=== PATIENT | female | born 1995 | race Two or more races ===

== ENCOUNTER 2020-10-13 07:58 | Outpatient (REF) | payer OTHER, SELFPAY ==
[2020-10-13 09:44] LABS: SARS COV2 PCR INHOUSE NEGATIVE (Negative)
== END 2020-10-13 07:59 | disposition home or self-care (01) ==
LOC: HO.LAB 07:58
PROVIDERS: Visit Provider Internal Medicine
DX: Z20.822 Contact with and (suspected) exposure to COVID-19 (principal)
CPT/HCPCS: C9803; U0003

== ENCOUNTER 2020-10-24 12:09 | Outpatient (REF) | payer OTHER, SELFPAY ==
[2020-10-24 14:02] LABS: COVID-19 Test Negative (Negative); IDNOW Serial# 55D5AD1C
== END 2020-10-24 12:10 | disposition home or self-care (01) ==
LOC: HO.LAB 12:09
PROVIDERS: Visit Provider Internal Medicine
DX: Z20.822 Contact with and (suspected) exposure to COVID-19 (principal)
CPT/HCPCS: 36415; 87635; C9803

== ENCOUNTER 2021-07-01 20:56 | Emergency (ER) | payer OTHER, SELFPAY ==
[2021-07-01 21:11] VITALS: BP 117/72; PULSE 100; O2SAT 98; BMI 26.8
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
[2021-07-01] MEDS: Acetaminophen Oral Liquid 650 MG/20.3 ML SOLUTION PO (23:30)
== END 2021-07-01 23:40 | disposition home or self-care (01) ==
PROVIDERS: Emergency Provider Emergency Medicine; PCP Internal Medicine Geriatric Medicine
DX: Z04.1 Encounter for examination and observation following transport accident (principal); M54.50 Low back pain, unspecified
CPT/HCPCS: 99283

== ENCOUNTER 2022-05-10 17:34 | Emergency (ER) | payer OTHER, SELFPAY ==
[2022-05-10 17:54] VITALS: BP 119/67; PULSE 92; RESP 18; TEMP 36.7; O2SAT 99; BMI 26.0
[2022-05-10 18:26] LABS: MANUAL DIFF FLAG NO
[2022-05-10 18:29] LABS: Appearance Urine Cloudy; Color Urine Yellow; Glucose Urine UA Negative (Negative); Leukocyte Esterase Urine Trace (Negative); Nitrite Urine Negative (Negative); PH 5.5 (5.0-9.0); Specific Gravity - Urine >= 1.030 (1.005-1.025); UMIC TRIGGER UACC YES; Urine Blood Large (3+) (Negative); Urine Ketones Negative (Negative); Urine Protein 300 (3+) mg/dL (Neg-Trace)
[2022-05-10 18:30] LABS: UPreg QC Valid YES; Urine Pregnancy NEGATIVE (NEGATIVE)
[2022-05-10 18:32] LABS: Alanine Aminotransferase 17 U/L (0-31); Albumin Level 4.4 g/dL (3.5-5.0); Alkaline Phosphatase 110 U/L (39-117); Anion Gap 14 (12-20); Aspartate Amino Transferase 17 U/L (5-31); Bilirubin Total 0.4 mg/dL (0.0-1.0); Blood Urea Nitrogen 12 mg/dL (9-16); Calcium 9.6 mg/dL (8.4-10.2); Carbon Dioxide 25 mmol/L (22-29); Chloride 104 mmol/L (96-108); Creatinine Clr Calc Pharmacy 99.5; Estimated Glomerular Filt Rate > 60; Glucose Random 86 mg/dL (60-115); Potassium 3.9 mmol/L (3.3-5.1); Sodium 139 mmol/L (135-145); Total Protein 8.2 g/dL (6.5-8.0)
[2022-05-10 18:36] LABS: Basophils Percent Auto 0.3 % (0-2); Eosinophils Absolute Auto 0.1 X10*3/uL (0.0-0.4); Eosinophils Percent Auto 1.1 % (0-4); Hemoglobin 9.6 g/dl (12.0-16.0); Imm Gran Abs Auto 0.03 X10*3/uL (0.00-0.03); Imm Gran Pct Auto 0.3 % (0.0-0.4); Lymphocytes Absolute Auto 2.5 X10*3/uL (1.2-4.9); Lymphocytes Percent Auto 24.2 % (20-40); Mean Corpuscular Hemoglobin 23.7 pg (27.0-33.0); Mean Corpuscular Volume 76.5 fL (80.0-98.0); Mean Platelet Volume 9.4 fL (9.4-12.3); Monocytes Absolute Auto 0.7 X10*3/uL (0.1-1.2); Monocytes Percent Auto 6.8 % (2-11); Neutrophils Percent Auto 67.3 % (45-73); Platelet Count 484 X10*3/uL (160-400); Red Blood Count 4.05 X10*6/uL (4.20-5.50); Red Cell Distribution Width 15.7 % (11.0-16.0); White Blood Count 10.4 X10*3/uL (4.8-10.8)
[2022-05-10 18:41] LABS: Bacteria Urine Trace (None Seen); RBC Urine >20 /HPF (0-2); Renal Epithelial Cells Urine Present; Transitional Epi Cells Urine Present; UACC Culture Trigger YES; WBC Urine 21-50 /HPF (0-5)
[2022-05-10 20:29] VITALS: BP 114/68; PULSE 84; RESP 16; TEMP 36.9; O2SAT 100
--- NOTE | 2022-05-10 20:52 | ED.FEMALEGU ---
HPI - Female Genitourinary General Chief complaint: Vaginal Bleeding Stated complaint: uti Time Seen by Provider: 05/10/22 20:42 Source: patient Mode of arrival: ambulatory Limitations: no limitations History of Present Illness HPI Narrative: patient comes to the emergency room complaining of hematuria and dysuria for approximately 20 hours. Patient denies any fever chills, no significant abdominal pain or flank pain. Related Data Previous Rx's Medication Instructions Recorded phenazopyridine 100 mg tablet 100 mg PO TID #5 tabs 05/10/22 sulfamethoxazole 400 1 tab PO BEDTIME #5 tabs 05/10/22 mg-trimethoprim 80 mg tablet (Bactrim) Allergies Allergy/AdvReac Type Severity Reaction Status Date / Time black pepper Allergy Angioedema Verified 05/10/22 17:58 Review of Systems Review of Systems: Constitutional : No Weight loss, No Fever, No Chills, No Night Sweats, No Fatigue, No Malaise ENT/Mouth : No Hearing loss, No Ear Pain, No Nasal Congestion, No Sinus Pain, No Hoarseness, No sore throat, No Rhinorrhea, No Swallowing Difficulty Eyes: No Eye Pain, No Swelling, No Redness, No Foreign Body, No Discharge, No Vision Changes Cardiovascular : No Chest Pain, No SOB, No Dyspnea on Exertion, No Orthopnea, No Edema, No Palpitations Respiratory : No Cough, No Sputum, No Wheezing, No Smoke Exposure, No Dyspnea Gastrointestinal : No Nausea, No Vomiting, No Diarrhea, No Constipation, No abdominal Pain, No Hematochezia, No Melena Genitourinary : no irregular bleeding, Complaining of hematuria and dysuria, No Urinary Incontinence, No Urgency, No Flank Pain, No Urinary Flow Changes, No Hesitancy Musculoskeletal : No joint pain, No Myalgias, No Joint Swelling Skin : No Skin Lesions, No rash Neuro : No Weakness, No Numbness, No Paresthesias, No Loss of Consciousness, No Dizziness, No Headache Psych : No Anxiety/Panic, No Depression, No SI/HI/AH/VH, No Social Issues, Heme/Lymph: No Bruising, No Bleeding,No Lymphadenopathy Endocrine : No Polyuria, No Polydipsia, No Temperature Intolerance [facility] Social History Social History Alcohol intake: never Patient Tobacco Use Status: Never used Tobacco Smoked in Last 30 Days: No Use of substances other than those prescribed or required for medical reasons: No Physical Exam Vital Signs: Vital Signs: Last Vital Signs Temp 98.5 F 05/10/22 20:29 Pulse 84 05/10/22 20:29 Resp 16 05/10/22 20:29 BP 114/68 05/10/22 20:29 Pulse Ox 100 05/10/22 20:29 O2 Del Method 05/10/22 20:29 BMI result Body Mass Index 26.0 Const: Other: Appearance: Alert. Oriented X3. No acute distress. Eyes: Pupils equal, round and reactive to light. ENT: Pharynx normal. Neck: Normal inspection. Neck supple. No lymph nodes noted. No crepitus CVS: Normal heart rate and rhythm. Pulses normal. Normal S1 and S2 Respiratory: No respiratory distress. Breath sounds normal. No Wheezing. No rales Abdomen: Soft and nontender. No rigidity. No distention. , no flank pain Skin: Skin warm and dry. Normal skin color. Normal skin turgor. Extremities: No lower extremity edema. No Lacerations. No Rash Neuro: Oriented X 3. No motor deficit. No sensory deficit. Moving all extremities. No slurred speech. CN 2 through 12 grossly intact Psych: calm, cooperative, normal affect Course Course Course Narrative: patient is well-appearing. test negative, white blood cell count within normal limits, no fever, normal blood pressure, no flank pain. Pyelonephritis sepsis not suspected. Patient was given 1 dose of p.o. and phenazopyridine MDM - Female Genitourinary Lab Data Result diagrams: 05/10/22 18:10 05/10/22 18:10 Labs: Lab Results 05/10/22 05/10/22 05/10/22 Range/Units 18:10 18:10 18:10 WBC 10.4 (4.8-10.8) X10*3/uL RBC 4.05 L (4.20-5.50) X10*6/uL Hgb 9.6 L (12.0-16.0) g/dl Hct 31.0 L (37.0-47.0) % MCV 76.5 L (80.0-98.0) fL MCH 23.7 L (27.0-33.0) pg MCHC 31.0 (31.0-35.0) g/dl RDW 15.7 (11.0-16.0) % Plt Count 484 H (160-400) X10*3/uL MPV 9.4 (9.4-12.3) fL Immature Gran % (Auto) 0.3 (0.0-0.4) % Neut % (Auto) 67.3 (45-73) % Lymph % (Auto) 24.2 (20-40) % [place] % (Auto) 6.8 (2-11) % Eos % (Auto) 1.1 (0-4) % Baso % (Auto) 0.3 (0-2) % Lymph # (Auto) 2.5 (1.2-4.9) X10*3/uL [place] # (Auto) 0.7 (0.1-1.2) X10*3/uL Eos # (Auto) 0.1 (0.0-0.4) X10*3/uL Baso # (Auto) 0.0 (0.0-0.2) X10*3/uL Abs Immat Gran (auto) 0.03 (0.00-0.03) X10*3/uL Absolute Neuts (auto) 7.0 (2.0-8.3) x10*3/uL Absolute Nucleated RBC 0.000 (0.0-0.012) X10*3/uL Nucleated RBC % (auto) 0.0 (0.0-0.2) /100WBC Sodium 139 (135-145) mmol/L Potassium 3.9 (3.3-5.1) mmol/L Chloride 104 (96-108) mmol/L Carbon Dioxide 25 (22-29) mmol/L Anion Gap 14 (12-20) BUN 12 (9-16) mg/dL Creatinine 0.72 (0.5-1.4) mg/dL Estim Creat Clear Calc 99.5 Estimated GFR > 60 Random Glucose 86 (60-115) mg/dL Calcium 9.6 (8.4-10.2) mg/dL Total Bilirubin 0.4 (0.0-1.0) mg/dL AST 17 (5-31) U/L ALT 17 (0-31) U/L Alkaline Phosphatase 110 (39-117) U/L Total Protein 8.2 H (6.5-8.0) g/dL Albumin 4.4 (3.5-5.0) g/dL Urine Color Yellow Urine Appearance Cloudy Urine pH 5.5 (5.0-9.0) Ur Specific Gervais >= 1.030 H (1.005-1.025) Urine Protein 300 (3+) H (Neg-Trace) mg/dL Urine Glucose (UA) Negative (Negative) mg/dL Urine Ketones Negative (Negative) mg/dL Urine Blood Large (3+) H (Negative) Urine Nitrite Negative (Negative) Ur Leukocyte Esterase Trace H (Negative) Urine RBC >20 H (0-2) /HPF Urine WBC 21-50 H (0-5) /HPF Ur Squamous Epith Cells 6-10 (0-2) /HPF Ur Transition Epith Cell Present Ur Renal Epithelial Cell Present Urine Bacteria Trace (None Seen) Hyaline Casts 3-5 (0-2) /LPF Urine Test (NEGATIVE) 05/10/22 Range/Units 18:10 WBC (4.8-10.8) X10*3/uL RBC (4.20-5.50) X10*6/uL Hgb (12.0-16.0) g/dl Hct (37.0-47.0) % MCV (80.0-98.0) fL MCH (27.0-33.0) pg MCHC (31.0-35.0) g/dl RDW (11.0-16.0) % Plt Count (160-400) X10*3/uL MPV (9.4-12.3) fL Immature Gran % (Auto) (0.0-0.4) % Neut % (Auto) (45-73) % Lymph % (Auto) (20-40) % [place] % (Auto) (2-11) % Eos % (Auto) (0-4) % Baso % (Auto) (0-2) % Lymph # (Auto) (1.2-4.9) X10*3/uL [place] # (Auto) (0.1-1.2) X10*3/uL Eos # (Auto) (0.0-0.4) X10*3/uL Baso # (Auto) (0.0-0.2) X10*3/uL Abs Immat Gran (auto) (0.00-0.03) X10*3/uL Absolute Neuts (auto) (2.0-8.3) x10*3/uL Absolute Nucleated RBC (0.0-0.012) X10*3/uL Nucleated RBC % (auto) (0.0-0.2) /100WBC Sodium (135-145) mmol/L Potassium (3.3-5.1) mmol/L Chloride (96-108) mmol/L Carbon Dioxide (22-29) mmol/L Anion Gap (12-20) BUN (9-16) mg/dL Creatinine (0.5-1.4) mg/dL Estim Creat Clear Calc Estimated GFR Random Glucose (60-115) mg/dL Calcium (8.4-10.2) mg/dL Total Bilirubin (0.0-1.0) mg/dL AST (5-31) U/L ALT (0-31) U/L Alkaline Phosphatase (39-117) U/L Total Protein (6.5-8.0) g/dL Albumin (3.5-5.0) g/dL Urine Color Urine Appearance Urine pH (5.0-9.0) Ur Specific Gervais (1.005-1.025) Urine Protein (Neg-Trace) mg/dL Urine Glucose (UA) (Negative) mg/dL Urine Ketones (Negative) mg/dL Urine Blood (Negative) Urine Nitrite (Negative) Ur Leukocyte Esterase (Negative) Urine RBC (0-2) /HPF Urine WBC (0-5) /HPF Ur Squamous Epith Cells (0-2) /HPF Ur Transition Epith Cell Ur Renal Epithelial Cell Urine Bacteria (None Seen) Hyaline Casts (0-2) /LPF Urine Test NEGATIVE (NEGATIVE) Discharge Plan Discharge Clinical Impression: UTI (urinary tract infection) Patient Disposition: Home, Self-Care Instructions: Urinary Tract Infection in Women (ED) Additional Instructions: Please follow-up with your primary care physician tomorrow. If you have any worsening or new symptoms, please return to the emergency room or call 911 Prescriptions: New sulfamethoxazole-trimethoprim [Bactrim] 400-80 mg tablet 1 tab PO BEDTIME Qty: 5 0RF phenazopyridine 100 mg tablet 100 mg PO TID Qty: 5 0RF
[2022-05-10] MEDS: Sulfamethox/Trimeth 800/160 TABLET 1 TAB PO (21:17)
[2022-05-10] MEDS: Phenazopyridine HCL 100 MG TABLET PO (21:17)
== END 2022-05-10 21:31 | disposition home or self-care (01) ==
PROVIDERS: Emergency Provider Emergency Medicine; PCP Internal Medicine Geriatric Medicine
DX: N39.0 Urinary tract infection, site not specified (principal); Z79.899 Other long term (current) drug therapy
CPT/HCPCS: 36415; 80053; 81001; 81025; 85025; 87086; 99283; 99284

== ENCOUNTER 2023-03-21 19:09 | Outpatient (REF) | payer OTHER, SELFPAY | END 2023-03-21 19:10 | disposition home or self-care (01) | LOC: HO.HHCLNP 19:09 | PROVIDERS: Visit Provider Advanced Practice Midwife | DX: Z12.4 Encounter for screening for malignant neoplasm of cervix (principal) | CPT/HCPCS: 88142 ==

== ENCOUNTER 2023-04-03 13:10 | Outpatient (REF) | payer OTHER, SELFPAY ==
--- NOTE | ~2023-04-03 | US_ITS ---
EXAMINATION: US PELVIS COMPLETE CLINICAL INFORMATION: Pelvic pain COMPARISON: CT abdomen pelvis 10/20/2015 TECHNIQUE: Transabdominal and transvaginal imaging was performed. FINDINGS: The uterus is of normal size and echogenicity measuring 7.9 x 4.0 x 5.3 cm. A regular homogeneous endometrium is identified measuring 1.2 cm. Trace fluid in the endocervical canal. Both ovaries are of normal size and echogenicity. The right measures 2.6 x 1.7 x 2.3 cm for a volume of 5.3 mL. The left measures 3.4 x 1.8 x 2.6 cm for a volume of 8.3 mL. There is no pelvic free fluid. US/US pelvic and transvaginal IMPRESSION: Trace fluid in the endocervical canal. Otherwise unremarkable pelvic ultrasound.
== END 2023-04-03 13:11 | disposition home or self-care (01) ==
LOC: HO.US 13:10
PROVIDERS: PCP Internal Medicine Geriatric Medicine; Visit Provider Advanced Practice Midwife
DX: R10.2 Pelvic and perineal pain (principal)
CPT/HCPCS: 76830; 76856

== ENCOUNTER 2023-08-23 12:43 | Outpatient (REF) | payer OTHER, SELFPAY ==
[2023-08-23 13:24] LABS: MANUAL DIFF FLAG NO
[2023-08-23 13:31] LABS: Basophils Percent Auto 0.3 % (0-2); Eosinophils Absolute Auto 0.1 X10*3/uL (0.0-0.4); Eosinophils Percent Auto 1.1 % (0-4); Hematocrit 31.3 % (37.0-47.0); Hemoglobin 9.6 g/dl (12.0-16.0); Imm Gran Abs Auto 0.02 X10*3/uL (0.00-0.03); Imm Gran Pct Auto 0.3 % (0.0-0.4); Lymphocytes Absolute Auto 2.1 X10*3/uL (1.2-4.9); Lymphocytes Percent Auto 32.6 % (20-40); Mean Corpuscular HGB Conc 30.7 g/dl (31.0-35.0); Mean Corpuscular Volume 75.1 fL (80.0-98.0); Mean Platelet Volume 9.8 fL (9.4-12.3); Monocytes Absolute Auto 0.5 X10*3/uL (0.1-1.2); Monocytes Percent Auto 7.8 % (2-11); Neutrophils Absolute Auto 3.7 x10*3/uL (2.0-8.3); Neutrophils Percent Auto 57.9 % (45-73); Platelet Count 430 X10*3/uL (160-400); Red Blood Count 4.17 X10*6/uL (4.20-5.50); Red Cell Distribution Width 16.9 % (11.0-16.0); White Blood Count 6.3 X10*3/uL (4.8-10.8)
[2023-08-23 14:17] LABS: Alanine Aminotransferase 13 U/L (0-31); Albumin Level 4.2 g/dL (3.5-5.0); Alkaline Phosphatase 99 U/L (39-117); Anion Gap 12 (12-20); Aspartate Amino Transferase 16 U/L (5-31); Bilirubin Total 0.6 mg/dL (0.0-1.0); Blood Urea Nitrogen 12 mg/dL (9-16); Calcium 9.5 mg/dL (8.4-10.2); Carbon Dioxide 23 mmol/L (22-29); Chloride 107 mmol/L (96-108); Estimated Glomerular Filt Rate > 60; Glucose Random 80 mg/dL (60-115); Potassium 3.8 mmol/L (3.3-5.1); Sodium 138 mmol/L (135-145); TSH reflex Free T4 1.33 uIU/mL (0.32-4.0); Total Protein 8.2 g/dL (6.5-8.0)
[2023-08-23 15:03] LABS: Estimated Average Glucose 108 mg/dL; Hemoglobin A1c % 5.4 % (<6.0)
[2023-08-24 03:46] LABS: HBS Num1 0.46 mIU/mL (0-7.99); HBc Num1 0.36 S/CO (0.00-0.79); HBsAGNum1 0.29 S/CO (0.00-0.99); HIV AB/AG Nonreactive (Nonreactive); HIV Num 1 0.05 S/CO (0.00-0.99); Hepatitis B Core Antibody Nonreactive (Nonreactive); Hepatitis B Surface Antigen Negative (Negative); ~HepC Num1 0.23 S/CO (0.00-0.79); ~Hepatitis B Surface Antibody NONREACTIVE (Nonreactive); ~Hepatitis C Antibody Nonreactive (Nonreactive)
[2023-08-26 12:18] LABS: RPR Rapid Plasma Reagin NON-REACTIVE (NON-REACTIVE)
== END 2023-08-23 12:44 | disposition home or self-care (01) ==
LOC: HO.HHCL 12:43
PROVIDERS: Visit Provider Nurse Practitioner
DX: Z11.3 Encounter for screening for infections with a predominantly sexual mode of transmission (principal); R25.1 Tremor, unspecified; Z86.2 Personal history of diseases of the blood and blood-forming organs and certain disorders involving the immune mechanism
CPT/HCPCS: 36415; 80053; 83036; 84443; 85025; 86592; 86704; 86706; 86803; 87340; 87389

== ENCOUNTER 2023-08-26 13:08 | Outpatient (REF) | payer OTHER, SELFPAY ==
[2023-08-27 07:48] LABS: C Peptide 4.85 ng/mL (0.80-3.85)
== END 2023-08-26 13:09 | disposition home or self-care (01) ==
LOC: HO.LAB 13:08
PROVIDERS: PCP Nurse Practitioner; Visit Provider Nurse Practitioner
DX: R25.1 Tremor, unspecified (principal)
CPT/HCPCS: 36415; 84681

== ENCOUNTER 2024-03-31 12:40 | Outpatient (REF) | payer OTHER, SELFPAY ==
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
== END 2024-03-31 12:41 | disposition home or self-care (01) ==
LOC: HO.MAMMO 12:40
PROVIDERS: PCP Nurse Practitioner; Visit Provider Advanced Practice Midwife
DX: N63.22 Unspecified lump in the left breast, upper inner quadrant (principal)
CPT/HCPCS: 76641

== ENCOUNTER → 2024-03-31 13:00 | Outpatient (BNV) | payer OTHER, SELFPAY | PROVIDERS: PCP Nurse Practitioner; Visit Provider Radiology Diagnostic Radiology | DX: N63.22 Unspecified lump in the left breast, upper inner quadrant (principal) | CPT/HCPCS: 76641 ==

== ENCOUNTER 2024-07-01 10:52 | Outpatient (REF) | payer OTHER, SELFPAY ==
--- NOTE | ~2024-07-01 | US_ITS ---
EXAMINATION: US DIAGNOSTIC ULTRASOUND BREAST, LEFT Limited left breast ultrasound. CLINICAL INFORMATION: 29-year-old female with palpable left breast lump for which a three-month follow-up was recommended. Patient feels like the area has gotten bigger in size and is more painful.. COMPARISON: Comparison is made with relevant prior imaging. TECHNIQUE: Ultrasound of the breast is performed with real-time milton scale imaging and color Doppler. FINDINGS: Targeted color Doppler ultrasound scanning at 10:00 4 cm from nipple demonstrates a hypoechoic irregular solid masses with internal vascular flow measuring approximately 7 x 9 x 6 mm. Given the patient's increased symptoms and size ultrasound guided core needle biopsy is recommended at this time. Results are discussed with the patient at time of visit. US/US breast LT limited mamm only IMPRESSION: Solid irregular mass at 10:00 in the left breast on ultrasound. Recommend histology with ultrasound-guided core needle biopsy at this time. The findings and recommendations were discussed with the patient the procedure will be scheduled. ASSESSMENT: BI-RADS 4: Suspicious RECOMMENDATION: Biopsy This patient's information was entered into a reminder system with a target due date for their next mammogram. Electronically signed by: Priscilla Chacon DO 07/01/2024 11:45 AM DEANNA
== END 2024-07-01 10:53 | disposition home or self-care (01) ==
LOC: HO.MAMMO 10:52
PROVIDERS: PCP Nurse Practitioner; Visit Provider Nurse Practitioner
DX: N63.22 Unspecified lump in the left breast, upper inner quadrant (principal)
CPT/HCPCS: 76642

== ENCOUNTER → 2024-07-01 11:00 | Outpatient (BNV) | payer OTHER, SELFPAY | PROVIDERS: PCP Nurse Practitioner; Visit Provider Internal Medicine | DX: N63.21 Unspecified lump in the left breast, upper outer quadrant (principal) | CPT/HCPCS: 76642 ==

== ENCOUNTER 2024-07-29 07:45 | Outpatient (AMB) | payer OTHER, SELFPAY ==
--- OUTSIDE RECORDS SUMMARY | 2024-07-29 07:47 | XMS_ITS | Continuity of Care Document ---
Author Organization [facility] Address [address] [place] [address] Phone Care Team Providers Care Mammographer Name Role Phone Elvis RAY, Jemal Unavailable Unavaila ble Allergies, Adverse Reactions, Alerts Substance Reaction Status Criticality No Known Allergies Active No Inform ation Medications Medication Instructions Dosage Effective Dates (start - stop) Status Comments No Drug Therapy Prescribed Problems Condition Type Effective Dates (start - stop) Clini say Status Comments No Known Problems Procedures Procedure Date OV, New Pt, Level III Removal Of Impacted Cerumen Tympanometry Comp Audiometry Threshold Eval 17 OV, Estab Pt, Level IV Intracutaneous Tests W/ Allergen Ex Percut Allergy Skin Tests OV, Estab Pt, Level II OV, Estab Pt, Level II Tympanometry Comp Audiometry Threshold Eval 12 OV, Estab Pt, Level II Tympanometry Post Op Office Visit Tympanoplasty,W/O Ossicular Reconst Myringoplasty OV, Estab Pt, Level II OV, Estab Pt, Level II OV, Estab Pt, Level III OV, Estab Pt, Level III Comp Audiometry Threshold Eval 11 Tympanometry And Reflex Threshold Measur ements OV, Estab Pt, Level III Consult, Level III /Office Spirometry W/[id number] Kendrick 009 Percut Allergy Skin Tests OV, Estab Pt, Level IV Comp Audiometry Threshold Eval 09 Tympanometry Acoustic Reflex Testing OV, Estab Pt, Level IV Diagnostic Nasal Endoscopy OV, Estab Pt, Level III OV, Estab Pt, Level II Comp Audiometry Threshold Eval 07 Tympanometry Acoustic Reflex Testing OV, Estab Pt, Level II OV, Estab Pt, Level II OV, Estab Pt, Level II Diagnostic Fiberoptic Laryngoscopy OV, Estab Pt, Level II Advance Directives Directive Yes / No Effective Date File Name No Information Encounters Encounter Description Practice Location Reason(s) For Visit Diagnoses Date Provider Providers Copied on Encounter [facility], [address], [place], [place], [id number] , tel: [phone] [facility] No Information 1 Elvis Joaquin. [address] [facility], [facility] [address], [place], [id number], . tel:[phone] OV, New Pt, Level III [facility], [address], [place], [place], [id number] , tel:[phone] [facility] cerumen impaction (chief complaint) Decreased hearing -adult (chief complaint) Condctv hear loss, uni, left ear, w unrestr hear cntra sideImpacted cerumen, bilateralConduct doris hearing loss, bilateral Alex--201 7 Elvis Joaquin. [address] [facility], [address], [place], [id number], [place]. tel:[phone] OV, Estab Pt, Level IV [facility], [address], [place], [place], [id number] , [place] tel: [phone] [facility] Rhinitis(A ) (chief complaint) Asthma (chief complaint) Food Allergy (chief complaint) No Information 4 No Information Referring Provider: Jemal Leal MD, [address] [place] [address], [address]. tel:[phone] OV, Estab Pt, Level II [facility], [address], [place], [id number] , [place] tel: [phone] [facility] Ear Fullness (chief complaint) Impacted Cerumen 4 Elvis Joaquin. [address] [facility], [address], [id number], . tel:[phone] Referring Provider: Malina Álvarez , [address] [place] [address], [address]. tel:[phone] OV, Estab Pt, Level II [facility], [address], [place], [place], [id number] , tel: [phone] [facility] Chr Serous Om Simp/nos 2 Elvis Joaquin. [address] [facility], [address] [place] [address], [id number], [place]. tel:[phone] Referring Provider: Sid Wallace, [address] [place] [address], [address]. tel:[phone] OV, Estab Pt, Level II [facility], [address] [place] [address], [id number] , [place] tel: [phone] [facility] Dysfunct Eustachian TubeOtitis Media Nos 2 Elvis Joaquin. [address] [facility], [address], [id number], [place]. tel:[phone] Referring Provider: Sid Wallace, [address] [place] [address], [address]. tel:[phone] [facility], [address], [place], [place], [id number] , [place] tel: [phone] [facility] post-opera tive visit (chief complaint) Perforat Tympan Memb Nos Sep-2 8-201 1 Elvis Joaquin. [address] [facility], [address], [place], [id number], [place]. tel:[phone] Referring Provider: Sid Wallace, [address] [place] [address], [address]. tel:[phone] [facility], [address], [place], [place], [id number] , [place] tel: [phone] [facility] No Information Sep-2 2-201 1 Elvis Joaquin. [address] [facility], [address], [id number], [place]. tel:[phone] Referring Provider: Sid Wallace, [address] [place] [address], [address]. tel:[phone] OV, Estab Pt, Level II [facility], [address], [place], [id number] , [place] tel: [phone] [facility] Ear Discharge (chief complaint) Perforat Tympan Memb NosOtorrhea Nos Sep-2 0-201 1 Elvis Joaquin. [address] [facility], [address], [place], [id number], [place]. tel:[phone] Referring Provider: Sid Wallace, [address] [place] [address], [address]. tel:[phone] OV, Estab Pt, Level II [facility], [address], [place], [place], [id number] , [place] tel: [phone] [facility] Otorrhea NosPerforat Tympan Memb Nos 1 Elvis Joaquin. [address] [facility], [address], [id number], . tel: [phone] Referring Provider: Sid Wallace, [address] [place], [address]. tel: [phone] OV, Estab Pt, Level III [facility], [address], [place], [place], [id number] , [place] tel: [phone] [facility] Perforat Tympan Memb Nos 1 Elvis Joaquin. [address] [facility], [address], [id number], . tel: [phone] Referring Provider: Sid Wallace, [facility] [place], [address]. tel: [phone] OV, Estab Pt, Level III [facility], [address], [place], [place], [id number] , [place] tel: [phone] [facility] Ear Discharge (chief complaint) Hearing Loss (chief complaint) Perforat Tympan Memb NosConduc Hear Loss Mid EarOral Aphthae 1 Elvis Joaquin. [address] [facility], [address], [id number], [place]. tel: [phone] Referring Provider: Sid Wallace, [address] [place], [address]. tel: [phone] OV, Estab Pt, Level III [facility], [address], [place], [id number] , [place] tel: [phone] [facility] Ear Discharge (chief complaint) Hearing Loss (chief complaint) Otorrhea NosHearing Loss NosPerforat Tympan Memb Nos 1 Elvis Joaquin. [address] [facility], [address] [place] [address], [id number], [place]. tel:[phone] Consult, Level III /Office [facility], [address], [place], [place], [id number] , [place] tel: [phone] [facility] Rhinitis(A ) (chief complaint) Asthma (chief complaint) Food Allergy (chief complaint) Asthma W/o Status Asthm 9 No Information Referring Provider: Sid Wallace, [address] [place], [address]. tel:[phone] OV, Estab Pt, Level IV [facility], [address], [place], [place], [id number] , [place] tel: [phone] [facility] Hearing Loss (chief complaint) Hearing Loss NosCholesteatoma Middle Ear 9 Elvis Joaquin. [address] [facility], [address] [place] [address], [id number], [place]. tel:[phone] [facility], [address], [place], [place], [id number] , [place] tel: [phone] [facility] No Information 9 Elvis Joaquin. [address] [facility], [address] [place] [address], [id number], [place]. tel:[phone] OV, Estab Pt, Level IV [facility], [address], [place], [place], [id number] , [place] tel: [phone] [facility] Ear Discharge (chief complaint) Rhinitis (chief complaint) Chronic RhinitisOtorrhea Nos 9 Elvis Joaquin. [address] [facility], [address], [place], [id number], [place]. tel:[phone] OV, Estab Pt, Level III [facility], [address], [place], [place], [id number] , [place] tel: [phone] [facility] Ear Discharge (chief complaint) Rhinitis (chief complaint) Allergic Rhinitis NosOtorrhea Nos Oct- 3-[address] [facility] [address], [place], [id number], . tel:[phone] Referring Provider: Tammy Andrews, [address] [facility] [address], [place], [address]. tel:[phone] OV, Estab Pt, Level II [facility], [address], [place], [place], [id number] , [place] tel: [phone] [facility] Otorrhea Nos Oct- 6-200 8 Elvis Joaquin. [address], [id number], [place]. tel: [phone] OV, Estab Pt, Level II [facility], [address], [place], [place], [id number] , [place] tel: [phone] [facility] Sudden Hearing Loss NosOtorrhea NosNonsupp Otitis Media Nos Dec- [address] [facility] [address], [place], [id number], [place]. tel: [phone] OV, Estab Pt, Level II [facility], [address], [place], [place], [id number] , [place] tel: [phone] [facility] Chr Sup Otitis Media NosPerforat Tympan Memb Nos Sep-0 4200 7 Elvis Joaquin. [address] [facility], [address], [id number], [place]. tel: [phone] OV, Estab Pt, Level II [facility], [address], [id number] , [place] tel: [phone] [facility] Otorrhea NosVoice Disturbance NecEdema Of Larynx 7 Elvis Joaquin. [address], [id number], [place]. tel:[phone] OV, Estab Pt, Level II [facility], [address], [place], [place], [id number] , [place] tel: [phone] [facility] Otorrhea NosReferred Pain Of Ear 6 Elvis Joaquin. [address], [id number], [place]. tel: [facility], [address], [place], [place], [id number] , [place] tel: [phone] [facility] Otorrhea Nos 6 Elvis Joaquin. [address] [facility], [address], [id number], [place]. tel: [facility], [address], [place], [place], [id number] , [place] tel: [phone] [facility] Nonsupp Otitis Media Nos 5 Elvis Joaquin. [address], [id number], [place]. tel: [facility], [address], [place], [place], [id number] , [place] tel: [phone] [facility] Conduct Hearing Loss Nos 5 Elvis Joaquin. [address] [facility], [address], [id number], [place]. tel: [facility], [address], [place], [place], [id number] , [place] tel: [phone] [facility] Nonsupp Otitis Media Nos Sep- 5 Elvis Joaquin. [address] [facility], [address], [place], [place], [id number], [place]. tel: [facility], [address], [place], [place], [id number] , [place] tel: [phone] [facility] Otorrhea Nos 2200 5 Elvis Joaquin. [address] [facility], [address] [place] [address], [id number], [place]. tel: [facility], [address], [place], [place], [id number] , [place] tel: [phone] [facility] Otorrhea Nos 8200 5 Elvis Joaquin. [address] [facility], [address], [id number], [place]. tel: [facility], [address], [place], [place], [id number] , [place] tel: [phone] [facility] Nonsupp Otitis Media NosChronic RhinitisDeviated Nasal SeptumHypertrph Nasal TurbinatConduct Hearing Loss Nos 1200 5 Elvis Joaquin. [address] [facility], [address] [place] [address], [id number], [place]. tel: [facility], [address], [place], [place], [id number] , [place] tel: [phone] [facility] Referred Pain Of Ear 6 5 Elvis Joaquin. [address] [facility], [address] [place] [address], [id number], [place]. tel: [facility], [address], [place], [place], [id number] , [place] tel: [phone] [facility] Conduct Hearing Loss Nos 3-200 5 Elvis Joaquin. [address] [facility], [address], [place], [place], [id number], [place]. tel:[phone] [facility], [address], [place], [place], [id number] , tel: [phone] [facility] Nonsupp Otitis Media Nos 5 Elvis Joaquin. [address] [facility], [address], [place], [place], [id number], [place]. tel:[phone] Family History Family Member Type Diagnosis Age At Onset Mother Problem (finding) Irritable bowel disease Problem (finding) Problem (finding) Family history of asthm a Brother Problem (finding) seizure disorder Mother Problem (finding) Eczema Maternal grandmother Problem (finding) Allergies Mother Problem (finding) Allergies Mother Problem (finding) asthma Maternal grandfather Problem (finding) seizure disorde r Problem (finding) Family history of Eczem a Father Problem (finding) Asthma& allergy great-grandma -mom's Problem (finding) malignant neopl asm of male breast Problem (finding) Family history of Irritable bowel disease Problem (finding) Family history of seizure disorder Brother Problem (finding) asthma Problem (finding) Family history of Aller gies Payers Payer name Insurance type Covered democrat ID Cristiane ng(s) [facility] Medicaid CI [id number] Social History Type Description Quantity Date Captured Comments Sex Female Smoking Status No Information Chief Complaint And Reason For Visit No Information Reason For Referral Reason For Referral No Information Plan Of Treatment Date Type Action Status Referral Referred To: Milka Kimball MD Ordered: Referral to [facility] - Milka Kimball MD ordered History Of Present Illness Encounter Date Complaint History Of Prese nt Illness cerumen impaction The patient co mplains of cerumen in both ears that began gradually. The symptoms occur intermittently and are worsening. The patient is also experiencing hearing loss. The patient denies dizziness, ear drainage, itchy ears, otalgia and tinnitus. Decreased hearing -adult Locatio n includes left ear greater than right. The patient denies ear drainage, nasal congestion, otalgia and tinnitus. Functional Status Date Functional Assessmen t No Information Medications Administered Medication Instructions Dosage Effective Dates (start - stop) Status Comments No Drug Therapy Prescribed Instructions Date Instruction Additional Infor jamesnorma Consider reconstruction Related to Condctv hear loss, uni, left ear, w unrestr hear cntra side Assessments Type Assessment Date No Information Patient Care Teams Name Effective Dates (start - stop) Status Members No Information
--- NOTE | 2024-07-29 08:07 | MHC.OFFVIS ---
Vital Signs 07/29/24 08:08 Height 5 ft 1 in Weight 157 lb 2 oz BMI 29.7 BP 123/78 Blood Pressure Location Rt brachial Position Standing Pulse 82 Intake Visit Reasons: left br US bx for 10 O'c mass Intake Note: This patient presents for left breast ultrasound guided biopsy for 10 o'clock mass. Pt c/o; reports she feels a lump on the left breast, occasional pain. Body And Fender Worker Required: No Accompanied by: Significant Other Allergies black pepper Allergy (Verified 07/29/24 08:15) Angioedema Medication List - Last Reconciled 07/29/24 by Fish Cash MD phenazopyridine 100 mg PO TID sulfamethoxazole-trimethoprim 400-80 mg (Bactrim) 1 tab PO BEDTIME HPI HPI left br US bx for 10 O'c mass: Details: 29-year-old female referred for a left breast mass. She says she has felt this mass in the upper part of her left breast for about 4 months. She thinks that this may have increased in size a little bit. She describes some discomfort but no pain She had an ultrasound showing a hypoechoic irregular solid mass about 9 mm in widest dimension. He is recommended to undergo an ultrasound biopsy. Her menarche was at the age of 11. Her 1st was the age of 23. She had 2 pregnancies with 2 live births and 2 miscarriages. She still has regular periods She denies any family history of breast cancer. [facility] Medical History Left breast mass Surgical History H/O section Family History Other Cancer Social History Alcohol intake: never Patient Tobacco Use Status: Never used Tobacco Female Reproductive History Menstrual Age of Menarche: 10 Total pregnancies: 2 Review of Systems Const Denies chills and Denies fever(s) Card Denies chest pain, Denies dyspnea and Denies dyspnea on exertion Resp Denies cough, Denies dyspnea and Denies dyspnea on exertion GI Denies hematochezia and Denies change in bowel habits Denies hematuria Musc Denies back pain and Denies limited range of motion Neuro Denies focal weakness and Denies convulsions Psych Denies depression and Denies mood swings Physical Exam Vital Signs: Last Vital Signs Pulse 82 07/29/24 08:08 BP 123/78 07/29/24 08:08 BMI result Body Mass Index 29.7 Const General: comfortable and no acute distress Orientation/consciousness: patient oriented x3 Neck Neck: Yes no lymphadenopathy Chest Other: Left breast on the upper part is note of a spherical well-defined mass, about 1 cm in diameter Resp Auscultation: clear to auscultation bilaterally Cardio Rhythm: regular rhythm GI Palpation (GI): Soft to palpation, nontender and no guarding Neuro General: patient oriented x3 Assessment & Plan Assessment & Plan (1) Left breast mass: Code(s): N63.20 - Unspecified lump in the left breast, unspecified quadrant Category: Medical Plan: She has this left breast mass on palpation as described above which is also seen on ultrasound. An ultrasound biopsy had been recommended. I explained to her the technique of this procedure. I will see her again in the office next week to discuss the path report. Physical exam does suggest a fibroadenoma. Orders: Orders US breast ndl core biopsy LT 07/28/24 N63.20 - Unspecified lump in the left breast, unspecified quadrant Coding Level of Care Code New Pt Level 3 (57541) Diagnoses Left breast mass N63.20
[2024-07-29 08:08] VITALS: BP 123/78; PULSE 82; BMI 29.7
== END 2024-07-29 08:51 | disposition home or self-care (01) ==
PROVIDERS: PCP Nurse Practitioner; Visit Provider Surgery
DX: N63.20 Unspecified lump in the left breast, unspecified quadrant (principal)
CPT/HCPCS: 99203

== ENCOUNTER 2024-07-29 08:56 | Outpatient (REF) | payer OTHER, SELFPAY ==
--- NOTE | ~2024-07-29 | US_ITS ---
ADDENDUM #1 Left breast o'clock solid mass: Invasive ductal carcinoma and ductal carcinoma in situ. 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 Recommend breast surgical consultation for excision and further management. Recommend bilateral mammography for further evaluation. Recommend breast MRI for further evaluation. Electronically signed by: Priscilla Chacon DO 08/03/2024 09:23 AM EST ORIGINAL REPORT PROCEDURE: ULTRASOUND-GUIDED LEFT BREAST BIOPSY CLINICAL INFORMATION: Solid irregular mass at 10:00 4 cm from the nipple in the left breast COMPARISON: Prior ultrasounds available for comparison. TECHNIQUE: The details of the procedure, as well as the risks, benefits, and alternatives to the procedure were explained to the patient in detail and all of her questions were answered, after which, written informed consent was obtained. PROCEDURE: Prior to the procedure, sonography revealed solid mass at 10:00. A time-out was performed, the lesion intended for biopsy was targeted and the skin of the left breast was then prepped and draped in the usual sterile fashion. Using sonographic guidance, sterile technique, and 1% lidocaine without epinephrine for local anesthesia, a total of 4 cores were obtained through the targeted area with a 14-gauge biopsy device. At the completion of tissue sampling, a single [coil metallic clip was deposited at the biopsy site. An appropriate sample was obtained. The postprocedure 2-view direct digital mammogram reveals satisfactory positioning of the biopsy clip. The patient tolerated the procedure well and, after assuring adequate hemostasis, was discharged in good condition after reviewing postbiopsy breast care instructions. Final pathology results are pending. IMPRESSION: 1. Uncomplicated sonographically-guided core biopsy of the left breast. The 2-view direct digital postprocedure mammogram reveals satisfactory positioning of the biopsy clip. 2. Final pathology results are pending. A separate report with final recommendations will be issued once these results are made available. Electronically signed by: Priscilla Chacon DO 07/29/2024 01:07 PM EST RP US/US breast ndl core biopsy LT IMPRESSION: 1. Uncomplicated sonographically-guided core biopsy of the left breast. The 2-view direct digital postprocedure mammogram reveals satisfactory positioning of the biopsy clip. 2. Final pathology results are pending. A separate report with final recommendations will be issued once these results are made available. Electronically signed by: Priscilla Chacon DO 07/29/2024 01:07 PM DEANNA
[2024-07-29] MEDS: Lidocaine HCl 1 % 20 ML VIAL 16 ML SUBCUT (09:40)
[2024-07-29] MEDS: Sodium Bicarbonate 8.4% 50 MEQ/50 ML VIAL SUBCUT (09:41)
== END 2024-07-29 08:57 | disposition home or self-care (01) ==
LOC: HO.MAMMO 08:56
PROVIDERS: Pathology Anatomic Pathology & Clinical Pathology; PCP Nurse Practitioner; Visit Provider Surgery
DX: C50.212 Malignant neoplasm of upper-inner quadrant of left female breast (principal); Z17.0 Estrogen receptor positive status [ER+]; Z17.21 Progesterone receptor positive status; N63.22 Unspecified lump in the left breast, upper inner quadrant
CPT/HCPCS: 19083; 36415; 88305; 88341; 88342; 88360; 88374; 88377; 99202; A4648; C1894; J2003

== ENCOUNTER → 2024-07-29 09:00 | Outpatient (BNV) | payer OTHER, SELFPAY | PROVIDERS: PCP Nurse Practitioner; Visit Provider Internal Medicine | DX: C50.912 Malignant neoplasm of unspecified site of left female breast (principal) | CPT/HCPCS: 19083; 77065 ==

== ENCOUNTER 2024-08-05 09:16 | Outpatient (REF) | payer OTHER, SELFPAY ==
--- NOTE | ~2024-08-05 | MM_ITS ---
EXAMINATION: MM DIAGNOSTIC DIGITAL BREAST TOMOSYNTHESIS, BILATERAL CLINICAL INFORMATION: Biopsy-proven invasive ductal carcinoma in the left breast, 29-year-old bilateral diagnostic mammography recommended. COMPARISON: Mammography: Comparison is made with relevant prior exams. TECHNIQUE: Digital breast mammography with tomosynthesis is performed in both the craniocaudal and mediolateral oblique views along with computer-aided detection (CAD). FINDINGS: The breasts are heterogeneously dense, which may obscure small masses (ACR BI-RADS breast composition Category c). Right: No suspicious calcifications masses or other abnormal findings. Left: Coil Marker clip in the upper inner breast posterior depth at site of biopsy-proven invasive ductal carcinoma. The coil clip is at the posterior extent of suspcious mass and calcifications. There are multiple adjacent irregular masses with associated segmental pleomorphic and linear branching calcifications associated with the irregular masses. The entire suspicious area measures 6.3 cm anterior to posterior by 3.2 cm transverse by 5.2 cm superior to inferior. No other suspicious abnormal findings. Results are discussed with the patient at time of visit. MM/MM tomosynthesis diagnostic BI IMPRESSION: Right: Negative. Left: Biopsy-proven invasive ductal carcinoma in the upper inner left breast with associated suspicious calcifications in adjacent masses measuring up to 6.3 cm. These findings were communicated to the patient's breast surgeon Dr. Cash today. If an anterior extent is needed the calcifications and masses are amenable to core needle biopsy. The patient is under the care of a breast surgeon for excision and further management. ASSESSMENT: BI-RADS BI-RADS 6 - Known biopsy proven malignancy RECOMMENDATION: Surgical Consult This patient's information was entered into a reminder system with a target due date for their next mammogram. Electronically signed by: Priscilla Chacon DO 08/05/2024 12:34 PM [facility]
--- OUTSIDE RECORDS SUMMARY | 2024-08-05 09:44 | XMS_ITS | Encounter Summary ---
Author Organization [employer] Address [address] [facility] [address] [place] [address] Care Team Providers Care Digital Computer Operator Name Role Phone Jennifer Nash NP Primary Care Provider [phone] Encounter Details Date Type Department Care Team ([facility] st Contact Info) Description 08/30/2023 Orders Only [facility] [address] [place] [address] Jennifer Nash NP [address] [place] [address] Anemia, unspecified type (Primary Dx); Hypoglycemia Social History Tobacco Use Types Packs/Day Years Used Date Smoking Tobacco: Never Passive Smoke Exposure: Never Smokeless Tobacco: Never Alcohol Use Standard Drinks/Week Comments Never 0 (1 standard drink = 0.6 oz pur e alcohol) Depression Answer Date Recorded Patient Health Questionnaire-9 Score 3 01/23/2023 Housing Stability Answer Date Recorded What is your housing situation today? I have jessicaumang boo 05/20/[address] you li ve. Do you have problems with any of the following? None of the above 05/20/2023 Food Insecurity Answer Date Recorded Within the past 12 months, y ou worried that your food would run out before you got money to buy more: Never True 05/20/2023 Within the past 12 months,th e food you bought just didn't last and you didn't have enough money to get more: Never True 12/2022 Transportation Answer Date Recorded In the past 12 months, has l ack of transportation kept you from medical appts, meetings, work or from getting things needed for daily living? No 05/20/2023 Utilities Answer Date Recorded In the past 12 months, has t he electric, gas, oil or water company threatened to shut off services in your home? No 05/20/2023 Depression Answer Date Recorded Patient Health Questionnaire-2 Score 0 01/23/2023 Comments No Sex and Gender Information Value Date Recorded Sex Assigned at Female 05/14/2022 10:14 AM EDT Legal Sex Female 10:14 AM EDT Gender Identity Female 05/14/2022 10:14 AM EDT Sexual Orientation Straight 05/14/2022 10 :14 AM EDT documented as of this encounter Plan of Treatment Not on file documented as of this encounter Visit Diagnoses Diagnosis Anemia, unspecified type- Primary Hypoglycemia Hypoglycemia, unspecified documented in this encounter Additional Health Concerns Assessment Noted Time PHQ-9 Depression Total Score: 3 01/24/20 23 11:03 AM EDT documented as of this encounter Care Teams Digital Computer Operator Relationship Specialty Start Date End Date Jennifer Nash NP [address] [place] [address] PCP - General Family Medicine 06/25/23 documented as of this encounter
--- OUTSIDE RECORDS SUMMARY | 2024-08-05 09:44 | XMS_ITS | Clinical Summary ---
Author Organization [employer] Address [address] [place] [address] [address] [place] [address] Care Team Providers Care Patient Relations Liaison Name Role Phone Jennifer Nash ALFREDO Primary Care Provider [phone] Allergies No known active allergies Medications simethicone (Mylicon) 80 MG chewable tabletIndicati ons:Acute abdominal pain in right lower quadrant Chew 1 tablet (80 mg) every 6 (six) hours if needed for flatulence. 80 tablet 1 01/24/20 23 Active Additional Information Patient not taking.Reported on 02/06/2023 ibuprofen 600 MG tabletIndicati ons:Acute abdominal pain in right lower quadrant Take 1 tablet (600 mg) by mouth 3 times daily. 90 tablet 1 01/24/20 23 Active Diclofenac Sodium 1 % gel APPLY TWO GRAM EXTERNAL FOUR TIMES A DAY FOR 10 DAYS 02/23/20 23 Active ferrous gluconate (Fergon) 324 (38 Fe) MG tabletIndicati ons:Anemia, unspecified type Take 1 tablet every other day with vitamin C. 30 tablet 2 08/30/19 24 Active Ascorbic Acid (vitamin C) 250 MG tabletIndicati ons:Anemia, unspecified type Take 1 tablet by mouth every other day with iron on an empty stomach 30 tablet 1 08/30/19 24 Active glucose 4 g chewable tabletIndicati ons:Hypoglycem ia Chew 4 tablets (16 g) if needed for low blood sugar. 50 tablet 1 08/30/19 24 Active Lancets miscIndication s:Hypoglycemia Use to test blood sugar as needed for hypoglycemia 100 each 08/30/19 24 Active Alcohol Swabs 70 % padsIndication s:Hypoglycemia Use to test blood sugar as needed for hypoglycemia 100 each 08/30/19 24 Active Blood Glucose Monitoring Suppl (FreeStyle [place] Lite) w/Device kitIndications :Hypoglycemia Use to test blood sugar as needed for hypoglycemia 1 kit 08/30/19 24 Active glucose blood (FREESTYLE LITE) test stripIndicatio ns:Hypoglycemi a USE TO TEST BLOOD SUGAR NEEDED FOR HYPOGLYCEMIA 100 each 2 08/05/19 25 2025 Active FREESTYLE LITE test stripIndicatio ns:Hypoglycemi a Use to test blood sugar as needed for hypoglycemia 100 each 2 08/30/19 24 2024 Discontinued(R eorder (will not trigger notification to Pharmacy)) Active Problems Problem Noted Date Diagnosed Date Shakiness 11/21/2023 Assessment & Plan (11/21/2023 9:22 PM EDT): -symptom pattern suspicious for low blood sugars -POCT hcg negative -POCT urinalysis negative with exception of presence of protein -TSH ordered to evaluate for thyroid dysfunction; c-peptide and A1c to evaluate for low blood sugars -patient advised against skipping breakfast as this is when her symptoms occur. Encouraged to eat small meals frequently and keep sugary snack on her at all times. -pending lab results, will consider prescription for glucometer -will schedule for transfer patient visit Hx of iron deficiency anemia 11/21/2023 Assessment & Plan (11/21/2023 9:25 PM EDT): -patient reports history of anemia -labs ordered to evaluate current levels -advised to increase dietary intake of iron rich foods as found in dark green leafy vegetables, meats, beans, and iron fortified cereals Routine screening for STI (sexually transmitted infection) 11/21/2023 Assessment & Plan (11/21/2023 9:25 PM EDT): -patient agreeable to testing Overweight (BMI 25.0-29.9) 10/02/2023 Assessment & Plan (10/02/2023 4:40 PM EDT): -Healthy diet and exercise teaching completed: Eat a variety of fruit and vegetables, whole grains such as whole-wheat flour, bulgur (cracked wheat), oatmeal, and brown rice. Intake protein from beans, nuts, fish, and lean meats. Eat low-fat or fat- free dairy products. Limit highly processed foods such as hot dogs, sandwich meat, etc. Engage in minimum of 150 min of moderate intensity exercise weekly -normal TSH and A1c levels noted 08/2023 -lipids ordered Microcytic anemia 10/02/2023 Assessment & Plan (10/02/2023 4:40 PM EDT): -patient denies symptoms of anemia -will repeat CBC w/ differential -iron panel ordered -will evaluate for thalassemia as cause of anemia -patient agreeable to trial ferrous gluconate and vitamin C supplementation again. Advised to call the clinic with adverse effects -increase consumption of iron rich foods such as henderson, dark green leafy vegetables, fortified breakfast cereals advised -will call or send message in [employer] with results -follow-up 3 months via televisit or sooner as needed Encounter for annual physical exam 10/02/2023 Assessment & Plan (10/02/2023 4:44 PM EDT): -no immunity to hepatitis B. Will offer vaccination at next visit -cervical cancer screening up to date. Due 2025 -follow-up 3 yrs Migraine 01/23/2023 Placenta previa partialis in second trimester Acute cystitis with hematuria 08/20/2022 Ectopic 08/01/2020 Mild persistent asthma 10/04/2016 Resolved Problems Problem Noted Date Diagnosed Date Resolved Date Routine health maintenance 10/02/2023 0 10/02/2023 Encounters Date Type Department Care Team Description 08/02/2024 Refill [facility] [address] [place] [address] Jennifer Nash NP Hypoglycemia 07/29/2024 Orders Only [facility] External Provider, [facility] 07/01/2024 Telephone [facility] [address], [place] [id number] Fidelina Morrow, FABIANA Results from Last 3 Months Immunizations Name Administration Dates Next Due DTP 1995,1995,1995 DTaP 1995,1995,1995 DTaP, 5 pertussis antigens 01/25/2000,08/06/1996 HPV, Quadrivalent 06/15/2008, 8,06/11/2007,06/11 Hep B, Adolescent or Pediatric 1995,1994,1995 Hib (PRP-T) 06/24/1996, 6,1995,04/09 IPV 01/25/2000, 6,1995,04/09 Influenza Injectable Quadriv alant Preservative Free IIV4 MDCK 04/01/2018 Influenza injectable quadriv alent preservative free 05/05/2014 Influenza, IIV3, injectable 09/22/2021,0 03/31/2013,06/15/2009,06/15,06/15/2008,06/15/2008,06/11/2007 ,06/11/2007 Influenza, Split (incl. ailyn fied surface antigen) 03/31/2013 MMR 01/25/2000,02/11/1996 MMRV 02/12/2014 Meningococcal MCV4P ACYW-135 05/28/2006 Novel [id number], all formulations 06/15/2009 Tdap 10/06/2021, 8,05/28/2006,05/28 Social History Tobacco Use Types Packs/Day Years Used Date Smoking Tobacco: Never Passive Smoke Exposure: Never Smokeless Tobacco: Never Tobacco Cessation:Counseling Given: Not Answered Alcohol Use Standard Drinks/Week Comments Never 0 (1 standard drink = 0.6 oz pur e alcohol) Depression Answer Date Recorded Patient Health Questionnaire-9 Score 0 10/02/2023 Patient Health Questionnaire-9 Score 0 10/02/2023 Last PHQ-9: Questionnaire Data Not on file 0 10/02/2023 Housing Stability Answer Date Recorded What is your housing situation today? I have jessica boo 05/20/[address] you [...] Date Recorded Patient Health Questionnaire-2 Score 0 10/02/2023 Comments No Sex and Gender Information Value Date Recorded Sex Assigned at Female 05/14/2022 10:14 AM EDT Legal Sex Female 10:14 AM EDT Gender Identity Female 05/14/2022 10:14 AM EDT Sexual Orientation Straight 05/14/2022 10 :14 AM EDT Last Filed Vital Signs Vital Sign Reading Time Taken Comments Blood Pressure 130/70 03/23/2024 10:20 AM EDT Pulse 86 03/23/2024 10:20 AM EDT Temperature 37.1 ??C (98.8 ??F) 03/23/2024 10:20 AM E DT Respiratory Rate 20 03/23/2024 10:20 AM EDT Oxygen Saturation 98% 03/23/2024 10:20 AM EDT Inhaled Oxygen Concentration - - Weight 72.6 kg (160 lb) 03/23/2024 10:20 AM EDT Height 154.9 cm (5' 1 ) 03/23/2024 10:20 AM EDT Body Mass Index 30.23 03/23/2024 10:20 AM EDT Plan of Treatment Health Maintenance Due Date Last Done Comments Pneumococcal Vaccine: Pediatrics (0 to 5 Years) and At-Risk Patients (6 to 64 Years) (1 of 2 - PCV) 2001 Alcohol/Substance Use Screening 2007 COVID-19 Vaccine ( season) 2024 08/16/2021, 07/19/2021 Influenza Vaccine (#1) 2024 , 04/01/2018, 05/05/2014, Additional history exists Diagnostic Breast Imaging 09/29/2024 07/01/2024, Mammogram 09/29/2024 07/01/2024, 03/31/2024 Depression Screening 10/01/2024 10/02/2023, 10/02/19 24 SDOH Screening 10/01/2024 10/02/2023 Family Planning (PISQ) 03/23/2025 03/23/2024 Tobacco Screening 03/23/2025 03/23/2024 Pap Smear 03/21/2026 03/21/2023, 03/09/2020 DTaP/Tdap/Td Vaccines (10 - Td or Tdap) 10/07/2031 10/06/2021, 03/04/2018, 05/28/2006, Additional history exists Zoster Vaccines (1 of 2) 2045 RSV Patients and Patients Aged 60 years or older (1 - 1-dose 75+ series) 2070 Hepatitis B Vaccines Completed 1995, 1995, 1995, Additional history exists HIB Vaccines Completed 06/24/1996, 08/1995, 1995, Additional history exists IPV Vaccines Completed 01/25/2000, 08/1995, 1995, Additional history exists Meningococcal Vaccine Aged Out 05/28/2006 No jamari itzel eligible based on patient's age to complete this topic HPV Vaccines Completed 06/15/2008, 08/2007, 08/11/2007, Additional history exists HIV Screening Completed 08/23/2023 Hepatitis C Screening Completed 08/23/2023 Hepatitis A Vaccines Aged Out No long er eligible based on patient's age to complete this topic RSV under 20 months Aged Out No longe r eligible based on patient's age to complete this topic Rotavirus Vaccines Aged Out No longer eligible based on patient's age to complete this topic Procedures Procedure Name Priority Date/Time Associated Diagnosis Comments HEMATOXYLIN AND EOSIN STAIN Routine 07/29/2024 9:26 AM EST BI MR GUIDED BREAST BIOPSY LEFT Routine 07/29/2024 9:10 AM EST BI US BREAST LIMITED LEFT Routine 07/01/2024 11:00 AM EST HEPATITIS C AB W/REFL TO HCV RNA, QN, PCR Routine 08/23/2023 12:46 PM EST Routine screening for STI (sexually transmitted infection) HIV 1/2 ANTIGEN/ANTIBODY, FOURTH GENERATION W/RFL Routine 08/23/2023 12:46 PM EST Routine screening for STI (sexually transmitted infection) PAP SMEAR Routine 03/21/2023 10:00 AM EDT from Last 3 Months or Most Recently Relevant to Health Maintenance Results * Hematoxylin and Eosin Stain (07/29/2024 9:26 AM EST) 07/29/2024 9:26 AM EST 07/29/2024 10:07 AM EST [facility] - 07/31/2024 3:12 PM EST ----- ------- Name: Regina Veliz I ?Age/Sex: 29/F ? : 1995 Unit#: [id number] ?? Attend Dr: Fish Cash MD ?Re07/29/24 ?Status: DEP REF ? Location: HO.MAMMO ?Disch: ? ----- ------- SPEC : [id number] ?RECD: 07/29/24-1006 ? STATUS: ??SOUT ? REQ NUM: [id number] ? FLAQUITO: 07/29/24-925 ? SUBM DR: Priscilla Chacon DO ? ENTERED: ??07/29/24-5 ?SP TYPE: Surgical ? OTHR DR: Fish Cash MD ?Jennifer Nash ORDERED: ??HE Stain/2, Gross Micro L4, ER, AZ, IHC, Add. immunos, IHC ER/AZ/Her2N/4, Ki-67, ?p63, SMM, [id number] COMMENTS: As per the specimen requisition slip the specimen is ?collected at 0926 and placed in formalin at 0930. ? Diagnosis ?? Breast, left 10 o'clock mass, biopsy: ?- Invasive ductal carcinoma, MSBR grade 2. ?- Ductal carcinoma in-situ, nuclear grade 1. ? Estrogen receptor: ?? Positive (90% of tumor cells; moderate intensity) ?? Progesterone receptor: ?? Positive (20% of tumor cells; weak/moderate intensity) ?? HER2: ?2+ (FISH will be addended) ?? Proliferation index: ?? Borderline high (20% by Ki-67 immunostaining) ? Breast Biopsy Data Synopsis ? Procedure: Core biopsy ?? Specimen laterality: Left at 10 o'clock ?? Histologic type: Ductal ?? Histologic grade (Madelaine/MSBR histologic score): 2 ? - Glandular/tubular differentiation: Score: 2 ? - Nuclear pleomorphism: Score: 2 ? - Mitotic rate: Score: 2 ?? Tumor size: Largest linear diameter: 6 mm ?? Ductal carcinoma in situ: Present ?? Lymphovascular invasion: Not identified ?? Microcalcifications: Present, focal ? Note: Some of the listed elements may change with subsequent review of the entire lesion. ?Clinical History Left breast 10 o'clock mass ? fibroadenoma vs other ?Microscopic Description Sections have cores of breast tissue infiltrated by a carcinoma comprised of small tubules, nests and focal cords of tumor cells, which are small, have moderate amphophilic cytoplasm and round/oval nuclei with open chromatin and small indistinct nucleoli, supported by p63 and smooth muscle myosin immunostains. ??The tumor cells are immunoreactive with E-cadherin. Focal in-situ carcinoma with low nuclear grade are also present. ? CONTINUED ON NEXT PAGE ----- ------- Name: Regina Veliz I ?Age/Sex: 29/F ? : 1995 Unit#: [id number] ?? Attend Dr: Fish Cash MD ?Re07/29/24 ?Status: DEP REF ? Location: HO.MAMMO ?Disch: ? ----- ------- SPEC : [id number] ?RECD: 07/29/24-1006 ? STATUS: ??SOUT ? REQ NUM: [id number] ? FLAQUITO: 07/29/24-925 ? SUBM DR: Priscilla Chacon DO ? ENTERED: ??07/29/24-5 ?SP TYPE: Surgical ? OTHR DR: Fish Cash MD ?Jennifer Nash ORDERED: ??HE Stain/2, Gross Micro L4, ER, AZ, IHC, Add. immunos, IHC ER/AZ/Her2N/4, Ki-67, ?p63, SMM, [id number] COMMENTS: As per the specimen requisition slip the specimen is ?collected at 0926 and placed in formalin at 0930. ? Material Received ?? Left breast 10 o'clock mass ? fibroadenoma vs other ? Gross Description Received in formalin labeled left breast mass 10 o'clock? are 4 cylindrical threads of aranda- pink and yellow, red-maroon fibrofatty breast tissue and blood ranging from 0.8- 1.8 cm in length and each measuring 0.1 cm in diameter, submitted in toto in a cassette labeled ATeresa CEDS Formalin-fixed paraffin-embedded tissue. Time tissue removed from patient: ??925 Time tissue placed in fixative: ??929 Duration of fixation: ??between 6 and 24 hrs. Estrogen and Progesterone receptor immunohistochemistry performed in accordance with ASCO/CAP recommendations (2010). ?? Estrogen receptor: ??Clone SP1; Dako Envision+ Dual Link System-HRP. ?? Progesterone receptor: ??Clone [id number]; Diamond Mind Mach 4 detection system. Her-2/rivka immunohistochemistry performed in accordance with ASCO/CAP recommendations (2007) and update (2013). ??Hercep Test ??Detection system: ??Polymer type ??Scoring criteria: For ER/AZ and Her-2/rivka: ??All internal (if present) and external controls react appropriately. ER and AZ immunostains are scored as Positive (> 10% of tumor cell nuclei), Low Positive (1- 10% of tumor cell nuclei) or Negative (<1% of tumor cell nuclei) with associated staining intensity designation. The Negative category is further delineated by the presence or absence of internal positive control tissue. The HER2 immunostain assay is resulted as Positive (3+) with intense, complete membranous staining of more than 10% of the carcinoma or Negative (0) corresponding to negative or incomplete/weak membranous staining in <10% of cells. HER2 Low (1+) corresponding to incomplete/weak membranous staining in >10% of cells. The Equivocal (2+) designation reflects weak or non-uniform circumferential staining or dark (moderate) circumferential staining in less than 10% of the tumor cells. The Equivocal (2+) category includes a minor subset of patients that will show HER2 gene amplification, and ? CONTINUED ON NEXT PAGE ----- ------- Name: Regina Veliz I ?Age/Sex: 29/F ? : 1995 Unit#: [id number] ?? Attend Dr: Fish Cash MD ?Re07/29/24 ?Status: DEP REF ? Location: HO.MAMMO ?Disch: ? ----- ------- SPEC : [id number] ?RECD: 07/29/24-1007 ? STATUS: ??SOUT ? REQ NUM: [id number] ? FLAQUITO: 07/29/24-925 ? SUBM DR: Priscilla Chacon DO ? ENTERED: ??07/29/24-5 ?SP TYPE: Surgical ? OTHR DR: Fish Cash MD ?AppraJennifer hunt ORDERED: ??HE Stain/2, Gross Micro L4, ER, AZ, IHC, Add. immunos, IHC ER/AZ/Her2N/4, Ki-67, ?p63, SMM, [id number] COMMENTS: As per the specimen requisition slip the specimen is ?collected at 0926 and placed in formalin at 0930. ? Gross Description ?(Continued) therefore confirmatory HER2 FISH testing will be performed on all Equivocal cases. The Ki-67 immunostain is scored, according to cut-offs established in the monarchE trial, as High (> or = 20% of tumor cell nuclei) or Low (< 20% of tumor cell nuclei). Tumor cell nuclear staining intensity of 1+ or greater is positive. Ruddy NASH, Matias CHASE, et al. Human Epidermal Growth Factor Receptor 2 Testing in Breast Cancer: ASCO/CAP Clinical Practice Guideline Focus Update. Arch of Pathol Lab Med, 142, 2018: 6169-6378. Brandy DU, Matias CHASE, et al. Estrogen and Progesterone Receptor Testing in Breast Cancer: ASCO/CAP Guideline Update. Arch of Pathol Lab Med, 144 2020: 545-563. Patricai N, Marge P, et al. Adjuvant abemaciclib combined with endocrine therapy for high- risk early breast cancer: updated efficacy and Ki-67 analysis from the [facility]. Amber Oncol. 2020;32(12):1176-3879. This case was reviewed intradepartmentally; results were communicated to Drs. Cash and Oswaldo via secure text on 07/31/2024. Special studies ordered and performed: ??Immunostains for ER, AZ, HER2, Ki 67, p63 and smooth muscle myosin Copies To: ?? Fish Cash MD ?? [facility] ?? [address] ?? [place] ?? [phone] ?? Jennifer Nash ?? [address] ?? [place] [address] ?? [phone] ?? Priscilla Chacon DO ?? [address] ?? [place] ?? [phone] ? CONTINUED ON NEXT PAGE ----- ------- Name: Regina Veliz I ?Age/Sex: 29/F ? : 1995 Unit#: [id number] ?? Attend Dr: Fish Cash MD ?Re07/29/24 ?Status: DEP REF ? Location: HO.MAMMO ?Disch: ? ----- ------- SPEC : [id number] ?RECD: 07/29/24-1007 ? STATUS: ??SOUT ? REQ NUM: [id number] ? FLAQUITO: 07/29/24-925 ? SUBM DR: Priscilla Chacon DO ? ENTERED: ??07/29/24-5 ?SP TYPE: Surgical ? OTHR DR: Fish Cash MD ?Jennifer Nash ORDERED: ??HE Stain/2, Gross Micro L4, ER, AZ, IHC, Add. immunos, IHC ER/AZ/Her2N/4, Ki-67, ?p63, SMM, [id number] COMMENTS: As per the specimen requisition slip the specimen is ?collected at 0926 and placed in formalin at 0930. ----- ------- Signed (signature on file) Emilio Licona MD 07/31/24 1512 ? ----- ------- ? END OF REPORT ? us Generic External Data Provider LAB BLOOD ORDERAB LES Final Result [facility] [address] [place] [id number] [phone] * BI MR Guided Breast Biopsy Left (07/29/2024 9:10 AM EST) Anatomical Region Laterality Modality Breast Left Magnetic Resonan ce 07/29/2024 9:10 AM EST Narrative 07/29/2024 1:10 PM EST ? [facility] [place] ? [address] ?[place] [address] ? Ultrasound Report ? Signed ? Patient: Regina Veliz I ?MR#: [id number] ?? 059 ? : 1995 ?Acct:[id number] ? Age/Sex: 29 / F ?ADM Date: 07/29/24 ? Loc: HO.MAMMO ? Attending Dr: Fish Cash MD ? Ordering Physician: Fish Cash MD ?? Date of Service: 07/29/24 ?? Procedure(s): US breast ndl core biopsy LT ?? Accession Number(s): [id number] ? cc: Jennifer Nash; Fish Cash MD ? ADDENDUM #1 ? Left breast o'clock solid mass: ?? 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 Recommend breast surgical consultation ?? for excision and further management. ? Recommend bilateral mammography for further evaluation. ?? Recommend breast MRI for further evaluation. ? Electronically signed by: ??Priscilla Chacon DO ??08/03/2024 09:23 AM EST ?? RP ? ORIGINAL REPORT ? PROCEDURE: ?? ULTRASOUND-GUIDED LEFT BREAST BIOPSY ? CLINICAL INFORMATION: ?? Solid irregular mass at 10:00 4 cm from the nipple in the left breast ? COMPARISON: ?? Prior ultrasounds available for comparison. ? TECHNIQUE: ?? The details of the procedure, as well as the risks, benefits, and ?? alternatives to the procedure were explained to the patient in detail ?? and all of her questions were answered, after which, written informed ?? consent was obtained. ? PROCEDURE: ?? Prior to the procedure, sonography revealed solid mass at 10:00. A ?? time-out was performed, the lesion intended for biopsy was targeted and ?? the skin of the left breast was then prepped and draped in the usual ?? sterile fashion. ? Using sonographic guidance, sterile technique, and 1% lidocaine without ?? epinephrine for local anesthesia, a total of 4 cores were obtained ?? through the targeted area with a 14-gauge biopsy device. At the ?? completion of tissue sampling, a single [coil metallic clip was ?? deposited at the biopsy site. ? An appropriate sample was obtained. ? The postprocedure 2-view direct digital mammogram reveals satisfactory ?? positioning of the biopsy clip. ? The patient tolerated the procedure well and, after assuring adequate ?? hemostasis, was discharged in good condition after reviewing postbiopsy ?? breast care instructions. Final pathology results are pending. ? IMPRESSION: ?? 1. Uncomplicated sonographically-guided core biopsy of the left breast. ?? The 2-view direct digital postprocedure mammogram reveals satisfactory ?? positioning of the biopsy clip. ?? 2. Final pathology results are pending. A separate report with final ?? recommendations will be issued once these results are made available. ? Electronically signed by: ??Priscilla Chacon DO ??07/29/2024 01:07 PM EST ? US/US breast ndl core biopsy LT ?? IMPRESSION: ?? 1. Uncomplicated sonographically-guided core biopsy of the left breast. ?? The 2-view direct digital postprocedure mammogram reveals satisfactory ?? positioning of the biopsy clip. ?? 2. Final pathology results are pending. A separate report with final ?? recommendations will be issued once these results are made available. ? Electronically signed by: ??Priscilla Chacon DO ??07/29/2024 01:07 PM EST ?? RP ? Dictated By: ?Priscilla Chacon DO ? Signed By: ?<Electronically signed by Priscilla Chacon, DO in OV> ? 08/03/24 0923 ? DD/ 0910 ? TD/TT: 07/29/24 0945 ? Tetryl Nitrator Operator: ? Procedure Note Donotuseinterpreter, Image - 08/03/2024 [facility] [address] [place], [place] [address] Ultrasound Report Signed Patient: Regina Veliz [facility]#: [id number] [id number] : 1995Acct:[id number] Age/Sex: 29 / FADM Date: 07/29/24 Loc: HO.MAMMO Attending Dr: Fihs Cash MD Ordering Physician: Fish Cash MD Date of Service: 07/29/24 Procedure(s): US breast ndl core biopsy LT Accession Number(s): [id number] cc: Jennifer Nash; Fish Cash MD ADDENDUM #1 Left breast o'clock solid mass: Invasive ductal carcinoma and ductal carcinoma in situ. 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 Recommend breast surgical consultation for excision and further management. Recommend bilateral mammography for further evaluation. Recommend breast MRI for further evaluation. Electronically signed by: Priscilla Chacon DO 08/03/2024 09:23 AM [facility] ORIGINAL REPORT PROCEDURE: ULTRASOUND-GUIDED LEFT BREAST BIOPSY CLINICAL INFORMATION: Solid irregular mass at 10:00 4 cm from the nipple in the left breast COMPARISON: Prior ultrasounds available for comparison. TECHNIQUE: The details of the procedure, as well as the risks, benefits, and alternatives to the procedure were explained to the patient in detail and all of her questions were answered, after which, written informed consent was obtained. PROCEDURE: Prior to the procedure, sonography revealed solid mass at 10:00. A time-out was performed, the lesion intended for biopsy was targeted and the skin of the left breast was then prepped and draped in the usual sterile fashion. Using sonographic guidance, sterile technique, and 1% lidocaine without epinephrine for local anesthesia, a total of 4 cores were obtained through the targeted area with a 14-gauge biopsy device. At the completion of tissue sampling, a single [coil metallic clip was deposited at the biopsy site. An appropriate sample was obtained. The postprocedure 2-view direct digital mammogram reveals satisfactory positioning of the biopsy clip. The patient tolerated the procedure well and, after assuring adequate hemostasis, was discharged in good condition after reviewing postbiopsy breast care instructions. Final pathology results are pending. IMPRESSION: 1. Uncomplicated sonographically-guided core biopsy of the left breast. The 2-view direct digital postprocedure mammogram reveals satisfactory positioning of the biopsy clip. 2. Final pathology results are pending. A separate report with final recommendations will be issued once these results are made available. Electronically signed by: Priscilla Chacon DO 07/29/2024 01:07 PM EST RP US/US breast ndl core biopsy LT IMPRESSION: 1. Uncomplicated sonographically-guided core biopsy of the left breast. The 2-view direct digital postprocedure mammogram reveals satisfactory positioning of the biopsy clip. 2. Final pathology results are pending. A separate report with final recommendations will be issued once these results are made available. Electronically signed by: Priscilla Chacon DO 07/29/2024 01:07 PM EST RP Dictated By: Priscilla Chacon DO Signed By: <Electronically signed by Priscilla Chacon DO in OV> 08/03/24 0923 DD/ 0910 TD/TT: 07/29/24 0945 Tetryl Nitrator Operator: [facility] External Provider IMG MRI PROCEDURES Edited Result - Final * BI US Breast Limited Left (07/01/2024 11:00 AM EST) Anatomical Region Laterality Modality Breast Left Ultrasound 07/01/2024 11:0 0 AM EST Narrative 07/01/2024 11:48 AM EST ? [facility] [place] ? [address] ?[place] [address] ? Ultrasound Report ? Signed ? Patient: Jose Alfredo,Regina I ?MR#: [id number] ?? 059 ? : 1995 ?Acct:[id number] ? Age/Sex: 29 / F ?ADM Date: 12/18/24 ? Loc: HO.MAMMO ? Attending Dr: Jennifer Nash ? Ordering Physician: KIM PICKENS CNM ?? Date of Service: 07/01/24 ?? Procedure(s): US breast LT limited mamm only ?? Accession Number(s): [id number] ? cc: Jennifer Nash; KIM PICKENS CNM ? EXAMINATION: ?? US DIAGNOSTIC ULTRASOUND BREAST, LEFT ?? Limited left breast ultrasound. ? CLINICAL INFORMATION: ? 29-year-old female with palpable left breast lump for which a ?? three-month follow-up was recommended. Patient feels like the area has ?? gotten bigger in size and is more painful.. ? COMPARISON: ?? Comparison is made with relevant prior imaging. ? TECHNIQUE: ?? Ultrasound of the breast is performed with real-time milton scale imaging ?? and color Doppler. ? FINDINGS: ?? Targeted color Doppler ultrasound scanning at 10:00 4 cm from nipple ?? demonstrates a hypoechoic irregular solid masses with internal vascular ?? flow measuring approximately 7 x 9 x 6 mm. ?? Given the patient's increased symptoms and size ultrasound guided core ?? needle biopsy is recommended at this time. ? Results are discussed with the patient at time of visit. ? US/US breast LT limited mamm only ?? IMPRESSION: ?? Solid irregular mass at 10:00 in the left breast on ultrasound. ?? Recommend histology with ultrasound-guided core needle biopsy at this ?? time. The findings and recommendations were discussed with the patient ?? the procedure will be scheduled. ? ASSESSMENT: ? BI-RADS 4: Suspicious ? RECOMMENDATION: ?? Biopsy ? This patient's information was entered into a reminder system with a ?? target due date for their next mammogram. ? Electronically signed by: ??Priscilla Chacon DO ??07/01/2024 11:45 AM EST ?? RP ? Dictated By: ?Priscilla Chacon DO ? Signed By: ?<Electronically signed by Priscilla Chacon, DO in OV> ? 07/01/24 1145 ? DD/ 1100 ? TD/TT: 07/01/24 1127 ? Tetryl Nitrator Operator: ? Procedure Note Bing Pagan - 07/01/2024 [facility] [address] [place], [place] [address] Ultrasound Report Signed Patient: Frandy Velizmen IMR#: [id number] 059 : 1995Acct:[id number] Age/Sex: 29 / FADM Date: 07/01/24 Loc: HO.MAMMO Attending Dr: Jennifer Nash Ordering Physician: KIM PICKENS CNM Date of Service: 07/01/24 Procedure(s): US breast LT limited mamm only Accession Number(s): [id number] cc: Jennifer Nash; KIM PICKENS CNM EXAMINATION: US DIAGNOSTIC ULTRASOUND BREAST, LEFT Limited left breast ultrasound. CLINICAL INFORMATION: 29-year-old female with palpable left breast lump for which a three-month follow-up was recommended. Patient feels like the area has gotten bigger in size and is more painful.. COMPARISON: Comparison is made with relevant prior imaging. TECHNIQUE: Ultrasound of the breast is performed with real-time milton scale imaging and color Doppler. FINDINGS: Targeted color Doppler ultrasound scanning at 10:00 4 cm from nipple demonstrates a hypoechoic irregular solid masses with internal vascular flow measuring approximately 7 x 9 x 6 mm. Given the patient's increased symptoms and size ultrasound guided core needle biopsy is recommended at this time. Results are discussed with the patient at time of visit. US/US breast LT limited mamm only IMPRESSION: Solid irregular mass at 10:00 in the left breast on ultrasound. Recommend histology with ultrasound-guided core needle biopsy at this time. The findings and recommendations were discussed with the patient the procedure will be scheduled. ASSESSMENT: BI-RADS 4: Suspicious RECOMMENDATION: Biopsy This patient's information was entered into a reminder system with a target due date for their next mammogram. Electronically signed by: Priscilla Chacon DO 07/01/2024 11:45 AM EST Dictated By: Priscilla hCacon DO Signed By: <Electronically signed by Priscilla Chacon DO in OV> 07/01/24 1145 DD/ 1100 TD/TT: 07/01/24 1127 Tetryl Nitrator Operator: Kim Pickens CNM IMG US PROCEDURES Edited Result - Final * Hepatitis C Antibody with Reflex to HCV, RNA, Quantitative, Real-Time PCR (08/23/2023 12:46 PM EST) Hepatitis C Antibody Nonreactive Nonreactive [facility] Comment:Antibodies to HCV no t detected; does not exclude early acuteHCV infection. Blood Venous blood specimen / Unknown 08/23/2023 12:46 PM EST 08/23/2023 1:14 PM EST [facility] LAB BLOOD ORDERABLES Final Resu lt Performing Organization Address City/[facility]/ZIP Co de Phone Number [facility] [address] [place] [address] [phone] * HIV-1/2 Antigen and Antibodies, Fourth Generation, with Reflexes (08/23/2023 12:46 PM EST) HIV AB/AG Nonreactive Nonreactive [facility] Comment:HIV-1 p24 Ag and/or HIV-1/HIV-2 Ab not detected.A test result that is nonreactive does not exclude thepossibility of exposure to or infection with HIV-1 and/orHIV-2. Nonreactive results in this assay for individualswith prior exposure to HIV-1 and/or HIV-2 may be due toantigen and antibody levels that are below the limit ofdetection of this assay.The [employer] HIV Ag/Ab Combo assay result andsupplemental assay results should be interpreted inconjunction with the patient's clinical presentation,history and other laboratory results. If the results areinconsistent with clinical evidence, additional testing issuggested to confirm the result. Blood Venous blood specimen / Unknown 08/23/2023 12:46 PM EST 08/23/2023 1:14 PM EST [facility] BLOOD ORDERABLES Final Resu lt Performing Organization Address City/[facility]/ZIP Co de Phone Number [facility] [address] [place] [address] [phone] * Pap Smear (03/21/2023 10:00 AM EDT) 03/21/2023 10:0 0 AM EDT 03/22/2023 11:15 AM EDT [facility] - 04/07/2023 5:21 PM EDT ----- ------- Name: Regina Veliz I ?Age/Sex: 28/F ? : 1995 Unit#: [id number] ?? Attend Dr: KIM PICKENS CNM ?Re03/21/23 ?Status: DEP REF ? Location: HO.HHCLNP ? Disch: ? ----- ------- SPEC : [id number] ?RECD: 03/22/23-1114 ? STATUS: ??SOUT ? REQ NUM: [id number] ? FLAQUITO: 03/21/23-1000 ? SUBM DR: KIM PICKENS CNM ? ENTERED: ??03/22/23-1156 ?SP TYPE: Pap Smr ?OTHR DR: ? ORDERED: ??Pap Smear ? Interpretation ?? Satisfactory for evaluation. ?? Negative for intraepithelial lesion or malignancy. ?Clinical Information LMP: Unknown date Previous PAP test: 2019, WNL ? Material Received ?? ThinPrep-Vaginal/Cervical ----- ------- Signed (signature on file) Mary Wahl Joseline 04/07/23 1721 ? ----- ------- ? END OF REPORT ? us Kim CHAUDHARY LAB CYTOLOGY ORDERABLES F inal Result [facility] [address] [place] [address] [phone] from Last 3 Months or Most Recently Relevant to Health Maintenance [place] [address] [place] [address] - [employer] Care Teams Patient Relations Liaison Relationship Specialty Start Date End Date Jennifer Nash NP [address] [place] [phone] PCP - General Family Medicine 06/25/23
--- OUTSIDE RECORDS SUMMARY | 2024-08-05 09:44 | XMS_ITS | Encounter Summary ---
Author Organization [employer] Address [address] [facility] 7t [place] [address] Care Team Providers Care Enterostomal Therapy Nurse Name Role Phone Jennifer Nash NP Primary Care Provider [phone] Reason for Visit * Reason Onset Date Comments Results 08/29/2023 Encounter Details Date Type Department Care Team ([facility] st Contact Info) Description 08/29/2023 Telephone [facility] MEDICINE [address] [place] [address] Jennifer Nash NP [address] [place] [address] Results Social History Tobacco Use Types Packs/Day Years [...] AM EDT documented as of this encounter Miscellaneous Notes * Telephone Encounter - Shakir Lama RN - 08/29/2023 1:52 PM EST Please review and advise for below request. * Telephone Encounter - Festus Rosario - 08/29/2023 12:20 PM EST TC from pt requesting call back regarding Results. Type of results: Blood Work Date when done: 08/26/23 Facility: [facility] Labs TC from pt requesting call back regarding Results. Type of results: Blood Work Date when done: 08/24/23 Facility: [facility] documented in this encounter Plan of Treatment Not on file documented as of this encounter Visit Diagnoses Not on filedocumented in this encounter Additional Health Concerns Assessment Noted Time PHQ-9 Depression Total Score: 3 01/24/20 23 11:03 AM EDT documented as of this encounter Care Teams Enterostomal Therapy Nurse Relationship Specialty Start Date End Date Jennifer Nash NP [address] [place] [address] PCP - General Family Medicine 06/25/23 documented as of this encounter
--- OUTSIDE RECORDS SUMMARY | 2024-08-05 09:44 | XMS_ITS | Encounter Summary ---
Author Organization [employer] Address [address] [facility] [address] [place] [address] Care Team Providers Care Wire Twister Name Role Phone Jennifer Nash ALFREDO Primary Care Provider [phone] Encounter Details Date Type Department Care Team ([facility] st Contact Info) Description 07/29/2024 Orders Only [facility] External Provider, [facility] Social History Tobacco Use Types Packs/Day Years [...] on file documented as of this encounter Procedures Procedure Name Priority Date/Time Associated Diagnosis Comments HEMATOXYLIN AND EOSIN STAIN Routine 07/29/2024 9:26 AM EST BI MR GUIDED BREAST BIOPSY LEFT Routine 07/29/2024 9:10 AM EST documented in this encounter Results * Hematoxylin and Eosin Stain (07/29/2024 9:26 AM EST) 07/29/2024 9:26 AM EST 07/29/2024 10:07 AM EST [facility] - 07/31/2024 3:12 PM EST ----- ------- Name: Regina Veliz I ?Age/Sex: 29/F ? : 1995 Unit#: [id number] ?? Attend Dr: Fish Cash MD ?Re07/29/24 ?Status: DEP REF ? Location: HO.MAMMO ?Disch: ? ----- ------- SPEC : [id number] ?RECD: 07/29/24-1006 ? STATUS: ??SOUT ? REQ NUM: [id number] ? FLAQUITO: 07/29/24 ? SUBM DR: Priscilla Chacon DO ? ENTERED: ??07/29/24 ?SP TYPE: Surgical ? OTHR DR: Fish Cash MD ?Jennifer Nash ORDERED: ??HE Stain/2, Gross Micro L4, ER, GA, IHC, Add. immunos, IHC ER/GA/Her2N/4, Ki-67, ?p63, SMM, [id number] COMMENTS: As per the specimen requisition slip [...] ?? Histologic type: Ductal ?? Histologic grade ([place]/MSBR histologic score): 2 ? - Glandular/tubular differentiation: [...] I ?Age/Sex: 29/F ? : 1995 Unit#: [id number] ?? Attend Dr: Fish Cash MD ?Re07/29/24 ?Status: DEP REF ? Location: HO.MAMMO ?Disch: ? ----- ------- SPEC : [id number] ?RECD: 07/29/24-1006 ? STATUS: ??SOUT ? REQ NUM: [id number] ? FLAQUITO: 07/29/24-925 ? SUBM DR: Priscilla Chacon DO ? ENTERED: ??07/29/24-5 ?SP TYPE: Surgical ? OTHR DR: Fish Cash MD ?Jennifer Nash ORDERED: ??HE Stain/2, Gross Micro L4, ER, GA, IHC, Add. immunos, IHC ER/GA/Her2N/4, Ki-67, ?p63, SMM, [id number] COMMENTS: As per the specimen requisition slip [...] submitted in toto in a cassette labeled Juan CEDS Formalin-fixed paraffin-embedded tissue. Time tissue removed from patient: ??925 Time tissue placed in fixative: ??0930 Duration of fixation: ??between 6 and 24 hrs. Estrogen and Progesterone receptor immunohistochemistry performed in accordance with ASCO/CAP recommendations (2010). ?? Estrogen receptor: ??Clone SP1; Dako Envision+ Dual Link System-HRP. ?? Progesterone receptor: ??Clone MoW555; Verified Person Mach 4 detection system. Her-2/rivka immunohistochemistry performed in accordance with ASCO/CAP recommendations (2007) and update (2013). ??Hercep Test ??Detection system: ??Polymer type ??Scoring criteria: For ER/GA and Her-2/rivka: ??All internal (if present) and external controls react appropriately. ER and GA immunostains are scored as Positive (> 10% [...] I ?Age/Sex: 29/F ? : 1995 Unit#: [id number] ?? Attend Dr: Fish Cash MD ?Re07/29/24 ?Status: DEP REF ? Location: HO.MAMMO ?Disch: ? ----- ------- SPEC : [id number] ?RECD: 07/29/24-1006 ? STATUS: ??SOUT ? REQ NUM: [id number] ? FLAQUITO: 07/29/24 ? SUBM DR: Priscilla Chacon DO ? ENTERED: ??07/29/24-5 ?SP TYPE: Surgical ? OTHR DR: Fish Cash MD ?Jennifer Nash ORDERED: ??HE Stain/2, Gross Micro L4, ER, GA, IHC, Add. immunos, IHC ER/GA/Her2N/4, Ki-67, ?p63, SMM, [id number] COMMENTS: As per the specimen requisition slip [...] Arch of Pathol Lab Med, 142, 2018: 1580-6869. Brandy DU, Matias CHASE, et al. Estrogen and Progesterone Receptor Testing in Breast Cancer: ASCO/CAP Guideline Update. Arch of Pathol Lab Med, 144, 2020: 545-563. Patricia N, Marge P, et al. Adjuvant abemaciclib combined with endocrine therapy for high- risk early breast cancer: updated efficacy and Ki-67 analysis from the [facility] study. Amber Oncol. 2020;32(12):7600-7027. This case was reviewed intradepartmentally; results were communicated to Drs. Cash and Oswaldo via secure text on 07/31/2024. Special studies ordered and performed: ??Immunostains for ER, GA, HER2, Ki 67, p63 and smooth muscle myosin Copies To: ?? Fish Cash MD ?? [facility] General Surgeons ?? [address] ?? [place] [address] ?? [phone] ?? Jennifer Nash ?? [address] ?? [place] [address] ?? [phone] ?? Priscilla Chacon DO ?? [address] ?? [place] [address] ?? [phone] ? CONTINUED ON NEXT PAGE ----- ------- Name: Regina Veliz I ?Age/Sex: 29/F ? : 1995 Unit#: [id number] ?? Attend Dr: Fish Cahs MD ?Re07/29/24 ?Status: DEP REF ? Location: HO.MAMMO ?Disch: ? ----- ------- SPEC : [id number] ?RECD: 07/29/24-1007 ? STATUS: ??SOUT ? REQ NUM: [id number] ? FLAQUITO: 07/29/24-925 ? SUBM DR: Priscilla Chacon DO ? ENTERED: ??07/29/24-1014 ?SP TYPE: Surgical ? OTHR DR: Fish Cash MD ?Jennifer Nash ORDERED: ??HE Stain/2, Gross Micro L4, ER, GA, IHC, Add. immunos, IHC ER/GA/Her2N/4, Ki-67, ?p63, SMM, [id number] COMMENTS: As per the specimen requisition slip the specimen is ?collected at 0926 and placed in formalin at 0930. ----- ------- Signed (signature on file) Emilio Licona MD 07/31/24 1512 ? ----- ------- ? END OF REPORT ? us Generic External Data Provider LAB BLOOD ORDERAB LES Final Result [facility] [address] [place] [address] [phone] * BI MR Guided Breast Biopsy Left (07/29/2024 9:10 AM EST) Anatomical Region Laterality Modality Breast Left Magnetic Resonan ce 07/29/2024 9:10 AM EST Narrative 07/29/2024 1:10 PM EST ? [facility] [place] ? [address] ?[place] [address] ? Ultrasound Report ? Signed ? Patient: Regina Veliz I ?MR#: [id number] ?? 059 ? : 1995 ?Acct:[id number] ? Age/Sex: 29 / F ?ADM Date: 07/29/24 ? Loc: HO.MAMMO ? Attending Dr: Fish Cash MD ? Ordering Physician: Fish Cash MD ?? Date of Service: 07/29/24 ?? Procedure(s): US breast ndl core biopsy LT ?? Accession Number(s): [id number] ? cc: Jennifer Nash; Fish Cash MD [...] ??07/29/2024 01:07 PM EST ?? RP ? US/US breast ndl core biopsy LT [...] Chacon DO ??07/29/2024 01:07 PM EST ? Dictated By: ?Priscilla Chacon DO ? Signed By: ?<Electronically signed by Priscilla Chacon, DO in OV> ? 08/03/24 0923 ? DD/ 0910 ? TD/TT: 07/29/24 0945 ? Legal Adviser: ? Procedure Note Donotuseinterpreter, Image - 08/03/2024 [facility]'s [address] [place] [address] Ultrasound Report Signed Patient: Regina Veliz [facility]#: [id number] 059 : 1995Acct:[id number] Age/Sex: 29 / FADM Date: 07/29/24 Loc: HO.MAMMO Attending Dr: Fish Cash MD Ordering Physician: Fish Cash MD Date of Service: 07/29/24 Procedure(s): US breast ndl core biopsy LT Accession Number(s): [id number] cc: Jennifer Nash; Fish Cash MD ADDENDUM #1 Left breast o'clock solid mass: Invasive ductal carcinoma and ductal carcinoma in situ. 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 Recommend breast surgical consultation for excision and further management. Recommend bilateral mammography for further evaluation. Recommend breast MRI for further evaluation. Electronically signed by: Priscilla Chacon DO 08/03/2024 09:23 AM [facility] PROCEDURE: ULTRASOUND-GUIDED LEFT BREAST BIOPSY [...] 08/03/24 0923 DD/ 0910 TD/TT: 07/29/24 0945 Legal Adviser: [facility] External Provider IMG MRI PROCEDURES Edited Result - Final documented in this encounter Visit Diagnoses Not on filedocumented in this encounter Additional Health Concerns Assessment Noted Time PHQ-9 Depression Total Score: 0 10/02/19 24 2:38 PM EDT documented as of this encounter Care Teams Wire Twister Relationship Specialty Start Date End Date Jennifer Nash NP [address] [place] [address] PCP - General Family Medicine 06/25/23 documented as of this encounter
--- OUTSIDE RECORDS SUMMARY | 2024-08-05 09:44 | XMS_ITS | Clinical Summary ---
[facility] Address [address] [place] [address] Care Team Providers Care Charging Crane Operator Name Role Phone Unavailable Primary Care Provider Unavailabl e Surgical History Surgery Date Site/Laterality Comments WISDOM TOOTH EXTRACTION Bilateral PROCEDURE: HISTORICAL WISDOM TEETH EXTRACTION SECTION 06/10/2018 PROCEDURE: HISTORICAL DELIVERY Medical History Medical History Date Comments Asthma 1979 DX:Asthma; COMME NT: no issue now , ectopic, cornual or cervical 08/01/2020 DX:, ectopic, cornu al or cervical; COMMENT: cervical ectopic- Mtx and Leucovorin treatment Family History Medical History Relation Name Comments Breast cancer Neg Hx adopted Colon cancer Neg Hx Ovarian cancer Neg Hx Prostate cancer Neg Hx Social History Tobacco Use Types Packs/Day Years Used Date Smoking Tobacco: Never Smokeless Tobacco: Never Alcohol Use Standard Drinks/Week Comments No 0 (1 standard drink = 0.6 oz pur e alcohol) Sex and Gender Information Value Date Recorded Sex Assigned at Not on file Gender Identity Not on file Sexual Orientation Not on file Obstetrics History Plan of Treatment Health Maintenance Due Date Last Done Comments Depression Screening 06/16/2022 HIV Screening 06/16/2022 Hepatitis C Screening 06/16/2022 Social Influencers of Health Screening 06/16/2022 COVID-19 Vaccine ( season) 2024 08/16/2021, 07/19/2021 Influenza Vaccine (#1) 2024 8, 03/31/2013, 06/15/2009, Additional history exists Cervical Cancer Screening: Pap Smear 06/21/2024 06/21/2021 DTaP,Tdap,and Td Vaccines (8 - Td or Tdap) 03/04/2028 03/04/2018, 05/28/2006, 01/25/2000, Additional history exists Hepatitis B Vaccines Completed 1995, [birth year] HIB Vaccines Completed 06/24/1996, 08/1995, 1995, Additional history exists IPV Vaccines Completed 01/25/2000, 06/14, 1995, Additional history exists HPV Vaccines Completed 06/15/2008, 07/16, 06/11/2007 MMR Vaccines Completed 02/12/2014, 01/12, 02/11/1996 Varicella Vaccines Aged Out 02/12/2014 No longer eligible based on patient's age to complete this topic Hepatitis A Vaccines Aged Out No long er eligible based on patient's age to complete this topic Meningococcal ACWY Vaccine Aged Out N o longer eligible based on patient's age to complete this topic Pneumococcal Vaccine: Pediatrics (0 to 5 Years) and At-Risk Patients (6 to 64 Years) Aged Out No longer eligible based on patient's age to complete this topic RSV Immunization Patients Under 20 months Aged Out No longer eligible based on patient's age to complete this topic Procedures Procedure Name Priority Date/Time Associated Diagnosis Comments PAP SMEAR Routine 06/21/2021 from Last 3 Months or Most Recently Relevant to Health Maintenance Results * Pap smear (06/21/2021) 06/21/2021 Narrative HISTORICAL TESTING LAB RESULTING AGENCY - 07/05/2021 4:41 PM EST [id number] THINPREP PAP, IMAGED: NEGATIVE FOR SQUAMOUS INTRAEPITHELIAL LESION AND MALIGNANCY . NOTE: ??ADEQUACY DEEMED SATISFACTORY AFTER REPROCESSING WITH ACID WASH PROCEDURE. NOTE: THE PAP TEST IS A SCREENING TEST WITH AN INHERENT FALSE NEGATIVE RATE. AUTOMATED PRESCREENING OF ALL LIQUID BASED SPECIMENS IS PERFORMED BY THE THINPREP IMAGING SYSTEM UNLESS OTHERWISE STATED. LAM SNYDER(ASCP) (CASE ELECTRONICALLY SIGNED 07 05 2021) ADEQUACY: SATISFACTORY ENDOCERVICAL/TRANSFORMATION ZONE COMPONENT PRESENT. SOURCE: THINPREP PAP HPV IF ASCUS, VAGINAL, IMAGED CLINICAL INFORMATION: HPV IF DIAGNOSIS OF ASCUS. , Z12.4, PAP HX NEG. Nyasia Cadet DO LAB CYTOLOGY ORDERAB LES HISTORICAL TESTING LAB RESULTING AGENCY from Last 3 Months or Most Recently Relevant to Health Maintenance
--- OUTSIDE RECORDS SUMMARY | 2024-08-05 09:44 | XMS_ITS | Encounter Summary ---
Author Organization [employer] Address [address] [facility] [address] [place] [address] Care Team Providers Care Accounting System Expert Name Role Phone Jennifer Nash NP Primary Care Provider [phone] Reason for Visit * Reason Onset Date Comments Med Refill 08/02/2024 Encounter Details Date Type Department Care Team ([facility] st Contact Info) Description 08/02/2024 Refill [facility] MEDICINE [address] [place] [address] Jennifer Nash NP [address] [place] [address] Hypoglycemia Social History Tobacco Use Types Packs/Day [...] as of this encounter Visit Diagnoses Diagnosis Hypoglycemia Hypoglycemia, unspecified documented in this encounter Additional Health Concerns Assessment Noted Time PHQ-9 Depression Total Score: 0 10/02/19 24 2:38 PM EDT documented as of this encounter Care Teams Accounting System Expert Relationship Specialty Start Date End Date Jennifer Nash NP [address] [place] [address] PCP - General Family Medicine 06/25/23 documented as of this encounter
--- OUTSIDE RECORDS SUMMARY | 2024-08-05 09:45 | XMS_ITS | Encounter Summary ---
Author Organization [facility] Address [address] [place] [address] Phone Care Team Providers Care Technical Documentation Specialist Name Role Phone Yelitza Flowers MD Primary Care Provider [phone] Encounter Details Date Type Department Care Team (Late st Contact Info) Description 07/03/2013 Documentation [facility] Family Medicine [address] [place] [address] Family Medicine, Physician [address] [place], [place] [id number] Social History Tobacco Use Types Packs/Day Years Used Date Smoking Tobacco: Never Assessed Comments Unknown Sex and Gender Information Value Date Recorded Sex Assigned at Not on file Legal Sex Female 5:01 PM EDT Gender Identity Not on file Sexual Orientation Not on file documented as of this encounter Plan of Treatment Not on file documented as of this encounter Visit Diagnoses Not on filedocumented in this encounter Care Teams Technical Documentation Specialist Relationship Specialty Start Date End Date Yelitza Flowers MD [address] [place] [address] PCP - General 02/22/17 10/14/22 documented as of this encounter
--- OUTSIDE RECORDS SUMMARY | 2024-08-05 09:45 | XMS_ITS | Clinical Summary ---
Author Organization [facility] Address [address] [place] [id number] Phone Care Team Providers Care File Keeper Name Role Phone Unavailable Primary Care Provider Unavailabl e Immunizations Name Administration Dates Next Due DTP 1995,1995,1995 DTaP 5 01/25/2000,08/06/1996 H1N1 06/15/2009 HPV, Quadrivalent 06/15/2008,08/11/2007,06/11/20 07 Hep B, ped/adol 1995,1995,1995 Hib (PRP-T) 06/24/1996, 6,1995,04/09 IPV 01/25/2000,199 6,1995,04/09 Influenza Split 03/31/2013 Influenza, injectable, quadr ivalent, preservative free 05/05/2014 Influenza, injectable, trivalent 06/15/2009,1208/2007,06/11/2007 MMR 01/25/2000,02/11/1996 Meningococcal Conj (Menactra) MCV4P 05/28/2006 Tdap 05/28/2006 Family History Relation Name Status Comments Brother Alive Brother: Alive and well Father Alive Father: Alive a nd well, Diabetes mellitus Mother Alive Mother: Alive a nd well Social History Tobacco Use Types Packs/Day Years Used Date Smoking Tobacco: Never Comments:Never smoker Comments Unknown Sex and Gender Information Value Date Recorded Sex Assigned at Not on file Legal Sex Female 5:01 PM EDT Gender Identity Not on file Sexual Orientation Not on file Last Filed Vital Signs Vital Sign Reading Time Taken Comments Blood Pressure 100/63 01/04/2016 12:00 AM EDT Pulse 73 01/04/2016 12:00 AM EDT Temperature 37 ??C (98.6 ??F) 09/09/2014 12:00 AM EST Respiratory Rate - - Oxygen Saturation 100% 03/03/2013 12:00 AM EDT Inhaled Oxygen Concentration - - Weight 47.4 kg (104 lb 6.4 oz) 01/04/2016 12:00 AM EDT Height 153.4 cm (5' 0.4 ) 01/04/2016 12:00 AM ED T Body Mass Index 20.12 01/04/2016 12:00 AM EDT Plan of Treatment Health Maintenance Due Date Last Done Comments Varicella Vaccines (1 of 2 - 13+ 2-dose series) 01/25/2008 DTaP,Tdap,and Td Vaccines (7 - Td or Tdap) 05/28/2016 05/28/2006, 01/25/2000, 08/06/1996, Additional history exists Influenza Vaccines (#1) 2024 05/05/20 14, 03/31/2013, 06/15/2009, Additional history exists COVID-19 Vaccine ( season) 2024 Hepatitis B Vaccines Completed 1995, 1995, 1995 HIB Vaccines Completed 06/24/1996, 08/1995, 1995, Additional history exists IPV Vaccines Completed 01/25/2000, 08/1995, 1995, Additional history exists MMR Vaccines Completed 01/25/2000, 02/11/1996 Meningococcal Vaccine Aged Out 05/28/2006 No jamari itzel eligible based on patient's age to complete this topic HPV Vaccines Completed 06/15/2008, 07/16, 06/11/2007 Hepatitis A Vaccines Aged Out No long er eligible based on patient's age to complete this topic Men B Vaccine Aged Out No longer elig ible based on patient's age to complete this topic Pneumococcal Vaccine Aged Out No long er eligible based on patient's age to complete this topic Procedures * Due to [place] state law, this organization might not be sharing sensitive test results. Procedure Name Priority Date/Time Associated Diagnosis Comments CHLAMYDIA AND GONORRHEA, AMPLIFIED Routine 01/05/2016 1:37 PM EDT from Last 3 Months or Most Recently Relevant to Health Maintenance Results * Due to [place] state law, this organization might not be sharing sensitive test results. * Chlamydia and Gonorrhoea, Amplified (01/05/2016 1:37 PM EDT) URINE CHLAMYDIA AMP PROBE NEGATIVE [facility] Comment: No Chlamydia Trachomatis RNA detected in this patient's sample (REFERENCE RANGE/NORMAL VALUE: NOT DETECTED) URINE GC AMP PROBE NEGATIVE [facility] Comment: No Neisseria Gonorrhoeae RNA detected in this patient's sample (REFERENCE RANGE/NORMAL VALUE: NOT DETECTED) NOTE: This test uses matlab developer-mediated amplification method to detect rRNA from C.Trachomatis and N.Gonorrhoeae. A negative result does not preclude infection. In the case of a negative urine result, testing of an endocervical(female) or urethral(male) specimen is recommended if there is high clinical suspicion of infection. The performance characteristics of this test have not been evaluated in children. The Aptima Combo2 assay is not intended for the evaluation of suspected sexual abuse or for other medico-legal indications. The ordering provider should assess if the patient had consensual sex without risk of sexual abuse. Consult the [facility] if needed. Contact phone number . Therapeutic failure or success cannot be determined with the Aptima Combo2 assay since nucleic acid may persist following appropriate antimicrobial therapy. The Centers for Disease Control and Prevention (CDC) recommends confirmatory retesting using culture or a different nucleic acid amplification test when positive results occur, if indicated. Testing performed or reported by [facility], a Service of [facility], [address] [place] [id number] CLIA ??[id number] Tim Bearden MD, PhD, [employer] 01/05/2016 1:37 PM EDT Narrative [facility] - 01/05/2016 1:37 PM EDT URINE CHLAMYDIA GC AMP PROBE us Yelitza Flowers MD LAB MICROBIOLOGY - GENERAL ORDER FISH Final Result [facility] [address] [place] [address], [place] from Last 3 Months or Most Recently Relevant to Health Maintenance
--- OUTSIDE RECORDS SUMMARY | 2024-08-05 09:45 | XMS_ITS | Encounter Summary ---
Author Organization [facility] Address [address] [place] [address] Phone Care Team Providers Care Director Field Services Name Role Phone Yelitza Flowers MD Primary Care Provider [phone] Encounter Details Date Type Department Care Team (Late st Contact Info) Description 02/28/2017 Conversion Encounter [facility] [address] [place] [address] Social History Tobacco Use Types Packs/Day Years [...] on filedocumented in this encounter Care Teams Director Field Services Relationship Specialty Start Date End Date Yelitza Flowers MD [address] [place] [address] PCP - General 02/22/17 10/14/22 documented as of this encounter
--- OUTSIDE RECORDS SUMMARY | 2024-08-05 09:45 | XMS_ITS | Encounter Summary ---
Author Organization [facility] Address [address] [place] [phone] Phone Care Team Providers Care Scientific Software Developer Name Role Phone Yelitza Flowers MD Primary Care Provider [phone] Encounter Details Date Type Department Care Team (Late st Contact Info) Description 05/05/2013 Documentation [facility] Family Medicine [address] [place] [address] Family Medicine, Physician [address] [place], [place] [id number] Social History Tobacco Use Types Packs/Day Years [...] on filedocumented in this encounter Care Teams Scientific Software Developer Relationship Specialty Start Date End Date Yelitza Flowers MD [address] [place] [address] PCP - General 02/22/17 10/14/22 documented as of this encounter
== END 2024-08-05 09:17 | disposition home or self-care (01) ==
LOC: HO.MAMMO 09:16
PROVIDERS: PCP Nurse Practitioner; Visit Provider Surgery
DX: N63.22 Unspecified lump in the left breast, upper inner quadrant (principal)
CPT/HCPCS: 77062; 77066

== ENCOUNTER → 2024-08-05 09:30 | Outpatient (BNV) | payer OTHER, SELFPAY | PROVIDERS: PCP Nurse Practitioner; Visit Provider Internal Medicine | DX: C50.212 Malignant neoplasm of upper-inner quadrant of left female breast (principal) | CPT/HCPCS: 77066; G0279 ==

== ENCOUNTER 2024-08-06 12:55 | Outpatient (AMB) | payer OTHER, SELFPAY ==
--- NOTE | 2024-08-06 13:08 | MHC.OFFVIS ---
Vital Signs 08/06/24 13:09 Height 5 ft 1 in Weight 157 lb 2.01 oz BMI 29.7 Intake Visit Reasons: s/p left br US bx for 10 O'c mass Intake Note: This patient presents for breast biopsy results. Pt c/o; no concerns. Reformatory Attendant Required: No Accompanied by: Spouse Allergies black pepper Allergy (Verified 08/06/24 13:09) Angioedema HPI HPI s/p left br US bx for 10 O'c mass: Details: 29-year-old female here for follow-up for a left breast mass. She says she has felt this mass in the upper part of her left breast for about 5 months. She thinks that this may have increased in size a little bit. She describes some discomfort but no pain. She had an ultrasound showing a hypoechoic irregular solid mass about 9 mm in widest dimension. She therefore underwent ultrasound biopsy last week. Unfortunately, this turned out to be an invasive carcinoma. She therefore underwent diagnostic mammogram 2 days ago. This showed that the entire suspicious area the left breast was about 6.3 cm anterior-posterior by 3.2 cm transversely by 5.2 cm superior to inferior. Her menarche was at the age of 11. Her 1st was the age of 23. She had 2 pregnancies with 2 live births and 2 miscarriages. She still has regular periods She denies any family history of breast cancer. [facility] Medical History (Updated 08/06/24 @ 14:03 by Fish Cash MD) Invasive ductal carcinoma of breast Left breast cancer with T3 tumor, >5 cm in greatest dimension Left breast mass Surgical History H/O section Family History Other Cancer Social History Alcohol intake: never Patient Tobacco Use Status: Never used Tobacco Female Reproductive History Menstrual Age of Menarche: 10 Physical Exam Vital Signs: BMI result Body Mass Index 29.7 Const General: comfortable and no acute distress Orientation/consciousness: patient oriented x3 Neck Neck: Yes no lymphadenopathy Chest Other: Vague mass on the upper part of the left breast, no axillary lymphadenopathy Resp Auscultation: clear to auscultation bilaterally Cardio Rhythm: regular rhythm GI Palpation (GI): Soft to palpation, nontender and no guarding Neuro General: patient oriented x3 Assessment & Plan Assessment & Plan (1) Invasive ductal carcinoma of breast: Code(s): C50.919 - Malignant neoplasm of unspecified site of unspecified female breast Category: Medical Plan: Unfortunately, her biopsy shows an invasive ductal cancer of the left breast. Her diagnostic mammogram done after the biopsy shows entire suspicious area to be about 6.3 x 3.2 x 5.2 cm. There were multiple adjacent irregular masses with associated segmental pleomorphic and linear branching calcifications. She has no axillary lymphadenopathy. In view of the large size of the mass on mammogram, I told her that I will set her up for a consultation with the oncologist for likely neoadjuvant treatment. I had a long discussion with her about the benefits of this She also is very young in age. I explained the excision of doing genetic testing with [facility]. I explained briefly the implications of this test to herself and her family She is also interested with genetic testing so we will set her up for genetic counseling and testing here in the office. I will see her again in the office in about a month to see how she is doing and to make sure that she is being navigated properly. Her was with her during the visit. Orders: Referrals Hematology & Oncology Referral C50.912 - Malignant neoplasm of unspecified site of left female breast Coding Level of Care Code Est Pt Level 4 (98622) Diagnoses Invasive ductal carcinoma of breast C50.919
[2024-08-06 13:09] VITALS: BMI 29.7
== END 2024-08-06 14:12 | disposition home or self-care (01) ==
PROVIDERS: PCP Nurse Practitioner; Visit Provider Surgery
DX: C50.919 Malignant neoplasm of unspecified site of unspecified female breast (principal)
CPT/HCPCS: 99214

== ENCOUNTER → 2024-08-06 12:55 | Outpatient (BNVA) | payer OTHER, SELFPAY | PROVIDERS: PCP Nurse Practitioner; Visit Provider Surgery | DX: C50.912 Malignant neoplasm of unspecified site of left female breast (principal) | CPT/HCPCS: 99212 ==

== ENCOUNTER → 2024-08-12 08:18 | Outpatient (BNV) | payer OTHER, SELFPAY | PROVIDERS: PCP Nurse Practitioner; Referring Provider Surgery; Visit Provider Internal Medicine Medical Oncology | DX: C50.212 Malignant neoplasm of upper-inner quadrant of left female breast (principal); D64.9 Anemia, unspecified | CPT/HCPCS: 99213 ==

== ENCOUNTER → 2024-08-12 10:57 | Outpatient (BNVA) | payer OTHER, SELFPAY | PROVIDERS: PCP Nurse Practitioner; Visit Provider Surgery | DX: Z31.438 Encounter for other genetic testing of female for procreative management (principal) | CPT/HCPCS: 99211 ==

== ENCOUNTER → 2024-08-14 09:25 | Outpatient (REF) | payer OTHER, SELFPAY ==
--- NOTE | 2024-08-14 09:34 | CA_ITS ---
Transthoracic Echocardiogram Patient (Last, First, Middle): Regina Veliz, Gender: Female Date of : 1995 Age: 29 Procedure Date: 08/14/2024 Procedure Type: Transthoracic Echocardiogram Location: OP Height: 154.94 cm Weight: 71.22 kg BSA: 1.70 m2 Heart Rate: 63 bpm BP: 106 / 68 mmHg Cosmetic Account Coordinator: SB Referring MD: Quique Moses MD Symptoms: Breast cancer, pre chemo assessment Study Quality: Adequate ECG Rhythm: Sinus Conclusions: - The left ventricular systolic function is normal. The calculated ejection fraction is 58% by biplane method. - No obvious valvular pathology seen on this study. Findings Left Ventricle Normal left ventricular cavity size. There is normal left ventricular wall thickness. The left ventricular systolic function is normal. The calculated ejection fraction is 58% by biplane method. There is no evidence of regional wall motion abnormalities. Diastolic function is normal for age. LV peak GLS -19.6% (normal). Right Ventricle Normal right ventricular cavity size. There is low normal right ventricular systolic function. Atria Both atria are normal in size. Aortic Valve There is a normal trileaflet aortic valve. There is no aortic valve stenosis. There is no aortic valve regurgitation. Mitral Valve The mitral valve appears normal. There is trace mitral valve regurgitation. There is no mitral valve stenosis. Pulmonic Valve There is trace pulmonic valve regurgitation. Tricuspid Valve There is trace tricuspid valve regurgitation. There is no evidence of pulmonary hypertension. Great Vessels The asc aorta and aortic arch are normal in size. Venous The inferior vena cava is normal in size and collapses greater than 50% with inspiration. Pericardium/Pleural There is no evidence of pericardial effusion. Prior Study Comparison No prior study available for comparison. Recommendations, Care & Conclusions No obvious valvular pathology seen on this study. Measurements 2D Linear Measurements IVSd: 0.92 0.6-0.9/0.6-1.0 cm LVIDd: 5.12 3.9-5.3/4.2-5.9 cm LVIDd Index: 3.01 2.4-3.2/2.2-3.1 cm/m2 LVIDs: 3.68 2.0-3.6 cm LVPWd: 0.78 0.7-1.1 cm LA Diam: 3.80 2.7-3.8/3.0-4.0 cm LAIDs Index: 2.24 1.5-2.3 cm/m2 LV Mass: 188.87 67-162/88-224 g LV Mass Index: 111.10 43-95/49-115 g/m2 LVOT Diam: 2.10 3.0+(-)1.3 cm 2D Systolic Function EF 4C: 56.90 >55% EF 2C: 60.80 >55% EF BiP: 57.60 >55% Mitral Valve MV Pk E: 0.75 MV PK A: 0.49 MV Decel Time: 258.00 E/A: 1.50 E'Lateral: 13.40 E'Medial: 8.05 E/E' Med: 9.40 E/E' Lat: 5.60 PHT: 76.00 MVA PHT: 2.89 Decel [place]: 2.92 Aortic Valve AoV Pk Jonnie: 1.42 AoV Pk Grad: 8.00 CYNTHIA: 2.63 LVOT LVOT Pk Jonnie: 0.95 LVOT Mn Jonnie: 0.73 LVOT VTI: 0.22 LVOT Pk Grad: 4.00 LVOT Mn Grad: 2.00 LVOT Diam: 2.10 LVOT Area: 3.46 Diastolic Function MV Pk E: 0.75 MV Pk A: 0.49 E/A: 1.50 E'Medial: 8.05 E/E' Med: 9.40 E' Laterial: 13.40 E/E' Lat: 5.60 Right Ventricle TAPSE (mm): 14.80 TVS' Jonnie: 9.68 Tricuspid Valve RA Press: 3.00 Great Vessels Aorta Sinus of Valsalva: 2.70 2.0-3.5 cm Ao Asc: 2.50 2.1-3.4 cm Pulmonary Valve PV Pk Jonnie: 0.93 Peak PV Grad: 3.00 Updated in Other Vendor System with Status of Final Zak Pitts MD electronically signed on 08/15/2024 1:27:44 PM with status of Final
== END ==
LOC: HO.CARD 09:25
PROVIDERS: PCP Nurse Practitioner; Visit Provider Internal Medicine Medical Oncology
DX: C50.919 Malignant neoplasm of unspecified site of unspecified female breast (principal)
CPT/HCPCS: 93306; 93356

== ENCOUNTER → 2024-08-14 09:34 | Outpatient (BNV) | payer OTHER, SELFPAY | PROVIDERS: PCP Nurse Practitioner; Visit Provider Internal Medicine | DX: Z01.818 Encounter for other preprocedural examination (principal) | CPT/HCPCS: 93306; 93356 ==

== ENCOUNTER 2024-08-20 10:59 | Day surgery (SDC) | payer OTHER, SELFPAY ==
[2024-08-20] VITALS (21 sets, daily range): BP systolic 102–124; BP diastolic 57–74; PULSE 73–89; RESP 15–21; TEMP 36.2–36.7; O2SAT 95–100; BMI 29.9
--- NOTE | ~2024-08-20 | IR_ITS ---
CLINICAL HISTORY: Left breast cancer. The patient presents to interventional radiology for placement of a port for chemotherapy. PROCEDURES: 1. Real-time ultrasound-guided access into the right internal jugular vein after documentation of selected vessel patency, and permanent image storing in the patient records. 2. Placement of a 6.0 Japanese single-lumen power port. CLINICIAN: John Jones PA-C MEDICATIONS: - Versed 2 mg, Fentanyl 125 mcg, Lidocaine 1% 10 mL SQ -Antibiotics: Ancef 2g -For additional details, please see nursing flowsheet. Complications: None. Estimated blood loss: <5 ml Specimens: None. Contrast: None. Fluoroscopy time: 0.7 min MODERATE SEDATION TIME: 35 min PROCEDURE NOTE: The procedure, risks, benefits, and alternatives were carefully explained to the patient and written informed consent was obtained. The patient was placed supine on the fluoroscopy table. A timeout was performed. The right neck and chest was prepped and draped in usual sterile fashion. Maximum barrier technique was utilized. Local anesthesia was administered to the access site with 1% lidocaine. Under ultrasound guidance, the right internal jugular vein was accessed with a 5 fr micropuncture set. A 0.035 in wire was advanced into the IVC. A peel-away sheath was advanced over the wire and into the SVC, and the wire was removed. Next, subcutaneous lidocaine was administered to the chest. The port pocket was created after the skin incision, utilizing blunt dissection. Using blunt dissection, a subcutaneous tunnel was created that connects from the port pocket to the venotomy site. Through the peel-away sheath, the 6.0 Fr port catheter was placed. The catheter position was verified with fluoroscopy to be at the superior vena cava/right atrial junction. The port was connected to the catheter and was placed in the pocket. The venotomy site was closed with a 3-0 Vicryl subcutaneous suture. The port incision site was closed with interrupted 3-0 Vicryl subcutaneous sutures and surgical glue. Prior to closing the skin, 1 g of Ancef solution was placed in the pocket. The port was tested, flushed, and packed with heparin per routine protocol. The patient tolerated the procedure well. The patient was stable after the procedure and was transferred to the PACU. The procedure was performed under moderate sedation and with a dedicated nurse with continuous monitoring of vital signs. A permanent image of the ultrasound the neck and fluoroscopic image of the chest was saved and sent to PACS. FINDINGS: 1. Patent right internal jugular vein 2. Placement of a 6.0 fr single lumen power port. 3. Port flushes and aspirates very well with a 10 mL syringe. No pneumothorax. IR/IR cvc insert tunnel w prt/corrosion control technician IMPRESSION: Placement of a 6.0 fr single-lumen power port. PLAN: - The patient will be discharged home when stable by sedation protocol. - Port may be used immediately. This procedure was performed by John Jones PA-C, and directly supervised by Dr. Augustin Electronically signed by: Tyrone Augustin MD 08/25/2024 04:51 PM [facility]
--- OUTSIDE RECORDS SUMMARY | 2024-08-20 11:02 | XMS_ITS | Encounter Summary ---
Author Organization [employer] Address [address] [facility] 7t [place] [address] Care Team Providers Care Diabetes Clinical Manager Name Role Phone Jennifer Nash ALFREDO Primary Care Provider [phone] Encounter Details Date Type Department Care Team ([facility] st Contact Info) Description 07/29/2024 Orders Only [facility] External Provider, [facility] Social History Tobacco Use Types Packs/Day [...] Procedure Name Priority Date/Time Associated Diagnosis Comments BI MAMMOGRAM DIAGNOSTIC TOMOSYNTHESIS BILATERAL Routine 08/05/2024 9:30 AM EST HEMATOXYLIN AND EOSIN STAIN Routine 07/29/2024 9:26 AM EST BI MR GUIDED BREAST BIOPSY LEFT Routine 07/29/2024 9:10 AM EST documented in this encounter Results * BI Mammogram Diagnostic Tomosynthesis Bilateral (08/05/2024 9:30 AM EST) Anatomical Region Laterality Modality Breast Bilateral Mammography 08/05/2024 9:30 AM EST Narrative 08/05/2024 12:36 PM EST ? [facility] ? [address] ?[place] [address] ? Mammography Report ? Signed ? Patient: Jose Alfredo,Regina I ?MR#: [id number] ?? 059 ? : 1995 ?Acct:[id number] ? Age/Sex: 29 / F ?ADM Date: 01/22/25 ? Loc: HO.MAMMO ? Attending Dr: Fish Cash MD ? Ordering Physician: Fish Cash MD ?Results: 6Kno ?? wn Biopsy Proven Malignancy ? Date of Service: 08/05/24 ?Follow Up: Surgical Consult ? Procedure(s): MM tomosynthesis diagnostic BI ?? Accession Number(s): [id number] ? cc: Jennifer Nash; Fish Cash MD ? EXAMINATION: ?? MM DIAGNOSTIC DIGITAL BREAST TOMOSYNTHESIS, BILATERAL ? CLINICAL INFORMATION: ? Biopsy-proven invasive ductal carcinoma in the left breast, 29-year-old ?? bilateral diagnostic mammography recommended. ? COMPARISON: ?? Mammography: Comparison is made with relevant prior exams. ? TECHNIQUE: ?? Digital breast mammography with tomosynthesis is performed in both the ?? craniocaudal and mediolateral oblique views along with computer-aided ?? detection (CAD). ? FINDINGS: ?? The breasts are heterogeneously dense, which may obscure small masses ?? (ACR BI-RADS breast composition Category c). ?? Right: ?? No suspicious calcifications masses or other abnormal findings. ? Left: ?? Coil Marker clip in the upper inner breast posterior depth at site of ?? biopsy-proven invasive ductal carcinoma. The coil clip is at the ?? posterior extent of suspcious mass and calcifications. ?? There are multiple adjacent irregular masses with associated segmental ?? pleomorphic and linear branching calcifications associated with the ?? irregular masses. ?? The entire suspicious area measures 6.3 cm anterior to posterior by ?? 3.2 cm transverse by 5.2 cm superior to inferior. ?No other suspicious abnormal findings. ? Results are discussed with the patient at time of visit. ? MM/MM tomosynthesis diagnostic BI ?? IMPRESSION: ?? Right: Negative. ? Left: Biopsy-proven invasive ductal carcinoma in the upper inner left ?? breast with associated suspicious calcifications in adjacent masses ?? measuring up to 6.3 cm. These findings were communicated to the ?? patient's breast surgeon Dr. Cash today. If an anterior extent is ?? needed the calcifications and masses are amenable to core needle biopsy. ? The patient is under the care of a breast surgeon for excision and ?? further management. ? ASSESSMENT: ? BI-RADS BI-RADS 6 - Known biopsy proven malignancy ? RECOMMENDATION: ?? Surgical Consult ? This patient's information was entered into a reminder system with a ?? target due date for their next mammogram. ? Electronically signed by: ??Priscilla Chacon DO ??08/05/2024 12:34 PM EST ? Dictated By: ?Priscilla Cahcon DO ? Signed By: ?<Electronically signed by Priscilla Chacon, DO in OV> ? 08/05/24 1234 ? DD/ 0930 ? TD/TT: 08/05/24 0949 ? Administrative Services Manager: ? Procedure Note Donotuseinterpreter, Image - [facility]/05/20[facility] [address] [place] [address] Mammography Report Signed Patient: Regina Veliz IMR#: [id number] 059 : 1995Acct:[id number] Age/Sex: M Date: 08/05/24 Loc: GUILLERMO.MAMMO Attending Dr: Fish Cash MD Ordering Physician: Fish Cash MDResults: 6Kno wn Biopsy Proven Malignancy Date of Service: 08/05/24Follow Up: Surgical Consult Procedure(s): MM tomosynthesis diagnostic BI Accession Number(s): [id number] cc: Jennifer Nash; Fish Cash MD EXAMINATION: MM DIAGNOSTIC DIGITAL BREAST TOMOSYNTHESIS, BILATERAL CLINICAL INFORMATION: Biopsy-proven invasive ductal carcinoma in the left breast, 29-year-old bilateral diagnostic mammography recommended. COMPARISON: Mammography: Comparison is made with relevant prior exams. TECHNIQUE: Digital breast mammography with tomosynthesis is performed in both the craniocaudal and mediolateral oblique views along with computer-aided detection (CAD). FINDINGS: The breasts are heterogeneously dense, which may obscure small masses (ACR BI-RADS breast composition Category c). Right: No suspicious calcifications masses or other abnormal findings. Left: Coil Marker clip in the upper inner breast posterior depth at site of biopsy-proven invasive ductal carcinoma. The coil clip is at the posterior extent of suspcious mass and calcifications. There are multiple adjacent irregular masses with associated segmental pleomorphic and linear branching calcifications associated with the irregular masses. The entire suspicious area measures 6.3 cm anterior to posterior by 3.2 cm transverse by 5.2 cm superior to inferior. No other suspicious abnormal findings. Results are discussed with the patient at time of visit. MM/MM tomosynthesis diagnostic BI IMPRESSION: Right: Negative. Left: Biopsy-proven invasive ductal carcinoma in the upper inner left breast with associated suspicious calcifications in adjacent masses measuring up to 6.3 cm. These findings were communicated to the patient's breast surgeon Dr. Cash today. If an anterior extent is needed the calcifications and masses are amenable to core needle biopsy. The patient is under the care of a breast surgeon for excision and further management. ASSESSMENT: BI-RADS BI-RADS 6 - Known biopsy proven malignancy RECOMMENDATION: Surgical Consult This patient's information was entered into a reminder system with a target due date for their next mammogram. Electronically signed by: Priscilla Chacon DO 08/05/2024 12:34 PM EST Dictated By: Priscilla Chacon DO Signed By: <Electronically signed by Priscilla Chacon DO in OV> 08/05/24 1234 DD/ 0930 TD/TT: 08/05/24 0949 Administrative Services Manager: [facility] External Provider IMG BI PROCEDURES Final Result * Hematoxylin and Eosin Stain (07/29/2024 9:26 AM EST) 07/29/2024 9:26 AM EST 07/29/2024 10:07 AM EST [facility] - 07/31/2024 3:12 PM EST ----- ------- Name: Jose AlfredoRegina I ?Age/Sex: 29/F ? : 1995 Unit#: [id number] ?? Attend Dr: Fish Cash MD ?Re07/29/24 ?Status: DEP REF ? Location: HO.MAMMO ?Disch: ? ----- ------- SPEC : [id number] ?RECD: 07/29/24-1007 ? STATUS: ??SOUT ? REQ NUM: [id number] ? FLAQUITO: 07/29/24-925 ? SUBM DR: Priscilla Chacon DO ? ENTERED: ??07/29/24-5 ?SP TYPE: Surgical ? OTHR DR: Fish Cash MD ?Jennifer Nash ORDERED: ??HE Stain/2, Gross Micro L4, ER, KY, IHC, Add. immunos, IHC ER/KY/Her2N/4, Ki-67, ?p63, SMM, [id number] COMMENTS: As per the specimen requisition slip [...] I ?Age/Sex: 29/F ? : 1995 Unit#: [id number] ?? Attend Dr: Fish Cash MD ?Re07/29/24 ?Status: DEP REF ? Location: HO.MAMMO ?Disch: ? ----- ------- SPEC : [id number] ?RECD: 07/29/24-1006 ? STATUS: ??SOUT ? REQ NUM: [id number] ? FLAQUITO: 07/29/24-925 ? SUBM DR: Priscilla Chacon DO ? ENTERED: ??07/29/24-1014 ?SP TYPE: Surgical ? OTHR DR: Fish Cash MD ?SaadJennifer ORDERED: ??HE Stain/2, Gross Micro L4, ER, KY, IHC, Add. immunos, IHC ER/KY/Her2N/4, Ki-67, ?p63, SMM, [id number] COMMENTS: As per the specimen requisition slip [...] submitted in toto in a cassette labeled A. CEDS Formalin-fixed paraffin-embedded tissue. Time tissue removed from patient: ??0926 Time tissue placed in fixative: ??0930 Duration of fixation: ??between 6 and 24 hrs. Estrogen and Progesterone receptor immunohistochemistry performed in accordance with ASCO/CAP recommendations (2010). ?? Estrogen receptor: ??Clone SP1; Dako Envision+ Dual Link System-HRP. ?? Progesterone receptor: ??Clone RsY672; Advanced Magnet Lab Mach 4 detection system. Her-2/rivka immunohistochemistry performed in accordance with ASCO/CAP recommendations (2007) and update (2013). ??Hercep Test ??Detection system: ??Polymer type ??Scoring criteria: For ER/KY and Her-2/rivka: ??All internal (if present) and external controls react appropriately. ER and KY immunostains are scored as Positive (> 10% [...] I ?Age/Sex: 29/F ? : 1995 Unit#: [id number] ?? Attend Dr: Fish Cash MD ?Re07/29/24 ?Status: DEP REF ? Location: HO.MAMMO ?Disch: ? ----- ------- SPEC : [id number] ?RECD: 07/29/24-1006 ? STATUS: ??SOUT ? REQ NUM: [id number] ? FLAQUITO: 07/29/24-925 ? SUBM DR: Priscilla Chacon DO ? ENTERED: ??07/29/245 ?SP TYPE: Surgical ? OTHR DR: Fish Cash MD ?Jennifer Nash ORDERED: ??HE Stain/2, Gross Micro L4, ER, KY, IHC, Add. immunos, IHC ER/KY/Her2N/4, Ki-67, ?p63, SMM, [id number] COMMENTS: As per the specimen requisition slip [...] Focus Update. Arch of Pathol Lab Med, 142 2018: 8172-1084. Brandy UD, Matias CHASE, et al. Estrogen and Progesterone Receptor Testing in Breast Cancer: ASCO/CAP Guideline Update. Arch of Pathol Lab Med, 1442019: 545-563. Marge Espinosa P, et al. Adjuvant abemaciclib combined with endocrine therapy for high- risk early breast cancer: updated efficacy and Ki-67 analysis from the [facility] study. Amber Oncol. 2020;32(12):4607-4997. This case was reviewed intradepartmentally; results were communicated to Drs. Cash and Oswaldo via secure text on 07/31/2024. Special studies ordered and performed: ??Immunostains for ER, KY, HER2, Ki 67, p63 and smooth muscle myosin Copies To: ?? Fish Cash MD ?? [facility] Sur[facility] ?? [address] ?? [place] ?? [phone] ?? Saad,Jennifer ?? [address] ?? [place] ?? [phone] ?? Priscilla Chacon DO ?? [address] [facility] ?? [place] ?? [phone] ? CONTINUED ON NEXT PAGE ----- ------- Name: Regina Veliz I ?Age/Sex: 29/F ? : 1995 Unit#: [id number] ?? Attend Dr: Fish Cash MD ?Re07/29/24 ?Status: DEP REF ? Location: HO.MAMMO ?Disch: ? ----- ------- SPEC : [id number] ?RECD: 07/29/24 ? STATUS: ??SOUT ? REQ NUM: [id number] ? FLAQUITO: 07/29/24 ? SUBM DR: Priscilla Chacon DO ? ENTERED: ??07/29/24 ?SP TYPE: Surgical ? OTHR DR: Fish Cash MD ?Jennifer Nash ORDERED: ??HE Stain/2, Gross Micro L4, ER, KY, IHC, Add. immunos, IHC ER/KY/Her2N/4, Ki-67, ?p63, SMM, [id number] COMMENTS: As per the specimen requisition slip the specimen is ?collected at 0926 and placed in formalin at 0930. ----- ------- Signed (signature on file) Emilio Licona MD 07/31/24 1512 ? ----- ------- ? END OF REPORT ? us Generic External Data Provider LAB BLOOD ORDERAB LES Final Result [facility] [address] [place] [address] [phone] * BI MR Guided Breast Biopsy Left (07/29/2024 9:10 AM EST) Anatomical Region Laterality Modality Breast Left Magnetic Resonan ce 07/29/2024 9:10 AM EST Narrative 07/29/2024 1:10 PM EST ? [facility] ? [address] ?[place] [address] ? Ultrasound Report ? Signed with Addenda ? Patient: Regina Veliz I ?MR#: [id number] ?? 059 ? : 1995 ?Acct:[id number] ? Age/Sex: 29 / F ?ADM Date: //25 ? Loc: HO.MAMMO ? Attending Dr: Fish Cash MD ? Ordering Physician: Fish Cash MD ?? Date of Service: 01/15/25 ?? Procedure(s): US breast ndl core biopsy LT ?? Accession Number(s): [id number] ? cc: Jennifer Nash; Fish Cash MD ?ADDENDUM ? ADDENDUM #1 ? Left breast o'clock solid mass: ?? 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 Recommend breast surgical consultation ?? for excision and further management. ? Recommend bilateral mammography for further evaluation. ?? Recommend breast MRI for further evaluation. ? Electronically signed by: ??Priscilla Chacon DO ??08/03/2024 09:23 AM EST ?? RP ? Addendum Dictated By: ?Priscilla Chacon, DO ? Addendum Signed By: ? <Electronically signed by Priscilla Chacon, DO in OV> ? 08/03/24 0923 ?? Addendum Cosigned By: ? DD/ ? TD/TT: 07/29/24 ? ADDENDUM #1 ? Left breast o'clock solid mass: ?? 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 Recommend breast surgical consultation ?? for excision and further management. ? Recommend bilateral mammography for further evaluation. ?? Recommend breast MRI for further evaluation. ? Electronically signed by: ??Priscilla Chacon DO ??08/03/2024 09:23 AM EST ? ORIGINAL REPORT ? PROCEDURE: ?? ULTRASOUND-GUIDED [...] DD/ 0910 ? TD/TT: 07/29/24 0945 ? Administrative Services Manager: ? Procedure Note Ej, Image - 08/09/2024 [facility] [address] [place] [address] 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 Recommend breast surgical consultation for excision and further management. Recommend bilateral mammography for further evaluation. Recommend breast MRI for further evaluation. 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 Recommend breast surgical consultation for excision and further management. Recommend bilateral mammography for further evaluation. Recommend breast MRI for further evaluation. Electronically signed by: Priscilla Chacon DO 08/03/2024 09:23 AM EST RP ORIGINAL REPORT PROCEDURE: ULTRASOUND-GUIDED LEFT BREAST BIOPSY [...] 08/03/24 0923 DD/ 0910 TD/TT: 07/29/24 0945 Administrative Services Manager: [facility] External Provider IMG MRI PROCEDURES Edited Result - Final documented in this encounter Visit Diagnoses Not on filedocumented in this encounter Additional Health Concerns Assessment Noted Time PHQ-9 Depression Total Score: 0 10/02/19 24 2:38 PM EDT documented as of this encounter Care Teams Diabetes Clinical Manager Relationship Specialty Start Date End Date Jennifer Nash NP [address] [place] [address] PCP - General Family Medicine 06/25/23 documented as of this encounter
--- OUTSIDE RECORDS SUMMARY | 2024-08-20 11:02 | XMS_ITS | Encounter Summary ---
Author Organization [facility] Address [address] [place] [address] Phone Care Team Providers Care Insurance Claims Processor Name Role Phone Yelitza Flowers MD Primary Care Provider [phone] Encounter Details Date Type Department Care Team (Late st Contact Info) Description 07/03/2013 Documentation [facility] Family Medicine [address] [place] [address] Family Medicine, Physician [address] [place], [place] [id number] Social History Tobacco Use Types Packs/Day Years [...] on filedocumented in this encounter Care Teams Insurance Claims Processor Relationship Specialty Start Date End Date Yelitza Flowers MD [address] [place] [address] PCP - General 02/22/17 10/14/22 documented as of this encounter
--- OUTSIDE RECORDS SUMMARY | 2024-08-20 11:02 | XMS_ITS | Encounter Summary ---
Author Organization [facility] Address [address] [place] [address] Phone Care Team Providers Care Big Data Software Engineer Name Role Phone Yelitza Flowers MD Primary Care Provider [phone] Encounter Details Date Type Department Care Team (Late st Contact Info) Description 02/28/2017 Conversion Encounter [place] [address] [place] [address] Social History Tobacco Use Types Packs/Day Years [...] on filedocumented in this encounter Care Teams Big Data Software Engineer Relationship Specialty Start Date End Date Yelitza Flowers MD [address] [place] [address] PCP - General 02/22/17 10/14/22 documented as of this encounter
--- OUTSIDE RECORDS SUMMARY | 2024-08-20 11:02 | XMS_ITS | Clinical Summary ---
Author Organization [facility] Address [address] [place] [address] Phone Care Team Providers Care Risk Control Officer Name Role Phone Unavailable Primary Care Provider Unavailabl e Immunizations Immunization Administration Dates Next Due DTP [birth year] DTaP [...] complete this topic Procedures * Due to [place] state law, this organization might not be sharing sensitive test results. Procedure Name Priority Date/Time Associated Diagnosis Comments CHLAMYDIA AND GONORRHEA, AMPLIFIED Routine 01/05/2016 1:37 PM EDT from Last 3 Months or Most Recently Relevant to Health Maintenance Results * Due to [place] state law, this organization might not be sharing sensitive test results. * Chlamydia and Gonorrhoea, Amplified (01/05/2016 1:37 PM EDT) URINE CHLAMYDIA AMP PROBE NEGATIVE [facility] Comment: No Chlamydia Trachomatis RNA detected in this patient's sample (REFERENCE RANGE/NORMAL VALUE: NOT DETECTED) URINE GC AMP PROBE NEGATIVE [facility] Comment: No Neisseria Gonorrhoeae RNA detected in this patient's sample (REFERENCE RANGE/NORMAL VALUE: NOT DETECTED) NOTE: This test uses director writing-mediated amplification method to detect rRNA from C.Trachomatis [...] without risk of sexual abuse. Consult the [facility] if needed. Contact phone number . Therapeutic failure or success cannot be determined with the Aptima Combo2 assay since nucleic acid may persist following appropriate antimicrobial therapy. The Centers for Disease Control and Prevention (CDC) recommends confirmatory retesting using culture or a different nucleic acid amplification test when positive results occur, if indicated. Testing performed or reported by [facility], a Service of [facility], [address] [place] [address] CLIA ??[id number] Tim Bearden MD, PhD, Funeral Home Director 01/05/2016 1:37 PM EDT Narrative [facility] - 01/05/2016 1:37 PM EDT URINE CHLAMYDIA GC AMP PROBE us Yelitza Flowers MD LAB MICROBIOLOGY - GENERAL ORDER FISH Final Result [facility] [address] [place] [address], [place] from Last 3 Months or Most Recently Relevant to Health Maintenance
--- OUTSIDE RECORDS SUMMARY | 2024-08-20 11:02 | XMS_ITS | Encounter Summary ---
Author Organization [employer] Address [address] [facility] [address] [place] [address] Care Team Providers Care Credit Operations Processor Name Role Phone Jennifer Nash ALFREDO Primary Care Provider [phone] Encounter Details Date Type Department Care Team ([facility] st Contact Info) Description 08/05/2024 Telephone [facility] MEDICINE [address] [place] [address] Payal Martinez CN [address] [place] [address] Social History Tobacco Use Types Packs/Day Years [...] encounter Miscellaneous Notes * Telephone Encounter - Payal Martinez CNM - 08/05/2024 1:38 PM EST Telephone call to patient to discuss bx results and mammogram. Per mammogram report, results discussed with her at time of visit. She didn't fully understand some of the language used. Relayed that she has breast cancer (ductal carcinoma) in left breast, right breast looks unaffected. At this point, we need to get more information. She has appointment with Dr. Cash tomorrow, and will likely see oncologist as well. Urged to bring support person, write down questions before hand and take notes during visit. Let me know if any questions or concerns. Direct message sent to patient so she can message me back directly. Urged to eat well, stay active, try not to panic but validated that it is okay to feel overwhelmed. Will check in later this week, offer consult. documented in this encounter Plan of Treatment Not on file documented as of this encounter Visit Diagnoses Not on filedocumented in this encounter Additional Health Concerns Assessment Noted Time PHQ-9 Depression Total Score: 0 10/02/19 24 2:38 PM EDT documented as of this encounter Care Teams Credit Operations Processor Relationship Specialty Start Date End Date Jennifer Nash NP [address] [place] [address] PCP - General Family Medicine 06/25/23 documented as of this encounter
--- OUTSIDE RECORDS SUMMARY | 2024-08-20 11:02 | XMS_ITS | Encounter Summary ---
Author Organization [employer] Address [address] [facility] [address] [place] [address] Care Team Providers Care Farm Owner Operator Name Role Phone Jennifer Nash NP Primary Care Provider [phone] Reason for Visit * Reason Onset Date Comments Med Refill 08/02/2024 Encounter Details Date Type Department Care Team ([facility] st Contact Info) Description 08/02/2024 Refill [facility] MEDICINE [address] [place] [address] Jennifer Nash NP [address] [place] [address] Hypoglycemia Social History Tobacco Use Types Packs/Day [...] documented as of this encounter Care Teams Farm Owner Operator Relationship Specialty Start Date End Date Jennifer Nash NP [address] [place] [address] PCP - General Family Medicine 06/25/23 documented as of this encounter
--- OUTSIDE RECORDS SUMMARY | 2024-08-20 11:02 | XMS_ITS | Encounter Summary ---
Author Organization [facility] Address [address] [place] [address] Phone Care Team Providers Care Web Site Admin Name Role Phone Yelitza Flowers MD Primary Care Provider [phone] Encounter Details Date Type Department Care Team (Late st Contact Info) Description 05/05/2013 Documentation [facility] Family Medicine [address] [place] [address] Family Medicine, Physician [address] [place], [place] [phone] Social History Tobacco Use Types Packs/Day Years [...] on filedocumented in this encounter Care Teams Web Site Admin Relationship Specialty Start Date End Date Yelitza Flowers MD [address] [place] [address] PCP - General 02/22/17 10/14/22 documented as of this encounter
--- OUTSIDE RECORDS SUMMARY | 2024-08-20 11:02 | XMS_ITS | Encounter Summary ---
Author Organization [employer] Address [address] [facility] [address]t [place] [address] Care Team Providers Care Landcare Facilitator Name Role Phone Jennifer Nash NP Primary Care Provider [phone] Reason for Visit * Reason Onset Date Comments Results 08/29/2023 Encounter Details Date Type Department Care Team ([facility] st Contact Info) Description 08/29/2023 Telephone [facility] MEDICINE [address] [place] [address] Jennifer Nash NP [address] [place] [address] Results Social History Tobacco Use Types Packs/Day [...] Blood Work Date when done: 08/26/23 Facility: [facility] Labs TC from pt requesting call back regarding Results. Type of results: Blood Work Date when done: 08/24/23 Facility: [facility] documented in this encounter Plan of Treatment Not on file documented as of this encounter Visit Diagnoses Not on filedocumented in this encounter Additional Health Concerns Assessment Noted Time PHQ-9 Depression Total Score: 3 01/24/20 23 11:03 AM EDT documented as of this encounter Care Teams Landcare Facilitator Relationship Specialty Start Date End Date Jennifer Nash NP [address] [place] [address] PCP - General Family Medicine 06/25/23 documented as of this encounter
--- OUTSIDE RECORDS SUMMARY | 2024-08-20 11:02 | XMS_ITS | Encounter Summary ---
Author Organization [employer] Address [address] [facility] 7t [place] [address] Care Team Providers Care Manager Qa Name Role Phone Jennifer Nash NP Primary Care Provider [phone] Encounter Details Date Type Department Care Team ([facility] st Contact Info) Description 08/30/2023 Orders Only [facility] MEDICINE [address] [place] [address] Jennifer Nash NP [address] [place] [address] Anemia, unspecified type (Primary Dx); Hypoglycemia Social [...] documented as of this encounter Care Teams Manager Qa Relationship Specialty Start Date End Date Jennifer Nash NP [address] [place] [address] PCP - General Family Medicine 06/25/23 documented as of this encounter
--- OUTSIDE RECORDS SUMMARY | 2024-08-20 11:04 | XMS_ITS | Clinical Summary ---
Author Organization [employer] Address [address] [place] [address] 7t [place] [address] Care Team Providers Care Cook Railroad Name Role Phone Jennifer Nash ALFREDO Primary Care Provider [phone] Allergies No known active allergies Medications simethicone [...] 24 Active Blood Glucose Monitoring Suppl (FreeStyle [place] Lite) w/Device kitIndications :Hypoglycemia Use to test [...] advised -will call or send message in [employer] with results -follow-up 3 months via televisit [...] Encounters Date Type Department Care Team Description 08/05/2024 Telephone [facility] MEDICINE [address] [place] [address] Kim Pickens CNM 08/02/2024 Refill [facility] MEDICINE [address] [place] [address] Jennifer Nash NP Hypoglycemia 07/29/2024 Orders Only [facility] External Provider, [facility] 07/01/2024 Telephone [facility] MEDICINE [address] [place] [address] Fidelina Morrow, RN Results from Last 3 Months Immunizations Name [...] MMRV 02/12/2014 Meningococcal MCV4P ACYW-135 05/28/2006 Novel Omsdtcoog-J2D5-63, all formulations 06/15/2009 Tdap 10/06/2021, 8,05/28/2006,05/28 Social [...] Health Maintenance Due Date Last Done Comments Alcohol/Substance Use Screening 2007 Pneumococcal Vaccine: Pediatrics (0 to 5 Years) and At-Risk Patients (6 to 49) Years) (1 of 2 - PCV) 2014 COVID-19 Vaccine (3 - season) 2024 08/16/2021, 07/19/2021 Influenza Vaccine (#1) 2024 2, 04/01/2018, 05/05/2014, Additional history exists Depression Screening 10/01/2024 10/02/2023, 10/02/19 24 SDOH Screening 10/01/2024 10/02/2023 Diagnostic Breast Imaging 11/03/20242024, 07/01/2024, 03/31/2024 Mammogram 11/03/2024 08/05/2024, 06/14, 03/31/2024 Family Planning (PISQ) 03/23/2025 03/23/2024 Tobacco Screening [...] exists Meningococcal Vaccine Aged Out 05/28/2006 No jmaari itzel eligible based on patient's age to [...] Recently Relevant to Health Maintenance Results * BI Mammogram Diagnostic Tomosynthesis Bilateral (08/05/2024 9:30 AM EST) Anatomical Region Laterality Modality Breast Bilateral Mammography 08/05/2024 9:30 AM EST Narrative 08/05/2024 12:36 PM EST ? [facility] ? [address] ?[place] [address] ? Mammography Report ? Signed ? Patient: Regina Veliz I ?MR#: [id number] ?? 059 ? : 1995 ?Acct:[id number] ? Age/Sex: 29 / F ?ADM Date: 01/22/25 ? Loc: HO.MAMMO ? Attending Dr: Fish Cash MD ? Ordering Physician: Fish Cash MD ?Results: 6Kno ?? wn Biopsy Proven Malignancy ? Date of Service: 08/05/24 ?Follow Up: Surgical Consult ? Procedure(s): MM tomosynthesis diagnostic BI ?? Accession Number(s): [id number] ? cc: Jennifer Nash; Fish Cash MD [...] ??Priscilla Chacon DO ??08/05/2024 12:34 PM EST ?? RP ? Dictated By: ?Priscilla Chacon DO ? Signed By: ?<Electronically signed by Priscilla Chacon, DO in OV> ? 08/05/24 1234 ? DD/ 0930 ? TD/TT: 08/05/24 0949 ? Packing Inspector: ? Procedure Note Donotviktorinterpreter, Image - 08/05/2024 [place] [facility] [address] [place] [address] Mammography Report Signed Patient: Regina Veliz IMR#: [id number] 059 : 1995Acct:[id number] Age/Sex: Date: 08/05/24 Loc: OMARO Attending Dr: Fish Cash MD Ordering Physician: Fish Cash MDResults: 6Kno wn Biopsy Proven Malignancy Date of Service: 08/05/24Follow Up: Surgical Consult Procedure(s): MM tomosynthesis diagnostic BI Accession Number(s): [id number] cc: Jennifer Nash; Fish Cash MD EXAMINATION: [...] 08/05/24 1234 DD/ 0930 TD/TT: 08/05/24 0949 Packing Inspector: [facility] External Provider IMG BI PROCEDURES Final Result * Hematoxylin and Eosin Stain (07/29/2024 9:26 AM EST) 07/29/2024 9:26 AM EST 07/29/2024 10:07 AM EST [facility] LABS - 07/31/2024 3:12 PM EST ----- ------- Name: Jose AlfredoRegina I ?Age/Sex: 29/F ? : 1995 Unit#: [id number] ?? Attend Dr: Fish Cash MD ?Re07/29/24 ?Status: DEP REF ? Location: HO.MAMMO ?Disch: ? ----- ------- SPEC : [id number] ?RECD: 07/29/24-1007 ? STATUS: ??SOUT ? REQ NUM: [id number] ? FLAQUITO: 07/29/24 ? SUBM DR: Priscilla Chacon DO ? ENTERED: ??07/29/24-1014 ?SP TYPE: Surgical ? OTHR DR: Fish Cash MD ?Jennifer Nash ORDERED: ??HE Stain/2, Gross Micro L4, ER, WI, IHC, Add. immunos, IHC ER/WI/Her2N/4, Ki-67, ?p63, SMM, [id number] COMMENTS: As per the specimen requisition slip [...] ?? Histologic type: Ductal ?? Histologic grade ([place]/MSBR histologic score): 2 ? - Glandular/tubular differentiation: [...] I ?Age/Sex: 29/F ? : 1995 Unit#: [id number] ?? Attend Dr: Fish Cash MD ?Re07/29/24 ?Status: DEP REF ? Location: HO.MAMMO ?Disch: ? ----- ------- SPEC : [id number] ?RECD: 07/29/24-1006 ? STATUS: ??SOUT ? REQ NUM: [id number] ? FLAQUITO: 07/29/24-925 ? SUBM DR: Priscilla Chacon DO ? ENTERED: ??07/29/24-5 ?SP TYPE: Surgical ? OTHR DR: Fish Cash MD ?Jennifer Nash ORDERED: ??HE Stain/2, Gross Micro L4, ER, WI, IHC, Add. immunos, IHC ER/WI/Her2N/4, Ki-67, ?p63, SMM, [id number] COMMENTS: As per the specimen requisition slip [...] Dual Link System-HRP. ?? Progesterone receptor: ??Clone ZeD277; [employer] Mach 4 detection system. Her-2/rivka immunohistochemistry performed in accordance with ASCO/CAP recommendations (2007) and update (2013). ??Hercep Test ??Detection system: ??Polymer type ??Scoring criteria: For ER/WI and Her-2/rivka: ??All internal (if present) and external controls react appropriately. ER and WI immunostains are scored as Positive (> 10% [...] I ?Age/Sex: 29/F ? : 1995 Unit#: [id number] ?? Attend Dr: Fish Cash MD ?Re07/29/24 ?Status: DEP REF ? Location: HO.MAMMO ?Disch: ? ----- ------- SPEC : [id number] ?RECD: 07/29/24 ? STATUS: ??SOUT ? REQ NUM: [id number] ? FLAQUITO: 07/29/24 ? SUBM DR: Priscilla Chacon DO ? ENTERED: ??07/29/24 ?SP TYPE: Surgical ? OTHR DR: Fish Cash MD ?Jennifer Nash ORDERED: ??HE Stain/2, Gross Micro L4, ER, WI, IHC, Add. immunos, IHC ER/WI/Her2N/4, Ki-67, ?p63, SMM, [id number] COMMENTS: As per the specimen requisition slip [...] Arch of Pathol Lab Med, 142 2018: 5769-1564. Brandy DU, Matias CHASE, et al. Estrogen and Progesterone Receptor Testing in Breast Cancer: ASCO/CAP Guideline Update. Arch of Pathol Lab Med, 144, 2020: 545-563. Harbeck N, Marge P, et al. Adjuvant abemaciclib combined with endocrine therapy for high- risk early breast cancer: updated efficacy and Ki-67 analysis from the [facility] study. Amber Oncol. 2020;32(12):9205-7508. This case was reviewed intradepartmentally; results were communicated to Drs. Cash and Oswaldo via secure text on 07/31/2024. Special studies ordered and performed: ??Immunostains for ER, WI, HER2, Ki 67, p63 and smooth muscle myosin Copies To: ?? Fish Cash MD ?? [facility] ?? [address] ?? [place] [address] ?? [phone] ?? Saad,Jennifer ?? [address] ?? [place] [address] ?? [phone] ?? Priscilla Chacon DO ?? [address] ?? [place] ?? [phone] ? CONTINUED ON NEXT PAGE ----- ------- Name: Regina Veliz I ?Age/Sex: 29/F ? : 1995 Unit#: [id number] ?? Attend Dr: Fish Cash MD ?Re07/29/24 ?Status: DEP REF ? Location: HO.MAMMO ?Disch: ? ----- ------- SPEC : [id number] ?RECD: 07/29/24-1006 ? STATUS: ??SOUT ? REQ NUM: [id number] ? FLAQUITO: 07/29/24 ? SUBM DR: Priscilla Chacon DO ? ENTERED: ??07/29/245 ?SP TYPE: Surgical ? OTHR DR: Fish Cash MD ?Jennifer Nash ORDERED: ??HE Stain/2, Gross Micro L4, ER, WI, IHC, Add. immunos, IHC ER/WI/Her2N/4, Ki-67, ?p63, SMM, [id number] COMMENTS: As per the specimen requisition slip the specimen is ?collected at 0926 and placed in formalin at 0930. ----- ------- Signed (signature on file) Emilio Licona MD 07/31/24 1512 ? ----- ------- ? END OF REPORT ? us Generic External Data Provider LAB BLOOD ORDERAB LES Final Result [facility]S [address] [place] [address] [phone] * BI MR Guided Breast Biopsy Left (07/29/2024 9:10 AM EST) Anatomical Region Laterality Modality Breast Left Magnetic Resonan ce 07/29/2024 9:10 AM EST Narrative 07/29/2024 1:10 PM EST ? [facility] ? [address] [facility] ?[place] [address] ? Ultrasound Report ? Signed with Addenda ? Patient: Regina Veliz I ?MR#: [id number] ?? 059 ? : 1995 ?Acct:[id number] ? Age/Sex: 29 / F ?ADM Date: /15/25 ? Loc: HO.MAMMO ? Attending Dr: Fish Cash MD ? Ordering Physician: Fish Cash MD ?? Date of Service: 07/29/24 ?? Procedure(s): US breast ndl core biopsy LT ?? Accession Number(s): [id number] ? cc: Jennifer Nash; Fish Cash MD [...] Chacon DO ??08/03/2024 09:23 AM EST ?? Workstation: ? ORIGINAL REPORT ? PROCEDURE: ?? ULTRASOUND-GUIDED [...] ??07/29/2024 01:07 PM EST ?? RP ? US/ breast ndl core biopsy LT ?? IMPRESSION: [...] DD/ 0910 ? TD/TT: 07/29/24 0945 ? Packing Inspector: ? Procedure Note Ej, Image - 08/09/2024 [facility] [facility] [address] [place] [address] [place] [address] Ultrasound Report Signed with Kasie Patient: Regina Veliz IMR#: [id number] 059 : 1995Acct:[id number] Age/Sex: 29 / FADM Date: 07/29/24 Loc: MANDO Attending Dr: Fish Cash MD Ordering Physician: Fish Cash MD Date of Service: 07/29/24 Procedure(s): breast ndl core biopsy LT Accession Number(s): [id number] cc: Jennifer Nash; Fish Cash MD ADDENDUM [...] 08/03/24 0923 DD/ 0910 TD/TT: 07/29/24 0945 Packing Inspector: [facility] External Provider IMG MRI PROCEDURES Edited Result - Final * BI US Breast Limited Left (07/01/2024 11:00 AM EST) Anatomical Region Laterality Modality Breast Left Ultrasound 07/01/2024 11:0 0 AM EST Narrative 07/01/2024 11:48 AM EST ? [facility] ? [address] ?[place] [address] ? Ultrasound Report ? Signed ? Patient: Jose Alfredo,Regina I ?MR#: [id number] ?? 059 ? : 1995 ?Acct:[id number] ? Age/Sex: 29 / F ?ADM Date: 12/18/24 ? Loc: HO.MAMMO ? Attending Dr: Jennifer Nash ? Ordering Physician: KIM PICKENS CNM ?? Date of Service: 07/01/24 ?? Procedure(s): US breast LT limited mamm only ?? Accession Number(s): [id number] ? cc: Jennifer Nash; KIM PICKENS CNM [...] EST ?? RP ? Dictated By: ?Priscilla Chaocn DO ? Signed By: ?<Electronically signed by Priscilla Chacon, DO in OV> ? 07/01/24 1145 ? DD/ 1100 ? TD/TT: 07/01/24 1127 ? Packing Inspector: ? Procedure Note Ej, Image - 07/01/2024 [facility] [address] [place] [address] Ultrasound Report Signed Patient: Regina Veliz [facility]#: [id number] 059 : 1995Acct:[id number] Age/Sex: 29 / FADM Date: 07/01/24 Loc: HO.MAMMO Attending Dr: Jennifer Nash Ordering Physician: KIM PICKENS CNM Date of Service: 07/01/24 Procedure(s): US breast LT limited mamm only Accession Number(s): [id number] cc: Jennifer Nash; KIM PICKENS CNM EXAMINATION: [...] by: Priscilla Chacon DO 07/01/2024 11:45 AM [facility] Dictated By: Priscilla Chacon DO Signed By: <Electronically signed by Priscilla Chacon DO in OV> 07/01/24 1145 DD/ 1100 TD/TT: 07/01/24 1127 Packing Inspector: us Kim Pickens CNM IMG US PROCEDURES Edited Result - Final * Hepatitis C Antibody with Reflex to HCV, RNA, Quantitative, Real-Time PCR (08/23/2023 12:46 PM EST) Hepatitis C Antibody Nonreactive Nonreactive [facility] Comment:Antibodies to HCV no t detected; does not exclude early acuteHCV infection. Blood Venous blood specimen / Unknown 08/23/2023 12:46 PM EST 08/23/2023 1:14 PM EST Critical access hospital LAB BLOOD ORDERABLES Final Resu lt [facility] [address] [place] [address] [phone] * HIV-1/2 Antigen and Antibodies, Fourth Generation, with Reflexes (08/23/2023 12:46 PM EST) HIV AB/AG Nonreactive Nonreactive [facility] Comment:HIV-1 p24 Ag and/or HIV-1/HIV-2 Ab not detected.A test result that is nonreactive does not exclude thepossibility of exposure to or infection with HIV-1 and/orHIV-2. Nonreactive results in this assay for individualswith prior exposure to HIV-1 and/or HIV-2 may be due toantigen and antibody levels that are below the limit ofdetection of this assay.The [employer] Cocktail HIV Ag/Ab Combo assay result andsupplemental assay results should be interpreted inconjunction with the patient's clinical presentation,history and other laboratory results. If the results areinconsistent with clinical evidence, additional testing issuggested to confirm the result. Blood Venous blood specimen / Unknown 08/23/2023 12:46 PM EST 08/23/2023 1:14 PM EST Critical access hospital LAB BLOOD ORDERABLES Final Resu lt [facility] [address] [place] [address] [phone] * Pap Smear (03/21/2023 10:00 AM EDT) 03/21/2023 10:0 0 AM EDT 03/22/2023 11:15 AM EDT [facility] - 04/07/2023 5:21 PM EDT ----- ------- Name: Regina Veliz I ?Age/Sex: 28/F ? : 1995 Unit#: [id number] ?? Attend Dr: KIM PICKENS CNM ?Re03/21/23 ?Status: DEP REF ? Location: HO.HHCLNP ? Disch: ? ----- ------- SPEC : [id number] ?RECD: 03/22/23-111 ? STATUS: ??SOUT ? REQ NUM: [id number] ? FLAQUITO: 03/21/23-999 ? SUBM DR: KIM PICKENS CNM ? ENTERED: ??03/22/23-1156 ?SP TYPE: Pap Smr ?OTHR : ? ORDERED: ??Pap Smear ? Interpretation ?? Satisfactory for evaluation. ?? Negative for intraepithelial lesion or malignancy. ?Clinical Information LMP: Unknown date Previous PAP test: WN ? Material Received ?? ThinPrep-Vaginal/Cervical ----- ------- Signed (signature on file) Mary Wahl Joseline 04/07/23 1721 ? ----- ------- ? END OF REPORT ? us Kim Pickens [facility] CYTOLOGY ORDERABLES F inal Result [facility] [address] [place] [address] [phone] from Last 3 Months or Most Recently Relevant to Health Maintenance Insurance [address] [place] [address] - [employer] Care Teams Cook Railroad Relationship Specialty Start Date End Date Jennifer Nash NP [address] [place] [address] PCP - General Family Medicine 06/25/23
--- OUTSIDE RECORDS SUMMARY | 2024-08-20 11:04 | XMS_ITS | Clinical Summary ---
Author Organization [facility] Address [address] [place] [address] Care Team Providers Care Superintendent Construction Name Role Phone Unavailable Primary Care Provider [...] RESULTING AGENCY - 07/05/2021 4:41 PM EST [id number] THINPREP PAP, IMAGED: NEGATIVE FOR SQUAMOUS INTRAEPITHELIAL [...]
[2024-08-20 12:33] LABS: UPreg QC Valid YES; Urine Pregnancy NEGATIVE (NEGATIVE)
--- NOTE | 2024-08-20 13:06 | MHC.SHP ---
Pre-Procedural Eval Section A - 24 Hr Update-Section A only Date of Service: 08/20/24 Section B - Complete if H&P > 30 days Chief Complaint: MALIGNANT NEOPLASM,LEFT BRST Details of Present Illness: 29 y/o female with left breast cancer and poor iv access Relevant Family History (Specify if Yes): No Relevant Social History: None Present Medications: see Short Stay Collaborative assessment Medical History: Significant History History of Previous Operations: No relevant previous surgery Allergies: Allergies Allergy/AdvReac Type Severity Reaction Status Date / Time black pepper Allergy Angioedema Verified 08/12/24 08:42 Review of Systems Sugical H&P ROS: Negative: Constitution, Cardiovascular, Respiratory and Integumentary Exam Surgical H&P Exam: Normal: Heart, Normal: Lungs, Normal: Skin and Normal: Neurological Plan 29 y/o female with left breast cancer -Right Port Time Spent With Patient Time: Total time managing care of this patient today ____ minutes.
[2024-08-20] MEDS: Acetaminophen 1,000 MG/100 ML PIGGYBACK 400 MG IV (13:11)
[2024-08-20] MEDS: ceFAZolin Sodium/Dextrose,Iso 2 GM/50 ML PIGGYBACK IV (13:30)
[2024-08-20] MEDS: fentaNYL citrate/PF 100 MCG/2 ML VIAL 50 MCG IVPUSH (13:43)
[2024-08-20] MEDS: Midazolam HCl 5 MG/ML VIAL 1 MG IVPUSH (13:43)
[2024-08-20] MEDS: fentaNYL citrate/PF 100 MCG/2 ML VIAL 25 MCG IVPUSH ×3 (13:51→14:09)
[2024-08-20] MEDS: Midazolam HCl 5 MG/ML VIAL IVPUSH ×2 (13:51→13:55)
[2024-08-20] MEDS: Ondansetron ODT 4 MG TAB.RAPDIS TRANSLINGU (15:13)
== END 2024-08-20 16:12 | disposition home or self-care (01) ==
PROVIDERS: Physician Assistant Surgical; PCP Nurse Practitioner; Visit Provider Internal Medicine Medical Oncology
DX: Z45.2 Encounter for adjustment and management of vascular access device (principal); C50.212 Malignant neoplasm of upper-inner quadrant of left female breast; Z17.0 Estrogen receptor positive status [ER+]; Z17.21 Progesterone receptor positive status; Z17.32 Human epidermal growth factor receptor 2 negative status; J45.909 Unspecified asthma, uncomplicated
CPT/HCPCS: 36561; 76937; 81025; 99152; 99153; C1769; C1788; J0131; J0690; J1642; J1644; J2003; J2250; J3010; Q9967

== ENCOUNTER → 2024-08-20 13:00 | Outpatient (BNV) | payer OTHER, SELFPAY | PROVIDERS: PCP Nurse Practitioner; Visit Provider Physician Assistant Surgical | DX: C50.912 Malignant neoplasm of unspecified site of left female breast (principal) | CPT/HCPCS: 36561; 76937 ==

== ENCOUNTER → 2024-08-25 09:30 | Outpatient (BNVA) | payer OTHER, SELFPAY | PROVIDERS: PCP Nurse Practitioner; Visit Provider Surgery | DX: Z09 Encounter for follow-up examination after completed treatment for conditions other than malignant neoplasm (principal); Z95.828 Presence of other vascular implants and grafts | CPT/HCPCS: 99211 ==

== ENCOUNTER → 2024-08-26 09:06 | Outpatient (BNV) | payer OTHER, SELFPAY | PROVIDERS: PCP Nurse Practitioner; Visit Provider Internal Medicine | DX: C50.912 Malignant neoplasm of unspecified site of left female breast (principal) | CPT/HCPCS: 77049 ==

== ENCOUNTER 2024-08-26 09:08 | Outpatient (REF) | payer OTHER, SELFPAY ==
--- NOTE | ~2024-08-26 | MR_ITS ---
EXAMINATION: MR BREAST WITHOUT AND WITH CONTRAST, BILATERAL CLINICAL INFORMATION: Recent biopsy-proven invasive ductal carcinoma of the left breast. COMPARISON: Comparison is made with available prior examinations. TECHNIQUE: MRI imaging of the breast was performed using T1, T2 and fat saturated techniques. Dynamic multiphase imaging was also performed after administration of intravenous gadolinium contrast agent. Computer generated 3-D reconstruction was performed. FINDINGS: There is heterogeneous fibroglandular breast tissue with moderate background enhancement with scattered enhancing foci. LEFT BREAST: There is a irregular enhancing mass in the medial left breast measuring 8.4 cm anterior to posterior by 2.2 cm transverse by 2.5 cm superior to inferior series 1044 images 73-54. There are questionable prominent axillary lymph nodes. No internal mammary adenopathy. RIGHT BREAST: No suspicious enhancing masses or areas of nonmass enhancement. No architectural distortion. No axillary or internal mammary adenopathy. Limited views of the chest and abdomen are unremarkable. MR/MR breast BI wo/w con IMPRESSION: Left: 1. Biopsy-proven invasive ductal carcinoma in the left breast measuring up to 8.4 cm anterior to posterior. The patient is under the care of a breast surgeon for excision and further management. 2. Mildly prominent axillary lymph nodes. Ultrasound evaluation at this time is recommended for further confirmation. Right: No MRI evidence of malignancy. Negative. ASSESSMENT: LEFT BREAST: BI-RADS 6 known biopsy-proven malignancy. RIGHT BREAST: BI-RADS 1-Negative RECOMMENDATIONS: Breast surgical and oncologic consultation for excision and further management. Electronically signed by: Priscilla Chacon DO 08/28/2024 06:06 PM [facility]
--- OUTSIDE RECORDS SUMMARY | 2024-08-26 10:06 | XMS_ITS | Encounter Summary ---
Author Organization [employer] Address [address] [facility] 7t [place] [address] Care Team Providers Care Science Writer Name Role Phone Jennifer Nash ALFREDO Primary Care Provider [phone] Encounter Details Date Type Department Care Team ([facility] st Contact Info) Description 08/20/2024 Orders Only GENERIC EXTERNAL DATA DEPARTMENT Provider, Generic External Data Social History Tobacco Use Types Packs/Day Years [...] Procedure Name Priority Date/Time Associated Diagnosis Comments IR CVC INSERT TUNNEL W PRT/DIAGNOSTIC ASSISTANT Routine 08/20/2024 1:00 PM EST IR US GUIDE VENOUS ACCESS Routine 08/20/2024 1:00 PM EST HCG, QL, URINE Routine 08/20/2024 12:10 PM EST documented in this encounter Results * IR cvc insert tunnel w prt/transfer controller (08/20/2024 1:00 PM EST) Anatomical Region Laterality Modality X-Ray Angiograph y 08/20/2024 1:00 PM EST Narrative 08/25/2024 4:55 PM EST ? [facility] ?[address] ?[place] [address] ?Interventional Radiology Rpt ? Signed ? Patient: Regina Veliz I ?MR#: [id number] ?? 059 ? : 1995 ?Acct:[id number] ? Age/Sex: 29 / F ?ADM Date: 08/20/24 ? Loc: HO.SSS ? Attending Dr: Quique Moses MD ? Ordering Physician: Quique Moses MD ?? Date of Service: 08/20/24 ?? Procedure(s): IR cvc insert tunnel w prt/transfer controller ?? Accession Number(s): [id number] ? cc: Jennifer Nash; Quique Moses MD ? CLINICAL HISTORY: ?? Left breast cancer. The patient presents to interventional radiology ?? for placement of a port for chemotherapy. ? PROCEDURES: ?? 1. Real-time ultrasound-guided access into the right internal jugular ?? vein after documentation of selected vessel patency, and permanent ?? image storing in the patient records. ?? 2. Placement of a 6.0 [place] Islander single-lumen power port. ? CLINICIAN: ?? John Jones PA-C ? MEDICATIONS: ?? - Versed 2 mg, Fentanyl 125 mcg, Lidocaine 1% 10 mL SQ ?? -Antibiotics: Ancef 2g ?? -For additional details, please see nursing flowsheet. ? Complications: None. ?? Estimated blood loss: <5 ml ?? Specimens: None. ?? Contrast: None. ? Fluoroscopy time: 0.7 min ?? MODERATE SEDATION TIME: 35 min ? PROCEDURE NOTE: ?? The procedure, risks, benefits, and alternatives were carefully ?? explained to the patient and written informed consent was obtained. The ?? patient was placed supine on the fluoroscopy table. A timeout was ?? performed. The right neck and chest was prepped and draped in usual ?? sterile fashion. Maximum barrier technique was utilized. ? Local anesthesia was administered to the access site with 1% lidocaine. ?? Under ultrasound guidance, the right internal jugular vein was accessed ?? with a 5 fr micropuncture set. ??A 0.035 in wire was advanced into the ?? IVC. A peel-away sheath was advanced over the wire and into the SVC, ?? and the wire was removed. Next, subcutaneous lidocaine was administered ?? to the chest. The port pocket was created after the skin incision, ?? utilizing blunt dissection. Using blunt dissection, a subcutaneous ?? tunnel was created that connects from the port pocket to the venotomy ?? site. Through the peel-away sheath, the 6.0 Fr port catheter was ?? placed. The catheter position was verified with fluoroscopy to be at ?? the superior vena cava/right atrial junction. The port was connected to ?? the catheter and was placed in the pocket. The venotomy site was closed ?? with a 3-0 Vicryl subcutaneous suture. The port incision site was ?? closed with interrupted 3-0 Vicryl subcutaneous sutures and surgical ?? glue. Prior to closing the skin, 1 g of Ancef solution was placed in ?? the pocket. ??The port was tested, flushed, and packed with heparin per ?? routine protocol. The patient tolerated the procedure well. ? The patient was stable after the procedure and was transferred to the ?? PACU. ? The procedure was performed under moderate sedation and with a ?? dedicated nurse with continuous monitoring of vital signs. ? A permanent image of the ultrasound the neck and fluoroscopic image of ?? the chest was saved and sent to PACS. ? FINDINGS: ?? 1. Patent right internal jugular vein ?? 2. Placement of a 6.0 fr single lumen power port. ?? 3. Port flushes and aspirates very well with a 10 mL syringe. No ?? pneumothorax. ? IR/IR cvc insert tunnel w prt/transfer controller ?? IMPRESSION: ?? Placement of a 6.0 fr single-lumen power port. ? PLAN: ?? - The patient will be discharged home when stable by sedation protocol. ?? - Port may be used immediately. ? This procedure was performed by John Jones PA-C, and directly ?? supervised by Dr. Augustin ? Electronically signed by: ??Tyrone Augustin MD ??08/25/2024 04:51 PM EST RP ? Dictated By: ?John Jones ? Signed By: ?<Electronically signed by John Jones in OV> ? 08/25/24 1651 ?<Electronically signed by Tyrone Augustin MD in OV> ? 08/25/24 1654 ? DD/ 1300 ? TD/TT: 08/20/24 1427 ? Construction Technology Instructor: ? Procedure Note Dongloria, Image - 08/25/2024 [place] [address] Interventional Radiology Rpt Signed Patient: Regina Veliz IMR#: [id number] 059 : 1995Acct:[id number] Age/Sex: 29 / FADM Date: 08/20/24 Loc: HO.SSS Attending Dr: Quique Moses MD Ordering Physician: Quique Moses MD Date of Service: 08/20/24 Procedure(s): IR cvc insert tunnel w prt/transfer controller Accession Number(s): [id number] cc: Jennifer Nash; Quique Moses MD CLINICAL HISTORY: Left breast cancer. The patient presents to interventional radiology for placement of a port for chemotherapy. PROCEDURES: 1. Real-time ultrasound-guided access into the right internal jugular vein after documentation of selected vessel patency, and permanent image storing in the patient records. 2. Placement of a 6.0 [place] Islander single-lumen power port. CLINICIAN: John Jones PA-C MEDICATIONS: - Versed 2 mg, Fentanyl 125 mcg, Lidocaine 1% 10 mL SQ -Antibiotics: Ancef 2g -For additional details, please see nursing flowsheet. Complications: None. Estimated blood loss: <5 ml Specimens: None. Contrast: None. Fluoroscopy time: 0.7 min MODERATE SEDATION TIME: 35 min PROCEDURE NOTE: The procedure, risks, benefits, and alternatives were carefully explained to the patient and written informed consent was obtained. The patient was placed supine on the fluoroscopy table. A timeout was performed. The right neck and chest was prepped and draped in usual sterile fashion. Maximum barrier technique was utilized. Local anesthesia was administered to the access site with 1% lidocaine. Under ultrasound guidance, the right internal jugular vein was accessed with a 5 fr micropuncture set. A 0.035 in wire was advanced into the IVC. A peel-away sheath was advanced over the wire and into the SVC, and the wire was removed. Next, subcutaneous lidocaine was administered to the chest. The port pocket was created after the skin incision, utilizing blunt dissection. Using blunt dissection, a subcutaneous tunnel was created that connects from the port pocket to the venotomy site. Through the peel-away sheath, the 6.0 Fr port catheter was placed. The catheter position was verified with fluoroscopy to be at the superior vena cava/right atrial junction. The port was connected to the catheter and was placed in the pocket. The venotomy site was closed with a 3-0 Vicryl subcutaneous suture. The port incision site was closed with interrupted 3-0 Vicryl subcutaneous sutures and surgical glue. Prior to closing the skin, 1 g of Ancef solution was placed in the pocket. The port was tested, flushed, and packed with heparin per routine protocol. The patient tolerated the procedure well. The patient was stable after the procedure and was transferred to the PACU. The procedure was performed under moderate sedation and with a dedicated nurse with continuous monitoring of vital signs. A permanent image of the ultrasound the neck and fluoroscopic image of the chest was saved and sent to PACS. FINDINGS: 1. Patent right internal jugular vein 2. Placement of a 6.0 fr single lumen power port. 3. Port flushes and aspirates very well with a 10 mL syringe. No pneumothorax. IR/IR cvc insert tunnel w prt/transfer controller IMPRESSION: Placement of a 6.0 fr single-lumen power port. PLAN: - The patient will be discharged home when stable by sedation protocol. - Port may be used immediately. This procedure was performed by John Jones PA-C, and directly supervised by Dr. Augustin Electronically signed by: Tyrone Augustin MD 08/25/2024 04:51 PM EST RP Dictated By: John Jones Signed By: <Electronically signed by John Jones in OV> 08/25/24 1651 <Electronically signed by Tyrone Augustin MD in OV> 08/25/24 1654 DD/ 1300 TD/TT: 08/20/24 1427 Construction Technology Instructor: [facility] External Provider IMG IR PROCEDURES Final Result * IR US Guide - Venous Access (08/20/2024 1:00 PM EST) Anatomical Region Laterality Modality X-Ray Angiograph y 08/20/2024 1:00 PM EST Narrative 08/25/2024 4:55 PM EST ? [facility] ?[address] ?[place] [address] ?Interventional Radiology Rpt ? Signed ? Patient: Regina Veliz Joanna ?MR#: [id number] ?? 059 ? : 1995 ?Acct:[id number] ? Age/Sex: 29 / F ?ADM Date: 08/20/24 ? Loc: HO.SSS ? Attending Dr: Quique Moses MD ? Ordering Physician: Quique Moses MD ?? Date of Service: 08/20/24 ?? Procedure(s): IR us guide venous access ?? Accession Number(s): [id number] ? cc: Jennifer Nash; Quique Moses MD ? CLINICAL HISTORY: ?? Left breast cancer. The patient presents to interventional radiology ?? for placement of a port for chemotherapy. ? PROCEDURES: ?? 1. Real-time ultrasound-guided access into the right internal jugular ?? vein after documentation of selected vessel patency, and permanent ?? image storing in the patient records. ?? 2. Placement of a 6.0 [place] Islander single-lumen power port. ? CLINICIAN: ?? John Jones PA-C ? MEDICATIONS: ?? - Versed 2 mg, Fentanyl 125 mcg, Lidocaine 1% 10 mL SQ ?? -Antibiotics: Ancef 2g ?? -For additional details, please see nursing flowsheet. ? Complications: None. ?? Estimated blood loss: <5 ml ?? Specimens: None. ?? Contrast: None. ? Fluoroscopy time: 0.7 min ?? MODERATE SEDATION TIME: 35 min ? PROCEDURE NOTE: ?? The procedure, risks, benefits, and alternatives were carefully ?? explained to the patient and written informed consent was obtained. The ?? patient was placed supine on the fluoroscopy table. A timeout was ?? performed. The right neck and chest was prepped and draped in usual ?? sterile fashion. Maximum barrier technique was utilized. ? Local anesthesia was administered to the access site with 1% lidocaine. ?? Under ultrasound guidance, the right internal jugular vein was accessed ?? with a 5 fr micropuncture set. ??A 0.035 in wire was advanced into the ?? IVC. A peel-away sheath was advanced over the wire and into the SVC, ?? and the wire was removed. Next, subcutaneous lidocaine was administered ?? to the chest. The port pocket was created after the skin incision, ?? utilizing blunt dissection. Using blunt dissection, a subcutaneous ?? tunnel was created that connects from the port pocket to the venotomy ?? site. Through the peel-away sheath, the 6.0 Fr port catheter was ?? placed. The catheter position was verified with fluoroscopy to be at ?? the superior vena cava/right atrial junction. The port was connected to ?? the catheter and was placed in the pocket. The venotomy site was closed ?? with a 3-0 Vicryl subcutaneous suture. The port incision site was ?? closed with interrupted 3-0 Vicryl subcutaneous sutures and surgical ?? glue. Prior to closing the skin, 1 g of Ancef solution was placed in ?? the pocket. ??The port was tested, flushed, and packed with heparin per ?? routine protocol. The patient tolerated the procedure well. ? The patient was stable after the procedure and was transferred to the ?? PACU. ? The procedure was performed under moderate sedation and with a ?? dedicated nurse with continuous monitoring of vital signs. ? A permanent image of the ultrasound the neck and fluoroscopic image of ?? the chest was saved and sent to PACS. ? FINDINGS: ?? 1. Patent right internal jugular vein ?? 2. Placement of a 6.0 fr single lumen power port. ?? 3. Port flushes and aspirates very well with a 10 mL syringe. No ?? pneumothorax. ? IR/IR us guide venous access ?? IMPRESSION: ?? Placement of a 6.0 fr single-lumen power port. ? PLAN: ?? - The patient will be discharged home when stable by sedation protocol. ?? - Port may be used immediately. ? This procedure was performed by John Jones PA-C, and directly ?? supervised by Dr. Augustin ? Electronically signed by: ??Tyrone Augustin MD ??08/25/2024 04:51 PM EST RP ? Dictated By: ?John Jones ? Signed By: ?<Electronically signed by John Jones in OV> ? 08/25/24 1651 ?<Electronically signed by Tyrone Augustin MD in OV> ? 08/25/24 1654 ? DD/ 1300 ? TD/TT: 08/20/24 1427 ? Construction Technology Instructor: ? Procedure Note Ej, Image - 08/25/2024 [place] [address] Interventional Radiology Rpt Signed Patient: Regina Veliz IMR#: [id number] 059 : 1995Acct:[id number] Age/Sex: 29 / FADM Date: 08/20/24 Loc: HO.SSS Attending Dr: Quique Moses MD Ordering Physician: Quique Moses MD Date of Service: 08/20/24 Procedure(s): IR us guide venous access Accession Number(s): [id number] cc: Jennifer Nash; Quique Moses MD CLINICAL HISTORY: Left breast cancer. The patient presents to interventional radiology for placement of a port for chemotherapy. PROCEDURES: 1. Real-time ultrasound-guided access into the right internal jugular vein after documentation of selected vessel patency, and permanent image storing in the patient records. 2. Placement of a 6.0 [place] Islander single-lumen power port. CLINICIAN: John Jones PA-C MEDICATIONS: - Versed 2 mg, Fentanyl 125 mcg, Lidocaine 1% 10 mL SQ -Antibiotics: Ancef 2g -For additional details, please see nursing flowsheet. Complications: None. Estimated blood loss: <5 ml Specimens: None. Contrast: None. Fluoroscopy time: 0.7 min MODERATE SEDATION TIME: 35 min PROCEDURE NOTE: The procedure, risks, benefits, and alternatives were carefully explained to the patient and written informed consent was obtained. The patient was placed supine on the fluoroscopy table. A timeout was performed. The right neck and chest was prepped and draped in usual sterile fashion. Maximum barrier technique was utilized. Local anesthesia was administered to the access site with 1% lidocaine. Under ultrasound guidance, the right internal jugular vein was accessed with a 5 fr micropuncture set. A 0.035 in wire was advanced into the IVC. A peel-away sheath was advanced over the wire and into the SVC, and the wire was removed. Next, subcutaneous lidocaine was administered to the chest. The port pocket was created after the skin incision, utilizing blunt dissection. Using blunt dissection, a subcutaneous tunnel was created that connects from the port pocket to the venotomy site. Through the peel-away sheath, the 6.0 Fr port catheter was placed. The catheter position was verified with fluoroscopy to be at the superior vena cava/right atrial junction. The port was connected to the catheter and was placed in the pocket. The venotomy site was closed with a 3-0 Vicryl subcutaneous suture. The port incision site was closed with interrupted 3-0 Vicryl subcutaneous sutures and surgical glue. Prior to closing the skin, 1 g of Ancef solution was placed in the pocket. The port was tested, flushed, and packed with heparin per routine protocol. The patient tolerated the procedure well. The patient was stable after the procedure and was transferred to the PACU. The procedure was performed under moderate sedation and with a dedicated nurse with continuous monitoring of vital signs. A permanent image of the ultrasound the neck and fluoroscopic image of the chest was saved and sent to PACS. FINDINGS: 1. Patent right internal jugular vein 2. Placement of a 6.0 fr single lumen power port. 3. Port flushes and aspirates very well with a 10 mL syringe. No pneumothorax. IR/IR us guide venous access IMPRESSION: Placement of a 6.0 fr single-lumen power port. PLAN: - The patient will be discharged home when stable by sedation protocol. - Port may be used immediately. This procedure was performed by John Jones PA-C, and directly supervised by Dr. Augustin Electronically signed by: Tyrone Augustin MD 08/25/2024 04:51 PM EST RP Dictated By: John Jones Signed By: <Electronically signed by John Jones in OV> 08/25/24 1651 <Electronically signed by Tyrone Augustin MD in OV> 08/25/24 1654 DD/ 1300 TD/TT: 08/20/24 1427 Construction Technology Instructor: [facility] External Provider IMG IR PROCEDURES Final Result * HCG, Qualitative, Urine (08/20/2024 12:10 PM EST) Urine NEGATIVE NEGATIVE [facility] Comment:This test was develo ped to detect early . Falsenegative results may occur after the 5th - 7th week ofpregnancy when using this test method. If clinicallyindicated, consider a serum hCG. 08/20/2024 12:1 0 PM EST 08/20/2024 12:28 PM EST Generic External Data Provider LAB URINE ORDERAB LES Final Result [facility] [address] [place], [place] [id number] [phone] documented in this encounter Visit Diagnoses Not on filedocumented in this encounter Additional Health Concerns Assessment Noted Time PHQ-9 Depression Total Score: 0 10/02/19 24 2:38 PM EDT documented as of this encounter Care Teams Science Writer Relationship Specialty Start Date End Date Jennifer Nash NP [address] [place] [address] PCP - General Family Medicine 06/25/23 documented as of this encounter
--- OUTSIDE RECORDS SUMMARY | 2024-08-26 10:06 | XMS_ITS | Encounter Summary ---
Author Organization [employer] Address [address] [facility] 7t [place] [address] Care Team Providers Care Ventilated Rib Fitter Name Role Phone Jennifer Nash NP Primary Care Provider [phone] Reason for Visit * Reason Onset Date Comments Med Refill 08/02/2024 Encounter Details Date Type Department Care Team ([facility] st Contact Info) Description 08/02/2024 Refill [facility] [address] [place] [address] Jennifer Nash NP [address] [place] [address] Hypoglycemia Social History Tobacco Use Types Packs/Day [...] documented as of this encounter Care Teams Ventilated Rib Fitter Relationship Specialty Start Date End Date Jennifer Nash NP [address] [place] [address] PCP - General Family Medicine 06/25/23 documented as of this encounter
--- OUTSIDE RECORDS SUMMARY | 2024-08-26 10:06 | XMS_ITS | Encounter Summary ---
Author Organization [facility] Address [address] [place] [address] Phone Care Team Providers Care Station Captain Name Role Phone Yelitza Flowers MD Primary Care Provider [phone] Encounter Details Date Type Department Care Team (Late st Contact Info) Description 05/05/2013 Documentation [facility] [place] [address] [place] [address] Family Medicine, Physician [address] [place], [place] [phone] Social History Tobacco Use Types Packs/Day Years [...] on filedocumented in this encounter Care Teams Station Captain Relationship Specialty Start Date End Date Yelitza Flowers MD [address] [place] [address] PCP - General 02/22/17 10/14/22 documented as of this encounter
--- OUTSIDE RECORDS SUMMARY | 2024-08-26 10:06 | XMS_ITS | Encounter Summary ---
Author Organization [employer] Address [address] [facility] 7t [place] [address] Care Team Providers Care Outpatient Interviewing Clerk Name Role Phone Jennifer Nash ALFREDO Primary Care Provider [phone] Encounter Details Date Type Department Care Team ([facility] st Contact Info) Description 08/05/2024 Telephone [facility] [address] [place] [address] Payal Martinez CN [address] [place] [address] Social History Tobacco Use Types Packs/Day Years [...] documented as of this encounter Care Teams Outpatient Interviewing Clerk Relationship Specialty Start Date End Date Jennifer Nash NP [address] [place] [address] PCP - General Family Medicine 06/25/23 documented as of this encounter
--- OUTSIDE RECORDS SUMMARY | 2024-08-26 10:06 | XMS_ITS | Clinical Summary ---
Author Organization [facility] Address [address] [place] [address] Phone Care Team Providers Care Facility Operations Manager Name Role Phone Unavailable Primary Care Provider [...] complete this topic Procedures * Due to [place] state law, this organization might not be sharing sensitive test results. Procedure Name Priority Date/Time Associated Diagnosis Comments CHLAMYDIA AND GONORRHEA, AMPLIFIED Routine 01/05/2016 1:37 PM EDT from Last 3 Months or Most Recently Relevant to Health Maintenance Results * Due to [place] state law, this organization might not be sharing sensitive test results. * Chlamydia and Gonorrhoea, Amplified (01/05/2016 1:37 PM EDT) URINE CHLAMYDIA AMP PROBE NEGATIVE [facility] Comment: No Chlamydia Trachomatis RNA detected in this patient's sample (REFERENCE RANGE/NORMAL VALUE: NOT DETECTED) URINE GC AMP PROBE NEGATIVE [facility] Comment: No Neisseria Gonorrhoeae RNA detected in this patient's sample (REFERENCE RANGE/NORMAL VALUE: NOT DETECTED) NOTE: This test uses pigs feet cleaner-mediated amplification method to detect rRNA from C.Trachomatis [...] without risk of sexual abuse. Consult the [facility] if needed. Contact phone number . Therapeutic failure or success cannot be determined with the Aptima Combo2 assay since nucleic acid may persist following appropriate antimicrobial therapy. The Centers for Disease Control and Prevention (CDC) recommends confirmatory retesting using culture or a different nucleic acid amplification test when positive results occur, if indicated. Testing performed or reported by [facility], a Service of [facility], [address] [place] [address] CLIA ??[id number] Tim Bearden MD, PhD, Radiation Control Technician 01/05/2016 1:37 PM EDT Narrative [facility] - 01/05/2016 1:37 PM EDT URINE CHLAMYDIA GC AMP PROBE us Yelitza Flowers MD LAB MICROBIOLOGY - GENERAL ORDER FISH Final Result [facility] [address] [place] [address], [place] from Last 3 Months or Most Recently Relevant to Health Maintenance
--- OUTSIDE RECORDS SUMMARY | 2024-08-26 10:06 | XMS_ITS | Encounter Summary ---
Author Organization [facility] Address [address] [place] [address] Phone Care Team Providers Care Dragline Mechanic Name Role Phone Yelitza Flowers MD Primary Care Provider [phone] Encounter Details Date Type Department Care Team (Late st Contact Info) Description 07/03/2013 Documentation [facility] [place] [address] [place] [address] Family Medicine, Physician [address] [place], [place] [phone] Social History Tobacco Use Types Packs/Day Years [...] on filedocumented in this encounter Care Teams Dragline Mechanic Relationship Specialty Start Date End Date Yelitza Flowers MD [address] [place] [address] PCP - General 02/22/17 10/14/22 documented as of this encounter
--- OUTSIDE RECORDS SUMMARY | 2024-08-26 10:06 | XMS_ITS | Encounter Summary ---
Author Organization [employer] Address [address] [facility] 7t [place] [address] Care Team Providers Care Heel Sander Name Role Phone Jennifer Nash NP Primary Care Provider [phone] Reason for Visit * Reason Onset Date Comments Results 08/29/2023 Encounter Details Date Type Department Care Team ([facility] st Contact Info) Description 08/29/2023 Telephone [facility] MEDICINE [address] [place] [address] Jennifer Nash NP [address] [place] [address] Results Social History Tobacco Use Types Packs/Day [...] Blood Work Date when done: 08/26/23 Facility: [facility] Labs TC from pt requesting call back regarding Results. Type of results: Blood Work Date when done: 08/24/23 Facility: [facility] documented in this encounter Plan of Treatment Not on file documented as of this encounter Visit Diagnoses Not on filedocumented in this encounter Additional Health Concerns Assessment Noted Time PHQ-9 Depression Total Score: 3 01/24/20 23 11:03 AM EDT documented as of this encounter Care Teams Heel Sander Relationship Specialty Start Date End Date Jennifer Nash NP [address] [place] [address] PCP - General Family Medicine 06/25/23 documented as of this encounter
--- OUTSIDE RECORDS SUMMARY | 2024-08-26 10:06 | XMS_ITS | Encounter Summary ---
Author Organization [employer] Address [address] [facility] 7t [place] [address] Care Team Providers Care Road Supervisor Name Role Phone Jennifer Nash ALFREDO Primary Care Provider [phone] Encounter Details Date Type Department Care Team ([facility] st Contact Info) Description 07/29/2024 Orders Only [facility] External Provider, [facility] Social History Tobacco Use Types Packs/Day [...] EST Narrative 08/05/2024 12:36 PM EST ? [facility] [place] ? [address] ?[place] [address] ? Mammography Report ? Signed ? Patient: Jose Alfredo,Regina I ?MR#: [id number] ?? 059 ? : 1995 ?Acct:[id number] ? Age/Sex: 29 / F ?ADM Date: 01/22/25 ? Loc: HO.MAMMO ? Attending Dr: Fish Cash MD ? Ordering Physician: Fish Cash MD ?Results: 6Kno ?? wn Biopsy Proven Malignancy ? Date of Service: 08/05/24 ?Follow Up: Surgical Consult ? Procedure(s): MM tomosynthesis diagnostic BI ?? Accession Number(s): [id number] ? cc: Jennifer Nash; Fish Cash MD [...] 12:34 PM EST ? Dictated By: ?Priscilla Chacon DO ? Signed By: ?<Electronically signed by Priscilla Chacon, DO in OV> ? 08/05/24 1234 ? DD/ 0930 ? TD/TT: 08/05/24 0949 ? Endoscopy Specialty Technician: ? Procedure Note Donotuseinterpreter, Image - [facility]/05[facility] [address] [place] [address] Mammography Report Signed Patient: Regina Veliz IMR#: [id number] 059 : 1995Acct:[id number] Age/Sex: M Date: 08/05/24 Loc: GUILLERMO.MAMMO Attending Dr: Fish Cash MD Ordering Physician: Fish Cash MDResults: 6Kno wn Biopsy Proven Malignancy Date of Service: 08/05/24Follow Up: Surgical Consult Procedure(s): MM tomosynthesis diagnostic BI Accession Number(s): [id number] cc: Jennifer Nash; Fish Cash MD EXAMINATION: [...] 08/05/24 1234 DD/ 0930 TD/TT: 08/05/24 0949 Endoscopy Specialty Technician: [facility] External Provider IMG BI PROCEDURES Final Result * Hematoxylin and Eosin Stain (07/29/2024 9:26 AM EST) 07/29/2024 9:26 AM EST 07/29/2024 10:07 AM EST [facility] LABS - 07/31/2024 3:12 PM EST ----- ------- Name: Jose AlfredoRegina I ?Age/Sex: 29/F ? : 1995 Unit#: [id number] ?? Attend Dr: Fish Cash MD ?Re07/29/24 ?Status: DEP REF ? Location: HO.MAMMO ?Disch: ? ----- ------- SPEC : [id number] ?RECD: 07/29/24-1007 ? STATUS: ??SOUT ? REQ NUM: [id number] ? FLAUQITO: 07/29/24-925 ? SUBM DR: Priscilla Chacon DO ? ENTERED: ??07/29/24-5 ?SP TYPE: Surgical ? OTHR DR: Fish Cash MD ?Jennifer Nash ORDERED: ??HE Stain/2, Gross Micro L4, ER, AR, IHC, Add. immunos, IHC ER/AR/Her2N/4, Ki-67, ?p63, SMM, [id number] COMMENTS: As per the specimen requisition slip [...] I ?Age/Sex: 29/F ? : 1995 Unit#: [id number] ?? Attend Dr: Fish Cash MD ?Re07/29/24 ?Status: DEP REF ? Location: HO.MAMMO ?Disch: ? ----- ------- SPEC : [id number] ?RECD: 07/29/24-1006 ? STATUS: ??SOUT ? REQ NUM: [id number] ? FLAQUITO: 07/29/24-925 ? SUBM DR: Priscilla Chacon DO ? ENTERED: ??07/29/24-1014 ?SP TYPE: Surgical ? OTHR DR: Fish Cash MD ?SaadJennifer ORDERED: ??HE Stain/2, Gross Micro L4, ER, AR, IHC, Add. immunos, IHC ER/AR/Her2N/4, Ki-67, ?p63, SMM, [id number] COMMENTS: As per the specimen requisition slip [...] Dual Link System-HRP. ?? Progesterone receptor: ??Clone TjB840; [employer] Mach 4 detection system. Her-2/rivka immunohistochemistry performed in accordance with ASCO/CAP recommendations (2007) and update (2013). ??Hercep Test ??Detection system: ??Polymer type ??Scoring criteria: For ER/AR and Her-2/rivka: ??All internal (if present) and external controls react appropriately. ER and AR immunostains are scored as Positive (> 10% [...] I ?Age/Sex: 29/F ? : 1995 Unit#: [id number] ?? Attend Dr: Fish Cash MD ?Re07/29/24 ?Status: DEP REF ? Location: HO.MAMMO ?Disch: ? ----- ------- SPEC : [id number] ?RECD: 07/29/24-1006 ? STATUS: ??SOUT ? REQ NUM: [id number] ? FLAQUITO: 07/29/24-925 ? SUBM DR: Priscilla Chacon DO ? ENTERED: ??07/29/245 ?SP TYPE: Surgical ? OTHR DR: Fish Cash MD ?Jennifer Nash ORDERED: ??HE Stain/2, Gross Micro L4, ER, AR, IHC, Add. immunos, IHC ER/AR/Her2N/4, Ki-67, ?p63, SMM, [id number] COMMENTS: As per the specimen requisition slip [...] Arch of Pathol Lab Med, 142 2018: 3675-9715. Brandy DU, Matias CHASE, et al. Estrogen and Progesterone Receptor Testing in Breast Cancer: ASCO/CAP Guideline Update. Arch of Pathol Lab Med, 1442019: 545-563. Marge Espinosa P, et al. Adjuvant abemaciclib combined with endocrine therapy for high- risk early breast cancer: updated efficacy and Ki-67 analysis from the [facility] study. Amber Oncol. 2020;32(12):7741-3356. This case was reviewed intradepartmentally; results were communicated to Drs. Cash and Oswaldo via secure text on 07/31/2024. Special studies ordered and performed: ??Immunostains for ER, AR, HER2, Ki 67, p63 and smooth muscle myosin Copies To: ?? Fish Cash MD ?? [facility] ?? [address] ?? [place] ?? [phone] ?? Saad,Jennifer ?? [address] ?? [place] ?? [phone] ?? Priscilla Chacon DO ?? [address] [facility] ?? [place] ?? [phone] ? CONTINUED ON NEXT PAGE ----- ------- Name: Regina Veliz I ?Age/Sex: 29/F ? : 1995 Unit#: [id number] ?? Attend Dr: Fish Cash MD ?Re07/29/24 ?Status: DEP REF ? Location: HO.MAMMO ?Disch: ? ----- ------- SPEC : [id number] ?RECD: 07/29/24 ? STATUS: ??SOUT ? REQ NUM: [id number] ? FLAQUITO: 07/29/24 ? SUBM DR: Priscilla Chacon DO ? ENTERED: ??07/29/24 ?SP TYPE: Surgical ? OTHR DR: Fish Cash MD ?Jennifer Nash ORDERED: ??HE Stain/2, Gross Micro L4, ER, AR, IHC, Add. immunos, IHC ER/AR/Her2N/4, Ki-67, ?p63, SMM, [id number] COMMENTS: As per the specimen requisition slip the specimen is ?collected at 0926 and placed in formalin at 0930. ----- ------- Signed (signature on file) Emilio Licona MD 07/31/24 1512 ? ----- ------- ? END OF REPORT ? us Generic External Data Provider LAB BLOOD ORDERAB LES Final Result [facility] [address] [place] [address] [phone] * BI MR Guided Breast Biopsy Left (07/29/2024 9:10 AM EST) Anatomical Region Laterality Modality Breast Left Magnetic Resonan ce 07/29/2024 9:10 AM EST Narrative 07/29/2024 1:10 PM EST ? [facility] [place] ? [address] ?[place] [address] ? Ultrasound Report ? Signed with Addenda ? Patient: Regina Veliz I ?MR#: [id number] ?? 059 ? : 1995 ?Acct:[id number] ? Age/Sex: 29 / F ?ADM Date: //25 ? Loc: HO.MAMMO ? Attending Dr: Fish Cash MD ? Ordering Physician: Fish Cash MD ?? Date of Service: 01/15/25 ?? Procedure(s): US breast ndl core biopsy LT ?? Accession Number(s): [id number] ? cc: Jennifer Nash; Fish Cash MD [...] made available. ? Electronically signed by: ??Priscilla Chaocn DO ??07/29/2024 01:07 PM EST ?? RP [...] DD/ 0910 ? TD/TT: 07/29/24 0945 ? Endoscopy Specialty Technician: ? Procedure Note Ej, Image - 08/09/2024 [facility] [address] [place] [address] [place] [address] Ultrasound Report Signed with Kasie Patient: Regina Veliz IMR#: [id number] 059 : 1995Acct:[id number] Age/Sex: 29 / FADM Date: 07/29/24 Loc: MANDO Attending Dr: Fish Cash MD Ordering Physician: Fish Cash MD Date of Service: 07/29/24 Procedure(s): breast ndl core biopsy LT Accession Number(s): [id number] cc: Jennifer Nash; Fish Cash MD ADDENDUM [...] 08/03/24 0923 DD/ 0910 TD/TT: 07/29/24 0945 Endoscopy Specialty Technician: [facility] External Provider IMG MRI PROCEDURES Edited Result - Final documented in this encounter Visit Diagnoses Not on filedocumented in this encounter Additional Health Concerns Assessment Noted Time PHQ-9 Depression Total Score: 0 10/02/19 24 2:38 PM EDT documented as of this encounter Care Teams Road Supervisor Relationship Specialty Start Date End Date Jennifer Nash NP [address] [place] [address] PCP - General Family Medicine 06/25/23 documented as of this encounter
--- OUTSIDE RECORDS SUMMARY | 2024-08-26 10:06 | XMS_ITS | Encounter Summary ---
Author Organization [facility] Address [address] [place] [address] Phone Care Team Providers Care Fulling Mill Operator Name Role Phone Yelitza Flowers MD Primary Care Provider [phone] Encounter Details Date Type Department Care Team (Late st Contact Info) Description 02/28/2017 Conversion Encounter [facility] [address] [place] [address] Social History Tobacco Use Types Packs/Day Years [...] on filedocumented in this encounter Care Teams Fulling Mill Operator Relationship Specialty Start Date End Date Yelitza Flowers MD [address] [place] [address] PCP - General 02/22/17 10/14/22 documented as of this encounter
--- OUTSIDE RECORDS SUMMARY | 2024-08-26 10:06 | XMS_ITS | Encounter Summary ---
Author Organization [email or web address] Address [address] [facility] 7t [place] [address] Care Team Providers Care Roads Superintendent Name Role Phone Jennifer Nash NP Primary Care Provider [phone] Encounter Details Date Type Department Care Team ([facility] st Contact Info) Description 08/30/2023 Orders Only [facility] MEDICINE [address] [place] [address] Jennifer Nash NP [address] [place] [address] Anemia, unspecified type (Primary Dx); Hypoglycemia Social [...] documented as of this encounter Care Teams Roads Superintendent Relationship Specialty Start Date End Date Jennifer Nash NP [address] [place] [address] PCP - General Family Medicine 06/25/23 documented as of this encounter
--- OUTSIDE RECORDS SUMMARY | 2024-08-26 10:07 | XMS_ITS | Clinical Summary ---
Author Organization [facility] Address [address] [place] [address] Care Team Providers Care Cargo Inspector Name Role Phone Unavailable Primary Care Provider [...] drink = 0.6 oz pur e alcohol) Comments Unknown Sex and Gender Information Value Date Recorded Sex Assigned at Not on file Legal Sex Female 5:41 PM EST Gender Identity Not on file Sexual Orientation [...] patient's age to complete this topic Meningococcal B Vacine Aged Out No lo nger eligible based on patient's age to complete [...] RESULTING AGENCY - 07/05/2021 4:41 PM EST [id number] THINPREP PAP, IMAGED: NEGATIVE FOR SQUAMOUS INTRAEPITHELIAL [...] OF ASCUS. , Z12.4, PAP HX NEG. us Nyasia Cadet DO LAB CYTOLOGY ORDERABLES Final Result HISTORICAL TESTING LAB RESULTING AGENCY from Last 3 Months or Most Recently Relevant to Health Maintenance
--- OUTSIDE RECORDS SUMMARY | 2024-08-26 10:07 | XMS_ITS | Clinical Summary ---
Author Organization [employer] Address [address] [place] [address] 7[address] [place] [address] Care Team Providers Care Clubhouse Attendant Name Role Phone Jennifer Nash ALFREDO Primary Care Provider [phone] Allergies No known active allergies Medications simethicone [...] 24 Active Blood Glucose Monitoring Suppl (FreeStyle [place] Lite) w/Device kitIndications :Hypoglycemia Use to test [...] advised -will call or send message in [employer] with results -follow-up 3 months via televisit [...] Encounters Date Type Department Care Team Description 08/20/2024 Orders Only GENERIC EXTERNAL DATA DEPARTMENT Provider, Generic External Data 08/05/2024 Telephone [facility] [address] [place] [address] Kmi Pickens CNM 08/02/2024 Refill [facility] [address] [place] [address] Jennifer Nash NP Hypoglycemia 07/29/2024 Orders Only [facility] External Provider, [facility] 07/01/2024 Telephone [facility] [address] [place], [place] [phone] Fidelina Morrow, RN Results from Last 3 [...] MMRV 02/12/2014 Meningococcal MCV4P ACYW-135 05/28/2006 Novel Dtcwympyf-V5U7-03, all formulations 06/15/2009 Tdap 10/06/2021, 8,05/28/2006,05/28 Social [...] 2024 , 04/01/2018, 05/05/2014, Additional history exists Depression Screening [...] Diagnosis Comments IR CVC INSERT TUNNEL W PRT/ACCOUNTING PRACTICE MANAGER Routine 08/20/2024 1:00 PM EST IR US GUIDE VENOUS ACCESS Routine 08/20/2024 1:00 PM EST HCG, QL, URINE Routine 08/20/2024 12:10 PM EST BI MAMMOGRAM DIAGNOSTIC TOMOSYNTHESIS BILATERAL Routine 08/05/2024 [...] Recently Relevant to Health Maintenance Results * IR cvc insert tunnel w prt/facility sales and admin (08/20/2024 1:00 PM EST) Anatomical Region Laterality Modality X-Ray Angiograph y 08/20/2024 1:00 PM EST Narrative 08/25/2024 4:55 PM EST ? [facility] ?[address] ?[place] [address] ?Interventional Radiology Rpt ? Signed ? Patient: Jose Alfredo,Regina I ?MR#: [id number] ?? 059 ? : 1995 ?Acct:[id number] ? Age/Sex: 29 / F ?ADM Date: 02/06/25 ? Loc: HO.SSS ? Attending Dr: Quique Moses MD ? Ordering Physician: Quique Moses MD ?? Date of Service: 08/20/24 ?? Procedure(s): IR cvc insert tunnel w prt/facility sales and admin ?? Accession Number(s): [id number] ? cc: Jennifer Nash; Quique Moses MD ? CLINICAL HISTORY: ?? Left breast cancer. The patient presents to interventional radiology ?? for placement of a port for chemotherapy. ? PROCEDURES: ?? 1. Real-time ultrasound-guided access into the right internal jugular ?? vein after documentation of selected vessel patency, and permanent ?? image storing in the patient records. ?? 2. Placement of a 6.0 Ethiopian single-lumen power port. ? CLINICIAN: ?? John [...] pneumothorax. ? IR/IR cvc insert tunnel w prt/facility sales and admin ?? IMPRESSION: ?? Placement of a 6.0 [...] 04:51 PM EST RP ? Dictated By: ?Jones,John MIRANDA ? Signed By: ?<Electronically signed by John Jones in OV> ? 08/25/24 1651 ?<Electronically signed by Tyrone Augustin MD in OV> ? 08/25/24 1654 ? DD/ 1300 ? TD/TT: 08/20/24 1427 ? Museum Assistant: ? Procedure Note Bing Pagan - 08/25/[address] [address] Interventional Radiology Rpt Signed Patient: Jose AlfredoFrandyRegina [facility]#: [id number] 059 : 1995Acct:[id number] Age/Sex: 29 / FADM Date: 08/20/24 Loc: HO.SSS Attending Dr: Quique Moses MD Ordering Physician: Quique Moses MD Date of Service: 08/20/24 Procedure(s): IR cvc insert tunnel w prt/facility sales and admin Accession Number(s): [id number] cc: Jennifer Nash; Quique Moses MD CLINICAL HISTORY: Left breast cancer. The patient presents to interventional radiology for placement of a port for chemotherapy. PROCEDURES: 1. Real-time ultrasound-guided access into the right internal jugular vein after documentation of selected vessel patency, and permanent image storing in the patient records. 2. Placement of a 6.0 Ethiopian single-lumen power port. CLINICIAN: John Jones PA-C [...] No pneumothorax. IR/IR cvc insert tunnel w prt/facility sales and admin IMPRESSION: Placement of a 6.0 fr single-lumen power port. PLAN: - The patient will be discharged home when stable by sedation protocol. - Port may be used immediately. This procedure was performed by John Jones PA-C, and directly supervised by Dr. Augustin Electronically signed by: Tyrone Augutsin MD 08/25/2024 04:51 PM EST RP Dictated By: John Jones Signed By: <Electronically signed by John Jones in OV> 08/25/24 1651 <Electronically signed by Tyrone Augustin MD in OV> 08/25/24 1654 DD/ 1300 TD/TT: 08/20/24 1427 Museum Assistant: [facility] External Provider IMG IR PROCEDURES Final Result * IR US Guide - Venous Access (08/20/2024 1:00 PM EST) Anatomical Region Laterality Modality X-Ray Angiograph y 08/20/2024 1:00 PM EST Narrative 08/25/2024 4:55 PM EST ? [facility] ?[address] ?[place] [address] ?Interventional Radiology Rpt ? Signed ? Patient: Jose Alfredo,Regina I ?MR#: [id number] ?? 059 ? : 1995 ?Acct:[id number] ? Age/Sex: 29 / F ?ADM Date: //25 ? Loc: HO.SSS ? Attending Dr: Quique Moses MD ? Ordering Physician: Quique Moses MD ?? Date of Service: 08/20/24 ?? Procedure(s): IR us guide venous access ?? Accession Number(s): [id number] ? cc: Jennifer Nash; Quique Moses MD ? CLINICAL HISTORY: ?? Left breast cancer. The patient presents to interventional radiology ?? for placement of a port for chemotherapy. ? PROCEDURES: ?? 1. Real-time ultrasound-guided access into the right internal jugular ?? vein after documentation of selected vessel patency, and permanent ?? image storing in the patient records. ?? 2. Placement of a 6.0 Ethiopian single-lumen power port. ? CLINICIAN: ?? John [...] DD/ 1300 ? TD/TT: 08/20/24 1427 ? Museum Assistant: ? Procedure Note Bing Pagan - 08/25/[address] [address] Interventional Radiology Rpt Signed Patient: Jose AlfredoRegina [facility]#: [id number] 059 : 1995Acct:[id number] Age/Sex: 29 / FADM Date: 08/20/24 Loc: .[facility] Attending Dr: Quique Moses MD Ordering Physician: Quique Moses MD Date of Service: 08/20/24 Procedure(s): IR us guide venous access Accession Number(s): [id number] cc: Jennifer Nash; Quique Moses MD CLINICAL HISTORY: Left breast cancer. The patient presents to interventional radiology for placement of a port for chemotherapy. PROCEDURES: 1. Real-time ultrasound-guided access into the right internal jugular vein after documentation of selected vessel patency, and permanent image storing in the patient records. 2. Placement of a 6.0 Ethiopian single-lumen power port. CLINICIAN: John Jones PA-C [...] Tyrone Augustin MD 08/25/2024 04:51 PM EST Dictated By: John Jones Signed By: <Electronically signed by John Jones in OV> 08/25/24 1651 <Electronically signed by Tyrone Augustin MD in OV> 08/25/24 1654 DD/ 1300 TD/TT: 08/20/24 1427 Museum Assistant: [facility] External Provider IMG IR PROCEDURES Final Result * HCG, Qualitative, Urine (08/20/2024 12:10 PM EST) Urine NEGATIVE NEGATIVE [facility] Comment:This test was develo ped to detect early . Falsenegative results may occur after the 5th - 7th week ofpregnancy when using this test method. If clinicallyindicated, consider a serum hCG. 08/20/2024 12:1 0 PM EST 08/20/2024 12:28 PM EST Generic External Data Provider LAB URINE ORDERAB LES Final Result Performing Organization Address [facility]/State/ZIP Co de Phone Number [facility] [address] [place] [phone] * BI Mammogram Diagnostic Tomosynthesis Bilateral (08/05/2024 9:30 AM EST) Anatomical Region Laterality Modality Breast Bilateral Mammography 08/05/2024 9:30 AM EST Narrative 08/05/2024 12:36 PM EST ? [facility] ? [address] ?[place] [address] ? Mammography Report ? Signed ? Patient: Regina Veliz I ?MR#: [id number] ?? 059 ? : 1995 ?Acct:[id number] ? Age/Sex: 29 / F ?ADM Date: 08/05/24 ? Loc: HO.MAMMO ? Attending Dr: Fish Cash MD ? Ordering Physician: Fish Cash MD ?Results: 6Kno ?? wn Biopsy Proven Malignancy ? Date of Service: 08/05/ ?Follow Up: Surgical Consult ? Procedure(s): MM tomosynthesis diagnostic BI ?? Accession Number(s): [id number] ? cc: Jennifer Nash; Fish Cash MD [...] DD/ 0930 ? TD/TT: 08/05/24 0949 ? Museum Assistant: ? Procedure Note Donotuseinterpreter, Image - 08/05/2024 [facility] [address] [place], [place] [address] Mammography Report Signed Patient: Regina Veliz IMR#: [id number] 059 : 1995Acct:[id number] Age/Sex: 29 / FADM Date: 08/05/24 Loc: HO.MAMMO Attending Dr: Fish Cash MD Ordering Physician: Fish Cash MDResults: 6Kno wn Biopsy Proven Malignancy Date of Service: 08/05/24Follow Up: Surgical Consult Procedure(s): MM tomosynthesis diagnostic BI Accession Number(s): [id number] cc: Jennifer Nash; Fish Cash MD EXAMINATION: [...] Priscilla Chacon DO 08/05/2024 12:34 PM EST RP Dictated By: Priscilla Chacon DO Signed By: <Electronically signed by Priscilla Chacon DO in OV> 08/05/24 1234 DD/ TD/TT: 08/05/24 0949 Museum Assistant: [facility] External Provider IMG BI PROCEDURES Final Result * Hematoxylin and Eosin Stain (07/29/2024 9:26 AM EST) 07/29/2024 9:26 AM EST 07/29/2024 10:07 AM EST [facility] - 07/31/2024 3:12 PM EST ----- ------- Name: Regina Veliz I ?Age/Sex: 29/F ? : 1995 Unit#: [id number] ?? Attend Dr: Fish Cash MD ?Re07/29/24 ?Status: DEP REF ? Location: HO.MAMMO ?Disch: ? ----- ------- SPEC : [id number] ?RECD: 07/29/24-1007 ? STATUS: ??SOUT ? REQ NUM: [id number] ? FLAQUITO: 07/29/24 ? SUBM DR: Priscilla Chacon DO ? ENTERED: ??07/29/24-5 ?SP TYPE: Surgical ? OTHR DR: Fish Cash MD ?Jennifer Nash ORDERED: ??HE Stain/2, Gross Micro L4, ER, MN, IHC, Add. immunos, IHC ER/MN/Her2N/4, Ki-67, ?p63, SMM, [id number] COMMENTS: As per the specimen requisition slip [...] ?? Histologic type: Ductal ?? Histologic grade ([place]/MSBR histologic score): 2 ? - Glandular/tubular differentiation: [...] I ?Age/Sex: 29/F ? : 1995 Unit#: [id number] ?? Attend Dr: Fish Cash MD ?Re07/29/24 ?Status: DEP REF ? Location: HO.MAMMO ?Disch: ? ----- ------- SPEC : [id number] ?RECD: 07/29/24-1006 ? STATUS: ??SOUT ? REQ NUM: [id number] ? FLAQUITO: 07/29/24-925 ? SUBM DR: Priscilla Chacon DO ? ENTERED: ??07/29/24-5 ?SP TYPE: Surgical ? OTHR DR: Fish Cash MD ?Jennifer Nash ORDERED: ??HE Stain/2, Gross Micro L4, ER, MN, IHC, Add. immunos, IHC ER/MN/Her2N/4, Ki-67, ?p63, SMM, [id number] COMMENTS: As per the specimen requisition slip [...] Dual Link System-HRP. ?? Progesterone receptor: ??Clone [id number]; [employer] Mach 4 detection system. Her-2/rivka immunohistochemistry performed in accordance with ASCO/CAP recommendations (2007) and update (2013). ??Hercep Test ??Detection system: ??Polymer type ??Scoring criteria: For ER/MN and Her-2/rivka: ??All internal (if present) and external controls react appropriately. ER and MN immunostains are scored as Positive (> 10% [...] I ?Age/Sex: 29/F ? : 1995 Unit#: [id number] ?? Attend Dr: Fish Cash MD ?Re07/29/24 ?Status: DEP REF ? Location: HO.MAMMO ?Disch: ? ----- ------- SPEC : [id number] ?RECD: 07/29/24-1007 ? STATUS: ??SOUT ? REQ NUM: [id number] ? FLAQUITO: 07/29/24-925 ? SUBM DR: Priscilla Chacon DO ? ENTERED: ??07/29/24-5 ?SP TYPE: Surgical ? OTHR DR: Fish Cash MD ?Jennifer Nash ORDERED: ??HE Stain/2, Gross Micro L4, ER, MN, IHC, Add. immunos, IHC ER/MN/Her2N/4, Ki-67, ?p63, SMM, [id number] COMMENTS: As per the specimen requisition slip [...] Arch of Pathol Lab Med, 142, 2018: 6394-7152. Brandy DU, Matias CHASE, et al. Estrogen and Progesterone Receptor Testing in Breast Cancer: ASCO/CAP Guideline Update. Arch of Pathol Lab Med, 144, 2020: 545-563. Patricia N, Marge P, et al. Adjuvant abemaciclib combined with endocrine therapy for high- risk early breast cancer: updated efficacy and Ki-67 analysis from the [facility] study. Amber Oncol. 2020;32(12):6754-7248. This case was reviewed intradepartmentally; results were communicated to Drs. Cash and Oswaldo via secure text on 07/31/2024. Special studies ordered and performed: ??Immunostains for ER, MN, HER2, Ki 67, p63 and smooth muscle myosin Copies To: ?? Fish Cash MD ?? [facility] ?? [address] ?? [place] [address] ?? [phone] ?? Jennifer Nash ?? [address] ?? [place] [address] ?? [phone] ?? FayPriscilla galvan DO ?? [address] ?? [place] [address] ?? [phone] ? CONTINUED ON NEXT PAGE ----- ------- Name: Regina Veliz I ?Age/Sex: 29/F ? : 1995 Unit#: [id number] ?? Attend Dr: Fish Cash MD ?Re07/29/24 ?Status: DEP REF ? Location: HO.MAMMO ?Disch: ? ----- ------- SPEC : [id number] ?RECD: 07/29/24-1007 ? STATUS: ??SOUT ? REQ NUM: [id number] ? FLAQUITO: 07/29/24-925 ? SUBM DR: Priscilla Chacon DO ? ENTERED: ??07/29/24-5 ?SP TYPE: Surgical ? OTHR DR: Fish Cash MD ?Jennifer Nash ORDERED: ??HE Stain/2, Gross Micro L4, ER, MN, IHC, Add. immunos, IHC ER/MN/Her2N/4, Ki-67, ?p63, SMM, [id number] COMMENTS: As per the specimen requisition slip the specimen is ?collected at 925 and placed in formalin at 0930. ----- ------- Signed (signature on file) Emilio Licona MD 07/31/24 8362 ? ----- ------- ? END OF REPORT ? us Generic External Data Provider LAB BLOOD ORDERAB LES Final Result [facility] [address] [place] [address] [phone] * BI MR Guided Breast Biopsy Left (07/29/2024 9:10 AM EST) Anatomical Region Laterality Modality Breast Left Magnetic Resonan ce 07/29/2024 9:10 AM EST Narrative 07/29/2024 1:10 PM EST ? [facility] [place] ? [address] ?[place] [address] ? Ultrasound Report ? Signed with Addenda ? Patient: Regina Veliz I ?MR#: [id number] ?? 059 ? : 1995 ?Acct:[id number] ? Age/Sex: 29 / F ?ADM Date: 07/29/24 ? Loc: HO.MAMMO ? Attending Dr: Fish Cash MD ? Ordering Physician: Fish Cash MD ?? Date of Service: 07/29/24 ?? Procedure(s): US breast ndl core biopsy LT ?? Accession Number(s): [id number] ? cc: Jennifer Nash; Fish Cash MD [...] by Priscilla Chacon, DO in OV> ? 08/03/249[address] ? DD/ 9 ? TD/TT: 07/29/249[address] ? Museum Assistant: ? Procedure Note Donotviktorinterpreter, Image - 08/09/2024 [facility] [address] [place], [place] [address] Ultrasound Report Signed with Addenda Patient: Regina Veliz IMR#: [id number] 059 : 1995Acct:[id number] Age/Sex: 29 / FADM Date: 07/29/24 Loc: HO.MAMMO Attending Dr: Fish Cash MD Ordering Physician: Fish Cash MD Date of Service: 07/29/24 Procedure(s): breast ndl core biopsy LT Accession Number(s): [id number] cc: Jennifer Nash; Fish Cash MD ADDENDUM ADDENDUM #1 Left breast o'clock solid mass: Invasive ductal carcinoma and ductal carcinoma in situ. 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 Recommend breast surgical consultation for excision and further management. Recommend bilateral mammography for further evaluation. Recommend breast MRI for further evaluation. Electronically signed by: Priscilla Chacon DO 08/03/2024 09:23 AM EST Addendum Dictated By: Priscilla Chacon DO Addendum [...] Chacon DO in OV> 08/03/24 0923 DD/ 9 TD/TT: 07/29/24 0945 Museum Assistant: [facility] External Provider IMG MRI PROCEDURES Edited Result - Final * BI US Breast Limited Left (07/01/2024 11:00 AM EST) Anatomical Region Laterality Modality Breast Left Ultrasound 07/01/2024 11:0 0 AM EST Narrative 07/01/2024 11:48 AM EST ? [facility] [place] ? [address] ?[place] [address] ? Ultrasound Report ? Signed ? Patient: Regina Veliz I ?MR#: [id number] ?? 059 ? : 1995 ?Acct:[id number] ? Age/Sex: 29 / F ?ADM Date: 07/01/24 ? Loc: HO.MAMMO ? Attending Dr: Jennifer Nash ? Ordering Physician: KIM PICKENS CNM ?? Date of Service: 07/01/24 ?? Procedure(s): US breast LT limited mamm only ?? Accession Number(s): [id number] ? cc: Jennifer Nash; KIM PICKENS CNM [...] ??Priscilla Chacon DO ??07/01/2024 11:45 AM EST ? Dictated By: ?Priscilla Chacon DO ? Signed By: ?<Electronically signed by Priscilla Chacon, DO in OV> ? 07/01/24 1145 ? DD/ 1100 ? TD/TT: 07/01/24 1127 ? Museum Assistant: ? Procedure Note Bing Pagan - 07/01/2024 [facility] [address] [place] [address] Ultrasound Report Signed Patient: Regina Veliz IMR#: [id number] 059 : 1995Acct:[id number] Age/Sex: 29 / FADM Date: 07/01/24 Loc: HO.MAMMO Attending Dr: Jennifer Nash Ordering Physician: KIM PICKENS CNM Date of Service: 07/01/24 Procedure(s): US breast LT limited mamm only Accession Number(s): [id number] cc: Jennifer Nash; KIM PICKENS CNM EXAMINATION: [...] 07/01/2024 11:45 AM EST Dictated By: Priscilla Chacon DO Signed By: <Electronically signed by Priscilla Chacon DO in OV> 07/01/24 1145 DD/ 1100 TD/TT: 07/01/24 1127 Museum Assistant: Kim Pickens CNM [facility] US PROCEDURES Edited Result - Final * Hepatitis C Antibody with Reflex to HCV, RNA, Quantitative, Real-Time PCR (08/23/2023 12:46 PM EST) Hepatitis C Antibody Nonreactive Nonreactive [facility] Comment:Antibodies to HCV no t detected; does not exclude early acuteHCV infection. Blood Venous blood specimen / Unknown 08/23/2023 12:46 PM EST 08/23/2023 1:14 PM EST us Jennifer Nash NP LAB BLOOD ORDERABLES Final Resu lt [facility] [address] [place] [phone] * HIV-1/2 Antigen and Antibodies, Fourth Generation, with Reflexes (08/23/2023 12:46 PM EST) HIV AB/AG Nonreactive Nonreactive [facility] Comment:HIV-1 p24 Ag and/or HIV-1/HIV-2 Ab not detected.A test result that is nonreactive does not exclude thepossibility of exposure to or infection with HIV-1 and/orHIV-2. Nonreactive results in this assay for individualswith prior exposure to HIV-1 and/or HIV-2 may be due toantigen and antibody levels that are below the limit ofdetection of this assay.The [employer] HIV Ag/Ab Combo assay result andsupplemental assay results should be interpreted inconjunction with the patient's clinical presentation,history and other laboratory results. If the results areinconsistent with clinical evidence, additional testing issuggested to confirm the result. Blood Venous blood specimen / Unknown 08/23/2023 12:46 PM EST 08/23/2023 1:14 PM EST us Jennifer Nash NP LAB BLOOD ORDERABLES Final Resu lt [facility] [address] [place] [address] [phone] * Pap Smear (03/21/2023 10:00 AM EDT) 03/21/2023 10:0 0 AM EDT 03/22/2023 11:15 AM EDT Narrative [facility] - 04/07/2023 5:21 PM EDT ----- ------- Name: Regina Veliz I ?Age/Sex: 28/F ? : 1995 Unit#: [id number] ?? Attend Dr: KIM PICKENS CNM ?Re03/21/23 ?Status: DEP REF ? Location: HO.HHCLNP ? Disch: ? ----- ------- SPEC : [id number] ?RECD: 03/22/23 ? STATUS: ??SOUT ? REQ NUM: [id number] ? FLAQUITO: 03/21/23-999 ? SUBM DR: KIM PICKENS CNM ? ENTERED: ??03/22/23-3116 ?SP TYPE: Pap Smr ?OTHR DR: ? ORDERED: ??Pap Smear ? Interpretation ?? Satisfactory for evaluation. ?? Negative for intraepithelial lesion or malignancy. ?Clinical Information LMP: Unknown date Previous PAP test: 2020, WNL ? Material Received ?? ThinPrep-Vaginal/Cervical ----- ------- Signed (signature on file) Mary Wahl Joseline 04/07/231720 ? ----- ------- ? END OF REPORT ? us Kim Pickens [facility] CYTOLOGY ORDERABLES F inal Result [facility] [address] [place] [phone] from Last 3 Months or Most Recently Relevant to Health Maintenance Insurance [facility] Care Teams Clubhouse Attendant Relationship Specialty Start Date End Date Jennifer Nash NP [address] [place] [phone] PCP - General Family Medicine 06/25/23
[2024-08-26] MEDS: gadobutroL 7.5 ML VIAL IVPUSH (10:19)
== END 2024-08-26 09:09 | disposition home or self-care (01) ==
LOC: HO.MRI 09:08
PROVIDERS: PCP Nurse Practitioner; Visit Provider Surgery
DX: D05.12 Intraductal carcinoma in situ of left breast (principal)
CPT/HCPCS: 77049; A9585

== ENCOUNTER 2024-09-01 13:37 | Outpatient (REF) | payer OTHER, SELFPAY ==
--- NOTE | ~2024-09-01 | US_ITS ---
EXAMINATION: US DIAGNOSTIC ULTRASOUND BREAST, LEFT CLINICAL INFORMATION: Asymmetry diagnosed left breast cancer. Question prominent left axillary lymph nodes.. COMPARISON: Comparison is made with relevant prior imaging. TECHNIQUE: Ultrasound of the breast is performed with real-time milton scale imaging and color Doppler. FINDINGS: Targeted color Doppler ultrasound scanning in the left axilla demonstrates multiple normal-appearing axillary lymph nodes. There is no sonographic abnormality or abnormal lymph node. Results are discussed with the patient at time of visit. US/US breast LT limited IMPRESSION: Normal axillary lymph nodes. Benign. ASSESSMENT: BI-RADS 1: Negative RECOMMENDATION: Follow-up with breast surgeon for known left breast malignancy. This patient's information was entered into a reminder system with a target due date for their next mammogram. Electronically signed by: Priscilla Chacon DO 09/01/2024 02:42 PM [facility]
--- OUTSIDE RECORDS SUMMARY | 2024-09-01 14:35 | XMS_ITS | Clinical Summary ---
[facility] Organization [facility] Address [address] [place] [address] Care Team Providers Care Weld Engineer Name Role Phone Unavailable Primary Care Provider [...] RESULTING AGENCY - 07/05/2021 4:41 PM EST [id number] THINPREP PAP, IMAGED: NEGATIVE FOR SQUAMOUS INTRAEPITHELIAL [...]
== END 2024-09-01 13:38 | disposition home or self-care (01) ==
LOC: HO.MAMMO 13:37
PROVIDERS: PCP Nurse Practitioner; Visit Provider Internal Medicine Medical Oncology
DX: Z85.3 Personal history of malignant neoplasm of breast (principal)
CPT/HCPCS: 76642

== ENCOUNTER → 2024-09-01 13:41 | Outpatient (BNV) | payer OTHER, SELFPAY | PROVIDERS: PCP Nurse Practitioner; Visit Provider Internal Medicine | DX: N64.89 Other specified disorders of breast (principal) | CPT/HCPCS: 76642 ==

== ENCOUNTER 2024-09-03 10:05 | Emergency (ER) | payer OTHER, SELFPAY ==
--- NOTE | ~2024-09-03 | US_ITS ---
CLINICAL HISTORY: Epigastric RUQ pain, nausea vomiting US abdomen limited Comparison: CT/SR - ABD PELV W IV CON ONLY [address]70[address] - 10/20/15 00:28 EDT Findings: The visualized pancreas is normal. The visualized IVC is unremarkable. Length 15.5 cm. Limited evaluation of liver parenchyma secondary to a poor acoustic window. No obvious focal abnormality. Mildly increased liver echogenicity. There is no intrahepatic bile duct dilatation. The common duct is 2 mm in diameter. The gallbladder is normal. There is no sonographic Coulter sign. The main portal vein is antegrade. Right kidney length 10.2 cm. Possible 4 mm nonobstructive calculus within the right mid kidney. No ascites. IMPRESSION: 1. Fatty infiltration of the liver. 2. Possible tiny nonobstructive calculus within the right kidney. This document has been electronically signed by: Rain Osorio MD on 09/03/2024 17:05:04
[2024-09-03 10:34] VITALS: BP 122/80; BP 124/70; PULSE 103; PULSE 110; RESP 20; TEMP 36.6; O2SAT 96; O2SAT 99; BMI 26.3
--- NOTE | 2024-09-03 11:02 | ED_ITS ---
HPI - General Adult General Chief complaint: Abdominal Pain Stated complaint: S/O N/V/GALICIA/ABD PAIN,CHEMO T-1 PER EMS Time Seen by Provider: 09/03/24 11:00 Source: patient, EMS, RN notes reviewed and old records reviewed Mode of arrival: EMS History of Present Illness ED Provider: Rubi Stuart PA-C HPI narrative: 29-year-old female with a past medical history of recently diagnosed left breast cancer, received 1st dose of chemotherapy yesterday by Dr. Moses, presenting to the ED via EMS complaining of at the gastric abdominal pain, nausea, diarrhea x yesterday, worsening today. States called oncology office however has not yet heard back. Took oral Zofran this morning without relief. Denies fever, chills, vomiting, dysuria/hematuria Related Data Previous Rx's ?Medication ?Instructions ?Recorded ascorbic acid (vitamin C) 500 mg 500 mg PO BID #60 tabs 08/16/24 chewable tablet (Vitamin C) ferrous sulfate 325 mg (65 mg 325 mg PO BID #60 tabs 08/16/24 iron) tablet dexamethasone 4 mg tablet 4 mg PO BID #60 tabs 08/27/24 lidocaine 3 % topical cream 1 appl topical BID #45 grams 08/27/24 ondansetron 8 mg disintegrating 8 mg PO Q8H #60 tabs 08/27/24 tablet Allergies Allergy/AdvReac Type Severity Reaction Status Date / Time black pepper Allergy Angioedema Verified 09/03/24 10:39 Review of Systems 2 Review of Systems: Yes all other systems are reviewed and are negative Constitutional: Constitutional: Reports as per [facility] Past Medical History Attestation statement: The following information was validated with the patient. Source: old records reviewed Medical History Invasive ductal carcinoma of breast Left breast cancer with T3 tumor, >5 cm in greatest dimension Left breast mass Surgical History H/O section Family History Family History Other Cancer Social History Social History Alcohol intake: never Patient Tobacco Use Status: Never used Tobacco Advance Directives: Yes Advance Directives on File: Yes Advance Directives Date on File: 08/12/24 Physical Exam ED Vital Signs: Vital Signs - 24 hr 09/03/24 10:34 09/03/24 12:11 09/03/24 14:16 Temperature 98 F 98.3 F Pulse Rate 103 H 109 H Respiratory Rate 20 16 16 Blood Pressure 122/80 113/61 Pulse Oximetry 96 98 Oxygen Delivery Method Room Air Room Air BMI result Body Mass Index 26.3 Const Other: Uncomfortable General: cooperative, healthy appearing and no acute distress Orientation/consciousness: patient oriented x3 Limitations: no limitations HENMT Head: Yes normal to inspection and Yes atraumatic Ears: hearing grossly normal bilaterally General nose exam: Normal external nose present Face and sinus: Yes normal facial exam Eyes General: appearance normal, both eyes and all related structures EOM: EOMs intact bilaterally Neck Neck: Yes normal visual inspection and Yes no meningeal signs Resp Effort & Inspection: normal respiratory effort and no respiratory distress Auscultation: clear to auscultation bilaterally Cardio Rate: regular rate Heart sounds: S1 normal heart sound present and S2 normal heart sound present GI Inspection: Yes normal to inspection Palpation (GI): Soft to palpation, Tenderness to palpation present (GI) in the epigastrum and in the RUQ; with no rebound tenderness, no guarding and not rigid Skin Rashes: no rashes Wounds: no wounds Neuro General: patient oriented x3, tone normal and no meningeal signs Cranial nerves: Yes CN's II-XII intact bilaterally Gait exam (Neuro): Normal gait present Extrem General: Yes normal to inspection Course Course Course Narrative: -labs reassuring. UA negative -viral testing negative >1528--on re-evaluation patient reports symptomatic improvement. Denies abdominal pain at present. Pending abdomen ultrasound however patient feels safe for discharge home at this time > attempted coordination of patient's fulphila injection with Oncology, however she needs to be discharged from the emergency department in order to receive it. Can proceed tomorrow morning at 08:00AM for injection -1620--on re-evaluation patient would like to be discharged. Reports symptomatic improvement. Would like to go home and eat. Has tolerated p.o. in the ED. Has not yet received ultrasound, would like to defer, will follow up with Oncology tomorrow. Results discussed with patient including worrisome signs and symptoms and strict return precautions, and when to return to the emergency department. They verbalized understanding and feel safe for discharge at this time. Medications Administered Discontinued Medications Generic Name Dose Route Start Last Admin Trade Name Narda PRN Reason Stop Dose Admin Diphenhydramine HCl 12.5 mg 09/03/24 11:12 09/03/24 12:12 Diphenhydramine Hcl 50 Mg/Ml Vial IVPUSH 09/03/24 11:13 12.5 mg ONCE ONE Administration Sodium Chloride 1,000 mls @ 999 mls/hr 09/03/24 11:15 09/03/24 15:43 Ns IV 09/03/24 12:15 Infused .Q1H1M BETZY Infusion Metoclopramide HCl 10 mg 09/03/24 11:12 09/03/24 12:11 Metoclopramide Hcl 10 Mg/2 Ml Vial IVPUSH 09/03/24 11:13 10 mg ONCE ONE Administration Morphine Sulfate 4 mg 09/03/24 11:12 09/03/24 12:11 Morphine Sulfate 4 Mg/Ml Cartridge IVPUSH 09/03/24 11:13 4 mg ONCE ONE Administration Protocol Medical Decision Making Medical Decision Making MDM Narrative: 29-year-old female with a past medical history of recently diagnosed left breast cancer, received 1st dose of chemotherapy yesterday by Dr. Moses, presenting to the ED via EMS complaining of at the gastric abdominal pain, nausea, diarrhea x yesterday, worsening today. On exam tachycardic likely from pain, appears uncomfortable, in position, abdomen soft with epigastric/RUQ tenderness. No rebound or guarding. Concern for chemotherapy reaction/side effect vs pancreatitis vs cholecystitis/lithiasis vs metabolic abnormalities. Low suspicion for severe sepsis at this time. Unlikely ACS/PE Plan: EKG, labs, UA, ultrasound, IVF, pain control, antiemetic, consult Oncology Please refer to course for remaining clinical decision making, interpretation of labs/imaging results, and discussions with consultants and/or family members. Differential Diagnosis Differential Diagnoses: The differential diagnosis associated with the presentation includes As above Admission/Observation Consideration of admission/observation: Escalation of care including admission/observation considered Consult Healthcare Provider Management of the patient was discussed with: Hotel Superintendent (Dr. Moses) Lab Data [facility] Lab Attestation statement: I reviewed the patient's lab results. 09/03/24 12:07 09/03/24 12:07 Labs: Lab Results 09/03/24 09/03/24 Range/Units 12:07 14:46 WBC 8.8 (4.8-10.8) X10*3/uL RBC 3.87 L (4.20-5.50) X10*6/uL Hgb 9.4 L (12.0-16.0) g/dl Hct 29.2 L (37.0-47.0) % MCV 75.5 L (80.0-98.0) fL MCH 24.3 L (27.0-33.0) pg MCHC 32.2 (31.0-35.0) g/dl RDW 16.0 (11.0-16.0) % Plt Count 476 H (160-400) X10*3/uL MPV 9.4 (9.4-12.3) fL Immature Gran % (Auto) 0.5 H (0.0-0.4) % Neut % (Auto) 75.1 H (45-73) % Lymph % (Auto) 14.3 L (20-40) % [place] % (Auto) 9.9 (2-11) % Eos % (Auto) 0.1 (0-4) % Baso % (Auto) 0.1 (0-2) % Lymph # (Auto) 1.3 (1.2-4.9) X10*3/uL [place] # (Auto) 0.9 (0.1-1.2) X10*3/uL Eos # (Auto) 0.0 (0.0-0.4) X10*3/uL Baso # (Auto) 0.0 (0.0-0.2) X10*3/uL Abs Immat Gran (auto) 0.04 H (0.00-0.03) X10*3/uL Absolute Neuts (auto) 6.6 (2.0-8.3) x10*3/uL Absolute Nucleated RBC 0.000 (0.0-0.012) X10*3/uL Nucleated RBC % (auto) 0.0 (0.0-0.2) /100WBC PT 14.4 H (10.9-12.4) SEC INR 1.2 H (0.9-1.1) Sodium 140 (135-145) mmol/L Potassium 3.7 (3.3-5.1) mmol/L Chloride 109 H (96-108) mmol/L Carbon Dioxide 22 (22-29) mmol/L Anion Gap 13 (12-20) BUN 14 (9-16) mg/dL Creatinine 0.58 (0.5-1.4) mg/dL Estim Creat Clear Calc 142.0 Estimated GFR > 60 Random Glucose 99 (60-115) mg/dL Calcium 9.5 (8.4-10.2) mg/dL Magnesium 1.9 (1.6-2.6) mg/dL Total Bilirubin 0.5 (0.0-1.0) mg/dL Direct Bilirubin 0.2 (0.0-0.5) mg/dL AST 24 (5-31) U/L ALT 20 (0-31) U/L Alkaline Phosphatase 91 (39-117) U/L Total Protein 8.1 H (6.5-8.0) g/dL Albumin 3.9 (3.5-5.0) g/dL Lipase 8 (8-78) U/L Urine Color Yellow Urine Appearance Clear Urine pH 7.0 (5.0-9.0) Ur Specific [place] 1.020 (1.005-1.025) Urine Protein Negative (Neg-Trace) mg/dL Urine Glucose (UA) Negative (Negative) mg/dL Urine Ketones Negative (Negative) mg/dL Urine Blood Negative (Negative) Urine Nitrite Negative (Negative) Ur Leukocyte Esterase Negative (Negative) Urine Test NEGATIVE (NEGATIVE) Influenza Type A (PCR) NEGATIVE (Negative) Influenza Type B (PCR) NEGATIVE (Negative) RSV RNA Qual (PCR) NEGATIVE (Negative) SARS-CoV-2 RNA (RT-PCR) NEGATIVE (Negative) Independent Interpretation I performed an independent interpretation of an: EKG and Ultrasound Radiology Impression Discussion of test interpretation with radiology: I have reviewed the radiologist's reading. Independent Historian Clinical information obtained from an independent historian. History obtained from or confirmed by: Parent, EMS and Other External Record Review External record reviewed: Inpatient record, Office record, Outpatient record, Prior outpatient labs, Prior outpatient radiology, Primary care record and Outside ED record Tests considered The following testing was considered but not selected: As above Prescription Management I considered prescription management with: Pain Medication and Antibiotic Chronic Conditions Patient?s care impacted by: Other Social Determinants Patient?s care significantly limited by Social Determinants of Health including: Other Social Determinant of Health Discharge Plan Discharge Clinical Impression: Abdominal pain Patient Disposition: Home, Self-Care Instructions: Abdominal Pain (ED) Additional Instructions: Your blood work is reassuring Oncology is well aware of your visit today in the emergency department YOU NEED TO GO TO THE ONCOLOGY OFFICE TOMORROW MORNING AT 08:00 FOR YOUR INJECTION If her symptoms persist or worsen, you develop recurrent abdominal pain, persistent nausea, vomiting, you are unable to drink or eat or fevers return to the ED Prescriptions: No Action ferrous sulfate 325 mg (65 mg iron) Tablet 325 mg PO BID Qty: 60 4RF ascorbic acid (vitamin C) [Vitamin C] 500 mg Tablet,Chewable 500 mg PO BID Qty: 60 4RF lidocaine 3 % Cream 1 appl TOPICAL BID Qty: 45 3RF ondansetron 8 mg Tablet,Disintegrating 8 mg PO Q8H Qty: 60 3RF dexamethasone 4 mg Tablet 4 mg PO BID Qty: 60 3RF Rx Instructions: Take 4 mg p.o. b.i.d. days 2 and 3 of chemo, Q 2 weekly Referrals: Quique Moses MD [Physician] - 1 day (Tomorrow at 08:00) Print Language: Icelandic
--- NOTE | 2024-09-03 11:12 | ECG_ITS ---
Test Reason : EPIGASTRIC PAIN Blood Pressure : */* mmHG Vent. Rate : 105 BPM Atrial Rate : 105 BPM P-R Int : 158 ms QRS Dur : 88 ms QT Int : 370 ms P-R-T Axes : 49 28 55 degrees QTcB Int : 489 ms Sinus tachycardia Nonspecific T wave abnormality Abnormal ECG When compared with ECG of 13-Sep-2018 01:35, Vent. rate has increased by 36 bpm Nonspecific T wave abnormality now evident in Lateral leads Referred By: Rubi Stuart Electronically Signed By: HANNY PEARSON
--- OUTSIDE RECORDS SUMMARY | 2024-09-03 11:59 | XMS_ITS | Encounter Summary ---
Author Organization [facility] Address [address] [place] [address] Phone Care Team Providers Care Control Clerk Head Name Role Phone Yelitza Flowers MD Primary Care Provider [phone] Encounter Details Date Type Department Care Team (Late st Contact Info) Description 02/28/2017 Conversion Encounter [facility] [address] [place] [address] Social History Tobacco Use Types Packs/Day Years [...] on filedocumented in this encounter Care Teams Control Clerk Head Relationship Specialty Start Date End Date Yelitza Flowers MD [address] [place] [address] PCP - General 02/22/17 10/14/22 documented as of this encounter
--- OUTSIDE RECORDS SUMMARY | 2024-09-03 11:59 | XMS_ITS | Encounter Summary ---
Author Organization [employer] Address [address] [facility] [address] [place] [address] Care Team Providers Care Hockey Player Name Role Phone Jennifer Nash NP Primary Care Provider [phone] Reason for Visit * Reason Onset Date Comments Med Refill 08/02/2024 Encounter Details Date Type Department Care Team ([facility] st Contact Info) Description 08/02/2024 Refill [facility] [address] [place] [address] Jennifer Nash NP [address] [place] [address] Hypoglycemia Social History Tobacco Use Types Packs/Day [...] documented as of this encounter Care Teams Hockey Player Relationship Specialty Start Date End Date Jennifer Nash NP [address] [place] [id number] PCP - General Family Medicine 06/25/23 documented as of this encounter
--- OUTSIDE RECORDS SUMMARY | 2024-09-03 11:59 | XMS_ITS | Encounter Summary ---
Author Organization [employer] Address [address] [facility] [address] [place] [address] Care Team Providers Care Account Resolution Expert Name Role Phone Jennifer Nash LAFREDO Primary Care Provider [phone] Encounter Details Date Type Department Care Team ([facility] st Contact Info) Description 09/01/2024 Orders Only [facility] External Provider, [employer] Social History Tobacco Use Types Packs/Day Years [...] Name Priority Date/Time Associated Diagnosis Comments BI US BREAST LIMITED LEFT Routine 09/01/2024 1:41 PM EST documented in this encounter Results * BI US Breast Limited Left (09/01/2024 1:41 PM EST) Anatomical Region Laterality Modality Breast Left Ultrasound 09/01/2024 1:41 PM EST Narrative 09/01/2024 2:45 PM EST ? [facility] ? [address] ?[place] [address] ? Ultrasound Report ? Signed ? Patient: Regina Veliz I ?MR#: [id number] ?? 059 ? : 1995 ?Acct:[id number] ? Age/Sex: 29 / F ?ADM Date: 09/01/24 ? Loc: HO.MAMMO ? Attending Dr: Quique Moses MD ? Ordering Physician: Quique Moses MD ?? Date of Service: 09/01/24 ?? Procedure(s): US breast LT limited ?? Accession Number(s): [id number] ? cc: Jennifer Nash; Quique Moses MD ? EXAMINATION: ?? US DIAGNOSTIC ULTRASOUND BREAST, LEFT ? CLINICAL INFORMATION: ? Asymmetry diagnosed left breast cancer. Question prominent left ?? axillary lymph nodes.. ? COMPARISON: ?? Comparison is made with relevant prior imaging. ? TECHNIQUE: ?? Ultrasound of the breast is performed with real-time milton scale imaging ?? and color Doppler. ? FINDINGS: ?? Targeted color Doppler ultrasound scanning in the left axilla ?? demonstrates multiple normal-appearing axillary lymph nodes. There is ?? no sonographic abnormality or abnormal lymph node. ?? Results are discussed with the patient at time of visit. ? US/US breast LT limited ?? IMPRESSION: ?? Normal axillary lymph nodes. Benign. ? ASSESSMENT: ? BI-RADS 1: Negative ? RECOMMENDATION: ?? Follow-up with breast surgeon for known left breast malignancy. ? This patient's information was entered into a reminder system with a ?? target due date for their next mammogram. ? Electronically signed by: ??Priscilla Chacon DO ??09/01/2024 02:42 PM EST ? Dictated By: ?Priscilla Chacon DO ? Signed By: ?<Electronically signed by Priscilla Chacon, DO in OV> ? 09/01/24 1442 ? DD/ 1341 ? TD/TT: 09/01/24 1423 ? Assembler Body: ? Procedure Note Donotuseinterpreter, Image - [facility] [address] [place] [address] Ultrasound Report Signed Patient: Regina Veliz IMR#: [id number] 059 : 1995Acct:[id number] Age/Sex: 29 / FADM Date: 09/01/24 Loc: HO.MAMMO Attending Dr: Quique Moses MD Ordering Physician: Quique Moses MD Date of Service: 09/01/24 Procedure(s): US breast LT limited Accession Number(s): [id number] cc: Jennifer Nash; Quique Moses MD EXAMINATION: US DIAGNOSTIC ULTRASOUND BREAST, LEFT CLINICAL INFORMATION: Asymmetry diagnosed left breast cancer. Question prominent left axillary lymph nodes.. COMPARISON: Comparison is made with relevant prior imaging. TECHNIQUE: Ultrasound of the breast is performed with real-time milton scale imaging and color Doppler. FINDINGS: Targeted color Doppler ultrasound scanning in the left axilla demonstrates multiple normal-appearing axillary lymph nodes. There is no sonographic abnormality or abnormal lymph node. Results are discussed with the patient at time of visit. US/US breast LT limited IMPRESSION: Normal axillary lymph nodes. Benign. ASSESSMENT: BI-RADS 1: Negative RECOMMENDATION: Follow-up with breast surgeon for known left breast malignancy. This patient's information was entered into a reminder system with a target due date for their next mammogram. Electronically signed by: Priscilla Chacon DO 09/01/2024 02:42 PM EST RP Dictated By: Priscilla Chacon DO Signed By: <Electronically signed by Priscilla Chacon DO in OV> 09/01/24 1442 DD/ 1341 TD/TT: 09/01/24 1423 Assembler Body: [facility] External [facility] PROCED[facility] Edited Result - Final documented in this encounter Visit Diagnoses Not on filedocumented in this encounter Additional Health Concerns Assessment Noted Time PHQ-9 Depression Total Score: 0 10/02/19 24 2:38 PM EDT documented as of this encounter Care Teams Account Resolution Expert Relationship Specialty Start Date End Date Jennifer Nash NP [address] [place] [address] PCP - General Family Medicine 06/25/23 documented as of this encounter
--- OUTSIDE RECORDS SUMMARY | 2024-09-03 11:59 | XMS_ITS | Encounter Summary ---
Author Organization [employer] Address [address] [facility] [address] [place] [address] Care Team Providers Care Sodder Name Role Phone Jennifer Nash ALFREDO Primary Care Provider [phone] Encounter Details Date Type Department Care Team ([facility] st Contact Info) Description 08/26/2024 Orders Only [facility] External Provider, [facility] Social History Tobacco Use Types Packs/Day [...] Name Priority Date/Time Associated Diagnosis Comments BI MR BREAST W AND WO CONTRAST BILATERAL Routine 08/26/2024 9:30 AM EST documented in this encounter Results * BI MR Breast w and w/o Contrast Bilateral (08/26/2024 9:30 AM EST) Anatomical Region Laterality Modality Breast Bilateral Magnetic Resonan ce 08/26/2024 9:30 AM EST Narrative 08/28/2024 6:09 PM EST ? [facility] ?[address] ?[place] [address] ? Magnetic Resonance Report ? Signed ? Patient: Regina Veliz I ?MR#: [id number] ?? 059 ? : 1995 ?Acct:[id number] ? Age/Sex: 29 / F ?ADM Date: 08/26/24 ? Loc: HO.MRI ? Attending Dr: Fish Cash MD ? Ordering Physician: Fish Cash MD ?? Date of Service: 08/26/24 ?? Procedure(s): MR breast BI wo/w con ?? Accession Number(s): [id number] ? cc: Jennifer Nash; Fish Cash MD; Quique Moses MD ? EXAMINATION: ?? MR BREAST WITHOUT AND WITH CONTRAST, BILATERAL ? CLINICAL INFORMATION: ?? Recent biopsy-proven invasive ductal carcinoma of the left breast. ? COMPARISON: ?? Comparison is made with available prior examinations. ? TECHNIQUE: ?? MRI imaging of the breast was performed using T1, T2 and fat saturated ?? techniques. Dynamic multiphase imaging was also performed after ?? administration of intravenous gadolinium contrast agent. Computer ?? generated 3-D reconstruction was performed. ? FINDINGS: ?? There is heterogeneous fibroglandular breast tissue with moderate ?? background enhancement with scattered enhancing foci. ? LEFT BREAST: ?? There is a irregular enhancing mass in the medial left breast measuring ?? 8.4 cm anterior to posterior by 2.2 cm transverse by 2.5 cm superior to ?? inferior series 1044 images 73-54. ?? There are questionable prominent axillary lymph nodes. ?? No internal mammary adenopathy. ? RIGHT BREAST: ?? No suspicious enhancing masses or areas of nonmass enhancement. ?? No architectural distortion. ?? No axillary or internal mammary adenopathy. ? Limited views of the chest and abdomen are unremarkable. ? MR/MR breast BI wo/w con ?? IMPRESSION: ?? Left: ?? 1. Biopsy-proven invasive ductal carcinoma in the left breast measuring ?? up to 8.4 cm anterior to posterior. The patient is under the care of a ?? breast surgeon for excision and further management. ? 2. Mildly prominent axillary lymph nodes. Ultrasound evaluation at this ?? time is recommended for further confirmation. ? Right: No MRI evidence of malignancy. Negative. ? ASSESSMENT: ?? LEFT BREAST: BI-RADS 6 known biopsy-proven malignancy. ? RIGHT BREAST: BI-RADS 1-Negative ? RECOMMENDATIONS: ?? Breast surgical and oncologic consultation for excision and further ?? management. ? Electronically signed by: ??Priscilla Chacon DO ??08/28/2024 06:06 PM EST ?? RP ? Dictated By: ?Priscilla Chacon DO ? Signed By: ?<Electronically signed by Priscilla Chacon DO in OV> ? 08/28/24 1806 ? DD/ 0930 ? TD/TT: 08/26/24 1010 ? Negative Turner Apprentice: ? Procedure Note Ej, Image - 08/28/[address] [address] Magnetic Resonance Report Signed Patient: [facility] Veliz [facility] [id number] 059 : 1995Acct:[id number] Age/Sex: 29 / FADM Date: 08/26/24 Loc: HO.MRI Attending Dr: Fish Cash MD Ordering Physician: Fish Cash MD Date of Service: 08/26/24 Procedure(s): MR breast BI wo/w con Accession Number(s): [id number] cc: Jennifer Nash; Fish Cash MD; Quique Moses MD EXAMINATION: MR BREAST WITHOUT AND WITH CONTRAST, BILATERAL CLINICAL INFORMATION: Recent biopsy-proven invasive ductal carcinoma of the left breast. COMPARISON: Comparison is made with available prior examinations. TECHNIQUE: MRI imaging of the breast was performed using T1, T2 and fat saturated techniques. Dynamic multiphase imaging was also performed after administration of intravenous gadolinium contrast agent. Computer generated 3-D reconstruction was performed. FINDINGS: There is heterogeneous fibroglandular breast tissue with moderate background enhancement with scattered enhancing foci. LEFT BREAST: There is a irregular enhancing mass in the medial left breast measuring 8.4 cm anterior to posterior by 2.2 cm transverse by 2.5 cm superior to inferior series 1044 images 73-54. There are questionable prominent axillary lymph nodes. No internal mammary adenopathy. RIGHT BREAST: No suspicious enhancing masses or areas of nonmass enhancement. No architectural distortion. No axillary or internal mammary adenopathy. Limited views of the chest and abdomen are unremarkable. MR/MR breast BI wo/w con IMPRESSION: Left: 1. Biopsy-proven invasive ductal carcinoma in the left breast measuring up to 8.4 cm anterior to posterior. The patient is under the care of a breast surgeon for excision and further management. 2. Mildly prominent axillary lymph nodes. Ultrasound evaluation at this time is recommended for further confirmation. Right: No MRI evidence of malignancy. Negative. ASSESSMENT: LEFT BREAST: BI-RADS 6 known biopsy-proven malignancy. RIGHT BREAST: BI-RADS 1-Negative RECOMMENDATIONS: Breast surgical and oncologic consultation for excision and further management. Electronically signed by: Priscilla Chacon DO 08/28/2024 06:06 PM [facility] Dictated By: Priscilla Chacon DO Signed By: <Electronically signed by Priscilla Chacon DO in OV> 08/28/24 1806 DD/ 0930 TD/TT: 08/26/24 1010 Negative Turner Apprentice: [facility] External Provider IMG MRI PROCEDURES Edited Result - Final documented in this encounter Visit Diagnoses Not on filedocumented in this encounter Additional Health Concerns Assessment Noted Time PHQ-9 Depression Total Score: 0 10/02/19 24 2:38 PM EDT documented as of this encounter Care Teams Sodder Relationship Specialty Start Date End Date Jennifer Nash NP [address] [place] [address] PCP - General Family Medicine 06/25/23 documented as of this encounter
--- OUTSIDE RECORDS SUMMARY | 2024-09-03 11:59 | XMS_ITS | Clinical Summary ---
Author Organization [facility] Address [address] [place] [phone] Phone Care Team Providers Care Signals Intelligence Superintendent Name Role Phone Unavailable Primary Care Provider [...] complete this topic Procedures * Due to [place] state law, this organization might not be sharing sensitive test results. Procedure Name Priority Date/Time Associated Diagnosis Comments CHLAMYDIA AND GONORRHEA, AMPLIFIED Routine 01/05/2016 1:37 PM EDT from Last 3 Months or Most Recently Relevant to Health Maintenance Results * Due to [place] state law, this organization might not be sharing sensitive test results. * Chlamydia and Gonorrhoea, Amplified (01/05/2016 1:37 PM EDT) URINE CHLAMYDIA AMP PROBE NEGATIVE [facility] Comment: No Chlamydia Trachomatis RNA detected in this patient's sample (REFERENCE RANGE/NORMAL VALUE: NOT DETECTED) URINE GC AMP PROBE NEGATIVE [facility] Comment: No Neisseria Gonorrhoeae RNA detected in this patient's sample (REFERENCE RANGE/NORMAL VALUE: NOT DETECTED) NOTE: This test uses cricket coach-mediated amplification method to detect rRNA from C.Trachomatis [...] without risk of sexual abuse. Consult the [facility] if needed. Contact phone number . Therapeutic failure or success cannot be determined with the Aptima Combo2 assay since nucleic acid may persist following appropriate antimicrobial therapy. The Centers for Disease Control and Prevention (CDC) recommends confirmatory retesting using culture or a different nucleic acid amplification test when positive results occur, if indicated. Testing performed or reported by [facility], a Service of [facility], [address] [place] [address] CLIA ??[id number] Tim Bearden MD, PhD, Population Health Manager 01/05/2016 1:37 PM EDT Narrative [facility] - 01/05/2016 1:37 PM EDT URINE CHLAMYDIA GC AMP PROBE us Yelitza Flowers MD LAB MICROBIOLOGY - GENERAL ORDER FISH Final Result [facility] [address] [place] [address], [place] from Last 3 Months or Most Recently Relevant to Health Maintenance
--- OUTSIDE RECORDS SUMMARY | 2024-09-03 12:01 | XMS_ITS | Encounter Summary ---
Author Organization [employer] Address [address] [facility] [address] [place] [address] Care Team Providers Care Oyster Buyer Name Role Phone Jennifer Nash ALFREDO Primary Care Provider [phone] Encounter Details Date Type Department Care Team ([facility] st Contact Info) Description 08/20/2024 Orders Only [...] Diagnosis Comments IR CVC INSERT TUNNEL W PRT/CATTLE ALLEY WORKER Routine 08/20/2024 1:00 PM EST IR US GUIDE VENOUS ACCESS Routine 08/20/2024 1:00 PM EST HCG, QL, URINE Routine 08/20/2024 12:10 PM EST documented in this encounter Results * IR cvc insert tunnel w prt/director of global talent (08/20/2024 1:00 PM EST) Anatomical Region Laterality Modality X-Ray Angiograph y 08/20/2024 1:00 PM EST Narrative 08/25/2024 4:55 PM EST ? [facility] ?[address] ?[place] [address] ?Interventional Radiology Rpt ? Signed ? Patient: Regina Veliz I ?MR#: [id number] ?? 059 ? : 1995 ?Acct:[id number] ? Age/Sex: 29 / F ?ADM Date: 08/20/24 ? Loc: HO.SSS ? Attending Dr: Quique Moses MD ? Ordering Physician: Quique Moses MD ?? Date of Service: 08/20/24 ?? Procedure(s): IR cvc insert tunnel w prt/director of global talent ?? Accession Number(s): [id number] ? cc: Jennifer Nash; Quique Moses MD ? CLINICAL HISTORY: ?? Left breast cancer. The patient presents to interventional radiology ?? for placement of a port for chemotherapy. ? PROCEDURES: ?? 1. Real-time ultrasound-guided access into the right internal jugular ?? vein after documentation of selected vessel patency, and permanent ?? image storing in the patient records. ?? 2. Placement of a 6.0 Prydeinig single-lumen power port. ? CLINICIAN: ?? John [...] pneumothorax. ? IR/IR cvc insert tunnel w prt/director of global talent ?? IMPRESSION: ?? Placement of a 6.0 [...] DD/ 1300 ? TD/TT: 08/20/24 1427 ? Clinical Dietitian: ? Procedure Note Dongloria, Image - 08/25/2024 [place] [address] Interventional Radiology Rpt Signed Patient: Regina Veliz IMR#: [id number] 059 : 1995Acct:[id number] Age/Sex: 29 / FADM Date: 08/20/24 Loc: HO.SSS Attending Dr: uQique Moses MD Ordering Physician: Quique Moses MD Date of Service: 08/20/24 Procedure(s): IR cvc insert tunnel w prt/director of global talent Accession Number(s): [id number] cc: Jennifer Nash; Quique Moses MD CLINICAL HISTORY: Left breast cancer. The patient presents to interventional radiology for placement of a port for chemotherapy. PROCEDURES: 1. Real-time ultrasound-guided access into the right internal jugular vein after documentation of selected vessel patency, and permanent image storing in the patient records. 2. Placement of a 6.0 Prydeinig single-lumen power port. CLINICIAN: John Jones PA-C [...] No pneumothorax. IR/IR cvc insert tunnel w prt/director of global talent IMPRESSION: Placement of a 6.0 fr single-lumen [...] 08/25/24 1654 DD/ 1300 TD/TT: 08/20/24 1427 Clinical Dietitian: [facility] External Provider IMG IR PROCEDURES Final Result * IR US Guide - Venous Access (08/20/2024 1:00 PM EST) Anatomical Region Laterality Modality X-Ray Angiograph y 08/20/2024 1:00 PM EST Narrative 08/25/2024 4:55 PM EST ? [facility] ?[address] ?[place] [address] ?Interventional Radiology Rpt ? Signed ? Patient: Regina Veilz Joanna ?MR#: [id number] ?? 059 ? : 1995 ?Acct:[id number] ? Age/Sex: 29 / F ?ADM Date: 08/20/24 ? Loc: HO.SSS ? Attending Dr: Quique Moses MD ? Ordering Physician: Quique Moses MD ?? Date of Service: 08/20/24 ?? Procedure(s): IR us guide venous access ?? Accession Number(s): [id number] ? cc: Jennifer Nash; Quique Moses MD ? CLINICAL HISTORY: ?? Left breast cancer. The patient presents to interventional radiology ?? for placement of a port for chemotherapy. ? PROCEDURES: ?? 1. Real-time ultrasound-guided access into the right internal jugular ?? vein after documentation of selected vessel patency, and permanent ?? image storing in the patient records. ?? 2. Placement of a 6.0 Prydeinig single-lumen power port. ? CLINICIAN: ?? John [...] DD/ 1300 ? TD/TT: 08/20/24 1427 ? Clinical Dietitian: ? Procedure Note Ej, Image - 08/25/2024 [place] [address] Interventional Radiology Rpt Signed Patient: Regina Veliz IMR#: [id number] 059 : 1995Acct:[id number] Age/Sex: 29 / FADM Date: 08/20/24 Loc: HO.SSS Attending Dr: Quique Moses MD Ordering Physician: Quique Moses MD Date of Service: 08/20/24 Procedure(s): IR us guide venous access Accession Number(s): [id number] cc: Jennifer Nash; Quique Moses MD CLINICAL HISTORY: Left breast cancer. The patient presents to interventional radiology for placement of a port for chemotherapy. PROCEDURES: 1. Real-time ultrasound-guided access into the right internal jugular vein after documentation of selected vessel patency, and permanent image storing in the patient records. 2. Placement of a 6.0 Prydeinig single-lumen power port. CLINICIAN: John Jones PA-C [...] 08/25/24 1654 DD/ 1300 TD/TT: 08/20/24 1427 Clinical Dietitian: [facility] External Provider IMG IR PROCEDURES Final Result * HCG, Qualitative, Urine (08/20/2024 12:10 PM EST) Urine NEGATIVE NEGATIVE [facility] Comment:This test was develo ped to detect early . Falsenegative results may occur after the 5th - 7th week ofpregnancy when using this test method. If clinicallyindicated, consider a serum hCG. 08/20/2024 12:1 0 PM EST 08/20/2024 12:28 PM EST Generic External Data Provider LAB URINE ORDERAB LES Final Result [facility] [address] [place], [place] [phone] documented in this encounter Visit Diagnoses Not on filedocumented in this encounter Additional Health Concerns Assessment Noted Time PHQ-9 Depression Total Score: 0 10/02/19 24 2:38 PM EDT documented as of this encounter Care Teams Oyster Buyer Relationship Specialty Start Date End Date Jennifer Nash NP [address] [place] [address] PCP - General Family Medicine 06/25/23 documented as of this encounter
--- OUTSIDE RECORDS SUMMARY | 2024-09-03 12:01 | XMS_ITS | Clinical Summary ---
Author Organization [facility] Address [address] [place] [address] Care Team Providers Care Doctor Of Naturopathic Medicine Name Role Phone Unavailable Primary Care Provider [...] RESULTING AGENCY - 07/05/2021 4:41 PM EST [id number] THINPREP PAP, IMAGED: NEGATIVE FOR SQUAMOUS INTRAEPITHELIAL [...] , Z12.4, PAP HX NEG. us Nyasia Caedt DO LAB CYTOLOGY ORDERABLES Final Result HISTORICAL TESTING LAB RESULTING AGENCY from Last 3 Months or Most Recently Relevant to Health Maintenance
--- OUTSIDE RECORDS SUMMARY | 2024-09-03 12:01 | XMS_ITS | Encounter Summary ---
Author Organization [employer] Address [address] [facility] [address]t [place] [address] Care Team Providers Care Cloth Laminating Supervisor Name Role Phone Jennifer Nash NP Primary Care Provider [phone] Encounter Details Date Type Department Care Team ([facility] st Contact Info) Description 08/30/2023 Orders Only [facility] [address] [place] [address] Jennifer Nash NP [address] [place] [address] Anemia, unspecified type (Primary Dx); Hypoglycemia Social [...] documented as of this encounter Care Teams Cloth Laminating Supervisor Relationship Specialty Start Date End Date Jennifer Nash NP [address] [place] [address] PCP - General Family Medicine 06/25/23 documented as of this encounter
--- OUTSIDE RECORDS SUMMARY | 2024-09-03 12:01 | XMS_ITS | Encounter Summary ---
Author Organization [employer] Address [address] [facility] [address]t [place] [address] Care Team Providers Care Staining Machine Operator Name Role Phone Jennifer Nash NP Primary Care Provider [phone] Reason for Visit * Reason Onset Date Comments Results 08/29/2023 Encounter Details Date Type Department Care Team ([facility] st Contact Info) Description 08/29/2023 Telephone [facility] [address] [place] [address] Jennifer Nash NP [address] [place] [address] Results Social History Tobacco Use Types Packs/Day [...] Date when done: 08/26/23 Facility: [facility] Labs TC from pt requesting call back regarding Results. Type of results: Blood Work Date when done: 08/24/23 Facility: [facility] documented in this encounter Plan of Treatment Not on file documented as of this encounter Visit Diagnoses Not on filedocumented in this encounter Additional Health Concerns Assessment Noted Time PHQ-9 Depression Total Score: 3 01/24/20 23 11:03 AM EDT documented as of this encounter Care Teams Staining Machine Operator Relationship Specialty Start Date End Date Jennifer Nash NP [address] [place] [address] PCP - General Family Medicine 06/25/23 documented as of this encounter
--- OUTSIDE RECORDS SUMMARY | 2024-09-03 12:01 | XMS_ITS | Encounter Summary ---
Author Organization [facility] Address [address] [place] [address] Phone Care Team Providers Care Railroad Firer/Fireman Name Role Phone Yelitza Flowers MD Primary Care Provider [phone] Encounter Details Date Type Department Care Team (Late st Contact Info) Description 05/05/2013 Documentation [facility] [address] [place] [address] Family Medicine, Physician [address] [place], [place] [id number] Social History Tobacco Use Types Packs/Day Years [...] on filedocumented in this encounter Care Teams Railroad Firer/Fireman Relationship Specialty Start Date End Date Yelitza Flowers MD [address] [place] [address] PCP - General 02/22/17 10/14/22 documented as of this encounter
--- OUTSIDE RECORDS SUMMARY | 2024-09-03 12:01 | XMS_ITS | Encounter Summary ---
Author Organization [employer] Address [address] [facility] [address] [place] [address] Care Team Providers Care Foreign Car Mechanic Name Role Phone Jennifer Nash ALFREDO Primary Care Provider [phone] Encounter Details Date Type Department Care Team ([facility] st Contact Info) Description 08/05/2024 Telephone [facility] [address] [place] [address] Payal Martinez CN [address] [place] [address] Social History Tobacco Use Types Packs/Day Years [...] documented as of this encounter Care Teams Foreign Car Mechanic Relationship Specialty Start Date End Date Jennifer Nash NP [address] [place] [address] PCP - General Family Medicine 06/25/23 documented as of this encounter
--- OUTSIDE RECORDS SUMMARY | 2024-09-03 12:01 | XMS_ITS | Clinical Summary ---
Author Organization [employer] Address [address] [place] [address] [address] [place] [address] Care Team Providers Care Shower Attendant Name Role Phone Jennifer Nash ALFREDO Primary Care Provider [phone] Allergies No known active allergies Medications simethicone (Mylicon) 80 MG chewable tabletIndicatio ns:Acute abdominal pain in right lower quadrant Chew 1 tablet (80 mg) every 6 (six) hours if needed for flatulence. 80 tablet 1 3 Active Additional Information Patient not taking.Reported on 02/06/2023 ibuprofen 600 MG tabletIndicatio ns:Acute abdominal pain in right lower quadrant Take 1 tablet (600 mg) by mouth 3 times daily. 90 tablet 1 3 Active Diclofenac Sodium 1 % gel APPLY TWO GRAM EXTERNAL FOUR TIMES A DAY FOR 10 DAYS 3 Active ferrous gluconate (Fergon) 324 (38 Fe) MG tabletIndicatio ns:Anemia, unspecified type Take 1 tablet every other day with vitamin C. 30 tablet 2 4 Active Ascorbic Acid (vitamin C) 250 MG tabletIndicatio ns:Anemia, unspecified type Take 1 tablet by mouth every other day with iron on an empty stomach 30 tablet 1 4 Active glucose 4 g chewable tabletIndicatio ns:Hypoglycemia Chew 4 tablets (16 g) if needed for low blood sugar. 50 tablet 1 4 Active Lancets miscIndications :Hypoglycemia Use to test blood sugar as needed for hypoglycemia 100 each 4 Active Alcohol Swabs 70 % padsIndications :Hypoglycemia Use to test blood sugar as needed for hypoglycemia 100 each 4 Active Blood Glucose Monitoring Suppl (FreeStyle Newton Lite) w/Device kitIndications: Hypoglycemia Use to test blood sugar as needed for hypoglycemia 1 kit 4 Active glucose blood (FREESTYLE LITE) test stripIndication s:Hypoglycemia USE TO TEST BLOOD SUGAR NEEDED FOR HYPOGLYCEMIA 100 each 2 5 08/02/19 26 Active Active Problems Problem Noted Date Diagnosed Date Invasive ductal carcinoma of breast, female, lef t 08/26/2024 Shakiness 11/21/2023 Assessment & Plan (11/21/2023 9:22 [...] advised -will call or send message in modulR with results -follow-up 3 months via televisit [...] Encounters Date Type Department Care Team Description 09/01/2024 Orders Only [facility] External Provider, [facility] 08/26/2024 Orders Only [facility] External Provider, [facility] 08/20/2024 Orders Only GENERIC EXTERNAL DATA DEPARTMENT Provider, Generic External Data 08/05/2024 Telephone [facility] [address] [place] [address] Kim Pickens CNM 08/02/2024 Refill [facility] [address] [place] [address] Jennifer Nash NP Hypoglycemia 07/29/2024 Orders Only [facility] External Provider, [facility] 07/01/2024 Telephone [facility] [address] [place] [address] Fidelina Morrow, RN Results from [...] MMRV 02/12/2014 Meningococcal MCV4P ACYW-135 05/28/2006 Novel Sytywwvnx-X4F1-76, all formulations 06/15/2009 Tdap 10/06/2021, 8,05/28/2006,05/28 Social [...] SDOH Screening 10/01/2024 10/02/2023 Diagnostic Breast Imaging 11/29/20242024, 08/26/2024, 08/05/2024, Additional history exists Mammogram 11/29/2024 09/01/2024, 08/15, 08/05/2024, Additional history exists Family Planning (PISQ) 03/23/2025 03/23/2024 Tobacco Screening [...] LIMITED LEFT Routine 09/01/2024 1:41 PM EST BI MR BREAST W AND WO CONTRAST BILATERAL Routine 08/26/2024 9:30 AM EST IR CVC INSERT TUNNEL W PRT/STITCH BONDING MACHINE TENDER HELPER Routine 08/20/2024 1:00 PM EST IR US [...] Relevant to Health Maintenance Results * BI US Breast Limited Left (09/01/2024 1:41 PM EST) Only the most recent of2 resultswithin the time period is included. Anatomical Region Laterality Modality Breast Left Ultrasound 09/01/2024 1:41 PM EST Narrative 09/01/2024 2:45 PM EST ? [facility] ? [address] ?[place] [address] ? Ultrasound Report ? Signed ? Patient: Jose Alfredo,Regina I ?MR#: [id number] ?? 059 ? : 1995 ?Acct:[id number] ? Age/Sex: 29 / F ?ADM Date: 09/01/24 ? Loc: HO.MAMMO ? Attending Dr: Quique Moses MD ? Ordering Physician: Quique Moses MD ?? Date of Service: 09/01/24 ?? Procedure(s): US breast LT limited ?? Accession Number(s): [id number] ? cc: Jennifer Nash; Quique Moses MD [...] ??09/01/2024 02:42 PM EST ? Dictated By: ?Oswaldo,Priscilla DO ? Signed By: ?<Electronically signed by Priscilla Chacon, DO in OV> ? 09/01/24 1442 ? DD/ 1341 ? TD/TT: 09/01/24 1423 ? Supervisor [employer]iver[employer]: ? Procedure Note Bing Pagan - 09/01/2024 [place] [facility] [address] [place], [place] [address] Ultrasound Report Signed Patient: Regina Veliz IMR#: [id number] 059 : 1995Acct:[id number] Age/Sex: 29 / FADM Date: 09/01/24 Loc: HO.MAMMO Attending Dr: Quique Moses MD Ordering Physician: Quique Moses MD Date of Service: 09/01/24 Procedure(s): US breast LT limited Accession Number(s): [id number] cc: Jennifer Nash; Quique Moses MD EXAMINATION: [...] 09/01/24 1442 DD/ 1341 TD/TT: 09/01/24 1423 Supervisor Newspaper Deliveries: [facility] External Provider IMG US PROCEDURES Edited Result - Final * BI MR Breast w and w/o Contrast Bilateral (08/26/2024 9:30 AM EST) Anatomical Region Laterality Modality Breast Bilateral Magnetic Resonan ce 08/26/2024 9:30 AM EST Narrative 08/28/2024 6:09 PM EST ? [facility] ?[address] ?[place] [address] ? Magnetic Resonance Report ? Signed ? Patient: Jose Alfredo,Regina I ?MR#: [id number] ?? 059 ? : 1995 ?Acct:[id number] ? Age/Sex: 29 / F ?ADM Date: 02/12/25 ? Loc: HO.MRI ? Attending Dr: Fish Cash MD ? Ordering Physician: Fish Cash MD ?? Date of Service: 08/26/24 ?? Procedure(s): MR breast BI wo/w con ?? Accession Number(s): [id number] ? cc: Jennifer Nash; Fish Cash MD; [...] by Priscilla Chacon, DO in OV> ? 08/28/241805 ? DD/ ? TD/TT: 08/26/24 1010 ? Supervisor Newspaper Deliveries: ? Procedure Note Donsharleneter, Image - 08/28/[address] [address] Magnetic Resonance Report Signed Patient: Regina Veliz IMR#: [id number] 059 : 1995Acct:[id number] Age/Sex: 29 FADM Date: 08/26/24 Loc: HO.MRI Attending Dr: Fish Cash MD Ordering Physician: Fish Cash MD Date of Service: 08/26/24 Procedure(s): MR breast BI wo/w con Accession Number(s): [id number] cc: Jennifer Nash; Fish Cash MD; Quique [...] by: Priscilla Chacon DO 08/28/2024 06:06 PM EST RP Dictated By: Priscilla Chacon DO Signed By: <Electronically signed by Priscilla Chacon DO in OV> 08/28/24 1806 DD/ 0930 TD/TT: 08/26/24 1010 Supervisor Newspaper Deliveries: [facility] External Provider IMG MRI PROCEDURES Edited Result - Final * IR cvc insert tunnel w prt/sales correspondent (08/20/2024 1:00 PM EST) Anatomical Region Laterality Modality X-Ray Angiograph y 08/20/2024 1:00 PM EST Narrative 08/25/2024 4:55 PM EST ? [facility] ?[address] ?[place] [address] ?Interventional Radiology Rpt ? Signed ? Patient: Regina Veliz I ?MR#: [id number] ?? 059 ? : 1995 ?Acct:[id number] ? Age/Sex: 29 / F ?ADM Date: 08/20/24 ? Loc: HO.SSS ? Attending Dr: Quique Moses MD ? Ordering Physician: Quique Moses MD ?? Date of Service: 08/20/24 ?? Procedure(s): IR cvc insert tunnel w prt/sales correspondent ?? Accession Number(s): [id number] ? cc: Jennifer Nash; Quique Moses MD ? CLINICAL HISTORY: ?? Left breast cancer. The patient presents to interventional radiology ?? for placement of a port for chemotherapy. ? PROCEDURES: ?? 1. Real-time ultrasound-guided access into the right internal jugular ?? vein after documentation of selected vessel patency, and permanent ?? image storing in the patient records. ?? 2. Placement of a 6.0 Montenegrin single-lumen power port. ? CLINICIAN: ?? John [...] pneumothorax. ? IR/IR cvc insert tunnel w prt/sales correspondent ?? IMPRESSION: ?? Placement of a 6.0 [...] DD/ 1300 ? TD/TT: 08/20/24 1427 ? Supervisor Newspaper Deliveries: ? Procedure Note Ej, Image - 08/25/2024 [place] [address] Interventional Radiology Rpt Signed Patient: Regina Veliz IMR#: [id number] 059 : 1995Acct:[id number] Age/Sex: 29 / FADM Date: 08/20/24 Loc: HO.SSS Attending Dr: Quique Moses MD Ordering Physician: Quique Moses MD Date of Service: 08/20/24 Procedure(s): IR cvc insert tunnel w prt/sales correspondent Accession Number(s): [id number] cc: Jennifer Nash; Quique Moses MD CLINICAL HISTORY: Left breast cancer. The patient presents to interventional radiology for placement of a port for chemotherapy. PROCEDURES: 1. Real-time ultrasound-guided access into the right internal jugular vein after documentation of selected vessel patency, and permanent image storing in the patient records. 2. Placement of a 6.0 Montenegrin single-lumen power port. CLINICIAN: John Jones PA-C [...] No pneumothorax. IR/IR cvc insert tunnel w prt/sales correspondent IMPRESSION: Placement of a 6.0 fr single-lumen [...] 08/25/24 1654 DD/ 1300 TD/TT: 08/20/24 1427 Supervisor Newspaper Deliveries: us [facility] External Provider IMG IR PROCEDURES Final Result * IR US Guide - Venous Access (08/20/2024 1:00 PM EST) Anatomical Region Laterality Modality X-Ray Angiograph y 08/20/2024 1:00 PM EST Narrative 08/25/2024 4:55 PM EST ? [facility] ?[address] ?[place] [address] ?Interventional Radiology Rpt ? Signed ? Patient: Regina Veliz I ?MR#: [id number] ?? 059 ? : 1995 ?Acct:[id number] ? Age/Sex: 29 / F ?ADM Date: 08/20/24 ? Loc: HO.SSS ? Attending Dr: Quique Moses MD ? Ordering Physician: Quique Moses MD ?? Date of Service: 08/20/24 ?? Procedure(s): IR us guide venous access ?? Accession Number(s): [id number] ? cc: Jennifer Nash; Quique Moses MD ? CLINICAL HISTORY: ?? Left breast cancer. The patient presents to interventional radiology ?? for placement of a port for chemotherapy. ? PROCEDURES: ?? 1. Real-time ultrasound-guided access into the right internal jugular ?? vein after documentation of selected vessel patency, and permanent ?? image storing in the patient records. ?? 2. Placement of a 6.0 Montenegrin single-lumen power port. ? CLINICIAN: ?? John [...] DD/ 1300 ? TD/TT: 08/20/24 1427 ? Supervisor Newspaper Deliveries: ? Procedure Note Donsharleneter, Image - 08/25/2024 [place] [address] Interventional Radiology Rpt Signed Patient: Regina Veliz IMR#: [id number] 059 : 1995Acct:[id number] Age/Sex: 29 / FADM Date: 08/20/24 Loc: HO.SSS Attending Dr: Quique Moses MD Ordering Physician: Quique Moses MD Date of Service: 08/20/24 Procedure(s): IR us guide venous access Accession Number(s): [id number] cc: Jennifer Nash; Quique Moses MD CLINICAL HISTORY: Left breast cancer. The patient presents to interventional radiology for placement of a port for chemotherapy. PROCEDURES: 1. Real-time ultrasound-guided access into the right internal jugular vein after documentation of selected vessel patency, and permanent image storing in the patient records. 2. Placement of a 6.0 Montenegrin single-lumen power port. CLINICIAN: John Jones PA-C [...] 08/25/24 1654 DD/ 1300 TD/TT: 08/20/24 1427 Supervisor Newspaper Deliveries: [facility] External Provider IMG IR PROCEDURES Final Result * HCG, Qualitative, Urine (08/20/2024 12:10 PM EST) Urine NEGATIVE NEGATIVE [facility] Comment:This test was develo ped to detect early . Falsenegative results may occur after the 5th - 7th week ofpregnancy when using this test method. If clinicallyindicated, consider a serum hCG. 08/20/2024 12:1 0 PM EST 08/20/2024 12:28 PM EST Generic External Data Provider LAB URINE ORDERAB LES Final Result [facility] [address] [place] [phone] * BI Mammogram Diagnostic Tomosynthesis Bilateral (08/05/2024 9:30 AM EST) Anatomical Region Laterality Modality Breast Bilateral Mammography 08/05/2024 9:30 AM EST Narrative 08/05/2024 12:36 PM EST ? [facility] ? [address] ?[place] [address] ? Mammography Report ? Signed ? Patient: Jose Alfredo,Regina I ?MR#: [id number] ?? 059 ? : 1995 ?Acct:[id number] ? Age/Sex: 29 / F ?ADM Date: 08/05/24 ? Loc: HO.MAMMO ? Attending Dr: Fish Cash MD ? Ordering Physician: Fish Cash MD ?Results: 6Kno ?? wn Biopsy Proven Malignancy ? Date of Service: 08/05/24 ?Follow Up: Surgical Consult ? Procedure(s): MM tomosynthesis diagnostic BI ?? Accession Number(s): [id number] ? cc: Jennifer Nash; Fish Cash MD [...] by Priscilla Chacon DO in OV> ? 08/05/24 1234 ? DD/ 0930 ? TD/TT: 08/05/24 0949 ? Supervisor Newspaper Deliveries: ? Procedure Note Ej, Image - 08/05/2024 [facility] [address] [place] [address] [place] [address] Mammography Report Signed Patient: Regina Veliz [facility]#: [id number] 059 : 1995Acct:[id number] Age/Sex: 29 / FADM Date: 08/05/24 Loc: MANDO Attending Dr: Fish Cash MD Ordering Physician: Fish Cashesults: 6Kno wn Biopsy Proven Malignancy Date of Service: 08/05/24Follow Up: Surgical Consult Procedure(s): MM tomosynthesis diagnostic BI Accession Number(s): [id number] cc: Jennifer Nash; Fish Cash MD EXAMINATION: [...] by: Priscilla Chacon DO 08/05/2024 12:34 PM [facility] Dictated By: Priscilla Chacon DO Signed By: <Electronically signed by Priscilla Chacon DO in OV> 08/05/24 1234 DD/ 9 TD/TT: 08/05/2449 Supervisor Newspaper Deliveries: [facility] External Provider IMG BI PROCEDURES Final Result * Hematoxylin and Eosin Stain (07/29/2024 9:26 AM EST) 07/29/2024 9:26 AM EST 07/29/2024 10:07 AM EST Narrative [facility] - 07/31/2024 3:12 PM EST ----- ------- Name: Regina Veliz I ?Age/Sex: 29/F ? : 1995 Unit#: [id number] ?? Attend Dr: Fish Cash MD ?Re07/29/24 ?Status: DEP REF ? Location: HO.MAMMO ?Disch: ? ----- ------- SPEC : [id number] ?RECD: 07/29/24-1007 ? STATUS: ??SOUT ? REQ NUM: [id number] ? FLAQUITO: 07/29/24-925 ? SUBM DR: Priscilla Chacon DO ? ENTERED: ??07/29/24 ?SP TYPE: Surgical ? OTHR DR: Fish Cash MD ?Jennifer Nash ORDERED: ??HE Stain/2, Gross Micro L4, ER, MD, IHC, Add. immunos, IHC ER/MD/Her2N/4, Ki-67, ?p63, SMM, [id number] COMMENTS: As per the specimen requisition slip [...] ?? Histologic type: Ductal ?? Histologic grade (Heyworth/MSBR histologic score): 2 ? - Glandular/tubular differentiation: [...] I ?Age/Sex: 29/F ? : 1995 Unit#: [id number] ?? Attend Dr: Fish Cash MD ?Re07/29/24 ?Status: DEP REF ? Location: HO.MAMMO ?Disch: ? ----- ------- SPEC : [id number] ?RECD: 07/29/24-1007 ? STATUS: ??SOUT ? REQ NUM: [id number] ? FLAQUITO: 07/29/24 ? SUBM DR: Priscilla Chacon DO ? ENTERED: ??07/29/245 ?SP TYPE: Surgical ? OTHR DR: Fish Cash MD ?Jennifer Nash ORDERED: ??HE Stain/2, Gross Micro L4, ER, MD, IHC, Add. immunos, IHC ER/MD/Her2N/4, Ki-67, ?p63, SMM, [id number] COMMENTS: As per the specimen requisition slip the specimen is ?collected at 925 and placed in formalin at 929. ? Material Received ?? Left breast 10 [...] Dual Link System-HRP. ?? Progesterone receptor: ??Clone SdN985; ReelGenie Mach 4 detection system. Her-2/rivka immunohistochemistry performed in accordance with ASCO/CAP recommendations (2007) and update (2013). ??Hercep Test ??Detection system: ??Polymer type ??Scoring criteria: For ER/MD and Her-2/rivka: ??All internal (if present) and external controls react appropriately. ER and MD immunostains are scored as Positive (> 10% [...] I ?Age/Sex: 29/F ? : 1995 Unit#: [id number] ?? Attend Dr: Fish Cash MD ?Re07/29/24 ?Status: DEP REF ? Location: HO.MAMMO ?Disch: ? ----- ------- SPEC : [id number] ?RECD: 07/29/24-1007 ? STATUS: ??SOUT ? REQ NUM: [id number] ? FLAQUITO: 07/29/24-925 ? SUBM DR: Priscilla Chacon DO ? ENTERED: ??07/29/24-1015 ?SP TYPE: Surgical ? OTHR DR: Fish Cash MD ?Jennifer Nash ORDERED: ??HE Stain/2, Gross Micro L4, ER, MD, IHC, Add. immunos, IHC ER/MD/Her2N/4, Ki-67, ?p63, SMM, [id number] COMMENTS: As per the specimen requisition slip [...] Arch of Pathol Lab Med, 142 2018: 7093-8849. Brandy KH, Matias CHASE, et al. Estrogen and Progesterone Receptor Testing in Breast Cancer: ASCO/CAP Guideline Update. Arch of Pathol Lab Med, 144 2020: 545-563. Patricia N, Marge P, et al. Adjuvant abemaciclib combined with endocrine therapy for high- risk early breast cancer: updated efficacy and Ki-67 analysis [facility]. Amber Oncol. 2020;32(12):6628-0601. This case was reviewed intradepartmentally; results were communicated to Drs. Cash and Oswaldo via secure text on 07/31/2024. Special studies ordered and performed: ??Immunostains for ER, MD, HER2, Ki 67, p63 and smooth muscle myosin Copies To: ?? Fish Cash MD ?? [facility] Sur[facility] ?? [address] ?? [place] ?? [phone] ?? Jennifer Nash ?? [address] ?? [place] [address] ?? [phone] ?? Priscilla Chacon DO ?? [address] ?? [place] [address] ?? [phone] ? CONTINUED ON NEXT PAGE ----- ------- Name: Regina Veliz I ?Age/Sex: 29/F ? : 1995 Unit#: [id number] ?? Attend Dr: Fish Cash MD ?Re07/29/24 ?Status: DEP REF ? Location: HO.MAMMO ?Disch: ? ----- ------- SPEC : [id number] ?RECD: 07/29/24-1007 ? STATUS: ??SOUT ? REQ NUM: [id number] ? FLAQUITO: 07/29/24 ? SUBM DR: Priscilla Chacon DO ? ENTERED: ??07/29/24-5 ?SP TYPE: Surgical ? OTHR DR: Fish Cash MD ?Appram,Jennifer ORDERED: ??HE Stain/2, Gross Micro L4, ER, MD, IHC, Add. immunos, IHC ER/MD/Her2N/4, Ki-67, ?p63, SMM, [id number] COMMENTS: As per the specimen requisition slip the specimen is ?collected at 0926 and placed in formalin at 0930. ----- ------- Signed (signature on file) Emilio Licona MD 07/31/24 1512 ? ----- ------- ? END OF REPORT ? us Generic External Data Provider LAB BLOOD ORDERAB LES Final Result [facility] [address] [place] [address] [phone] * BI MR Guided Breast Biopsy Left (07/29/2024 9:10 AM EST) Anatomical Region Laterality Modality Breast Left Magnetic Resonan ce 07/29/2024 9:10 AM EST Narrative 07/29/2024 1:10 PM EST ? [facility] ? [address] ?[place] [address] ? Ultrasound Report ? Signed with Addenda ? Patient: Jose Alfredo,Regina I ?MR#: [id number] ?? 059 ? : 1995 ?Acct:[id number] ? Age/Sex: 29 / F ?ADM Date: 07/29/24 ? Loc: HO.MAMMO ? Attending Dr: Fish Cash MD ? Ordering Physician: Fish Cash MD ?? Date of Service: 07/29/24 ?? Procedure(s): US breast ndl core biopsy LT ?? Accession Number(s): [id number] ? cc: Jennifer Nash; Fish Cash MD [...] Priscilla Chacon, DO in OV> ? 08/03/24 09 ?? Addendum Cosigned By: ? DD/ ? [...] DO in OV> ? 08/03/249[address] ? DD/ ? TD/TT: 07/29/24 0945 ? Supervisor Newspaper Deliveries: ? Procedure Note Donotuseinterpreter, Image - 08/09/2024 [facility] [address] [place] [address] [place] [place], [place] [address] Ultrasound Report Signed with Addenda Patient: Regina Veliz IMR#: [id number] 059 : 1995Acct:[id number] Age/Sex: 29 / FADM Date: 07/29/24 Loc: HO.MAMMO Attending Dr: Fish Cash MD Ordering Physician: Fish Cash MD Date of Service: 07/29/24 Procedure(s): US breast ndl core biopsy LT Accession Number(s): [id number] cc: Jennifer Nash; Fish Cash MD ADDENDUM [...] 08/03/24 0923 DD/ 0910 TD/TT: 07/29/24 0945 Supervisor Newspaper Deliveries: us [facility] External Provider IMG MRI PROCEDURES Edited Result - Final * Hepatitis C Antibody with Reflex to HCV, RNA, Quantitative, Real-Time PCR (08/23/2023 12:46 PM EST) Pathologist [facility] Hepatitis C Antibody Nonreactive Nonreactive [facility] Comment:Antibodies to HCV no t detected; does not exclude early acuteHCV infection. Blood Venous blood specimen / Unknown 08/23/2023 12:46 PM EST 08/23/2023 1:14 PM EST Result [facility] LAB BLOOD ORDERABLES Final Resu lt Performing Organization Address [facility] Co de Phone Number [facility] [address] [place] [phone] * HIV-1/2 Antigen and Antibodies, Fourth Generation, with Reflexes (08/23/2023 12:46 PM EST) Pathologist [facility] HIV AB/AG Nonreactive Nonreactive [facility] Comment:HIV-1 p24 Ag and/or HIV-1/HIV-2 Ab not detected.A test result that is nonreactive does not exclude thepossibility of exposure to or infection with HIV-1 and/orHIV-2. Nonreactive results in this assay for individualswith prior exposure to HIV-1 and/or HIV-2 may be due toantigen and antibody levels that are below the limit ofdetection of this assay.The [employer] HIV Ag/Ab Combo assay result andsupplemental assay results should be interpreted inconjunction with the patient's clinical presentation,history and other laboratory results. If the results areinconsistent with clinical evidence, additional testing issuggested to confirm the result. Blood Venous blood specimen / Unknown 08/23/2023 12:46 PM EST 08/23/2023 1:14 PM EST Result [facility] LAB BLOOD ORDERABLES Final Resu lt Performing Organization Address [facility] Co de Phone Number [facility] [address] [place] [phone] * Pap Smear (03/21/2023 10:00 AM EDT) 03/21/2023 10:0 0 AM EDT 03/22/2023 11:15 AM EDT [facility] - 04/07/2023 5:21 PM EDT ----- ------- Name: Regina Veliz I ?Age/Sex: 28/F ? : 1995 Unit#: [id number] ?? Attend Dr: KIM PICKENS CNM ?Re03/21/23 ?Status: DEP REF ? Location: HO.HHCLNP ? Disch: ? ----- ------- SPEC : [id number] ?RECD: 03/22/23-1114 ? STATUS: ??SOUT ? REQ NUM: [id number] ? FLAQUITO: 03/21/23-1000 ? SUBM DR: KIM [...] ? END OF REPORT ? us Kim Michelle CNM LAB CYTOLOGY ORDERABLES F inal Result [facility] [address] [place] [address] [phone] from Last 3 Months or Most Recently Relevant to Health Maintenance Insurance [facility] Care Teams Shower Attendant Relationship Specialty Start Date End Date Jennifre Nash NP [address] [place] [address] PCP - General Family Medicine 06/25/23
--- OUTSIDE RECORDS SUMMARY | 2024-09-03 12:01 | XMS_ITS | Encounter Summary ---
Author Organization [facility] Address [address] [place] [phone] Phone Care Team Providers Care Plant Accountant Name Role Phone Yelitza Flowers MD Primary Care Provider [phone] Encounter Details Date Type Department Care Team (Late st Contact Info) Description 07/03/2013 Documentation [facility] [address] [place] [address] Family Medicine, Physician [address] [place] [address] Social History Tobacco Use Types Packs/Day Years [...] on filedocumented in this encounter Care Teams Plant Accountant Relationship Specialty Start Date End Date Yelitza Flowers MD [address] [place] [address] PCP - General 02/22/17 10/14/22 documented as of this encounter
[2024-09-03 12:11] VITALS: RESP 16
[2024-09-03] MEDS: Metoclopramide HCl 10 MG/2 ML VIAL IVPUSH (12:11)
[2024-09-03] MEDS: 0.9 % Sodium Chloride 1,000 ML 999 ML IV (12:11)
[2024-09-03] MEDS: Morphine Sulfate 4 MG/ML CARTRIDGE IVPUSH (12:11)
[2024-09-03 12:12] LABS: MANUAL DIFF FLAG NO
[2024-09-03] MEDS: diphenhydrAMINE HCL 50 MG/ML VIAL 12.5 MG IVPUSH (12:12)
[2024-09-03 12:15] LABS: Basophils Percent Auto 0.1 % (0-2); Eosinophils Percent Auto 0.1 % (0-4); Hematocrit 29.2 % (37.0-47.0); Hemoglobin 9.4 g/dl (12.0-16.0); Imm Gran Abs Auto 0.04 X10*3/uL (0.00-0.03); Imm Gran Pct Auto 0.5 % (0.0-0.4); Lymphocytes Absolute Auto 1.3 X10*3/uL (1.2-4.9); Lymphocytes Percent Auto 14.3 % (20-40); Mean Corpuscular HGB Conc 32.2 g/dl (31.0-35.0); Mean Corpuscular Hemoglobin 24.3 pg (27.0-33.0); Mean Corpuscular Volume 75.5 fL (80.0-98.0); Mean Platelet Volume 9.4 fL (9.4-12.3); Monocytes Absolute Auto 0.9 X10*3/uL (0.1-1.2); Monocytes Percent Auto 9.9 % (2-11); Neutrophils Absolute Auto 6.6 x10*3/uL (2.0-8.3); Neutrophils Percent Auto 75.1 % (45-73); Platelet Count 476 X10*3/uL (160-400); Red Blood Count 3.87 X10*6/uL (4.20-5.50); White Blood Count 8.8 X10*3/uL (4.8-10.8)
[2024-09-03 12:21] LABS: INTERNATIONAL NORM RATIO 1.2 (0.9-1.1); Prothrombin Time 14.4 SEC (10.9-12.4)
[2024-09-03 12:31] LABS: Alanine Aminotransferase 20 U/L (0-31); Albumin Level 3.9 g/dL (3.5-5.0); Alkaline Phosphatase 91 U/L (39-117); Anion Gap 13 (12-20); Aspartate Amino Transferase 24 U/L (5-31); Bilirubin Direct 0.2 mg/dL (0.0-0.5); Bilirubin Total 0.5 mg/dL (0.0-1.0); Blood Urea Nitrogen 14 mg/dL (9-16); Calcium 9.5 mg/dL (8.4-10.2); Carbon Dioxide 22 mmol/L (22-29); Chloride 109 mmol/L (96-108); Estimated Glomerular Filt Rate > 60; Glucose Random 99 mg/dL (60-115); Lipase 8 U/L (8-78); Magnesium 1.9 mg/dL (1.6-2.6); Potassium 3.7 mmol/L (3.3-5.1); Sodium 140 mmol/L (135-145); Total Protein 8.1 g/dL (6.5-8.0)
[2024-09-03 12:55] LABS: Influenza A PCR NEGATIVE (Negative); Influenza B PCR NEGATIVE (Negative); Resp Syncy Virus RNA Qual PCR NEGATIVE (Negative); SARS COV2 PCR INHOUSE NEGATIVE (Negative)
[2024-09-03 14:16] VITALS: BP 113/61; PULSE 109; RESP 16; TEMP 36.8; O2SAT 98
[2024-09-03 14:57] LABS: Appearance Urine Clear; Color Urine Yellow; Glucose Urine UA Negative (Negative); Leukocyte Esterase Urine Negative (Negative); Nitrite Urine Negative (Negative); Urine Blood Negative (Negative); Urine Ketones Negative (Negative); Urine Protein Negative (Neg-Trace)
[2024-09-03 14:59] LABS: UPreg QC Valid YES; Urine Pregnancy NEGATIVE (NEGATIVE)
[2024-09-03 17:12] VITALS: BP 97/52; PULSE 103; RESP 18; TEMP 36.7; O2SAT 99
== END 2024-09-03 17:22 | disposition home or self-care (01) ==
PROVIDERS: Physician Assistant; Emergency Provider Emergency Medicine
DX: R10.13 Epigastric pain (principal); R11.2 Nausea with vomiting, unspecified; R00.0 Tachycardia, unspecified; Z03.818 Encounter for observation for suspected exposure to other biological agents ruled out; Z79.899 Other long term (current) drug therapy
CPT/HCPCS: 0241U; 76705; 80048; 80076; 81003; 81025; 83690; 83735; 85025; 85610; 93005; 96361; 96374; 96375; 99285; J1200; J2270; J2765

== ENCOUNTER → 2024-09-03 11:12 | Outpatient (BNV) | payer OTHER, SELFPAY | PROVIDERS: Emergency Provider Emergency Medicine; Visit Provider Internal Medicine | DX: R00.0 Tachycardia, unspecified (principal) | CPT/HCPCS: 93010 ==

== ENCOUNTER → 2024-09-03 14:54 | Outpatient (BNV) | payer OTHER, SELFPAY | PROVIDERS: Emergency Provider Emergency Medicine; Visit Provider Radiology Diagnostic Radiology | DX: R10.11 Right upper quadrant pain (principal) | CPT/HCPCS: 76705 ==

== ENCOUNTER 2024-09-09 09:13 | Outpatient (AMB) | payer OTHER, SELFPAY ==
--- NOTE | 2024-09-09 09:17 | MHC.OFFVIS ---
Intake Visit Reasons: Genetic test results Intake Note: This patient presents for genetic test results. Pt c/o; no complaints. Asic Engineer Required: No Accompanied by: Sister Allergies black pepper Allergy (Verified 09/09/24 09:20) Angioedema Medication List - Last Reconciled 09/09/24 by Fish Cash MD ascorbic acid (vitamin C) (Vitamin C) 500 mg PO BID dexamethasone 4 mg PO BID ferrous sulfate 325 mg PO BID lidocaine 3% 1 appl topical BID ondansetron 8 mg PO Q8H HPI HPI Genetic test results: Details: She is here to discuss her genetic testing with [employer]. This was done in view of her new diagnosis of invasive ductal cancer of the left breast She is currently undergoing neoadjuvant chemotherapy with Dr. Moses. She is to undergo a regimen of AC and Taxol. She says she is doing well for now. She denies significant complaints. [facility] Medical History Invasive ductal carcinoma of breast Left breast cancer with T3 tumor, >5 cm in greatest dimension Left breast mass Surgical History H/O section Family History Other Cancer Social History Alcohol intake: never Patient Tobacco Use Status: Never used Tobacco Advance Directives Date on File: 08/12/24 Female Reproductive History Menstrual Age of Menarche: 10 Review of Systems Const Denies chills and Denies fever(s) Card Denies chest pain, Denies dyspnea and Denies dyspnea on exertion Resp Denies cough, Denies dyspnea and Denies dyspnea on exertion GI Denies hematochezia and Denies change in bowel habits Denies hematuria Musc Denies back pain and Denies limited range of motion Neuro Denies focal weakness and Denies convulsions Psych Denies depression and Denies mood swings Physical Exam Const General: comfortable and no acute distress Orientation/consciousness: patient oriented x3 Neck Neck: Yes no lymphadenopathy Resp Effort & Inspection: normal respiratory effort Cardio Rhythm: regular rhythm GI Palpation (GI): Soft to palpation, nontender and no guarding Neuro General: patient oriented x3 Assessment & Plan Assessment & Plan (1) Invasive ductal carcinoma of breast: Code(s): C50.919 - Malignant neoplasm of unspecified site of unspecified female breast Category: Medical Plan: Fortunately, her genetic testing with [employer] does not reveal any genetic mutation She is currently undergoing neoadjuvant chemotherapy with Dr. Moses he would Adriamycin and Cytoxan The plan is to reimage her after excision of neoadjuvant treatment. I will see her in the office in about a month to see how she is doing. Coding Level of Care Code Est Pt Level 3 (21700) Diagnoses Invasive ductal carcinoma of breast C50.919
--- OUTSIDE RECORDS SUMMARY | 2024-09-09 10:15 | XMS_ITS | Clinical Summary ---
Author Organization [facility] Address [address] [place] [address] Care Team Providers Care Development Administrator Name Role Phone Unavailable Primary Care Provider [...] RESULTING AGENCY - 07/05/2021 4:41 PM EST [id number] THINPREP PAP, IMAGED: NEGATIVE FOR SQUAMOUS INTRAEPITHELIAL [...]
--- OUTSIDE RECORDS SUMMARY | 2024-09-09 10:15 | XMS_ITS | Clinical Summary ---
Author Organization [employer] Address [address] [place] [address] 7[address] [place] [address] Care Team Providers Care Heading Pinner Name Role Phone Jennifer Nash ALFREDO Primary Care Provider [phone] Allergies No known active allergies Medications simethicone [...] 4 Active Blood Glucose Monitoring Suppl (FreeStyle Lyons Lite) w/Device kitIndications: Hypoglycemia Use to test [...] advised -will call or send message in [place] with results -follow-up 3 months via televisit [...] Department Care Team Description 09/01/2024 Orders Only [facility] External Provider, [facility] 08/26/2024 Orders Only [facility] External Provider, [facility] 08/20/2024 Orders Only GENERIC EXTERNAL DATA DEPARTMENT Provider, Generic External Data 08/05/2024 Telephone [facility] MEDICINE [address] [place] [address] Kim Pickens CNM 08/02/2024 Refill [facility] MEDICINE [address] [place] [address] Jennifer Nash NP Hypoglycemia 07/29/2024 Orders Only [facility] External Provider, [facility] 07/01/2024 Telephone [facility] MEDICINE [address] [place] [address] Fidelina Morrow, RN Results from [...] MMRV 02/12/2014 Meningococcal MCV4P ACYW-135 05/28/2006 Novel Rbncwmygn-V4F7-40, all formulations 06/15/2009 Tdap 10/06/2021, 8,05/28/2006,05/28 Social [...] AM EST IR CVC INSERT TUNNEL W PRT/BULK FLUIDS HANDLER Routine 08/20/2024 1:00 PM EST IR US [...] EST Narrative 09/01/2024 2:45 PM EST ? [facility] ? [address] ?[place] [address] ? Ultrasound Report ? Signed ? Patient: Jose Alfredo,Regina I ?MR#: [id number] ?? 059 ? : 1995 ?Acct:[id number] ? Age/Sex: 29 / F ?ADM Date: 09/01/24 ? Loc: HO.MAMMO ? Attending Dr: Quique Moses MD ? Ordering Physician: Quique Moses MD ?? Date of Service: 09/01/24 ?? Procedure(s): US breast LT limited ?? Accession Number(s): [id number] ? cc: Jennifer Nash; Quique Moses MD [...] DD/ 1341 ? TD/TT: 09/01/24 1423 ? [facility]anger: ? Procedure Note Bing Pagan - 09/01/2024 [place] [facility] [address] [place], [place] [address] Ultrasound Report Signed Patient: Regina Veliz IMR#: [id number] 059 : 1995Acct:[id number] Age/Sex: 29 / FADM Date: 09/01/24 Loc: HO.MAMMO Attending Dr: Quique Moses MD Ordering Physician: Quique Moses MD Date of Service: 09/01/24 Procedure(s): US breast LT limited Accession Number(s): [id number] cc: Jennifer Nash; Qiuque Moses MD EXAMINATION: US DIAGNOSTIC ULTRASOUND BREAST, [...] 09/01/24 1442 DD/ 1341 TD/TT: 09/01/24 1423 Picture [facility]anger: [facility] External Provider IMG US PROCEDURES Edited Result - Final * BI MR Breast w and w/o Contrast Bilateral (08/26/2024 9:30 AM EST) Anatomical Region Laterality Modality Breast Bilateral Magnetic Resonan ce 08/26/2024 9:30 AM EST Narrative 08/28/2024 6:09 PM EST ? [facility] ?[address] ?[place] [address] ? Magnetic Resonance Report ? Signed ? Patient: Jose Alfredo,Regina I ?MR#: [id number] ?? 059 ? : 1995 ?Acct:[id number] ? Age/Sex: 29 / F ?ADM Date: 02/12/25 ? Loc: HO.MRI ? Attending Dr: Fish Cash MD ? Ordering Physician: Fish Cash MD ?? Date of Service: 08/26/24 ?? Procedure(s): MR breast BI wo/w con ?? Accession Number(s): [id number] ? cc: Jennifer Nash; Fish Cash MD; [...] ? DD/ ? TD/TT: 08/26/24 1010 ? Picture [facility]anger: ? Procedure Note Donsharleneter, Image - 08/28/[address] [address] Magnetic Resonance Report Signed Patient: Regina Veliz IMR#: [id number] 059 : 1995Acct:[id number] Age/Sex: 29 FADM Date: 08/26/24 Loc: HO.MRI Attending Dr: Fish Cash MD Ordering Physician: Fish Cash MD Date of Service: 08/26/24 Procedure(s): MR breast BI wo/w con Accession Number(s): [id number] cc: Jennifer Nash; Fish Cash MD; Quique [...] 08/28/24 1806 DD/ 0930 TD/TT: 08/26/24 1010 Picture [facility]: [facility] External Provider IMG MRI PROCEDURES Edited Result - Final * IR cvc insert tunnel w prt/glass loading equipment tender (08/20/2024 1:00 PM EST) Anatomical Region Laterality Modality X-Ray Angiograph y 08/20/2024 1:00 PM EST Narrative 08/25/2024 4:55 PM EST ? [facility] ?[address] ?[place] [address] ?Interventional Radiology Rpt ? Signed ? Patient: Regina Veliz I ?MR#: [id number] ?? 059 ? : 1995 ?Acct:[id number] ? Age/Sex: 29 / F ?ADM Date: 08/20/24 ? Loc: HO.SSS ? Attending Dr: Quique Moses MD ? Ordering Physician: Quique Moses MD ?? Date of Service: 08/20/24 ?? Procedure(s): IR cvc insert tunnel w prt/glass loading equipment tender ?? Accession Number(s): [id number] ? cc: Jennifer Nash; Quique Moses MD ? CLINICAL HISTORY: ?? Left breast cancer. The patient presents to interventional radiology ?? for placement of a port for chemotherapy. ? PROCEDURES: ?? 1. Real-time ultrasound-guided access into the right internal jugular ?? vein after documentation of selected vessel patency, and permanent ?? image storing in the patient records. ?? 2. Placement of a 6.0 Maldivian single-lumen power port. ? CLINICIAN: ?? John [...] pneumothorax. ? IR/IR cvc insert tunnel w prt/glass loading equipment tender ?? IMPRESSION: ?? Placement of a 6.0 [...] DD/ 1300 ? TD/TT: 08/20/24 1427 ? Picture [facility]anger: ? Procedure Note Ej, Image - 08/25/2024 [place] [address] Interventional Radiology Rpt Signed Patient: Regina Veliz IMR#: [id number] 059 : 1995Acct:[id number] Age/Sex: 29 / FADM Date: 08/20/24 Loc: HO.SSS Attending Dr: Quique Moses MD Ordering Physician: Quique Moses MD Date of Service: 08/20/24 Procedure(s): IR cvc insert tunnel w prt/glass loading equipment tender Accession Number(s): [id number] cc: Jennifer Nash; Quique Moses MD CLINICAL HISTORY: Left breast cancer. The patient presents to interventional radiology for placement of a port for chemotherapy. PROCEDURES: 1. Real-time ultrasound-guided access into the right internal jugular vein after documentation of selected vessel patency, and permanent image storing in the patient records. 2. Placement of a 6.0 Maldivian single-lumen power port. CLINICIAN: John Jones PA-C [...] No pneumothorax. IR/IR cvc insert tunnel w prt/glass loading equipment tender IMPRESSION: Placement of a 6.0 fr single-lumen [...] 08/25/24 1654 DD/ 1300 TD/TT: 08/20/24 1427 Picture [facility]: us [facility] External Provider IMG IR PROCEDURES Final Result * IR US Guide - Venous Access (08/20/2024 1:00 PM EST) Anatomical Region Laterality Modality X-Ray Angiograph y 08/20/2024 1:00 PM EST Narrative 08/25/2024 4:55 PM EST ? [facility] ?[address] ?[place] [address] ?Interventional Radiology Rpt ? Signed ? Patient: Regina Veliz I ?MR#: [id number] ?? 059 ? : 1995 ?Acct:[id number] ? Age/Sex: 29 / F ?ADM Date: 08/20/24 ? Loc: HO.SSS ? Attending Dr: Quique Moses MD ? Ordering Physician: Quique Moses MD ?? Date of Service: 08/20/24 ?? Procedure(s): IR us guide venous access ?? Accession Number(s): [id number] ? cc: Jennifer Nash; Quique Moses MD ? CLINICAL HISTORY: ?? Left breast cancer. The patient presents to interventional radiology ?? for placement of a port for chemotherapy. ? PROCEDURES: ?? 1. Real-time ultrasound-guided access into the right internal jugular ?? vein after documentation of selected vessel patency, and permanent ?? image storing in the patient records. ?? 2. Placement of a 6.0 Maldivian single-lumen power port. ? CLINICIAN: ?? John [...] DD/ 1300 ? TD/TT: 08/20/24 1427 ? [facility]: ? Procedure Note Donsharleneter, Image - 08/25/2024 [place] [address] Interventional Radiology Rpt Signed Patient: Regina Veliz IMR#: [id number] 059 : 1995Acct:[id number] Age/Sex: 29 / FADM Date: 08/20/24 Loc: HO.SSS Attending Dr: Quique Moses MD Ordering Physician: Quique Moses MD Date of Service: 08/20/24 Procedure(s): IR us guide venous access Accession Number(s): [id number] cc: Jennifer Nash; Quique Moses MD CLINICAL HISTORY: Left breast cancer. The patient presents to interventional radiology for placement of a port for chemotherapy. PROCEDURES: 1. Real-time ultrasound-guided access into the right internal jugular vein after documentation of selected vessel patency, and permanent image storing in the patient records. 2. Placement of a 6.0 Maldivian single-lumen power port. CLINICIAN: John Jones PA-C [...] 08/25/24 1654 DD/ 1300 TD/TT: 08/20/24 1427 Picture [facility]: [facility] External Provider IMG IR PROCEDURES Final Result * HCG, Qualitative, Urine (08/20/2024 12:10 PM EST) Urine NEGATIVE NEGATIVE [facility] Comment:This test was develo ped to detect early . Falsenegative results may occur after the 5th - 7th week ofpregnancy when using this test method. If clinicallyindicated, consider a serum hCG. 08/20/2024 12:1 0 PM EST 08/20/2024 12:28 PM EST Generic External Data Provider LAB URINE ORDERAB LES Final Result [facility] [address] [place] [phone] * BI Mammogram Diagnostic Tomosynthesis Bilateral (08/05/2024 9:30 AM EST) Anatomical Region Laterality Modality Breast Bilateral Mammography 08/05/2024 9:30 AM EST Narrative 08/05/2024 12:36 PM EST ? [facility] ? [address] ?[place] [address] ? Mammography Report ? Signed ? Patient: Jose Alfredo,Regina I ?MR#: [id number] ?? 059 ? : 1995 ?Acct:[id number] ? Age/Sex: 29 / F ?ADM Date: 08/05/24 ? Loc: HO.MAMMO ? Attending Dr: Fish Cash MD ? Ordering Physician: Fish Cash MD ?Results: 6Kno ?? wn Biopsy Proven Malignancy ? Date of Service: 08/05/24 ?Follow Up: Surgical Consult ? Procedure(s): MM tomosynthesis diagnostic BI ?? Accession Number(s): [id number] ? cc: Jennifer Nash; Fish Cash MD [...] DD/ 0930 ? TD/TT: 08/05/24 0949 ? Picture [facility]: ? Procedure Note Ej, Image - 08/05/2024 [facility] [address] [place] [address] [place] [address] Mammography Report Signed Patient: Regina Veliz [facility]#: [id number] 059 : 1995Acct:[id number] Age/Sex: 29 / FADM Date: 08/05/24 Loc: MANDO Attending Dr: Fish Cash MD Ordering Physician: Fish Cashesults: 6Kno wn Biopsy Proven Malignancy Date of Service: 08/05/24Follow Up: Surgical Consult Procedure(s): MM tomosynthesis diagnostic BI Accession Number(s): [id number] cc: Jennifer Nash; Fish Cash MD EXAMINATION: [...] OV> 08/05/24 1234 DD/ 9 TD/TT: 08/05/2449 Picture [facility]: [facility] External Provider IMG BI PROCEDURES Final Result * Hematoxylin and Eosin Stain (07/29/2024 9:26 AM EST) 07/29/2024 9:26 AM EST 07/29/2024 10:07 AM EST Narrative [facility] - 07/31/2024 3:12 PM EST ----- ------- Name: Regina Veliz I ?Age/Sex: 29/F ? : 1995 Unit#: [id number] ?? Attend Dr: Fish Cash MD ?Re07/29/24 ?Status: DEP REF ? Location: HO.MAMMO ?Disch: ? ----- ------- SPEC : [id number] ?RECD: 07/29/24-1007 ? STATUS: ??SOUT ? REQ NUM: [id number] ? FLAQUITO: 07/29/24-925 ? SUBM DR: Priscilla Chacon DO ? ENTERED: ??07/29/24 ?SP TYPE: Surgical ? OTHR DR: Fish Cash MD ?Jennifer Nash ORDERED: ??HE Stain/2, Gross Micro L4, ER, CO, IHC, Add. immunos, IHC ER/CO/Her2N/4, Ki-67, ?p63, SMM, [id number] COMMENTS: As per the specimen requisition slip [...] ?? Histologic type: Ductal ?? Histologic grade ([place]/MSBR histologic score): 2 ? - Glandular/tubular differentiation: [...] I ?Age/Sex: 29/F ? : 1995 Unit#: [id number] ?? Attend Dr: Fish Cash MD ?Re07/29/24 ?Status: DEP REF ? Location: HO.MAMMO ?Disch: ? ----- ------- SPEC : [id number] ?RECD: 07/29/24-1007 ? STATUS: ??SOUT ? REQ NUM: [id number] ? FLAQUITO: 07/29/24 ? SUBM DR: Priscilla Chacon DO ? ENTERED: ??07/29/245 ?SP TYPE: Surgical ? OTHR DR: Fish Cash MD ?Jennifer Nash ORDERED: ??HE Stain/2, Gross Micro L4, ER, CO, IHC, Add. immunos, IHC ER/CO/Her2N/4, Ki-67, ?p63, SMM, [id number] COMMENTS: As per the specimen requisition slip [...] Dual Link System-HRP. ?? Progesterone receptor: ??Clone FoA585; [employer] Mach 4 detection system. Her-2/rivka immunohistochemistry performed in accordance with ASCO/CAP recommendations (2007) and update (2013). ??Hercep Test ??Detection system: ??Polymer type ??Scoring criteria: For ER/CO and Her-2/rivka: ??All internal (if present) and external controls react appropriately. ER and CO immunostains are scored as Positive (> 10% [...] I ?Age/Sex: 29/F ? : 1995 Unit#: [id number] ?? Attend Dr: Fish Cash MD ?Re07/29/24 ?Status: DEP REF ? Location: HO.MAMMO ?Disch: ? ----- ------- SPEC : [id number] ?RECD: 07/29/24-1007 ? STATUS: ??SOUT ? REQ NUM: [id number] ? FLAQUITO: 07/29/24-925 ? SUBM DR: Priscilla Chacon DO ? ENTERED: ??07/29/24-1015 ?SP TYPE: Surgical ? OTHR DR: Fish Cash MD ?Jennifer Nash ORDERED: ??HE Stain/2, Gross Micro L4, ER, CO, IHC, Add. immunos, IHC ER/CO/Her2N/4, Ki-67, ?p63, SMM, [id number] COMMENTS: As per the specimen requisition slip [...] Arch of Pathol Lab Med, 142 2018: 9723-1906. Brandy KH, Matias CHASE, et al. Estrogen and Progesterone Receptor Testing in Breast Cancer: ASCO/CAP Guideline Update. Arch of Pathol Lab Med, 144 2020: 545-563. Patricia N, Marge P, et al. Adjuvant abemaciclib combined with endocrine therapy for high- risk early breast cancer: updated efficacy and Ki-67 analysis from the [facility]. Amber Oncol. 2020;32(12):9702-4101. This case was reviewed intradepartmentally; results were communicated to Drs. Cash and Oswaldo via secure text on 07/31/2024. Special studies ordered and performed: ??Immunostains for ER, CO, HER2, Ki 67, p63 and smooth muscle myosin Copies To: ?? Fish Cash MD ?? [facility] ?? [address] ?? [place] ?? [phone] ?? Jennifer Nash ?? [address] ?? [place] [address] ?? [phone] ?? Priscilla Chacon DO ?? [address] ?? [place] [address] ?? [phone] ? CONTINUED ON NEXT PAGE ----- ------- Name: Regina Veliz I ?Age/Sex: 29/F ? : 1995 Unit#: [id number] ?? Attend Dr: Fish Cash MD ?Re07/29/24 ?Status: DEP REF ? Location: HO.MAMMO ?Disch: ? ----- ------- SPEC : [id number] ?RECD: 07/29/24-1007 ? STATUS: ??SOUT ? REQ NUM: [id number] ? FLAQUITO: 07/29/24 ? SUBM DR: Priscilla Chacon DO ? ENTERED: ??07/29/24-5 ?SP TYPE: Surgical ? OTHR DR: Fish Cash MD ?Appram,Jennifer ORDERED: ??HE Stain/2, Gross Micro L4, ER, CO, IHC, Add. immunos, IHC ER/CO/Her2N/4, Ki-67, ?p63, SMM, [id number] COMMENTS: As per the specimen requisition slip the specimen is ?collected at 0926 and placed in formalin at 0930. ----- ------- Signed (signature on file) Emilio Licona MD 07/31/24 1512 ? ----- ------- ? END OF REPORT ? us Generic External Data Provider LAB BLOOD ORDERAB LES Final Result [facility] [address] [place] [address] [phone] * BI MR Guided Breast Biopsy Left (07/29/2024 9:10 AM EST) Anatomical Region Laterality Modality Breast Left Magnetic Resonan ce 07/29/2024 9:10 AM EST Narrative 07/29/2024 1:10 PM EST ? [facility] ? [address] ?[place] [address] ? Ultrasound Report ? Signed with Addenda ? Patient: Jose Alfredo,Regina I ?MR#: [id number] ?? 059 ? : 1995 ?Acct:[id number] ? Age/Sex: 29 / F ?ADM Date: 07/29/24 ? Loc: HO.MAMMO ? Attending Dr: Fish Cash MD ? Ordering Physician: Fish Cash MD ?? Date of Service: 07/29/24 ?? Procedure(s): US breast ndl core biopsy LT ?? Accession Number(s): [id number] ? cc: Jennifer Nash; Fish Cash MD [...] ? DD/ ? TD/TT: 07/29/24 0945 ? Picture [facility]anger: ? Procedure Note Donotuseinterpreter, Image - 08/09/2024 [facility] [address] [place] [address] [place]. [place], [place] [address] Ultrasound Report Signed with Addenda Patient: Regina Veliz IMR#: [id number] 059 : 1995Acct:[id number] Age/Sex: 29 / FADM Date: 07/29/24 Loc: HO.MAMMO Attending Dr: Fish Cash MD Ordering Physician: Fish Cash MD Date of Service: 07/29/24 Procedure(s): US breast ndl core biopsy LT Accession Number(s): [id number] cc: Jennifer Nash; Fish Cash MD ADDENDUM [...] 08/03/24 0923 DD/ 0910 TD/TT: 07/29/24 0945 Picture Hanger: us [facility] External Provider IMG MRI PROCEDURES Edited Result - Final * Hepatitis C Antibody with Reflex to HCV, RNA, Quantitative, Real-Time PCR (08/23/2023 12:46 PM EST) Pathologist [facility] Hepatitis C Antibody Nonreactive Nonreactive [facility] Comment:Antibodies to HCV no t detected; does not exclude early acuteHCV infection. Blood Venous blood specimen / Unknown 08/23/2023 12:46 PM EST 08/23/2023 1:14 PM EST Result [facility] LAB BLOOD ORDERABLES Final Resu lt Performing Organization Address [facility] Co de Phone Number [facility] [address] [place] [phone] * HIV-1/2 Antigen and Antibodies, Fourth Generation, with Reflexes (08/23/2023 12:46 PM EST) Pathologist [facility] HIV AB/AG Nonreactive Nonreactive [facility] Comment:HIV-1 p24 Ag and/or HIV-1/HIV-2 Ab not detected.A test result that is nonreactive does not exclude thepossibility of exposure to or infection with HIV-1 and/orHIV-2. Nonreactive results in this assay for individualswith prior exposure to HIV-1 and/or HIV-2 may be due toantigen and antibody levels that are below the limit ofdetection of this assay.The [employer] HIV Ag/Ab Combo assay result andsupplemental assay results should be interpreted inconjunction with the patient's clinical presentation,history and other laboratory results. If the results areinconsistent with clinical evidence, additional testing issuggested to confirm the result. Blood Venous blood specimen / Unknown 08/23/2023 12:46 PM EST 08/23/2023 1:14 PM EST Result [facility] LAB BLOOD ORDERABLES Final Resu lt Performing Organization Address [facility] Co de Phone Number [facility] [address] [place] [phone] * Pap Smear (03/21/2023 10:00 AM EDT) 03/21/2023 10:0 0 AM EDT 03/22/2023 11:15 AM EDT [facility] - 04/07/2023 5:21 PM EDT ----- ------- Name: Regina Veliz I ?Age/Sex: 28/F ? : 1995 Unit#: [id number] ?? Attend Dr: KIM PICKENS CNM ?Re03/21/23 ?Status: DEP REF ? Location: HO.HHCLNP ? Disch: ? ----- ------- SPEC : [id number] ?RECD: 03/22/23-1114 ? STATUS: ??SOUT ? REQ NUM: [id number] ? FLAQUITO: 03/21/23-1000 ? SUBM DR: KIM [...] CNM LAB CYTOLOGY ORDERABLES F inal Result [facility] [address] [place] [address] [phone] from Last 3 Months or Most Recently Relevant to Health Maintenance Insurance [facility] Care Teams Heading Pinner Relationship Specialty Start Date End Date Jennifer Nash NP [address] [place] [address] PCP - General Family Medicine 06/25/23
--- OUTSIDE RECORDS SUMMARY | 2024-09-09 10:15 | XMS_ITS | Encounter Summary ---
Author Organization [employer] Address [address] [facility] 7t [place] [address] Care Team Providers Care Ocularist Name Role Phone Jennifer Nash NP Primary Care Provider [phone] Reason for Visit * Reason Onset Date Comments Results 08/29/2023 Encounter Details Date Type Department Care Team ([facility] st Contact Info) Description 08/29/2023 Telephone [facility] MEDICINE [address] [place] [address] Jennifer Nash NP [address] [place] [address] Results Social History Tobacco Use Types Packs/Day [...] Blood Work Date when done: 08/26/23 Facility: [facility] Labs TC from pt requesting call back regarding Results. Type of results: Blood Work Date when done: 08/24/23 Facility: [facility] documented in this encounter Plan of Treatment Not on file documented as of this encounter Visit Diagnoses Not on filedocumented in this encounter Additional Health Concerns Assessment Noted Time PHQ-9 Depression Total Score: 3 01/24/20 23 11:03 AM EDT documented as of this encounter Care Teams Ocularist Relationship Specialty Start Date End Date Jennifer Nash NP [address] [place] [address] PCP - General Family Medicine 06/25/23 documented as of this encounter
--- OUTSIDE RECORDS SUMMARY | 2024-09-09 10:15 | XMS_ITS | Encounter Summary ---
Author Organization [employer] Address [address] [facility] [address] [place] [address] Care Team Providers Care Cmo & President Name Role Phone Jennifer Nash NP Primary Care Provider [phone] Encounter Details Date Type Department Care Team ([facility] st Contact Info) Description 08/30/2023 Orders Only [facility] MEDICINE [address] [place] [address] Jennifer Nash NP [address] [place] [address] Anemia, unspecified type (Primary Dx); Hypoglycemia Social [...] documented as of this encounter Care Teams Cmo & President Relationship Specialty Start Date End Date Jennifer Nash NP [address] [place] [phone] PCP - General Family Medicine 06/25/23 documented as of this encounter
--- OUTSIDE RECORDS SUMMARY | 2024-09-09 10:15 | XMS_ITS | Encounter Summary ---
Author Organization [employer] Address [address] [facility] [address] [place] [address] Care Team Providers Care Retirement Benefits Specialist Name Role Phone Jennifer Nash ALFREDO Primary Care Provider [phone] Encounter Details Date Type Department Care Team ([facility] st Contact Info) Description 09/01/2024 Orders Only [facility] External Provider, [facility] Social History Tobacco Use Types Packs/Day Years [...] EST Narrative 09/01/2024 2:45 PM EST ? [facility] ? [address] ?[place] [address] ? Ultrasound Report ? Signed ? Patient: Regina Veliz I ?MR#: [id number] ?? 059 ? : 1995 ?Acct:[id number] ? Age/Sex: 29 / F ?ADM Date: 09/01/24 ? Loc: HO.MAMMO ? Attending Dr: Quique Moses MD ? Ordering Physician: Quique Moses MD ?? Date of Service: 09/01/24 ?? Procedure(s): US breast LT limited ?? Accession Number(s): [id number] ? cc: Jennifer Nash; Quique Moses MD [...] DD/ 1341 ? TD/TT: 09/01/24 1423 ? Conveyor Installer: ? Procedure Note Donotuseinterpreter, Image - [facility]01[facility] [address] [place] [address] Ultrasound Report Signed Patient: Regina Veliz IMR#: [id number] 059 : 1995Acct:[id number] Age/Sex: 29 / FADM Date: 09/01/24 Loc: HO.MAMMO Attending Dr: Quique Moses MD Ordering Physician: Quique Moses MD Date of Service: 09/01/24 Procedure(s): US breast LT limited Accession Number(s): [id number] cc: Jennifer Nash; Quique Moses MD EXAMINATION: [...] 09/01/24 1442 DD/ 1341 TD/TT: 09/01/24 1423 Conveyor Installer: [facility] External Provider [facility] PROCEDURES Edited Result - Final documented in this encounter Visit Diagnoses Not on filedocumented in this encounter Additional Health Concerns Assessment Noted Time PHQ-9 Depression Total Score: 0 10/02/19 24 2:38 PM EDT documented as of this encounter Care Teams Retirement Benefits Specialist Relationship Specialty Start Date End Date Jennifer Nash NP [address] [place] [id number] PCP - General Family Medicine 06/25/23 documented as of this encounter
--- OUTSIDE RECORDS SUMMARY | 2024-09-09 10:15 | XMS_ITS | Encounter Summary ---
Author Organization [employer] Address [address] [facility] 7[address] [place] [address] Care Team Providers Care Judicial Law Clerk Name Role Phone Jennifer Nash ALFREDO Primary Care Provider [phone] Encounter Details Date Type Department Care Team ([facility] st Contact Info) Description 08/20/2024 [...] Diagnosis Comments IR CVC INSERT TUNNEL W PRT/DISCHARGE PLANNER Routine 08/20/2024 1:00 PM EST IR US GUIDE VENOUS ACCESS Routine 08/20/2024 1:00 PM EST HCG, QL, URINE Routine 08/20/2024 12:10 PM EST documented in this encounter Results * IR cvc insert tunnel w prt/oncology nurse navigator (08/20/2024 1:00 PM EST) Anatomical Region Laterality Modality X-Ray Angiograph y 08/20/2024 1:00 PM EST Narrative 08/25/2024 4:55 PM EST ? [facility] ?[address] ?[place] [address] ?Interventional Radiology Rpt ? Signed ? Patient: Regina Veliz I ?MR#: [id number] ?? 059 ? : 1995 ?Acct:[id number] ? Age/Sex: 29 / F ?ADM Date: 08/20/24 ? Loc: HO.SSS ? Attending Dr: Quique Moses MD ? Ordering Physician: Quique Moses MD ?? Date of Service: 08/20/24 ?? Procedure(s): IR cvc insert tunnel w prt/oncology nurse navigator ?? Accession Number(s): [id number] ? cc: Jennifer Nash; Quique Moses MD ? CLINICAL HISTORY: ?? Left breast cancer. The patient presents to interventional radiology ?? for placement of a port for chemotherapy. ? PROCEDURES: ?? 1. Real-time ultrasound-guided access into the right internal jugular ?? vein after documentation of selected vessel patency, and permanent ?? image storing in the patient records. ?? 2. Placement of a 6.0 Taiwanese single-lumen power port. ? CLINICIAN: ?? John [...] pneumothorax. ? IR/IR cvc insert tunnel w prt/oncology nurse navigator ?? IMPRESSION: ?? Placement of a 6.0 [...] DD/ 1300 ? TD/TT: 08/20/24 1427 ? Shuttle Operator: ? Procedure Note Dongloria, Image - 08/25/2024 [place] [address] Interventional Radiology Rpt Signed Patient: Regina Veliz IMR#: [id number] 059 : 1995Acct:[id number] Age/Sex: 29 / FADM Date: 08/20/24 Loc: HO.SSS Attending Dr: Quique Moses MD Ordering Physician: Quique Moses MD Date of Service: 08/20/24 Procedure(s): IR cvc insert tunnel w prt/oncology nurse navigator Accession Number(s): [id number] cc: Jennifer Nash; Quique Moses MD CLINICAL HISTORY: Left breast cancer. The patient presents to interventional radiology for placement of a port for chemotherapy. PROCEDURES: 1. Real-time ultrasound-guided access into the right internal jugular vein after documentation of selected vessel patency, and permanent image storing in the patient records. 2. Placement of a 6.0 Taiwanese single-lumen power port. CLINICIAN: John Jones PA-C [...] No pneumothorax. IR/IR cvc insert tunnel w prt/oncology nurse navigator IMPRESSION: Placement of a 6.0 fr single-lumen [...] 08/25/24 1654 DD/ 1300 TD/TT: 08/20/24 1427 Shuttle Operator: [facility] External Provider IMG IR PROCEDURES Final Result * IR US Guide - Venous Access (08/20/2024 1:00 PM EST) Anatomical Region Laterality Modality X-Ray Angiograph y 08/20/2024 1:00 PM EST Narrative 08/25/2024 4:55 PM EST ? [facility] ?[address] ?[place] [address] ?Interventional Radiology Rpt ? Signed ? Patient: Regina Veliz Joanna ?MR#: [id number] ?? 059 ? : 1995 ?Acct:[id number] ? Age/Sex: 29 / F ?ADM Date: 08/20/24 ? Loc: HO.SSS ? Attending Dr: Quique Moses MD ? Ordering Physician: Quique Msoes MD ?? Date of Service: 08/20/24 ?? Procedure(s): IR us guide venous access ?? Accession Number(s): [id number] ? cc: Jennifer Nash; Quique Moses MD ? CLINICAL HISTORY: ?? Left breast cancer. The patient presents to interventional radiology ?? for placement of a port for chemotherapy. ? PROCEDURES: ?? 1. Real-time ultrasound-guided access into the right internal jugular ?? vein after documentation of selected vessel patency, and permanent ?? image storing in the patient records. ?? 2. Placement of a 6.0 Taiwanese single-lumen power port. ? CLINICIAN: ?? John [...] DD/ 1300 ? TD/TT: 08/20/24 1427 ? Shuttle Operator: ? Procedure Note Ej, Image - 08/25/2024 [place] [address] Interventional Radiology Rpt Signed Patient: Regina Veliz IMR#: [id number] 059 : 1995Acct:[id number] Age/Sex: 29 / FADM Date: 08/20/24 Loc: HO.SSS Attending Dr: Quique Moses MD Ordering Physician: Quique Moses MD Date of Service: 08/20/24 Procedure(s): IR us guide venous access Accession Number(s): [id number] cc: Jennifer Nash; Quique Moses MD CLINICAL HISTORY: Left breast cancer. The patient presents to interventional radiology for placement of a port for chemotherapy. PROCEDURES: 1. Real-time ultrasound-guided access into the right internal jugular vein after documentation of selected vessel patency, and permanent image storing in the patient records. 2. Placement of a 6.0 Taiwanese single-lumen power port. CLINICIAN: John Jones PA-C [...] 08/25/24 1654 DD/ 1300 TD/TT: 08/20/24 1427 Shuttle Operator: [facility] External Provider IMG IR PROCEDURES Final Result * HCG, Qualitative, Urine (08/20/2024 12:10 PM EST) Urine NEGATIVE NEGATIVE [facility] Comment:This test was develo ped to detect early . Falsenegative results may occur after the 5th - 7th week ofpregnancy when using this test method. If clinicallyindicated, consider a serum hCG. 08/20/2024 12:1 0 PM EST 08/20/2024 12:28 PM EST Generic External Data Provider LAB URINE ORDERAB LES Final Result [facility] [address] [place], [place] [id number] [phone] documented in this encounter Visit Diagnoses Not on filedocumented in this encounter Additional Health Concerns Assessment Noted Time PHQ-9 Depression Total Score: 0 10/02/19 24 2:38 PM EDT documented as of this encounter Care Teams Judicial Law Clerk Relationship Specialty Start Date End Date Jennifer Nash NP [address] [place] [address] PCP - General Family Medicine 06/25/23 documented as of this encounter
--- OUTSIDE RECORDS SUMMARY | 2024-09-09 10:15 | XMS_ITS | Encounter Summary ---
Author Organization [employer] Address [address] [facility] 7t [place] [address] Care Team Providers Care Wildland Fire Operations Specialist Name Role Phone Jennifer Nash ALFREDO Primary Care Provider [phone] Encounter Details Date Type Department Care Team ([facility] st Contact Info) Description 08/26/2024 Orders Only [facility] External Provider, [facility] Social History Tobacco Use Types Packs/Day [...] EST Narrative 08/28/2024 6:09 PM EST ? [facility] ?[address] ?[place] [address] ? Magnetic Resonance Report ? Signed ? Patient: Regina Veliz I ?MR#: [id number] ?? 059 ? : 1995 ?Acct:[id number] ? Age/Sex: 29 / F ?ADM Date: 08/26/24 ? Loc: HO.MRI ? Attending Dr: Fish Cash MD ? Ordering Physician: Fish Cash MD ?? Date of Service: 08/26/24 ?? Procedure(s): MR breast BI wo/w con ?? Accession Number(s): [id number] ? cc: Jennifer Nash; Fish Cash MD; [...] DD/ 0930 ? TD/TT: 08/26/24 1010 ? Car Tracer: ? Procedure Note Ej, Image - 08/28/[address] [address] Magnetic Resonance Report Signed Patient: Regina Veliz [facility]#: [id number] 059 : 1995Acct:[id number] Age/Sex: 29 / FADM Date: 08/26/24 Loc: HO.MRI Attending Dr: Fish Cash MD Ordering Physician: Fish Cash MD Date of Service: 08/26/24 Procedure(s): MR breast BI wo/w con Accession Number(s): [id number] cc: Jennifer Nash; Fish Cash MD; Quique [...] by: Priscilla Chacon DO 08/28/2024 06:06 PM [facility] Dictated By: Priscilla Chacon DO Signed By: <Electronically signed by Priscilla Chacon DO in OV> 08/28/24 1806 DD/ 0930 TD/TT: 08/26/24 1010 Car Tracer: [facility] External Provider IMG MRI PROCEDURES Edited Result - Final documented in this encounter Visit Diagnoses Not on filedocumented in this encounter Additional Health Concerns Assessment Noted Time PHQ-9 Depression Total Score: 0 10/02/19 24 2:38 PM EDT documented as of this encounter Care Teams Wildland Fire Operations Specialist Relationship Specialty Start Date End Date Jennifer Nash NP [address] [place] [address] PCP - General Family Medicine 06/25/23 documented as of this encounter
== END 2024-09-09 09:33 | disposition home or self-care (01) ==
PROVIDERS: Visit Provider Surgery
DX: C50.919 Malignant neoplasm of unspecified site of unspecified female breast (principal)
CPT/HCPCS: 99213

== ENCOUNTER → 2024-09-09 09:13 | Outpatient (BNVA) | payer OTHER, SELFPAY | PROVIDERS: Visit Provider Surgery | DX: Z71.2 Person consulting for explanation of examination or test findings (principal); C50.912 Malignant neoplasm of unspecified site of left female breast | CPT/HCPCS: 99212 ==

== ENCOUNTER 2024-10-02 15:00 | Outpatient (AMB) | payer OTHER, SELFPAY ==
[2024-10-02 15:10] VITALS: BP 100/70; PULSE 86; O2SAT 100
--- NOTE | 2024-10-02 15:10 | MHC.OFFWIV ---
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 Patient Tobacco Use Status: Never used Tobacco Allergies black pepper Allergy (Verified 10/02/24 15:13) Angioedema Do you need a note to return to daycare/school/sports/work: No HPI HPI Comments History of Present Illness Details History of Present Illness - The patient is a 29 year old female presenting with chest pressure and shortness of breath following chemotherapy. 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 - Post-treatment, she reported new-onset chest pressure and shortness of breath. - Initial evaluation during a home visit from a nurse earlier today showed low blood pressure with an EKG performed but results unknown, the patient was told it was not normal for a patient her age . This made her concerned. - At present, patient's blood pressure is 100/70 mmHg, with a normal heart rate and normal oxygenation. - Descriptions of symptoms include right sided chest tightness with episodic shakiness and palpitations, however, without significant sweating or nausea except for possible heat-induced night sweating. - No existing anxiety treatments and patient admits she does have a lot of anxiety about her health right now. Physical Exam General: Cooperative, healthy appearing, comfortable, no acute distress and well developed Orientation: Patient oriented x3 Limitations: No limitations Head: Normal to inspection Ears: Hearing grossly normal bilaterally Nose: Normal External nose present Face and sinus: Normal facial exam Eyes: Appearance normal, both eyes and all related structures Neck: Normal visual inspection and Yes full ROM Respiratory: Normal respiratory effort and able to speak in complete sentences. Cardiovascular: Regular rate and rhythm. 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, >5 cm in greatest dimension Left breast mass Surgical History H/O section Family History Other Cancer Social History (Updated 09/11/24 @ 14:29 by Jack Eaton) Household Members: Family and Children Alcohol intake: never Patient Tobacco Use Status: Never used Tobacco Advance Directives Date on File: 08/12/24 service: No Current occupational status: other Gender identity: Female Female Reproductive History Menstrual Age of Menarche: 10 Review of Systems Const All systems reviewed & are unremarkable except as noted in HPI and below Office Procedures EKG 32769-Cuxoslszvfyrvasgq, Complete Assessment & Plan Assessment & Plan (1) Anxiety about health: Code(s): R45.89 - Other symptoms and signs involving emotional state Plan: VSS, pt well appearing however due to EKG being done and patient being told it wasn't normal for someone her age which is provoking more anxiety, we will do an EKG today to give her some peace of mind. Her symptoms could be anxiety vs med side effects vs a combination of both. Hydroxyzine 25 mg is prescribed to be taken as needed, every 8 hours, to address anxiety-related symptoms like chest tightness and palpitations experienced post-chemotherapy. This will help manage anxiety while allowing symptomatic relief. EKG done in office is NSR @ 70BPM. No acute st or t wave changes noted, same as previous. Educated patient on this information, she was relieved. We did discuss that if her symptoms do get worse over the weekend, she should go to the ED. Coordination with Dr. Moses is advised for ongoing oncological care and managing chemotherapy-induced side effects. The patient is encouraged to follow up with her on Saturday as she is out today, to advise her of the possible side effects. Patient was informed and verbally consented to the use of an ambient scribe for clinic note documentation during this visit. (2) Medication side effects: Code(s): T88.7XXA - Unspecified adverse effect of drug or medicament, initial encounter Plan: as above Medications: New hydroxyzine HCl 25 mg PO Q8H PRN 14 tabs 0RF anxiety Coding Level of Care Code New Pt Level 3 (99343) Diagnoses Anxiety about health R45.89 Medication side effects T88.7XXA CPT Codes EKG - CPT: 69056-Plleosljkhphwigyj, Complete ([id number])
== END 2024-10-02 16:09 | disposition home or self-care (01) ==
PROVIDERS: Visit Provider Physician Assistant
DX: R06.02 Shortness of breath (principal); R07.9 Chest pain, unspecified

== ENCOUNTER → 2024-10-02 15:00 | Outpatient (BNVA) | payer OTHER, SELFPAY | PROVIDERS: Visit Provider Physician Assistant | DX: R07.9 Chest pain, unspecified (principal); R06.02 Shortness of breath | CPT/HCPCS: 93005; 99202 ==

== ENCOUNTER 2024-10-21 09:35 | Outpatient (AMB) | payer OTHER, SELFPAY ==
--- NOTE | 2024-10-21 09:35 | A.OFFVIS_ITS ---
Vital Signs 10/21/24 09:46 Height 5 ft 1 in Weight 153 lb BMI 28.9 BP 128/68 Blood Pressure Location Lt brachial Position Sitting Pulse 111 H Intake Visit Reasons: 1 mth follow up breast exam Intake Note: Patient is seen in office for one month follow up visit, breast exam. Pt c/o: per pt completed 4 wks of chemo and is sched for 12 more wks of Taxol. Has some questions regarding what gonna happen next, is surgery going to be sched ? MRI:08/26/24 us B:09/01/24 Rope Cutter Required: No Pulmonary Nurse Practitioner: Pulmonary Nurse Practitioner Present Accompanied by: Self / Same As Patient Allergies black pepper Allergy (Verified 10/21/24 09:46) Angioedema HPI HPI 1 mth follow up breast exam: Details: She is here for follow-up for her left breast cancer. She has undergone neoadjuvant chemotherapy with Dr. Moses. She has completed a course of Adriamycin/Cytoxan. She says she tolerated chemotherapy well. She denies significant complaints at this time. [facility] Medical History Invasive ductal carcinoma of breast Left breast cancer with T3 tumor, >5 cm in greatest dimension Left breast mass Surgical History H/O section Family History Other Cancer Social History Household Members: Family and Children Alcohol intake: never Patient Tobacco Use Status: Never used Tobacco Advance Directives Date on File: 08/12/24 service: No Current occupational status: other Gender identity: Female Female Reproductive History Menstrual Age of Menarche: 10 Review of Systems Const Denies chills and Denies fever(s) Card Denies chest pain, Denies dyspnea and Denies dyspnea on exertion Resp Denies cough, Denies dyspnea and Denies dyspnea on exertion GI Denies hematochezia and Denies change in bowel habits Denies hematuria Musc Denies back pain and Denies limited range of motion Neuro Denies focal weakness and Denies convulsions Psych Denies depression and Denies mood swings Physical Exam Const General: comfortable and no acute distress Chest Other: Palpable mass on the left breast on the medial aspect, seems much smaller than previously, no palpable breast mass on the right, no axillary lymphadenopathy Resp Effort & Inspection: normal respiratory effort Cardio Rate: regular rate GI Palpation (GI): Soft to palpation Assessment & Plan Assessment & Plan (1) Left breast cancer with T3 tumor, >5 cm in greatest dimension: Code(s): C50.912 - Malignant neoplasm of unspecified site of left female breast Category: Medical Plan: She is currently undergoing neoadjuvant chemotherapy. She will start on Taxol treatment next week. She has completed a course of AC. I will discuss rest of the plan with Dr. Moses. The patient will need a follow-up MRI down the line and we can discuss surgical resection after she has completed her course of neoadjuvant chemotherapy. She seems to understand the plan well. I will see her again in the office next month. Coding Level of Care Code Est Pt Level 3 (72743) Diagnoses Left breast cancer with T3 tumor, >5 cm in greatest dimension C50.912
[2024-10-21 09:46] VITALS: BP 128/68; PULSE 111; BMI 28.9
--- OUTSIDE RECORDS SUMMARY | 2024-10-21 10:25 | XMS_ITS | Data Portability ---
Author Organization [employer] [place], [place] in - [facility] Address [address] [place] [id number] Care Team Providers Care Drill Instructor Name Role Phone HIM CCA OTHER Assessment Encounter Date Assessment Date Assessment LastModified by Organization Details LastModified Time 10/02/2024 10/02/2024 I have reviewed and agree with the Assessment and Plan as documented by the Manager Pharmaceutical. I provided real-time medical direction via phone for this encounter, and was available for additional phone based assistance as needed. I would add/emphasize: Patient with history of breast cancer on active chemotherapy is seen for episodes of shortness of breath and chest pressure since most recent chemoinfusion. Last episode approximately 1 hour ago where she had to walk out of the house given sensation of inability to catch her breath. Called her oncologist office who told her to present to the emergency department. ECG assessed and with normal sinus rhythm without acute ischemic changes. AVSS and otherwise reasonably well-appearing. Received call back from oncologist office stating that she could be seen in medical walk-in clinic at her treating hospital ([facility]) for further evaluation including labs and imaging which seems reasonable given recent chemoinfusion. Given lack of ischemic changes on ECG, reassuring vital signs not suggestive of acute VTE, and per report benign clinical exam this seems like a reasonable option to avoid emergency department presentation while still receiving additional evaluation for unclear etiology of symptoms. Patient to present to medical walk-in for an appointment via private vehicle. Red flags that should prompt 911 activation discussed and patient voices understanding. charla Not available 10/03/2024 07:44:06 Plan of Treatment Reminders Order Date Submit Date Provider Last Modified By Organization Details Last Modified Time Details Appointments None recorded. Lab None recorded. Referral None recorded. Procedures None recorded. Surgeries None recorded. Imaging [facility]ca rdiogram 2024 025 [facility], [address] [place] [address], [phone] 18:47:44 Medication Orders None recorded. Patient TargetsNo targets recorded. Patient InstructionsNo instructions recorded. Reason for Referral None Reported. Results Created Date Observation Date Name Description Value Unit Range Abnormal Flag Note LastModifiedBy Organization Detail LastModifiedTime 10/03/1910/02/2024 ellie freedman am No observ ation record ed. [address] [phone] 10/02/2024 20:10:15 Result Notes None recorded. Procedures Surgical History None recorded. Imaging Results Imaging Date Name Status LastModified by Organization Details LastModified Time 10/02/2024 electrocardiogram completed [address], [phone] 10/02/2024 20:10:15 Procedure Notes None recorded. Medical Equipment None Reported. Allergies No known drug allergies Medications Name Sig Start Date Stop Date Status Note LastModified by Organization Details LastModified Time Vitamin C 500 mg chewable tablet CHEW AND SWALLOW ONE TABLET BY MOUTH TWICE A DAY active Not Available Not Available No t Available ferrous sulfate 325 mg (65 mg iron) tablet TAKE ONE TABLET BY MOUTH TWICE A DAY active Not Available Not Available No t Available FreeStyle Lite Strips USE DIRECTED TO TEST BLOOD SUGAR EVERY DAY NEEDED active Not Available Not Available No t Available TRUEplus Glucose 3.75 gram chewable tablet CHEW 4 TABLETS 16 GRAMS) IF NEEDED FOR LOW BLOOD SUGAR. active Not Available Not Available No t Available Vitals Date Recorded Respiratory rate Heart rate Body temperature Oxygen saturation Oxygen saturation in Arterial blood by Pulse oximetry Systolic blood pressure Diastolic blood pressure Provider Name and Address Organization Details Last Updated DateTime 5 16 /min 75 /min 98.9 [degF] 100 % 100 % 112 mm[Hg] 72 mm[Hg] Not Available [facility] - production 14:09:48 Social History None recorded. Functional Status None recorded. Mental Status None recorded. Family History Nothing Reported. Medical History No medical history recorded. Gynecological HistoryNo gynecological history recorded. Obstetrics History GPAL:G 0 P 0 0 0 0 Past Encounters Encounter ID Performer Location Encounter Start Date Encounter Closed Date Diagnosis/Indication Diagnosis SNOMED-CT Code Diagnosis ICD10 Code Diagnosis Note [id number] Fuad Grande MD [address] [place] [address] 10/02/2024 14:09:39 10/05/2024 13:44:06 Chest pain 20301419 R07.9 Health Concerns Section Related Observation LastModified by Organization Detai ls LastModified Time None Recorded Concern Status LastModified by Organization Details LastModified Time None Recorded Advance Directives Directive None Recorded Payers Encounter Date Sequence Insurance Name Policy Number Policy Baxter Covered Member ID Baxter Member ID Guarantor Name 10/02/2024 1 [facility] - DOS ON OR AFTER 2022 - DUAL ELIGIBLE - RESIDENTIAL OPTIONS AND ONE CARE (MEDICARE REPLACEMENT/ADV ANTAGE - HMO) Regina Veliz [id number] Regina Veliz Notes Date Note Type Note Provider Name and Address Organization Details Recorded Time 10/02/2024 text/html [facility] Nurse Triage Notes (Nunu Perla): Reason For Request: Patient feels chest tightness and catches her breath and gets shakey sometimes. Denies: History of Heart Attack, in the setting of active chest pain Active Chest pain, radiates to neck jaw and or arm Diaphoretic/Sweati ng Describes as ? c rushing? Sudden onset of nausea/Vomiting and shortness of breath. Shortness of Breath Unable to speak in full sentences without distress Chief Complaints: Chest Pain PMH: Asthma, Cancer PMH Reviewed at 10/02/2024 - 12:36 Allergies Reviewed at 10/02/2024 - 12:36 Comments: Patient reporting intermittent episodes of chest tightness with associated shaking and shortness of breath that started yesterday while receiving chemo treatment. Had episode this morning. Tightness is on left side. Denies pain to arm, neck or jaw. Denies cold s/sx. Speaking full sentences without respiratory ditress. Education provided on the response time and the member was advised to monitor reported s/s and seek emergency treatment if needed. Manager Pharmaceutical Organization Information for Abimael Louis Business Legal Name: [employer]? Address: [address] [place] [id number], Full Stack Java Developer: Chris Damico MD CLIA No.: [id number] Manager Pharmaceutical POC Test Results from Abimael Louis EKG (13:57:17) EKG test performed. Attachments uploaded as part of this test result can be found under Documents section. .................. .................. .................. .................. .................. .................. .................. ............... Manager Pharmaceutical Note From Abimael Louis: Dispatched to the call address for the female with chest pain. Pt states she has been having on and off chest pressure and having trouble catching her breath at that time. She currently does not have that issue but did have it this morning. She states she has not had this issue before but she is undergoing Chemo treatments for breast cancer. She denies n/v/d, cold/flu symptoms or any complaints at this time. Pt was found sitting at kitchen table, CAOx4, airway open and patent, breathing non labored, able to speak in full sentences, -JVD, -HEENT, skin PWD with good turgor, pupils PERRL, +CMSx4, lungs CTA, abd soft non tender/distended, -edema/swelling, Afebrile, mucous membranes pink and moist. NSR with non specific T wave changes . intermittent chest pain with shortness of breath. Pt was assessed with full set of vitals. 12 lead EKG conducted. [facility] consulted. Pt was advised she should either consult her oncologist or seek further work up. Pt advised she would get a ride to urgent care that has imaging. Red flags discussed. ALL times are approx. .................. .................. .................. .................. .................. .................. .................. ............... [facility] Consulted: Fuad Grande .................. .................. .................. .................. .................. .................. .................. ............... Disposition: Fulfilled uFad Grande MD [address] [facility] [facility], [place], [phone], [place] 10/03/2024 07:44:22 OBGyn Episode No OBEpisode recorded.
--- OUTSIDE RECORDS SUMMARY | 2024-10-21 10:25 | XMS_ITS | Clinical Summary ---
Author Organization [facility] Address [address] [place] [phone] Phone Care Team Providers Care Warehouse Distribution Associate Name Role Phone Unavailable Primary Care Provider [...] complete this topic Procedures * Due to [place] state law, this organization might not be sharing sensitive test results. Procedure Name Priority Date/Time Associated Diagnosis Comments CHLAMYDIA AND GONORRHEA, AMPLIFIED Routine 01/05/2016 1:37 PM EDT from Last 3 Months or Most Recently Relevant to Health Maintenance Results * Due to [place] state law, this organization might not be sharing sensitive test results. * Chlamydia and Gonorrhoea, Amplified (01/05/2016 1:37 PM EDT) URINE CHLAMYDIA AMP PROBE NEGATIVE [facility] Comment: No Chlamydia Trachomatis RNA detected in this patient's sample (REFERENCE RANGE/NORMAL VALUE: NOT DETECTED) URINE GC AMP PROBE NEGATIVE [facility] Comment: No Neisseria Gonorrhoeae RNA detected in this patient's sample (REFERENCE RANGE/NORMAL VALUE: NOT DETECTED) NOTE: This test uses tree planter-mediated amplification method to detect rRNA from C.Trachomatis [...] without risk of sexual abuse. Consult the [facility] if needed. Contact phone number . Therapeutic failure or success cannot be determined with the Aptima Combo2 assay since nucleic acid may persist following appropriate antimicrobial therapy. The Centers for Disease Control and Prevention (CDC) recommends confirmatory retesting using culture or a different nucleic acid amplification test when positive results occur, if indicated. Testing performed or reported by [facility], a Service of [facility], [address] [place] [id number] CLIA ??[id number] Tim Bearden MD, PhD, Tinter Photograph 01/05/2016 1:37 PM EDT Narrative [facility] - 01/05/2016 1:37 PM EDT URINE CHLAMYDIA GC AMP PROBE us Yelitza Flowers MD LAB MICROBIOLOGY - GENERAL ORDER FISH Final Result [facility] [address] [place] [address], [place] from Last 3 Months or Most Recently Relevant to Health Maintenance
--- OUTSIDE RECORDS SUMMARY | 2024-10-21 10:25 | XMS_ITS | Encounter Summary ---
Author Organization [facility] Address [address] [place] [address] Phone Care Team Providers Care Dish Up Person Name Role Phone Yelitza Flowers MD Primary Care Provider [phone] Encounter Details Date Type Department Care Team (Late st Contact Info) Description 02/28/2017 Conversion Encounter [facility] [address] [place] [address] Social History Tobacco Use Types Packs/Day Years [...] on filedocumented in this encounter Care Teams Dish Up Person Relationship Specialty Start Date End Date Yelitza Flowers MD [address] [place] [address] PCP - General 02/22/17 10/14/22 documented as of this encounter
--- OUTSIDE RECORDS SUMMARY | 2024-10-21 10:25 | XMS_ITS | Clinical Summary ---
Author Organization [employer] Address [address] [place] [address] [address] [place] [address] Care Team Providers Care Oxygen System Tester Name Role Phone Jennifer Nash ALFREDO Primary Care Provider [phone] Allergies No known active allergies Medications * This document contains information received from the source organization and may not represent a complete record from that organization. simethicone (Mylicon) 80 MG chewable tabletIndicatio ns:Acute [...] 4 Active Blood Glucose Monitoring Suppl (FreeStyle [place] Lite) w/Device kitIndications: Hypoglycemia Use to test blood sugar as needed for hypoglycemia 1 kit 4 Active glucose blood (FREESTYLE LITE) test stripIndication s:Hypoglycemia USE TO TEST BLOOD SUGAR NEEDED FOR HYPOGLYCEMIA 100 each 2 5 08/02/19 26 Active sertraline (Zoloft) 25 MG tabletIndicatio ns:Situational mixed anxiety and depressive disorder Take 1 tablet (25 mg) by mouth Once per day. 30 tablet 1 5 12/09/19 25 Active propranolol (Inderal) 10 MG tabletIndicatio ns:Situational mixed anxiety and depressive disorder,Panic attacks Take 1 tablet (10 mg) by mouth 3 times daily. 90 tablet 1 5 12/09/19 25 Active Active Problems Problem Noted Date Diagnosed Date Adjustment disorder with mixed anxiety and depre ssed mood 10/09/2024 Assessment & Plan (10/09/2024 12:11 PM EDT): -Patient Health Questionnaire-9 Score: 21 (10/09/2024 10:17 AM) Patient Health Questionnaire-2 Score: 6 (10/09/2024 10:17 AM) Thoughts that you would be better off or hurting yourself in some way: Not at all (10/09/2024 10:17 AM) -ECHO-7 Total Score: 9 (10/09/2024 10:17 AM) -reports anxiety being worse than depression -patient is agreeable to try medication management -will start sertraline 25 and propanolol 10 mg prn today with follow-up in 2 weeks via televisit. Side effects reviewed -will increase medication dose pending positive effects in 4 weeks -advised on the benefits of engaging in gentle yoga practices, meditation, deep breathing and journaling along with physical activity to aid in symptom improvement - consulted to reach out with more coping mechanism and assist with establishing with a therapist Invasive ductal carcinoma of breast, female, lef t 08/26/2024 Assessment & Plan (10/09/2024 12:11 PM EDT): -receiving care with Dr. Shahid -encouraged to remain positive and reach out with any concerns -discussed benefit of maintaining healthy diet and engaging in routine self-care Shakiness 11/21/2023 Assessment & Plan (11/21/2023 9:22 [...] advised -will call or send message in [employer] with results -follow-up 3 months via televisit or sooner as needed Encounter for annual physical exam 10/02/2023 Assessment & Plan (10/02/2023 4:44 PM EDT): -no immunity to hepatitis B. Will offer vaccination at next visit -cervical cancer screening up to date. Due 2025 -follow-up 3 yrs Migraine 01/23/2023 Mild persistent asthma 10/04/2016 Resolved Problems Problem Noted Date Diagnosed Date Resolved Date Routine health maintenance 10/02/2023 0 10/02/2023 Placenta previa partialis in second trimester 01/24/2010/09/2024 Acute cystitis with hematuria 08/20/2022 10/09/2024 Ectopic 08/01/2020 10/09/2024 Encounters * This document contains information received from the source organization and may not represent a complete record from that organization. Date Type Department Care Team Description 10/09/2024 10:00 AM EDT Office Visit [address] [address] Jennifer Nash NP Situational mixed anxiety and depressive disorder (Primary Dx); Panic attacks; Invasive ductal carcinoma of breast, female, left (CMS/HCC) 10/09/2024 Travel 10/01/2024 Telephone [facility] [address] [place] [address] Reji Chirinos MA chartprep 09/01/2024 Orders Only [facility] External Provider, [facility] 08/26/2024 Orders Only [facility] External Provider, [facility] 08/20/2024 Orders Only GENERIC EXTERNAL DATA DEPARTMENT Provider, Generic External Data 08/05/2024 Telephone [facility] [address] [place] [address] Kim Pickens CNM 08/02/2024 Refill [facility] [address] [place] [address] Jennifer Nash NP Hypoglycemia 07/29/2024 Orders Only [facility] External Provider, [facility] from Last 3 Months Immunizations Name Administration [...] MMRV 02/12/2014 Meningococcal MCV4P ACYW-135 05/28/2006 Novel Zbgupqzim-[id number], all formulations 06/15/2009 Tdap 10/06/2021, 8,05/28/2006,05/28 Social History Tobacco Use Types Packs/Day Years Used Date Smoking Tobacco: Never Passive Smoke Exposure: Never Smokeless Tobacco: Never Tobacco Cessation:Counseling Given: Not Answered Alcohol Use Standard Drinks/Week Comments Never 0 (1 standard drink = 0.6 oz pur e alcohol) Depression Answer Date Recorded Patient Health Questionnaire-9 Score 10/09/2024 Patient Health Questionnaire-9 Score 21 10/09/2024 Last PHQ-9: Questionnaire Data Not on file 0 10/09/2024 Housing Stability Answer Date Recorded What is your housing situation today? I have jessica boo 10/09/[address] you li ve. Do you have problems with any of the following? None of the above 10/09/2024 Food Insecurity Answer Date Recorded Within the past 12 months, y ou worried that your food would run out before you got money to buy more: Never True 10/09/2024 Within the past 12 months,th e food you bought just didn't last and you didn't have enough money to get more: Never True Transportation Answer Date Recorded In the past 12 months, has l ack of transportation kept you from medical appts, meetings, work or from getting things needed for daily living? No 10/09/2024 Utilities Answer Date Recorded In the past 12 months, has t he electric, gas, oil or water company threatened to shut off services in your home? No 10/09/2024 Depression Answer Date Recorded Patient Health Questionnaire-2 Score 6 10/09/2024 Internet Access Answer Date Recorded Internet Access Q1 Yes 10/09/2024 Internet Access Q2 Not on file 10/09/2024 Comments No Sex and Gender Information Value Date Recorded Sex Assigned at Female 05/14/2022 10:14 AM EDT Legal Sex Female 10:14 AM EDT Gender Identity Female 05/14/2022 10:14 AM EDT Sexual Orientation Straight 05/14/2022 10 :14 AM EDT Last Filed Vital Signs Vital Sign Reading Time Taken Comments Blood Pressure 109/70 10/09/2024 10:08 AM EDT Pulse 89 10/09/2024 10:08 AM EDT Temperature 36.1 ??C (97 ??F) 10/09/2024 10:08 AM EDT Respiratory Rate 20 10/09/2024 10:08 AM EDT Oxygen Saturation 100% 10/09/2024 10:08 AM EDT Inhaled Oxygen Concentration - - Weight 69.7 kg (153 lb 9.6 oz) 10/09/2024 10:08 AM EDT Height 154.9 cm (5' 1 ) 10/09/2024 10:08 AM EDT Body Mass Index 29.02 10/09/2024 10:08 AM EDT Plan of Treatment Upcoming Encounters Date Type Department Care Team (Late st Contact Info) Description 10/26/2024 11:15 AM EDT Telemedicine [facility] [address] [place], [place] [phone] Jennifer Nash NP [address] [place] [address] Health Maintenance Due Date Last Done Comments Alcohol/Substance Use Screening 2007 Pneumococcal Vaccine: Pediatrics (0 to 5 Years) and At-Risk Patients (6 to 49) Years) (1 of 2 - PCV) 2014 COVID-19 Vaccine (3 - season) 2024 08/16/2021, 07/19/2021 Influenza Vaccine (#1) 2024 , 04/01/2018, 05/05/2014, Additional history exists Mammogram 11/29/2024 09/01/2024, 08/15, 08/05/2024, Additional history exists Diagnostic Breast Imaging 03/01/20252024, 08/26/2024, 08/05/2024, Additional history exists Family Planning (PISQ) 03/23/2025 03/23/2024 Depression Monitoring (PHQ-9) 04/11/2025 10/09/2024, 10/09/2024 Depression Screening 10/09/2025 10/09/2024, 10/10/19 SDOH Screening 10/09/2025 10/09/2024 Tobacco Screening 10/09/2025 10/09/2024 Pap Smear 03/21/2026 03/21/2023, 03/09/2020 DTaP/Tdap/Td Vaccines [...] AM EST IR CVC INSERT TUNNEL W PRT/TRANSPORTATION PROGRAM DIRECTOR Routine 08/20/2024 1:00 PM EST IR US GUIDE VENOUS ACCESS Routine 08/20/2024 1:00 PM EST HCG, QL, URINE Routine 08/20/2024 12:10 PM EST BI MAMMOGRAM DIAGNOSTIC TOMOSYNTHESIS BILATERAL Routine 08/05/2024 9:30 AM EST HEMATOXYLIN AND EOSIN STAIN Routine 07/29/2024 9:26 AM EST BI MR GUIDED BREAST BIOPSY LEFT Routine 07/29/2024 9:10 AM EST HEPATITIS C AB W/REFL TO [...] Region Laterality Modality Breast Left Ultrasound 09/01/2024 1:4 1 PM EST Narrative 09/01/2024 2:45 PM EST ? [facility] ? [address] ?[place], [place] [address] ? Ultrasound Report ? Signed ? Patient: Regina Veliz I ?MR#: [id number] ?? 059 ? : 1995 ?Acct:[id number] ? Age/Sex: 29 / F ?ADM Date: 09/01/24 ? Loc: HO.MAMMO ? Attending Dr: Quique Moses MD ? Ordering Physician: Quique Moses MD ?? Date of Service: 09/01/24 ?? Procedure(s): US breast LT limited ?? Accession Number(s): [id number] ? cc: Jennifer Nash; Quique Moses MD [...] ??Priscilla Chacon DO ??09/01/2024 02:42 PM EST ?? RP ? Dictated By: ?Priscilla Chacon DO ? Signed By: ?<Electronically signed by Priscilla Chacon, DO in OV> ? 09/01/24 1442 ? DD/ 1341 ? TD/TT: 09/01/24 1423 ? Grain Combine Driver: ? Procedure Note Donotuseinterpreter, Image - 09/01/[address] [place] [facility] [address] [place] [address] Ultrasound Report Signed Patient: Regina Veliz IMR#: [id number] 059 : 1995Acct:[id number] Age/Sex: Date: 09/01/24 Loc: HO.MAMMO Attending Dr: Quique Moses MD Ordering Physician: Quique Moses MD Date of Service: 09/01/24 Procedure(s): US breast LT limited Accession Number(s): [id number] cc: Jennifer Nash; Quique Moses MD EXAMINATION: [...] Priscilla Chacon DO 09/01/2024 02:42 PM EST Dictated By: Priscilla Chacon DO Signed By: <Electronically signed by Priscilla Chacon DO in OV> 09/01/24 1442 DD/ 1341 TD/TT: 09/01/24 1423 Grain Combine Driver: us [facility] External Provider IMG US PROCEDURES Edited Result - Final * BI MR Breast w and w/o Contrast Bilateral (08/26/2024 9:30 AM EST) Anatomical Region Laterality Modality Breast Bilateral Magnetic Resonan ce 08/26/2024 9:30 AM EST Narrative 08/28/2024 6:09 PM EST ? [facility] ?[address] ?[place] [address] ? Magnetic Resonance Report ? Signed ? Patient: Jose Alfredo,Regina I ?MR#: [id number] ?? 059 ? : 1995 ?Acct:[id number] ? Age/Sex: 29 / F ?ADM Date: 08/26/24 ? Loc: HO.MRI ? Attending Dr: Fish Cash MD ? Ordering Physician: Fish Cash MD ?? Date of Service: 08/26/24 ?? Procedure(s): MR breast BI wo/w con ?? Accession Number(s): [id number] ? cc: Jennifer Nash; Fish Cash MD; [...] ??Priscilla Chacon DO ??08/28/2024 06:06 PM EST ? Dictated By: ?Priscilla Chacon DO ? Signed By: ?<Electronically signed by Priscilla Chacon, DO in OV> ? 08/28/24 180 ? DD/ 0930 ? TD/TT: 08/26/24 1010 ? Grain Combine Driver: ? Procedure Note Donsharleneter, Image - 08/28/2024 [place] [address] Magnetic Resonance Report Signed Patient: Regina Veliz IMR#: [id number] 059 : 1995Acct:[id number] Age/Sex: 29 / FADM Date: 08/26/24 Loc: HO.MRI Attending Dr: Fish Cash MD Ordering Physician: Fish Cash MD Date of Service: 08/26/24 Procedure(s): MR breast BI wo/w con Accession Number(s): [id number] cc: Jennifer Nash; Fish Cash MD; Quique [...] Priscilla Chacon DO 08/28/2024 06:06 PM EST Dictated By: Priscilla Chaocn DO Signed By: <Electronically signed by Priscilla Chacon DO in OV> 08/28/24 1806 DD/ 0930 TD/TT: 08/26/24 1010 Grain Combine Driver: [facility] External Provider IMG MRI PROCEDURES Edited Result - Final * IR cvc insert tunnel w prt/compensation advisor (08/20/2024 1:00 PM EST) Anatomical Region Laterality Modality X-Ray Angiograph y 08/20/2024 1:00 PM EST Narrative 08/25/2024 4:55 PM EST ? [facility] ?[address] ?[place] [address] ?Interventional Radiology Rpt ? Signed ? Patient: Jose Alfredo,Regina I ?MR#: [id number] ?? 059 ? : 1995 ?Acct:[id number] ? Age/Sex: 29 / F ?ADM Date: //25 ? Loc: HO.SSS ? Attending Dr: Quique Moses MD ? Ordering Physician: Quique Moses MD ?? Date of Service: 08/20/24 ?? Procedure(s): IR cvc insert tunnel w prt/compensation advisor ?? Accession Number(s): [id number] ? cc: Jennifer Nash; Quique Moses MD ? CLINICAL HISTORY: ?? Left breast cancer. The patient presents to interventional radiology ?? for placement of a port for chemotherapy. ? PROCEDURES: ?? 1. Real-time ultrasound-guided access into the right internal jugular ?? vein after documentation of selected vessel patency, and permanent ?? image storing in the patient records. ?? 2. Placement of a 6.0 [place] single-lumen power port. ? CLINICIAN: ?? John [...] pneumothorax. ? IR/IR cvc insert tunnel w prt/compensation advisor ?? IMPRESSION: ?? Placement of a 6.0 [...] DD/ 1300 ? TD/TT: 08/20/24 1427 ? Grain Combine Driver: ? Procedure Note Ej, Image - 08/25/[address] [address] Interventional Radiology Rpt Signed Patient: Regina Veliz IMR#: [id number] 059 : 1995Acct:[id number] Age/Sex: 29 / FADM Date: 08/20/24 Loc: .[facility] Attending Dr: Quique Moses MD Ordering Physician: Quique Moses MD Date of Service: 08/20/24 Procedure(s): IR cvc insert tunnel w prt/compensation advisor Accession Number(s): [id number] cc: Jennifer Nash; Quique Moses MD CLINICAL HISTORY: Left breast cancer. The patient presents to interventional radiology for placement of a port for chemotherapy. PROCEDURES: 1. Real-time ultrasound-guided access into the right internal jugular vein after documentation of selected vessel patency, and permanent image storing in the patient records. 2. Placement of a 6.0 [place] Citizen single-lumen power port. CLINICIAN: John Jones PA-C [...] No pneumothorax. IR/IR cvc insert tunnel w prt/compensation advisor IMPRESSION: Placement of a 6.0 fr single-lumen [...] 08/25/24 1654 DD/ 1300 TD/TT: 08/20/24 1427 Grain Combine Driver: [facility] External Provider IMG IR PROCEDURES Final Result * IR US Guide - Venous Access (08/20/2024 1:00 PM EST) Anatomical Region Laterality Modality X-Ray Angiograph y 08/20/2024 1:00 PM EST Narrative 08/25/2024 4:55 PM EST ? [facility] ?[address] ?[place] [address] ?Interventional Radiology Rpt ? Signed ? Patient: Jose Alfredo,Regina I ?MR#: [id number] ?? 059 ? : 1995 ?Acct:[id number] ? Age/Sex: 29 / F ?ADM Date: 02/06/25 ? Loc: HO.SSS ? Attending Dr: Quique Moses MD ? Ordering Physician: Quique Moses MD ?? Date of Service: 08/20/24 ?? Procedure(s): IR us guide venous access ?? Accession Number(s): [id number] ? cc: Jennifer Nash; Quique Moses MD ? CLINICAL HISTORY: ?? Left breast cancer. The patient presents to interventional radiology ?? for placement of a port for chemotherapy. ? PROCEDURES: ?? 1. Real-time ultrasound-guided access into the right internal jugular ?? vein after documentation of selected vessel patency, and permanent ?? image storing in the patient records. ?? 2. Placement of a 6.0 [place] Citizen single-lumen power port. ? CLINICIAN: ?? John [...] DD/ 1300 ? TD/TT: 08/20/24 1427 ? Grain Combine Driver: ? Procedure Note Ej, Image - 08/25/[address] [place] [address] Interventional Radiology Rpt Signed Patient: Regina Veliz IMR#: [id number] 059 : 1995Acct:[id number] Age/Sex: 29 / FADM Date: 08/20/24 Loc: HO.[facility] Attending Dr: Quique Moses MD Ordering Physician: Quique Moses MD Date of Service: 08/20/24 Procedure(s): IR us guide venous access Accession Number(s): [id number] cc: Jennifer Nash; Quique Moses MD CLINICAL HISTORY: Left breast cancer. The patient presents to interventional radiology for placement of a port for chemotherapy. PROCEDURES: 1. Real-time ultrasound-guided access into the right internal jugular vein after documentation of selected vessel patency, and permanent image storing in the patient records. 2. Placement of a 6.0 [place] single-lumen power port. CLINICIAN: John Jones PA-C [...] 08/25/24 1654 DD/ 1300 TD/TT: 08/20/24 1427 Grain Combine Driver: [facility] External Provider IMG IR PROCEDURES Final Result * HCG, Qualitative, Urine (08/20/2024 12:10 PM EST) Urine NEGATIVE NEGATIVE [facility] Comment:This test was develo ped to detect early . Falsenegative results may occur after the 5th - 7th week ofpregnancy when using this test method. If clinicallyindicated, consider a serum hCG. 08/20/2024 12:1 0 PM EST 08/20/2024 12:28 PM EST us Generic External Data Provider LAB URINE ORDERAB LES Final Result [facility] [address] [place] [address] [phone] * BI Mammogram Diagnostic Tomosynthesis Bilateral (08/05/2024 9:30 AM EST) Anatomical Region Laterality Modality Breast Bilateral Mammography 08/05/2024 9:30 AM EST Narrative 08/05/2024 12:36 PM EST ? [facility] ? [address] ?[place] [address] ? Mammography Report ? Signed ? Patient: Regina Veliz I ?MR#: [id number] ?? 059 ? : 1995 ?Acct:[id number] ? Age/Sex: 29 / F ?ADM Date: 08/05/24 ? Loc: HO.MAMMO ? Attending Dr: Fish Cash MD ? Ordering Physician: Fish Cash MD ?Results: 6Kno ?? wn Biopsy Proven Malignancy ? Date of Service: 08/05/24 ?Follow Up: Surgical Consult ? Procedure(s): MM tomosynthesis diagnostic BI ?? Accession Number(s): [id number] ? cc: Jennifer Nash; Fish Cash MD [...] DD/ 0930 ? TD/TT: 08/05/24 0949 ? Grain Combine Driver: ? Procedure Note Donotuseinterpreter, Image - 08/05/2024 [facility] [address] [place], [place] [address] Mammography Report Signed Patient: Regina Veliz IMR#: [id number] 059 : 1995Acct:[id number] Age/Sex: 29 FADM Date: 08/05/24 Loc: HO.MAMMO Attending Dr: Fish Cash MD Ordering Physician: Fish Cash MDResults: 6Kno wn Biopsy Proven Malignancy Date of Service: 08/05/24Follow Up: Surgical Consult Procedure(s): MM tomosynthesis diagnostic BI Accession Number(s): [id number] cc: Jennifer Nash; Fish Cash MD EXAMINATION: [...] 08/05/24 1234 DD/ 0930 TD/TT: 08/05/24 0949 Grain Combine Driver: [facility] External Provider IMG BI PROCEDURES Final Result * Hematoxylin and Eosin Stain (07/29/2024 9:26 AM EST) 07/29/2024 9:26 AM EST 07/29/2024 10:07 AM EST [facility] - 07/31/2024 3:12 PM EST ----- ------- Name: Regina Veliz I ?Age/Sex: 29/F ? : 1995 Unit#: [id number] ?? Attend Dr: Fish Cash MD ?Re07/29/24 ?Status: DEP REF ? Location: HO.MAMMO ?Disch: ? ----- ------- SPEC : [id number] ?RECD: 07/29/24-1006 ? STATUS: ??SOUT ? REQ NUM: [id number] ? FLAQUITO: 07/29/24 ? SUBM DR: Priscilla Chacon DO ? ENTERED: ??07/29/24-1014 ?SP TYPE: Surgical ? OTHR DR: Fish Cash MD ?Jennifer Nash ORDERED: ??HE Stain/2, Gross Micro L4, ER, VT, IHC, Add. immunos, IHC ER/VT/Her2N/4, Ki-67, ?p63, SMM, [id number] COMMENTS: As per the specimen requisition slip [...] I ?Age/Sex: 29/F ? : 1995 Unit#: [id number] ?? Attend Dr: Fish Cash MD ?Re07/29/24 ?Status: DEP REF ? Location: HO.MAMMO ?Disch: ? ----- ------- SPEC : [id number] ?RECD: 07/29/24-1006 ? STATUS: ??SOUT ? REQ NUM: [id number] ? FLAQUITO: 07/29/24 ? SUBM DR: Priscilla Chacon DO ? ENTERED: ??07/29/24-1015 ?SP TYPE: Surgical ? OTHR DR: Fish Cash MD ?Jennifer Nash ORDERED: ??HE Stain/2, Gross Micro L4, ER, VT, IHC, Add. immunos, IHC ER/VT/Her2N/4, Ki-67, ?p63, SMM, [id number] COMMENTS: As per the specimen requisition slip [...] paraffin-embedded tissue. Time tissue removed from patient: ??09 Time tissue placed in fixative: ??0930 Duration of fixation: ??between 6 and 24 hrs. Estrogen and Progesterone receptor immunohistochemistry performed in accordance with ASCO/CAP recommendations (2010). ?? Estrogen receptor: ??Clone SP1; Dako Envision+ Dual Link System-HRP. ?? Progesterone receptor: ??Clone JtB418; FibeRio Mach 4 detection system. Her-2/rivka immunohistochemistry performed in accordance with ASCO/CAP recommendations (2007) and update (2013). ??Hercep Test ??Detection system: ??Polymer type ??Scoring criteria: For ER/VT and Her-2/rivka: ??All internal (if present) and external controls react appropriately. ER and VT immunostains are scored as Positive (> 10% [...] I ?Age/Sex: 29/F ? : 1995 Unit#: [id number] ?? Attend Dr: Fish Cash MD ?Re07/29/24 ?Status: DEP REF ? Location: HO.MAMMO ?Disch: ? ----- ------- SPEC : [id number] ?RECD: 07/29/24-1006 ? STATUS: ??SOUT ? REQ NUM: [id number] ? FLAQUITO: 07/29/24-925 ? SUBM DR: Priscilla Chacon DO ? ENTERED: ??07/29/24-1014 ?SP TYPE: Surgical ? OTHR DR: Fish Cash MD ?BebetoJennifer hunt ORDERED: ??HE Stain/2, Gross Micro L4, ER, VT, IHC, Add. immunos, IHC ER/VT/Her2N/4, Ki-67, ?p63, SMM, [id number] COMMENTS: As per the specimen requisition slip [...] Arch of Pathol Lab Med, 142, 2018: 3346-3423. Brandy KH, Matias CHASE, et al. Estrogen and Progesterone Receptor Testing in Breast Cancer: ASCO/CAP Guideline Update. Arch of Pathol Lab Med, 144 2020: 545-563. Patricia N, Marge P, et al. Adjuvant abemaciclib combined with endocrine therapy for high- risk early breast cancer: updated efficacy and Ki-67 analysis from the [facility]. Amber Oncol. 2020;32(12):3248-5605. This case was reviewed intradepartmentally; results were communicated to Drs. Cash and Oswaldo via secure text on 07/31/2024. Special studies ordered and performed: ??Immunostains for ER, VT, HER2, Ki 67, p63 and smooth muscle myosin Copies To: ?? Fish Cash MD ?? [facility] ?? [address] ?? [place] [address] ?? [phone] ?? Jennifer Nash ?? [address] ?? [place] ?? [phone] ?? Priscilla Chacon DO ?? [address] [facility] ?? [place] ?? [phone] ? CONTINUED ON NEXT PAGE ----- ------- Name: Regina Veliz I ?Age/Sex: 29/F ? : 1995 Unit#: [id number] ?? Attend Dr: Fish Cash MD ?Re07/29/24 ?Status: DEP REF ? Location: HO.MAMMO ?Disch: ? ----- ------- SPEC : [id number] ?RECD: 07/29/24-1007 ? STATUS: ??SOUT ? REQ NUM: [id number] ? FLAQUITO: 07/29/24-925 ? SUBM DR: Priscilla Chacon DO ? ENTERED: ??07/29/24-5 ?SP TYPE: Surgical ? OTHR DR: Fish Cash MD ?Jennifer Nash ORDERED: ??HE Stain/2, Gross Micro L4, ER, VT, IHC, Add. immunos, IHC ER/VT/Her2N/4, Ki-67, ?p63, SMM, [id number] COMMENTS: As per the specimen requisition slip the specimen is ?collected at 09 and placed in formalin at 0930. ----- ------- Signed (signature on file) Emilio Licona MD 07/31/24 2842 ? ----- ------- ? END OF REPORT ? us Generic External Data Provider LAB BLOOD ORDERAB LES Final Result [facility] [address] [place] [address] [phone] * BI MR Guided Breast Biopsy Left (07/29/2024 9:10 AM EST) Anatomical Region Laterality Modality Breast Left Magnetic Resonan ce 07/29/2024 9:10 AM EST Narrative 07/29/2024 1:10 PM EST ? [facility] ? [address] ?[place] [address] ? Ultrasound Report ? Signed with Addenda ? Patient: Jose Alfredo,Regina I ?MR#: [id number] ?? 059 ? : 1995 ?Acct:[id number] ? Age/Sex: 29 / F ?ADM Date: 07/29/24 ? Loc: HO.MAMMO ? Attending Dr: Fish Cash MD ? Ordering Physician: Fish Cash MD ?? Date of Service: 07/29/24 ?? Procedure(s): US breast ndl core biopsy LT ?? Accession Number(s): [id number] ? cc: Jennifer Nash; Fish Cash MD [...] ??07/29/2024 01:07 PM EST ?? RP ? / breast ndl core biopsy LT ?? IMPRESSION: [...] DO in OV> ? 08/03/24922 ? DD/ 0910 ? TD/TT: 07/29/24 0945 ? Grain Combine Driver: ? Procedure Note Donsharleneter, Image - [facility]/09/20[facility] [address] [place] [address] Ultrasound Report Signed with Kasie Patient: Regina Veliz IMR#: [id number] 059 : 1995Acct:[id number] Age/Sex: 29 / FADM Date: 07/29/24 Loc: HO.MAMMO Attending Dr: Fish Cash MD Ordering Physician: Fish Cash MD Date of Service: 07/29/24 Procedure(s): US breast ndl core biopsy LT Accession Number(s): [id number] cc: Jennifer Nash; Fish Cash MD ADDENDUM [...] Priscilla Chacon DO 07/29/2024 01:07 PM EST Dictated By: Priscilla Chacon DO Signed By: <Electronically signed by Priscilla Chacon DO in OV> 08/03/2423 DD/ 9 TD/TT: 07/29/2445 Grain Combine Driver: [facility] External Provider IMG MRI PROCEDURES Edited Result - Final * Hepatitis C Antibody with Reflex to HCV, RNA, Quantitative, Real-Time PCR (08/23/2023 12:46 PM EST) Hepatitis C Antibody Nonreactive Nonreactive [facility] Comment:Antibodies to HCV no t detected; does not exclude early acuteHCV infection. Blood Venous blood specimen / Unknown 08/23/2023 12:46 PM EST 08/23/2023 1:14 PM EST Jennifer Nash NP LAB BLOOD ORDERABLES Final Resu lt [facility] [address] [place] [phone] * HIV-1/2 Antigen and Antibodies, Fourth Generation, with Reflexes (08/23/2023 12:46 PM EST) HIV AB/AG Nonreactive Nonreactive [facility] Comment:HIV-1 p24 Ag and/or HIV-1/HIV-2 Ab not detected.A test result that is nonreactive does not exclude thepossibility of exposure to or infection with HIV-1 and/orHIV-2. Nonreactive results in this assay for individualswith prior exposure to HIV-1 and/or HIV-2 may be due toantigen and antibody levels that are below the limit ofdetection of this assay.The InfoReach HIV Ag/Ab Combo assay result andsupplemental assay results should be interpreted inconjunction with the patient's clinical presentation,history and other laboratory results. If the results areinconsistent with clinical evidence, additional testing issuggested to confirm the result. Blood Venous blood specimen / Unknown 08/23/2023 12:46 PM EST 08/23/2023 1:14 PM EST us Jennifer Saad MAKING LINE WORKER LAB BLOOD ORDERABLES Final Resu lt [facility] [address] [place] [address] [phone] * Pap Smear (03/21/2023 10:00 AM EDT) 03/21/2023 10:0 0 AM EDT 03/22/2023 11:15 AM EDT Narrative [facility] - 04/07/2023 5:21 PM EDT ----- ------- Name: Regina Veliz I ?Age/Sex: 28/F ? : 1995 Unit#: [id number] ?? Attend Dr: KIM PICKENS CNM ?Re03/21/23 ?Status: DEP REF ? Location: HO.HHCLNP ? Disch: ? ----- ------- SPEC : [id number] ?RECD: 03/22/23 ? STATUS: ??SOUT ? REQ NUM: [id number] ? FLAQUITO: 03/21/23-999 ? SUBM DR: KIM PICKENS CNM ? ENTERED: ??03/22/23 ?SP TYPE: Pap Smr ?OTHR : ? ORDERED: ??Pap Smear ? Interpretation ?? Satisfactory for evaluation. ?? Negative for intraepithelial lesion or malignancy. ?Clinical Information LMP: Unknown date Previous PAP test: 2019, WNL ? Material Received ?? ThinPrep-Vaginal/Cervical ----- ------- Signed (signature on file) Mary Trevizo 04/07/23 1721 ? ----- ------- ? END OF REPORT ? us Kim Pickens [facility] CYTOLOGY ORDERABLES F inal Result [facility] [address] [place], [place] [phone] from Last 3 Months or Most Recently Relevant to Health Maintenance Insurance - ONE [employer] Care Teams Oxygen System Tester Relationship Specialty Start Date End Date Jennifer Nash NP [address] [place], [place] [address]julian [place] [address] PCP - General Family Medicine 06/25/23
--- OUTSIDE RECORDS SUMMARY | 2024-10-21 10:25 | XMS_ITS | Encounter Summary ---
Author Organization [facility] Address [address] [place] [address] Phone Care Team Providers Care Bead Wrapper Name Role Phone Yelitza Flowers MD Primary Care Provider [phone] Encounter Details Date Type Department Care Team (Late st Contact Info) Description 05/05/2013 Documentation [facility] [place] [address] [place] [address] Family Medicine, Physician [address] [place], [place] [phone] Social History Tobacco Use Types Packs/Day Years [...] on filedocumented in this encounter Care Teams Bead Wrapper Relationship Specialty Start Date End Date Yelitza Flowers MD [address] [place] [address] PCP - General 02/22/17 10/14/22 documented as of this encounter
--- OUTSIDE RECORDS SUMMARY | 2024-10-21 10:25 | XMS_ITS | Encounter Summary ---
Author Organization [employer] Address [address] [facility] 7t [place] [address] Care Team Providers Care Flower Pot Press Operator Name Role Phone Jennifer Nash NP Primary Care Provider [phone] Encounter Details Date Type Department Care Team ([facility] st Contact Info) Description 08/30/2023 Orders Only [facility] MEDICINE [address] [place] [address] Jennifer Nash NP [address] [place] [address] Anemia, unspecified type (Primary Dx); Hypoglycemia Social [...] as of this encounter Plan of Treatment Upcoming Encounters Date Type Department Care Team (Late st Contact Info) Description 10/26/2024 11:15 AM EDT Telemedicine [facility] MEDICINE [address] [place] [address] Jennifer Nash NP [address] [place] [address] documented as of this encounter Visit Diagnoses Diagnosis Anemia, unspecified type- Primary Hypoglycemia Hypoglycemia, unspecified documented in this encounter Additional Health Concerns Assessment Noted Time PHQ-9 Depression Total Score: 3 01/24/20 23 11:03 AM EDT documented as of this encounter Care Teams Flower Pot Press Operator Relationship Specialty Start Date End Date Jennifer Nash NP [address] [place] [address] PCP - General Family Medicine 06/25/23 documented as of this encounter
--- OUTSIDE RECORDS SUMMARY | 2024-10-21 10:25 | XMS_ITS | Encounter Summary ---
Author Organization [employer] Address [address] [facility] 7t [place] [address] Care Team Providers Care Strip Tank Tender Name Role Phone Jennifer Nash NP Primary Care Provider [phone] Reason for Visit * Reason Onset Date Comments Results 08/29/2023 Encounter Details Date Type Department Care Team ([facility] st Contact Info) Description 08/29/2023 Telephone [facility] MEDICINE [address] [place] [address] Jennifer Nash NP [address] [place] [address] Results Social History Tobacco Use Types Packs/Day [...] Blood Work Date when done: 08/26/23 Facility: [facility] Labs TC from pt requesting call back regarding Results. Type of results: Blood Work Date when done: 08/24/23 Facility: [facility] documented in this encounter Plan of Treatment Upcoming Encounters Date Type Department Care Team (Late st Contact Info) Description 10/26/2024 11:15 AM EDT Telemedicine [facility] MEDICINE [address] [place] [address] Jennifer Nash NP [address] [place] [address] documented as of this encounter Visit Diagnoses Not on filedocumented in this encounter Additional Health Concerns Assessment Noted Time PHQ-9 Depression Total Score: 3 01/24/20 23 11:03 AM EDT documented as of this encounter Care Teams Strip Tank Tender Relationship Specialty Start Date End Date Jennifer Nash NP [address] [place] [address] PCP - General Family Medicine 06/25/23 documented as of this encounter
--- OUTSIDE RECORDS SUMMARY | 2024-10-21 10:25 | XMS_ITS | Encounter Summary ---
Author Organization [facility] Address [address] [place] [address] Phone Care Team Providers Care Group Segment Consultant Name Role Phone Yelitza Flowers MD Primary Care Provider [phone] Encounter Details Date Type Department Care Team (Late st Contact Info) Description 07/03/2013 Document[place] [facility] [place] [address] [place] [address] Family Medicine, Physician [address] [place], [place] [phone] Social History Tobacco Use Types Packs/Day Years [...] on filedocumented in this encounter Care Teams Group Segment Consultant Relationship Specialty Start Date End Date Yelitza Flowers MD [address] [place] [address] PCP - General 02/22/17 10/14/22 documented as of this encounter
--- OUTSIDE RECORDS SUMMARY | 2024-10-21 10:26 | XMS_ITS | Clinical Summary ---
[facility] Organization [facility] Address [address] [place] [address] Care Team Providers Care Successfactors Consultant Name Role Phone Unavailable Primary Care Provider [...] COVID-19 Vaccine ( season) 2024 08/16/2021, 07/19/2021 Cervical Cancer Screening: Pap Smear 06/21/2024 06/21/2021 Influenza Vaccine (Season Ended) 2025 04/01/2018, 03/31/2013, 06/15/2009, Additional history exists DTaP,Tdap,and Td Vaccines (8 - Td or [...] age to complete this topic Meningococcal B Vaccine Aged Out No l onger eligible based on patient's age to complete [...] RESULTING AGENCY - 07/05/2021 4:41 PM EST [id number] THINPREP PAP, IMAGED: NEGATIVE FOR SQUAMOUS INTRAEPITHELIAL [...]
== END 2024-10-21 09:58 | disposition home or self-care (01) ==
PROVIDERS: PCP Nurse Practitioner; Visit Provider Surgery
DX: C50.912 Malignant neoplasm of unspecified site of left female breast (principal)
CPT/HCPCS: 99213

== ENCOUNTER → 2024-10-21 09:35 | Outpatient (BNVA) | payer OTHER, SELFPAY | PROVIDERS: Visit Provider Surgery | DX: C50.912 Malignant neoplasm of unspecified site of left female breast (principal) | CPT/HCPCS: 99212 ==

== ENCOUNTER 2024-11-23 10:08 | Outpatient (AMB) | payer OTHER, SELFPAY ==
--- NOTE | 2024-11-23 10:12 | MHC.OFFVIS ---
Vital Signs 11/23/24 10:17 Weight 151 lb BP 117/69 Blood Pressure Location Rt brachial Position Sitting Pulse 85 Intake Visit Reasons: 1 mth follow up breast exam Intake Note: Patient here for 1m follow up breast exam. Undergoing chemotherapy once a wk. Patient c/o: no concerns. Reports no changes. Follow up w/ Dr. Moses scheduled 01-30-2025. Dr. Moses: 01-30-2025 @ 9am. Substance Abuse Therapist Required: No Accompanied by: Self / Same As Patient Allergies black pepper Allergy (Verified 11/23/24 10:17) Angioedema HPI HPI 1 mth follow up breast exam: Details: She is here for follow-up for her left breast cancer. She has undergone neoadjuvant chemotherapy with Dr. Moses in view of the large size of her invasive ductal carcinoma.. She is undergoing neoadjuvant treatment currently with Dr. Moses She says she is tolerating this treatment well. She does state that her hair has fallen off. She denies significant complaints at this time. She also feels that the left breast mass has decreased in size considerably. [facility] Medical History Invasive ductal carcinoma of breast Left breast cancer with T3 tumor, >5 cm in greatest dimension Left breast mass Surgical History H/O section Family History Other Cancer Social History Household Members: Family and Children Alcohol intake: never Patient Tobacco Use Status: Never used Tobacco Advance Directives Date on File: 08/12/24 service: No Current occupational status: other Gender identity: Female Female Reproductive History Menstrual Age of Menarche: 10 Review of Systems Const Denies chills and Denies fever(s) Card Denies chest pain, Denies dyspnea and Denies dyspnea on exertion Resp Denies cough, Denies dyspnea and Denies dyspnea on exertion GI Denies hematochezia and Denies change in bowel habits Denies hematuria Musc Denies back pain and Denies limited range of motion Neuro Denies focal weakness and Denies convulsions Psych Denies depression and Denies mood swings Physical Exam Vital Signs: Last Vital Signs Pulse 85 11/23/24 10:17 BP 117/69 11/23/24 10:17 Const General: comfortable and no acute distress Chest Other: Left breast with vague mass but this is much smaller than previously felt, no axillary lymphadenopathy Resp Effort & Inspection: normal respiratory effort Cardio Rate: regular rate GI Palpation (GI): not soft Assessment & Plan Assessment & Plan (1) Left breast cancer with T3 tumor, >5 cm in greatest dimension: Code(s): C50.912 - Malignant neoplasm of unspecified site of left female breast Category: Medical Plan: She is currently undergoing neoadjuvant chemotherapy because of the large size of her left breast invasive ductal cancer. She is tolerating this well. On physical exam, the mass has decreased in size significantly She says she is scheduled to complete her neoadjuvant chemotherapy in January 2025. She will have an MRI of the breast thereafter to determine extent of response to treatment and we will schedule her for surgical therapy. I will see her again therefore in January. She is to continue to follow up with Dr. Moses. Coding Level of Care Code Est Pt Level 3 (14853) Diagnoses Left breast cancer with T3 tumor, >5 cm in greatest dimension C50.912
[2024-11-23 10:17] VITALS: BP 117/69; PULSE 85
--- OUTSIDE RECORDS SUMMARY | 2024-11-23 10:47 | XMS_ITS | Clinical Summary ---
Author Organization [facility] Address [address] [place] [address] Phone Care Team Providers Care Office Electrician Name Role Phone Unavailable Primary Care Provider [...] PM EDT) URINE CHLAMYDIA AMP PROBE NEGATIVE [facility] Comment: No Chlamydia Trachomatis RNA detected in this patient's sample (REFERENCE RANGE/NORMAL VALUE: NOT DETECTED) URINE GC AMP PROBE NEGATIVE [facility] Comment: No Neisseria Gonorrhoeae RNA detected in this patient's sample (REFERENCE RANGE/NORMAL VALUE: NOT DETECTED) NOTE: This test uses optics technical officer-mediated amplification method to detect rRNA from C.Trachomatis [...] without risk of sexual abuse. Consult the [facility] if needed. Contact phone number . Therapeutic failure or success cannot be determined with the Aptima Combo2 assay since nucleic acid may persist following appropriate antimicrobial therapy. The Centers for Disease Control and Prevention (CDC) recommends confirmatory retesting using culture or a different nucleic acid amplification test when positive results occur, if indicated. Testing performed or reported by [facility], a Service of [facility], [address] [place] [address] CLIA ??[id number] Tim Bearden MD, PhD, Tie Binder 01/05/2016 1:37 PM EDT Narrative [facility] - 01/05/2016 1:37 PM EDT URINE CHLAMYDIA GC AMP PROBE us Yelitza Flowers MD LAB MICROBIOLOGY - GENERAL ORDER FISH Final Result [facility] [address] [place] [address], [place] from Last 3 Months or Most Recently Relevant to Health Maintenance
--- OUTSIDE RECORDS SUMMARY | 2024-11-23 10:47 | XMS_ITS | Encounter Summary ---
Author Organization [facility] Address [address] [place] [address] Phone Care Team Providers Care Crew Trainer Name Role Phone Yelitza Flowers MD Primary Care Provider [phone] Encounter Details Date Type Department Care Team (Late st Contact Info) Description 05/05/2013 Documentation [facility] [place] [address] [place] [address] Family Medicine, Physician [address] [place] [address] Social History Tobacco Use Types [...] on filedocumented in this encounter Care Teams Crew Trainer Relationship Specialty Start Date End Date Yelitza Flowers MD [address] [place] [address] PCP - General 02/22/17 10/14/22 documented as of this encounter
--- OUTSIDE RECORDS SUMMARY | 2024-11-23 10:47 | XMS_ITS | Encounter Summary ---
Author Organization [facility] Address [address] [place] [address] Phone Care Team Providers Care Senior Water/Wastewater Engineer Name Role Phone Yelitza Flowers MD Primary Care Provider [phone] Encounter Details Date Type Department Care Team (Late st Contact Info) Description 02/28/2017 Conversion Encounter [facility] [address] [place] [address] Social History Tobacco Use Types Packs/Day Years [...] on filedocumented in this encounter Care Teams Senior Water/Wastewater Engineer Relationship Specialty Start Date End Date Yelitza Flowers MD [address] [place] [address] PCP - General 02/22/17 10/14/22 documented as of this encounter
--- OUTSIDE RECORDS SUMMARY | 2024-11-23 10:47 | XMS_ITS | Encounter Summary ---
Author Organization [employer] Address [address] [facility] 7t [place] [address] Care Team Providers Care Parasitology Teacher Name Role Phone Jennifer Nash NP Primary Care Provider [phone] Reason for Visit * Reason Onset Date Comments Results 08/29/2023 Encounter Details Date Type Department Care Team ([facility] st Contact Info) Description 08/29/2023 Telephone [facility] MEDICINE [address] [place] [address] Jennifer Nash NP [address] [place] [address] Results Social History Tobacco Use Types Packs/Day [...] Blood Work Date when done: 08/26/23 Facility: [facility] Labs TC from pt requesting call back regarding Results. Type of results: Blood Work Date when done: 08/24/23 Facility: [facility] documented in this encounter Plan of Treatment Not on file documented as of this encounter Visit Diagnoses Not on filedocumented in this encounter Additional Health Concerns Assessment Noted Time PHQ-9 Depression Total Score: 3 01/24/20 23 11:03 AM EDT documented as of this encounter Care Teams Parasitology Teacher Relationship Specialty Start Date End Date Jennifer Nash NP [address] [place] [address] PCP - General Family Medicine 06/25/23 documented as of this encounter
--- OUTSIDE RECORDS SUMMARY | 2024-11-23 10:47 | XMS_ITS | Encounter Summary ---
Author Organization [employer] Address [address] [facility] [address] [place] [address] Care Team Providers Care Rn Clinical Quality Name Role Phone Jennifer Nash NP Primary Care Provider [phone] Encounter Details Date Type Department Care Team (Late st Contact Info) Description 08/30/2023 Orders Only [facility] MEDICINE [address] [place] [address] Jennifer Nash NP [address] [place] [address] Anemia, unspecified type (Primary Dx); Hypoglycemia Social [...] documented as of this encounter Care Teams Rn Clinical Quality Relationship Specialty Start Date End Date Jennifer Nash NP [address] [place] [address] PCP - General Family Medicine 06/25/23 documented as of this encounter
--- OUTSIDE RECORDS SUMMARY | 2024-11-23 10:47 | XMS_ITS | Encounter Summary ---
Author Organization [facility] Address [address] [place] [address] Phone Care Team Providers Care Air Brush Artist Name Role Phone Yelitza Flowers MD Primary Care Provider [phone] Encounter Details Date Type Department Care Team (Late st Contact Info) Description 07/03/2013 Documentation [facility] [place] [address] [place] [address] Family Medicine, Physician [address] [place] [address] Social History Tobacco Use Types [...] on filedocumented in this encounter Care Teams Air Brush Artist Relationship Specialty Start Date End Date Yelitza Flowers MD [address] [place] [address] PCP - General 02/22/17 10/14/22 documented as of this encounter
--- OUTSIDE RECORDS SUMMARY | 2024-11-23 10:48 | XMS_ITS | Clinical Summary ---
Author Organization [facility] Address [address] [place] [address] Care Team Providers Care Fruit Or Nut Farmworker Name Role Phone Unavailable Primary Care Provider [...] RESULTING AGENCY - 07/05/2021 4:41 PM EST [id number] THINPREP PAP, IMAGED: NEGATIVE FOR SQUAMOUS INTRAEPITHELIAL [...]
--- OUTSIDE RECORDS SUMMARY | 2024-11-23 10:48 | XMS_ITS | Data Portability ---
Author Organization [employer] [place] [facility] Address [address] [place] [address] Care Team Providers Care Sterile Process Coordinator Name Role Phone HIM [facility] OTHER Assessment Encounter Date Assessment Date Assessment LastModified by Organization Details LastModified Time 10/02/2024 10/02/2024 I have reviewed and agree with the Assessment and Plan as documented by the Tool Room Machinist. I provided real-time medical direction via phone [...] medical walk-in clinic at her treating hospital ([facility]) for further evaluation including labs and imaging [...] None recorded. Imaging electroca rdiogram 2024 025 [facility], [address] [place] [address], [phone] 18:47:44 Medication Orders None recorded. Patient TargetsNo targets recorded. Patient InstructionsNo instructions recorded. Reason for Referral None Reported. Results Created Date Observation Date Name Description Value Unit Range Abnormal Flag Note LastModifiedBy Organization Detail LastModifiedTime 10/03/1910/02/2024 ellie freedman am No observ ation record ed. [address] [phone] 10/02/2024 20:10:15 Result Notes None recorded. Procedures Surgical History None recorded. Imaging Results Imaging Date Name Status LastModified by Organization Details LastModified Time 10/02/2024 electrocardiogram completed [address], [phone] 10/02/2024 20:10:15 Procedure Notes None recorded. Medical [...] SNOMED-CT Code Diagnosis ICD10 Code Diagnosis Note [id number] Fuad Grande MD [address] [place] [address] 10/02/2024 14:09:39 10/05/2024 13:44:06 Chest pain [id number] R07.9 Health Concerns Section Related Observation LastModified by Organization Detai ls LastModified Time None Recorded Concern Status LastModified by Organization Details LastModified Time None Recorded Advance Directives Directive None Recorded Payers Insurance Date Sequence Insurance Name Policy Number Policy Baxter Covered Member ID Baxter Member ID Guarantor Name 10/02/2024 1 [facility] - DOS ON OR AFTER 2022 - DUAL ELIGIBLE - [employer] OPTIONS AND ONE [employer] (MEDICARE REPLACEMENT/ADV ANTAGE - HMO) Regina Veliz [id number] Regina Veliz Notes Date Note Type Note [...] s/s and seek emergency treatment if needed. Tool Room Machinist Organization Information for [facility] Business Legal Name: [employer]? Address: [address] [place] [address], Base Filler: Chris Damico MD CLIA No.: [id number] Tool Room Machinist POC Test Results from [facility] EKG (13:57:17) EKG test performed. Attachments uploaded as part of this test result can be found under Documents section. .................. .................. .................. .................. .................. .................. .................. ............... Tool Room Machinist Note From [facility]: Dispatched to the [...] set of vitals. 12 lead EKG conducted. [facility] [place]. Pt was advised she should either consult her oncologist or seek further work up. Pt advised she would get a ride to urgent care that has imaging. Red flags discussed. ALL times are approx. .................. .................. .................. .................. .................. .................. .................. ............... [facility] Consulted: Fuad Grande .................. .................. .................. .................. .................. .................. .................. ............... Disposition: Fulfilled Fuad Grande MD [address] [facility], [place], [address], [employer] 10/03/2024 07:44:22 OBGyn Episode No OBEpisode recorded.
--- OUTSIDE RECORDS SUMMARY | 2024-11-23 10:48 | XMS_ITS | Clinical Summary ---
Author Organization [employer] Address [address] [facility] [address] [place] [address] Care Team Providers Care Key Ringer Name Role Phone Jennifer Nash ALFREDO Primary Care Provider [phone] Allergies No known active allergies Medications * [...] 4 Active Blood Glucose Monitoring Suppl (FreeStyle Gallagher Lite) w/Device kitIndications: Hypoglycemia Use to test [...] advised -will call or send message in Provade with results -follow-up 3 months via televisit [...] Description 10/09/2024 10:00 AM EDT Office Visit [facility] [address] [place] [phone] Jennifer Nash NP Situational mixed anxiety and depressive disorder (Primary Dx); Panic attacks; Invasive ductal carcinoma of breast, female, left (CMS/HCC) 10/09/2024 Travel 10/01/2024 Telephone [facility] [address] [place] [address] Reji Chirinos MA chartprep 09/01/2024 Orders Only [facility] External Provider, [facility] 08/26/2024 Orders Only [facility] External Provider, [facility] from Last 3 Months Immunizations Name Administration [...] MMRV 02/12/2014 Meningococcal MCV4P ACYW-135 05/28/2006 Novel Hvsdhjjbu-D3R4-78, all formulations 06/15/2009 Tdap 10/06/2021, 8,05/28/2006,05/28 Social History Tobacco Use Types Packs/Day Years Used Date Smoking Tobacco: Never Passive Smoke Exposure: Never Smokeless Tobacco: Never Tobacco Cessation:Counseling Given: Not Answered Alcohol Use Standard Drinks/Week Comments Never 0 (1 standard drink = 0.6 oz pur e alcohol) Depression Answer Date Recorded Patient Health Questionnaire-9 Score 21 10/09/2024 Patient Health Questionnaire-9 Score 21 10/09/2024 [...] 10/09/2024 10:08 AM EDT Plan of Treatment Health Maintenance Due Date Last Done Comments Alcohol/Substance Use Screening 2007 Pneumococcal Vaccine: Pediatrics (0 to 5 Years) and At-Risk Patients (6 to 49) Years) (1 of 2 - PCV) 2014 COVID-19 Vaccine ( season) 2024 08/16/2021, 07/19/2021 Influenza Vaccine (#1) 2024 , 04/01/2018, 05/05/2014, Additional history exists Mammogram 11/29/2024 09/01/2024, 08/15, 08/05/2024, Additional history exists Diagnostic Breast Imaging 03/01/20252024, 08/26/2024, 08/05/2024, Additional history exists Family Planning (PISQ) 03/23/2025 03/23/2024 Depression Screening 10/09/2025 10/09/2024, 10/10/19 SDOH Screening [...] CONTRAST BILATERAL Routine 08/26/2024 9:30 AM EST HEPATITIS C AB W/REFL TO [...] EST Narrative 09/01/2024 2:45 PM EST ? [facility] [place] ? [address] ?[place] [address] ? Ultrasound Report ? Signed ? Patient: Regina Veliz I ?MR#: [id number] ?? 059 ? : 1995 ?Acct:[id number] ? Age/Sex: 29 / F ?ADM Date: 09/01/24 ? Loc: HO.MAMMO ? Attending Dr: Quique Moses MD ? Ordering Physician: Quique Moses MD ?? Date of Service: 09/01/24 ?? Procedure(s): US breast LT limited ?? Accession Number(s): [id number] ? cc: Jennifer Nash; Quique Moses MD [...] DD/ 1341 ? TD/TT: 09/01/24 1423 ? Business Management Manager: ? Procedure Note Donsharleneter, Image - 09/01/2024 [place] [facility] [address] [place] [address] Ultrasound Report Signed Patient: Regina Veliz IMR#: [id number] [id number] : 1995Acct:[id number] Age/Sex: 29 / FADM Date: 09/01/24 Loc: HO.MAMMO Attending Dr: Quique Moses MD Ordering Physician: Quique Moses MD Date of Service: 09/01/24 Procedure(s): US breast LT limited Accession Number(s): [id number] cc: Jennifer Nash; Quique Moses MD EXAMINATION: [...] 09/01/24 1442 DD/ 1341 TD/TT: 09/01/24 1423 Business Management Manager: [facility] External Provider IMG US PROCEDURES Edited Result - Final * BI MR Breast w and w/o Contrast Bilateral (08/26/2024 9:30 AM EST) Anatomical Region Laterality Modality Breast Bilateral Magnetic Resonan ce 08/26/2024 9:30 AM EST Narrative 08/28/2024 6:09 PM EST ? [facility] ?[address] ?[place] [address] ? Magnetic Resonance Report ? Signed ? Patient: Regina Veliz I ?MR#: [id number] ?? 059 ? : 1995 ?Acct:[id number] ? Age/Sex: 29 / F ?ADM Date: 08/26/24 ? Loc: HO.MRI ? Attending Dr: Fish Cash MD ? Ordering Physician: Fish Cash MD ?? Date of Service: 08/26/24 ?? Procedure(s): MR breast BI wo/w con ?? Accession Number(s): [id number] ? cc: Jennifer Nash; Fish Cash MD; [...] Priscilla Chacon, DO in OV> ? 08/28/24 1806 ? DD/ 0930 ? TD/TT: 08/26/24 1010 ? Business Management Manager: ? Procedure Note Ej, Image - 08/28/[address] [address] Magnetic Resonance Report Signed Patient: Regina Veliz IMR#: [id number] 059 : 1995Acct:[id number] Age/Sex: 29 / FADM Date: 08/26/24 Loc: HO.MRI Attending Dr: Fish Cash MD Ordering Physician: Fish Cash MD Date of Service: 08/26/24 Procedure(s): MR breast BI wo/w con Accession Number(s): [id number] cc: Jennifer Nash; Fish Cash MD; Quique [...] 08/28/2024 06:06 PM EST Dictated By: Priscilla Chacon DO Signed By: <Electronically signed by Priscilla Chacon DO in OV> 08/28/24 1806 DD/ 0930 TD/TT: 08/26/24 1010 Business Management Manager: [facility] External Provider IMG MRI PROCEDURES Edited Result - Final * Hepatitis C Antibody with Reflex to HCV, RNA, Quantitative, Real-Time PCR (08/23/2023 12:46 PM EST) Hepatitis C Antibody Nonreactive Nonreactive [facility] Comment:Antibodies to HCV no t detected; does not exclude early acuteHCV infection. Blood Venous blood specimen / Unknown 08/23/2023 12:46 PM EST 08/23/2023 1:14 PM EST [facility] LAB BLOOD ORDERABLES Final Resu lt Performing Organization Address [facility]/ZIP Co de Phone Number [facility] [address] [place] [address] [phone] * HIV-1/2 Antigen and Antibodies, Fourth Generation, with Reflexes (08/23/2023 12:46 PM EST) [facility] HIV AB/AG Nonreactive Nonreactive [facility] Comment:HIV-1 p24 Ag and/or HIV-1/HIV-2 Ab not detected.A test result that is nonreactive does not exclude thepossibility of exposure to or infection with HIV-1 and/orHIV-2. Nonreactive results in this assay for individualswith prior exposure to HIV-1 and/or HIV-2 may be due toantigen and antibody levels that are below the limit ofdetection of this assay.The [employer] HIV Ag/Ab Combo assay result andsupplemental assay results should be interpreted inconjunction with the patient's clinical presentation,history and other laboratory results. If the results areinconsistent with clinical evidence, additional testing issuggested to confirm the result. Blood Venous blood specimen / Unknown 08/23/2023 12:46 PM EST 08/23/2023 1:14 PM EST [facility] LAB BLOOD ORDERABLES Final Resu lt Performing Organization Address City/[facility]/ZIP Co de Phone Number [facility] [address] [place] [address] [phone] * Pap Smear (03/21/2023 10:00 AM EDT) 03/21/2023 10:0 0 AM EDT 03/22/2023 11:15 AM EDT Narrative [facility] - 04/07/2023 5:21 PM EDT ----- ------- Name: Regina Veliz I ?Age/Sex: 28/F ? : 1995 Unit#: [id number] ?? Attend Dr: KIM PICKENS CNM ?Re03/21/23 ?Status: DEP REF ? [facility] ? Disch: ? ----- ------- SPEC : [id number] ?RECD: 03/22/23-1114 ? STATUS: ??SOUT ? REQ NUM: [id number] ? FLAQUITO: 03/21/23-1000 ? SUBM DR: KIM PICKENS CNM ? ENTERED: ??03/22/23-2366 ?SP TYPE: Pap Smr ?OTHR : ? ORDERED: ??Pap Smear ? Interpretation ?? Satisfactory for evaluation. ?? Negative for intraepithelial lesion or malignancy. ?Clinical Information LMP: Unknown date Previous PAP test: 2019, WNL ? Material Received ?? ThinPrep-Vaginal/Cervical ----- ------- Signed (signature on file) Mary Wahl Joseline 04/07/231720 ? ----- ------- ? END OF REPORT ? us Kim Pickens [facility] LAB CYTOLOGY ORDERABLES F inal Result [facility] [address] [place] [address] [phone] from Last 3 Months or Most Recently Relevant to Health Maintenance Insurance [facility] ONE CARE < [address] [place] [id number] Care Teams Key Ringer Relationship Specialty Start Date End Date Jennifer Nash NP [address] [place] [phone] PCP - General Family Medicine 06/25/23
== END 2024-11-23 10:25 | disposition home or self-care (01) ==
LOC: HO.HGS 10:18
PROVIDERS: PCP Nurse Practitioner; Visit Provider Surgery
DX: C50.912 Malignant neoplasm of unspecified site of left female breast (principal)
CPT/HCPCS: 99213

== ENCOUNTER → 2024-11-23 10:08 | Outpatient (BNVA) | payer OTHER, SELFPAY | PROVIDERS: PCP Nurse Practitioner; Visit Provider Surgery | DX: C50.912 Malignant neoplasm of unspecified site of left female breast (principal); Z92.21 Personal history of antineoplastic chemotherapy | CPT/HCPCS: 99212 ==

== ENCOUNTER 2024-12-04 09:32 | Outpatient (REF) | payer OTHER, SELFPAY ==
--- NOTE | ~2024-12-04 | US_ITS ---
EXAMINATION: US ABDOMEN COMPLETE WITH LIVER ELASTOGRAPHY HISTORY: Elevated LFTs TECHNIQUE: Real-time grayscale ultrasound imaging of the abdomen was performed and images were reviewed. COMPARISON: Comparison is made with the prior examination dated 09/03/2024. FINDINGS: Liver: The right lobe of the liver measures 15.7 cm in size. The left lobe of the liver measures 8.7 cm in size. The liver demonstrates normal homogeneous echotexture. No focal mass or intrahepatic biliary ductal dilatation is identified. There is normal hepatopedal flow in the portal vein. Ultrasound elastography of the liver was performed with 10 separate measurements of the liver parenchyma with the patient in the supine position. Measurements were obtained approximately 2 cm below Zully's capsule and perpendicular to the capsule. Images are of satisfactory quality. The median shear wave velocity is 1.36 m/s. The interquartile range/median (IQR/median) is 0.10. Gallbladder and biliary tree: The gallbladder is unremarkable, without evidence of calculi, wall thickening, or pericholecystic fluid. There is no sonographic Coulter sign. The common bile duct is normal in caliber measuring 3 mm. Kidneys: The right kidney measures 10.4 cm in length and demonstrates a punctate calcification in the interpolar region. The left kidney measures 10.2 cm in length and is unremarkable. There is no hydronephrosis or mass. Pancreas: The pancreatic head, neck, and body are unremarkable. The pancreatic tail is obscured by bowel gas. Spleen: The spleen is normal in size and contour, measuring 10.7 cm in length. Abdominal aorta and inferior vena cava: The visualized portions of the abdominal aorta and inferior vena cava are normal in caliber. There is no free fluid in the abdomen. US/US abdomen comp w elastography IMPRESSION: Punctate right renal calcification. Otherwise unremarkable abdominal ultrasound. The median shear wave velocity in the liver is 1.36 m/s, corresponding to a median liver stiffness of 5.56 kPa. The IQR/median value is 0.10. This is indicative of a quality data set. Findings are indicative of a low elastography value which rules out advanced chronic liver disease in asymptomatic patients. REFERENCE: Society of Radiologists in Ultrasound Liver Stiffness Thresholds (2020): LIVER STIFFNESS THRESHOLDS: *Shear wave velocity less than 1.3 m/s (Liver Stiffness equal or less than 5 kPa): High probability of being normal. *Shear wave velocity less than 1.7 m/s (Liver Stiffness less than 9 kPa): In the absence of other known clinical signs, rules out compensated advanced chronic liver disease. *Shear wave velocity between 1.7-2.1 m/s (Liver Stiffness 9-13 kPa): Suggestive of compensated advanced chronic liver disease but need further test for confirmation. *Shear wave velocity between 2.1-2.4 m/s (Liver Stiffness 13-17 kPa): Rules in compensated advanced chronic liver disease. *Shear wave velocity greater than 2.4 m/s (Liver Stiffness over 17 kPa): Suggestive of clinically significant portal hypertension. QUALITY OF DATA SET: *IQR/Median value equal or less than 0.15 implies a quality data set. *IQR/Median value over 0.15 implies a poor quality data set. SIGNIFICANT CHANGE FROM PRIOR EXAM: Significant change if liver stiffness measurement is 10% or greater from prior exam. OTHER CONSIDERATIONS: The stage of liver fibrosis may be overestimated in the setting of acute hepatitis, liver inflammation, elevated liver function tests, hepatic vascular congestion, obstructive cholestasis, non-fasting state, and infiltrative diseases such as amyloidosis and lymphoma. In some patients with NAFLD, the liver stiffness thresholds for compensated advanced chronic liver disease may be lower. In causes other than viral hepatitis and NAFLD, liver stiffness thresholds are not well established. Electronically signed by: Terence Espitia MD 12/04/2024 10:49 AM EDT
--- OUTSIDE RECORDS SUMMARY | 2024-12-04 09:45 | XMS_ITS | Encounter Summary ---
Author Organization [facility] Address [address] [place] [address] Phone Care Team Providers Care Branch Account Executive Name Role Phone Yelitza Flowers MD Primary Care Provider [phone] Encounter Details Date Type Department Care Team (Late st Contact Info) Description 02/28/2017 Conversion Encounter [facility] [address] [place] [address] Social History Tobacco Use Types Packs/Day Years [...] on filedocumented in this encounter Care Teams Branch Account Executive Relationship Specialty Start Date End Date Yelitza Flowers MD [address] [place] [address] PCP - General 02/22/17 10/14/22 documented as of this encounter
== END 2024-12-04 09:33 | disposition home or self-care (01) ==
LOC: HO.US 09:32
PROVIDERS: PCP Nurse Practitioner; Visit Provider Internal Medicine Medical Oncology
DX: R79.89 Other specified abnormal findings of blood chemistry (principal)
CPT/HCPCS: 76700; 76981

== ENCOUNTER → 2024-12-04 09:34 | Outpatient (BNV) | payer OTHER, SELFPAY | PROVIDERS: PCP Nurse Practitioner; Visit Provider Radiology Diagnostic Radiology | DX: R74.01 Elevation of levels of liver transaminase levels (principal); R94.5 Abnormal results of liver function studies | CPT/HCPCS: 76700; 76981 ==

== ENCOUNTER 2025-01-06 13:49 | Outpatient (REF) | payer OTHER, SELFPAY ==
--- NOTE | ~2025-01-06 | US_ITS ---
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 Patient has left breast pain across the central breast and had a treatment today.. COMPARISON: Comparison is made with relevant prior imaging. TECHNIQUE: Ultrasound of the breast is performed with real-time milton scale imaging and color Doppler. FINDINGS: Targeted color Doppler ultrasound scanning in the left breast from 7-10 o'clock in 2-5 o'clock demonstrates normal follicular breast tissue. The marker clip is seen in the left breast at 10:00 8 cm from the nipple with no surrounding mass only normal fibroglandular breast tissue. Results are discussed with the patient at time of visit. US/US breast LT limited mamm only IMPRESSION: No sonographic abnormal finding to account for the patient's left breast pain. Recommend clinical evaluation and follow-up. 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 No adjacent surrounding mass is seen. ASSESSMENT: BI-RADS 6: Known Biopsy-Proven Malignancy RECOMMENDATION: Recommend follow-up for known left breast cancer with oncology and breast surgery. Electronically signed by: Priscilla Chacon DO 01/06/2025 03:05 PM EDT
--- OUTSIDE RECORDS SUMMARY | 2025-01-06 16:27 | XMS_ITS | Encounter Summary ---
Author Organization [facility] Address [address] [place] [address] Phone Care Team Providers Care Spray Drier Name Role Phone Yelitza Flowers MD Primary Care Provider [phone] Encounter Details Date Type Department Care Team (Late st Contact Info) Description 02/28/2017 Conversion Encounter [facility] [address] [place] [address] Social History Tobacco Use Types Packs/Day Years [...] on filedocumented in this encounter Care Teams Spray Drier Relationship Specialty Start Date End Date Yelitza Flowers MD [address] [place] [address] PCP - General 02/22/17 10/14/22 documented as of this encounter
== END 2025-01-06 13:50 | disposition home or self-care (01) ==
LOC: HO.MAMMO 13:49
PROVIDERS: PCP Nurse Practitioner; Visit Provider Internal Medicine Medical Oncology
DX: N64.4 Mastodynia (principal); C50.912 Malignant neoplasm of unspecified site of left female breast
CPT/HCPCS: 76642

== ENCOUNTER → 2025-01-06 14:30 | Outpatient (BNV) | payer OTHER, SELFPAY | PROVIDERS: PCP Nurse Practitioner; Visit Provider Internal Medicine | DX: N64.4 Mastodynia (principal) | CPT/HCPCS: 76642 ==

== ENCOUNTER 2025-02-01 10:18 | Outpatient (REF) | payer OTHER, SELFPAY ==
--- NOTE | ~2025-02-01 | MR_ITS ---
EXAMINATION: MR BREAST WITHOUT AND WITH CONTRAST, BILATERAL CLINICAL INFORMATION: Biopsy-proven left breast invasive ductal carcinoma on neoadjuvant chemotherapy follow-up evaluation. COMPARISON: Comparison is made with relevant prior imaging. TECHNIQUE: MR imaging of the breast was performed using T1, T2 and fat saturated techniques. Dynamic multiphase imaging was also performed after the administration of intravenous gadolinium contrast agent. Computer generated 3D reconstruction and enhancement kinetic analysis was ulitized by the radiologist in the interpretation of this examination. FINDINGS: Breast composition: Heterogeneous fibroglandular breast tissue Background parenchymal enhancement: Moderate LEFT BREAST: There is a subtle area of linear nonmass enhancement in the medial central inner left breast series 1039 images 59-60 6/120. This area measures approximately 43 mm anterior to posterior by 6 mm transverse by 5 mm superior to inferior and is significantly smaller and less avidly enhancing from prior MRI August 26, 2024. No other suspicious enhancing masses or areas of non mass enhancement. No axillary or internal mammary adenopathy. RIGHT BREAST: No suspicious enhancing masses or areas of non mass enhancement. No axillary or internal mammary adenopathy. Limited views of the chest and abdomen are unremarkable. MR/MR breast BI wo/w con IMPRESSION: Right: Negative. Left: Biopsy-proven left breast malignancy with decrease in size compared with prior MRI August 26, 2024. Recommend follow-up with oncology and breast surgery for excision and further management of known biopsy-proven left breast invasive ductal carcinoma. ASSESSMENT: LEFT BREAST: BI-RADS 6 known biopsy-proven malignancy. Recommend follow-up with oncology and breast surgery for excision and further management of known biopsy-proven left breast invasive ductal carcinoma. RIGHT BREAST: BI-RADS 1-Negative RECOMMENDATIONS: Follow-up with oncology and breast surgical team for excision and further management of known left breast invasive ductal carcinoma. Electronically signed by: Priscilla Chacon DO 02/02/2025 04:52 PM EDT
--- NOTE | ~2025-02-01 | MR_ITS ---
EXAMINATION: MR BREAST WITHOUT AND WITH CONTRAST, BILATERAL CLINICAL INFORMATION: Biopsy-proven left breast invasive ductal carcinoma on neoadjuvant chemotherapy follow-up evaluation. COMPARISON: Comparison is made with relevant prior imaging. TECHNIQUE: MR imaging of the breast was performed using T1, T2 and fat saturated techniques. Dynamic multiphase imaging was also performed after the administration of intravenous gadolinium contrast agent. Computer generated 3D reconstruction and enhancement kinetic analysis was ulitized by the radiologist in the interpretation of this examination. FINDINGS: Breast composition: Heterogeneous fibroglandular breast tissue Background parenchymal enhancement: Moderate LEFT BREAST: There is a subtle area of linear nonmass enhancement in the medial central inner left breast series 1039 images 59-60 6/120. This area measures approximately 43 mm anterior to posterior by 6 mm transverse by 5 mm superior to inferior and is significantly smaller and less avidly enhancing from prior MRI August 26, 2024. No other suspicious enhancing masses or areas of non mass enhancement. No axillary or internal mammary adenopathy. RIGHT BREAST: No suspicious enhancing masses or areas of non mass enhancement. No axillary or internal mammary adenopathy. Limited views of the chest and abdomen are unremarkable. MR/MR CAD IMPRESSION: Right: Negative. Left: Biopsy-proven left breast malignancy with decrease in size compared with prior MRI August 26, 2024. Recommend follow-up with oncology and breast surgery for excision and further management of known biopsy-proven left breast invasive ductal carcinoma. ASSESSMENT: LEFT BREAST: BI-RADS 6 known biopsy-proven malignancy. Recommend follow-up with oncology and breast surgery for excision and further management of known biopsy-proven left breast invasive ductal carcinoma. RIGHT BREAST: BI-RADS 1-Negative RECOMMENDATIONS: Follow-up with oncology and breast surgical team for excision and further management of known left breast invasive ductal carcinoma. Electronically signed by: Priscilla Chacon DO 02/02/2025 04:52 PM EDT
--- OUTSIDE RECORDS SUMMARY | 2025-02-01 11:17 | XMS_ITS | Clinical Summary ---
Author Organization [facility] Address [address] [place] [address] Care Team Providers Care Lawn Maintenance Worker Name Role Phone Unavailable Primary Care Provider [...] Health Maintenance Due Date Last Done Comments COVID-19 Vaccine ( season) 2024 08/16/2021, 07/19/2021 Cervical Cancer Screening: Pap Smear 06/21/2024 06/21/2021 Depression Screening 07/15/2024 Influenza Vaccine (#1) 2025 8, 03/31/2013, 06/15/2009, Additional history exists DTaP,Tdap,and Td [...] 5 Years) and At-Risk Patients (6 to 49 Years) Aged Out No longer eligible based [...] RESULTING AGENCY - 07/05/2021 4:41 PM EST [id number] THINPREP PAP, IMAGED: NEGATIVE FOR SQUAMOUS INTRAEPITHELIAL LESION AND MALIGNANCY . NOTE: ADEQUACY DEEMED SATISFACTORY AFTER REPROCESSING WITH ACID WASH [...] HX NEG. Nyasia Cadet DO LAB CYTOLOGY ORDERABLES Final Result HISTORICAL TESTING LAB RESULTING AGENCY from Last 3 Months or Most Recently Relevant to Health Maintenance
--- OUTSIDE RECORDS SUMMARY | 2025-02-01 11:17 | XMS_ITS | Data Portability ---
Author Organization [employer] [facility], [facility] Hospital[facility] Interview [facility] Address [address] [place] [phone] Care Team Providers Care Program Clinician Name Role Phone HIM CCA OTHER Assessment Encounter Date Assessment Date Assessment LastModified by Organization Details LastModified Time 10/02/2024 10/02/2024 I have reviewed and agree with the Assessment and Plan as documented by the Army Helicopter Pilot. I provided real-time medical direction via phone [...] medical walk-in clinic at her treating hospital ([facility]) for further evaluation including labs [...] 911 activation discussed and patient voices understanding. hcarla Not available 10/03/2024 07:44:06 Plan of Treatment Reminders Order Date Submit Date Provider Last Modified By Organization Details Last Modified Time Details Appointments None recorded. Lab None recorded. Referral None recorded. Procedures None recorded. Surgeries None recorded. Imaging electroca rdiogram 2024 025 corinnechrsit[facility], [address] [place] [address], [phone] 18:47:44 Medication Orders None recorded. Patient TargetsNo targets recorded. Patient InstructionsNo instructions recorded. Reason for Referral None Reported. Results Created Date Observation Date Name Description Value Unit Range Abnormal Flag Note LastModifiedBy Organization Detail LastModifiedTime 10/03/1910/02/2024 ellie freedman am No observ ation record ed. isaac [address], [phone] 10/02/2024 20:10:15 Result Notes None recorded. Medical Equipment None Reported. [...] in Arterial blood by Pulse oximetry Systolic And Diastolic Provider Name and Address Organization Details Last Updated DateTime 16 /min 75 /min 98.9 [degF] 100 % 100 % 112/72 mm[Hg] Not Available [employer] - production 14:09:48 [...] SNOMED-CT Code Diagnosis ICD10 Code Diagnosis Note [id number] Fuad Grande MD [address] [phone] 10/02/2024 14:09:39 10/05/2024 13:44:06 Chest pain 57526138 R07.9 Health Concerns Section Related Observation LastModified by Organization Sang gill LastModified Time None Recorded Concern Status LastModified by Organization Details LastModified Time None Recorded Advance Directives Directive None Recorded Payers Insurance Date Sequence Insurance Name Policy Number Policy Baxter Covered Member ID Baxter Member ID Guarantor Name 10/02/2024 1 [facility] - DOS ON OR AFTER 2022 - DUAL ELIGIBLE - [employer] OPTIONS AND ONE CARE (MEDICARE REPLACEMENT/ADV ANTAGE - HMO) Regina Veliz [id number] Regina Marshall Jose Alfredo Notes Date Note Type Note Provider Name and Address Organization Details Recorded Time 10/02/2024 text/html CRC Nurse Triage Notes (Nunu Perla): Reason For Request: Patient feels chest tightness and catches her breath and gets shakey sometimes. Denies: History of Heart Attack, in the setting of active chest pain Active Chest pain, radiates to neck jaw and or arm Diaphoretic/Sweati ng Describes as crushing Sudden onset of nausea/Vomiting and shortness of breath. Shortness of Breath Unable to speak in full sentences without distress Chief Complaints: Chest Pain PMH: Asthma, Cancer PMH Reviewed at 10/02/2024:36 Allergies Reviewed at 10/02/2024 12:36 Comments: Patient reporting intermittent episodes of [...] s/s and seek emergency treatment if needed. Army Helicopter Pilot Organization Information for [facility] Business Legal Name: [employer]. Address: [address] [place] [id number], Forklift Truck Operator: Chris Damico MD CLIA No.: [id number] [employer] POC Test Results from [facility] EKG (13:57:17) EKG test performed. Attachments uploaded as part of this test result can be found under Documents section. .................. .................. .................. .................. .................. .................. .................. ............... [employer] Note From [facility]: Dispatched to the [...] set of vitals. 12 lead EKG conducted. [facility] consulted. Pt was advised she should either consult her oncologist or seek further work up. Pt advised she would get a ride to urgent care that has imaging. Red flags discussed. ALL times are approx. .................. .................. .................. .................. .................. .................. .................. ............... [facility] Consulted: Fuad Grande .................. .................. .................. .................. .................. .................. .................. ............... Disposition: Fulfilled Fuad Grande MD [address] [facility], [place], [phone], [address] - Answer.To 10/03/2024 07:44:22 OBGyn Episode No OBEpisode recorded.
--- OUTSIDE RECORDS SUMMARY | 2025-02-01 11:17 | XMS_ITS | Encounter Summary ---
Author Organization [facility] Address [address] [place] [address] Phone Care Team Providers Care Adjunct Nursing Faculty Name Role Phone Yelitza Flowers MD Primary Care Provider [phone] Encounter Details Date Type Department Care Team (Late st Contact Info) Description 02/28/2017 Conversion Encounter [place] [facility] [place] [facility] [place] [address] [place] [address] Social History Tobacco Use Types Packs/Day Years [...] on filedocumented in this encounter Care Teams Adjunct Nursing Faculty Relationship Specialty Start Date End Date Yelitza Flowers MD [address] [place] [address] PCP - General 02/22/17 10/14/22 documented as of this encounter
== END 2025-02-01 10:19 | disposition home or self-care (01) ==
LOC: HO.MRI 10:18
PROVIDERS: PCP Nurse Practitioner; Visit Provider Internal Medicine Medical Oncology
DX: C50.919 Malignant neoplasm of unspecified site of unspecified female breast (principal)
CPT/HCPCS: 76377; 77049; A9585

== ENCOUNTER → 2025-02-01 10:27 | Outpatient (BNV) | payer OTHER, SELFPAY | PROVIDERS: PCP Nurse Practitioner; Visit Provider Internal Medicine | DX: C50.912 Malignant neoplasm of unspecified site of left female breast (principal) | CPT/HCPCS: 76377; 77049 ==

== ENCOUNTER 2025-02-03 10:10 | Outpatient (AMB) | payer OTHER, SELFPAY ==
--- NOTE | 2025-02-03 10:13 | MHC.OFFVIS ---
Vital Signs 02/03/25 10:17 Height 5 ft 1 in Weight 154 lb BMI 29.1 BP 122/73 Blood Pressure Location Rt brachial Position Sitting Pulse 87 Intake Visit Reasons: 2 month follow up Breast Exam Intake Note: Patient here for 2m follow up breast exam. Reports completed chemo treatments. Patient c/o: no concerns. Breast MRI: 02-01-2025 Dr. Moses: 03-18-25 @ 10:20 Recreational Resort Manager Required: No Accompanied by: Anderson Allergies black pepper Allergy (Verified 02/03/25 10:16) Angioedema HPI HPI 2 month follow up Breast Exam: Details: 29-year-old female here for follow-up for her invasive ductal carcinoma of the left breast. She was diagnosed to have this in July,. At that time, her mammogram showed the lesion to be 6.3 cm anterior-posterior by 3.2 cm transversely by 5.2 cm superior to inferior. In view of the large size of the tumor, she had undergone neoadjuvant chemotherapy with Dr. Moses. She had completed neoadjuvant chemotherapy 2 weeks ago. She says she is doing well overall. She had a follow up MRI done last week showing the lesion to be 43 mm anterior-posterior by 6 mm transversely by 5 mm superior to inferior. There is no axillary lymphadenopathy noted. Her menarche was at the age of 11. Her 1st was the age of 23. She had 2 pregnancies with 2 live births and 2 miscarriages. She still has regular periods She denies any family history of breast cancer. She already had genetic testing which was negative for mutations. [facility] Medical History Invasive ductal carcinoma of breast Left breast cancer with T3 tumor, >5 cm in greatest dimension Left breast mass Surgical History H/O section Family History Other Cancer Social History Household Members: Family and Children Alcohol intake: never Patient Tobacco Use Status: Never used Tobacco Advance Directives Date on File: 08/12/24 service: No Current occupational status: other Gender identity: Female Female Reproductive History Menstrual Age of Menarche: 10 Review of Systems Const Denies chills and Denies fever(s) Card Denies chest pain, Denies dyspnea and Denies dyspnea on exertion Resp Denies cough, Denies dyspnea and Denies dyspnea on exertion GI Denies hematochezia and Denies change in bowel habits Denies hematuria Musc Denies back pain and Denies limited range of motion Neuro Denies focal weakness and Denies convulsions Psych Denies depression and Denies mood swings Physical Exam Vital Signs: Last Vital Signs Pulse 87 02/03/25 10:17 BP 122/73 02/03/25 10:17 BMI result Body Mass Index 29.1 Const General: comfortable and no acute distress Orientation/consciousness: patient oriented x3 Neck Neck: Yes no lymphadenopathy Chest Other: I am unable to feel the mass in the left breast. There is no axillary lymphadenopathy. There were no nipple or skin changes Resp Auscultation: clear to auscultation bilaterally Cardio Rhythm: regular rhythm GI Palpation (GI): Soft to palpation, nontender and no guarding Neuro General: patient oriented x3 Assessment & Plan Assessment & Plan (1) Left breast cancer with T3 tumor, >5 cm in greatest dimension: Code(s): C50.912 - Malignant neoplasm of unspecified site of left female breast Category: Medical Plan: She had undergone neoadjuvant chemotherapy for her invasive ductal cancer of the left breast in view of the large size. She has completed this treatment and had a follow up MRI done last week. This shows that the mass has decreased in size significantly and is currently 43 mm x 6 mm x 5 mm in size. There is no obvious lymphadenopathy on exam and on mammogram I reviewed with her her options for surgical treatment. She can undergo mastectomy with sentinel node biopsy. I explained the technique of the procedure as well as the risks, benefits, and alternatives. The other option is to do a lumpectomy with sentinel node biopsy as well. She will require whole breast radiation postop if she decides to do a lumpectomy. She understands the technique of the procedure as was the risks, benefits, and alternatives. Although the masses decreased in size, this is still significant size so I am uncertain as whether this is a good option for her compared to mastectomy I will discuss this with Dr. Moses of Oncology. I will talk to the patient again as she is still uncertain as to the option that she prefers. She says she is going to discuss this with Dr. Moses as well on her next visit and then we can plan on surgery. Coding Level of Care Code Est Pt Level 3 (85608) Diagnoses Left breast cancer with T3 tumor, >5 cm in greatest dimension C50.912
[2025-02-03 10:17] VITALS: BP 122/73; PULSE 87; BMI 29.1
--- OUTSIDE RECORDS SUMMARY | 2025-02-03 11:07 | XMS_ITS | Clinical Summary ---
[facility] Address [address] [place] [address] Care Team Providers Care Ice Skater Name Role Phone Unavailable Primary Care Provider [...] RESULTING AGENCY - 07/05/2021 4:41 PM EST [id number] THINPREP PAP, IMAGED: NEGATIVE FOR SQUAMOUS INTRAEPITHELIAL [...]
--- OUTSIDE RECORDS SUMMARY | 2025-02-03 11:07 | XMS_ITS | Encounter Summary ---
Author Organization [facility] Address [address] [place] [address] Phone Care Team Providers Care Freight Dispatcher Name Role Phone Yelitza Flowers MD Primary Care Provider [phone] Encounter Details Date Type Department Care Team (Late st Contact Info) Description 02/28/2017 Conversion Encounter [place] [facility] [place] [address] [place] [address] Social History Tobacco Use Types Packs/Day Years [...] on filedocumented in this encounter Care Teams Freight Dispatcher Relationship Specialty Start Date End Date Yelitza Flowers MD [address] [place] [address] PCP - General 02/22/17 10/14/22 documented as of this encounter
--- OUTSIDE RECORDS SUMMARY | 2025-02-03 11:07 | XMS_ITS | Data Portability ---
Author Organization [employer] [facility] Address [address] [place] [id number] Care Team Providers Care Siphoner Name Role Phone HIM CCA OTHER Assessment Encounter Date Assessment Date Assessment LastModified by Organization Details LastModified Time 10/02/2024 10/02/2024 I have reviewed and agree with the Assessment and Plan as documented by the Dairy Farm Worker. I provided real-time medical direction via phone [...] medical walk-in clinic at her treating hospital ([facility]) for further evaluation including labs and imaging [...] None recorded. Imaging electroca rdiogram 2024 025 corinnechristopher [facility], [address] [place] [address], [phone] 18:47:44 Medication Orders None recorded. Patient TargetsNo targets recorded. Patient InstructionsNo instructions recorded. Reason for Referral None Reported. Results Created Date Observation Date Name Description Value Unit Range Abnormal Flag Note LastModifiedBy Organization Detail LastModifiedTime 10/03/1910/02/2024 ellie freedman am No observ ation record ed. isaac [address], [phone] 10/02/2024 20:10:15 Result Notes None recorded. Medical [...] SNOMED-CT Code Diagnosis ICD10 Code Diagnosis Note [id number] Fuad Grande MD [address] [id number] 10/02/2024 14:09:39 10/05/2024 13:44:06 Chest pain [id number] R07.9 Health Concerns Section Related Observation LastModified by Organization Sang gill LastModified Time None Recorded Concern Status LastModified by Organization Details LastModified Time None Recorded Advance Directives Directive None Recorded Payers Insurance Date Sequence Insurance Name Policy Number Policy Baxter Covered Member ID Baxter Member ID Guarantor Name 10/02/2024 1 [facility] - DOS ON OR AFTER 2022 - DUAL ELIGIBLE - RESIDENTIAL OPTIONS AND ONE CARE (MEDICARE REPLACEMENT/ADV ANTAGE - HMO) Regina Veliz [id number] Regina Marshall Jose Alfredo Notes Date Note [...] s/s and seek emergency treatment if needed. Dairy Farm Worker Organization Information for [facility] Business Legal Name: [employer] Address: [address] [place] [address], Hat Finisher: Chris Damico MD CLIA No.: [id number] Dairy Farm Worker POC Test Results from [facility] EKG (13:57:17) EKG test performed. Attachments uploaded as part of this test result can be found under Documents section. .................. .................. .................. .................. .................. .................. .................. ............... Dairy Farm Worker Note From [facility] Louis: Dispatched to the [...] set of vitals. 12 lead EKG conducted. [facility] [place]. Pt was advised she should either consult her oncologist or seek further work up. Pt advised she would get a ride to urgent care that has imaging. Red flags discussed. ALL times are approx. .................. .................. .................. .................. .................. .................. .................. ............... [facility] [place] Consulted: Fuad Grande .................. .................. .................. .................. .................. .................. .................. ............... Disposition: Fulfilled Fuad Grande MD [address] [facility], [place], [address], [facility] 10/03/2024 07:44:22 OBGyn Episode No OBEpisode recorded.
--- OUTSIDE RECORDS SUMMARY | 2025-02-03 11:07 | XMS_ITS | Encounter Summary ---
Author Organization [employer] Address [address] [facility] [address] [place] [address] Care Team Providers Care Model And Mold Maker Plaster Name Role Phone Jennifer Nash NP Primary Care Provider [phone] Reason for Visit * Reason Onset Date Comments Results 08/29/2023 Encounter Details Date Type Department Care Team ([facility] st Contact Info) Description 08/29/2023 Telephone [facility] [address] [place] [address] Jennifer Nash NP [address] [place] [address] Results Social History Tobacco Use Types Packs/Day [...] Blood Work Date when done: 08/24/23 Facility: [facility] documented in this encounter Plan of Treatment Upcoming Encounters Date Type Department Care Team (Late st Contact Info) Description 03/24/2025 9:30 AM EDT Office Visit [facility] [address] [place] [address] Payal Martinez CNM [address] [place] [address] documented as of this encounter Visit Diagnoses Not on filedocumented in this encounter Additional Health Concerns Assessment Noted Time PHQ-9 Depression Total Score: 3 01/24/20 23 11:03 AM EDT documented as of this encounter Care Teams Model And Mold Maker Plaster Relationship Specialty Start Date End Date Jennifer Nash NP [address] [place] [address] PCP - General Family Medicine 06/25/23 documented as of this encounter
== END 2025-02-03 10:47 | disposition home or self-care (01) ==
LOC: HO.HGS 10:11
PROVIDERS: PCP Nurse Practitioner; Visit Provider Surgery
DX: C50.912 Malignant neoplasm of unspecified site of left female breast (principal)
CPT/HCPCS: 99213

== ENCOUNTER → 2025-02-03 10:10 | Outpatient (BNVA) | payer OTHER, SELFPAY | PROVIDERS: PCP Nurse Practitioner; Visit Provider Surgery | DX: C50.912 Malignant neoplasm of unspecified site of left female breast (principal); Z92.21 Personal history of antineoplastic chemotherapy | CPT/HCPCS: 99212 ==

== ENCOUNTER 2025-03-23 08:32 | Outpatient (BNV) | payer OTHER, SELFPAY | END 2025-03-23 09:06 | PROVIDERS: Admitting Provider Surgery; PCP Nurse Practitioner; Visit Provider Radiology Diagnostic Radiology | DX: C50.912 Malignant neoplasm of unspecified site of left female breast (principal) | CPT/HCPCS: 78195 ==

== ENCOUNTER 2025-03-23 08:32 | Inpatient (IN) | payer OTHER, SELFPAY ==
--- OUTSIDE RECORDS SUMMARY | 2025-02-25 07:49 | XMS_ITS | Encounter Summary ---
Author Organization [facility] Address [address] [place] [address] Phone Care Team Providers Care Rotary Rock Drilling Machine Operator Name Role Phone Yelitza Flowers MD Primary Care Provider [phone] Encounter Details Date Type Department Care Team (Late st Contact Info) Description 02/28/2017 Conversion Encounter [place] [facility] [place] [address] [place] [address] Social History Tobacco Use Types Packs/Day Years [...] on filedocumented in this encounter Care Teams Rotary Rock Drilling Machine Operator Relationship Specialty Start Date End Date Yelitza Flowers MD [address] [place] [address] PCP - General 02/22/17 10/14/22 documented as of this encounter
--- OUTSIDE RECORDS SUMMARY | 2025-02-25 07:49 | XMS_ITS | Encounter Summary ---
Author Organization [employer] Address [address] [facility] [address] [place] [address] Care Team Providers Care Tool And Die Maker Level Five Name Role Phone Jennifer Nash NP Primary Care Provider [phone] Reason for Visit * Reason Onset Date Comments Results 08/29/2023 Encounter Details Date Type Department Care Team ([facility] st Contact Info) Description 08/29/2023 Telephone [facility] [address] [place] [address] Jennifer Nash NP [address] [place] [address] Results Social History Tobacco Use Types Packs/Day [...] Blood Work Date when done: 08/26/23 Facility: [facility] Labs TC from pt requesting call back regarding Results. Type of results: Blood Work Date when done: 08/24/23 Facility: [facility] documented in this encounter Plan of Treatment Upcoming Encounters Date Type Department Care Team (Late st Contact Info) Description 03/24/2025 9:30 AM EDT Office Visit [facility] [address] [place] [address] Payal Martinez CNM [address] [place] [address] documented as of this encounter Visit Diagnoses Not on filedocumented in this encounter Additional Health Concerns Assessment Noted Time PHQ-9 Depression Total Score: 3 01/24/20 23 11:03 AM EDT documented as of this encounter Care Teams Tool And Die Maker Level Five Relationship Specialty Start Date End Date Jennifer Nash NP [address] [place] [address] PCP - General Family Medicine 06/25/23 documented as of this encounter
--- OUTSIDE RECORDS SUMMARY | 2025-02-25 07:49 | XMS_ITS | Clinical Summary ---
Author Organization [facility] Address [address] [place] [address] Care Team Providers Care Sports Marketing Internship Name Role Phone Unavailable Primary Care Provider [...] RESULTING AGENCY - 07/05/2021 4:41 PM EST [id number] THINPREP PAP, IMAGED: NEGATIVE FOR SQUAMOUS INTRAEPITHELIAL [...]
[2025-03-19 14:15] VITALS: BMI 29.1
--- NOTE | 2025-03-22 08:43 | HO.ANESPROP2 ---
Documented by User: Leila Donovan NP 03/22/25 08:45 HPI - Anesthesia Eval Consult details Narrative: 30yo F for Left Mastectomy Simple, Plum Branch Node Biopsy PMFSH Active Problems Active Problems: All Active Problems Medication side effects (Acute) Anxiety about health (Acute) Anemia (Acute) Invasive ductal carcinoma of breast (Acute) Left breast cancer with T3 tumor, >5 cm in greatest dimension (Acute) Left breast mass (Acute) Past Medical History Medical History Invasive ductal carcinoma of breast Left breast cancer with T3 tumor, >5 cm in greatest dimension Left breast mass Family History Family History Other Cancer Surgical History Surgical History (Updated 03/23/25 @ 08:35 by Loulou La RN) History of tubal ligation H/O section Social History Social History Household Members: Family and Children Are you a primary intensive care unit registered nurse to a significant other at home: No Do you presently have visiting nurse or other home services: No Alcohol intake: never Patient Tobacco Use Status: Never used Tobacco Use of substances other than those prescribed or required for medical reasons: No Have you been hit, kicked, punched, or otherwise hurt by someone within the past year? If so, by whom?: No Are you DNR?: No Advance Directives: No Advance Directives Information Provided: Yes Advance Directives Date on File: 08/12/24 Patient : No FDLMP: 10/2024 : No Poor oral hygiene: No service: No Current occupational status: other Gender identity: Female Meds Allergies Allergy/AdvReac Type Severity Reaction Status Date / Time black pepper Allergy Angioedema Verified 03/23/25 07:46 Exam Height,Weight and Vital Signs: Height 5 ft 1 in Weight 69.853 kg Pertinent Lab Results Pertinent Lab Results: Laboratory Tests 03/18/25 10:22 WBC 5.2 Hgb 10.5 L Hct 32.4 L Plt Count 333 Sodium 138 Potassium 3.7 Chloride 105 Carbon Dioxide 26 BUN 8 L Creatinine 0.58 Narrative Narrative: EKG 09/2024 NSR @ 70 Assessment and Plan Assessment Anesthesia Assessment: Chart Reviewed Documented by User: Alicia Mak MD 03/23/25 10:50 PMFSH Past Medical History Medical History Invasive ductal carcinoma of breast Left breast cancer with T3 tumor, >5 cm in greatest dimension Left breast mass Family History Family History Other Cancer Family history of problems with anesthesia: No Surgical History Surgical History (Updated 03/23/25 @ 08:35 by Loulou La RN) History of tubal ligation H/O section History of Problems with Anesthesia: No Social History Social History Household Members: Family and Children Are you a primary intensive care unit registered nurse to a significant other at home: No Do you presently have visiting nurse or other home services: No Alcohol intake: never Patient Tobacco Use Status: Never used Tobacco Use of substances other than those prescribed or required for medical reasons: No Have you been hit, kicked, punched, or otherwise hurt by someone within the past year? If so, by whom?: No Are you DNR?: No Advance Directives: No Advance Directives Information Provided: Yes Advance Directives Date on File: 08/12/24 Patient : No FDLMP: 10/2024 : No Poor oral hygiene: No service: No Current occupational status: other Gender identity: Female Meds Allergies Allergy/AdvReac Type Severity Reaction Status Date / Time black pepper Allergy Angioedema Verified 03/23/25 07:46 Exam Airway Mallampati Class: II TM Dist: >3cm Neck ROM: Full Heart: rrr Lungs: cta Assessment and Plan Assessment Anesthesia Assessment: Anesthesia Plan Discussed Final Anesthetic Review Family History of Problems with Anesthesia: No History of Problems with Anesthesia: No NPO: Yes ASA Class: II Final Preanesthetic Review: No Changes in Pt Med Stat, Meds/Allgs Chart Reviewed and Consent Obtained/Reviewed Patient Risk: Low Procedure Risk: Low Anesthetic Plan Anesthetic Plan: GA Disposition: Standard PACU
[2025-03-23] VITALS (14 sets, daily range): BP systolic 96–136; BP diastolic 54–84; PULSE 72–92; RESP 12–18; TEMP 36.1–36.6; O2SAT 96–100
--- NOTE | ~2025-03-23 | NM_ITS ---
Examination: Nuclear medicine sentinel node with imaging. CLINICAL INDICATION: Left breast cancer. TECHNIQUE: Following explaining sentinel node procedure, benefits and risk, a written consent was obtained by surgeon Dr. Csah. 1% lidocaine was applied around the left breast half and hour prior to exam. The area was then cleaned in aseptic manner. 0.5 mCi of 99m technetium lymphoseek divided was divided equally and subdermally injected in 4 quadrants. Images were obtained approximately 30 minutes later. Patient tolerated procedure extremely well. FINDINGS: There is isotope activity seen along the left breast areola in 4 quadrants with a solitary activity in the left anterior breast. No activity seen extending to internal mammary nodes. NM/NM sentinel node w imaging IMPRESSION: Solitary sentinel left anterior axilla on left breast lymphoscintigraphy. Electronically signed by: Mayito Bradford MD 03/23/2025 11:27 AM EDT
[2025-03-23] MEDS: Lidocaine 4 % Cream KIT 1 APPL TOPICAL (07:20)
[2025-03-23 07:27] LABS: UPreg QC Valid YES
[2025-03-23] MEDS: Lactated Ringers 1,000 ML 100 ML IVCONT ×2 (07:44→16:15)
--- NOTE | 2025-03-23 09:29 | MHC.SHP ---
Pre-Procedural Eval Section A - 24 Hr Update-Section A only Date of Service: 03/23/25 Section B - Complete if H&P > 30 days Chief Complaint: left breat cancer Details of Present Illness: Large invasive ductal carcinoma of the left breast, had undergone neoadjuvant chemotherapy, now for mastectomy and sentinel node biopsy Relevant Family History (Specify if Yes): No Relevant Social History: None Present Medications: see Short Stay Collaborative assessment Medical History: Significant History (Anxiety, anemia) Allergies: Allergies Allergy/AdvReac Type Severity Reaction Status Date / Time black pepper Allergy Angioedema Verified 03/23/25 07:46 Review of Systems Sugical H&P ROS: Negative: Constitution, Cardiovascular and Respiratory Exam Surgical H&P Exam: Normal: Heart, Normal: Lungs, Normal: Extremities and Normal: Abdomen Exam Comment: Palpable mass on the left breast Plan Diagnosis/Plan: Unchanged I have reviewed the history and physical and performed a pertinent physical examination on my patient. No changes have occurred unless specified. Time Spent With Patient Time: Total time managing care of this patient today ____ minutes.
--- NOTE | 2025-03-23 12:07 | PHA.MEDREC ---
Pharmacy Consult ? Medication Reconciliation Pharmacy has reviewed the medication reconciliation done by nursing.
--- NOTE | 2025-03-23 13:08 | P.OP_ITS ---
Operative Note Operative Note Date of Service: 03/23/25 Narrative: Preop diagnosis: Invasive ductal carcinoma, left breast, status post neoadjuvant chemotherapy Postop diagnosis: The same Procedure: Total mastectomy, left breast, with sentinel node biopsy Surgeon: Fish Cash MD program support assistant: RUBEN Melvin The patient is a 30 year female with a large invasive ductal carcinoma who had undergone neoadjuvant chemotherapy. She is here for total mastectomy with sen tinel node biopsy. She understood the technique of the planned procedure as was the risks, benefits, and alternatives Lymphoscintigraphy done earlier reviewed and this did not reveal any obvious se ntinel nodes I therefore planned on injecting methylene blue in the subareolar area The patient was brought to the operating room and placed supine under general anesthesia via laryngeal mask airway. A pectoralis block was done by the anesthesiologist in accordance with the ERAS protocol. I injected methylene blue on 4 quadrants of the sub areolar area, about 1 cc each quadrant. The left chest and axilla were then prepped and draped in the usual sterile fashion. A surgical time-out was done. The patient received cefazolin 2 g IV preoperatively. I made a standard mastectomy incision on the skin surrounding the nipple-areolar complex with a blade 15. This carried down with electrocautery through the full- thickness of the skin and subcutaneous fat I then proceeded to develop my superior flap. I lifted the subdermal layer with Cali clamps for traction and counter traction. I used the electrocautery to the superior flap with skin and subcutaneous tissue, with care being taken as to maintain inventory control assistant thickness of the flap. We developed this flap all the way to the clavicular area which was our superior margin. I then expose the fascia of the pectoralis on the superior area all the way from medial to lateral. After this was achieved, I proceeded then developed the inferior flap. Again, the subdermal layer was lifted with Cali clamps for traction counter traction. I used electrocautery to develop the inferior flap of skin and subcutaneous tissue, again with care being taken so as to maintain consistent thickness of the flap. This flap was developed all the way to the inframammary fold. I then proceeded to incise the pectoralis fascia to expose the plane between the fascia and the pectoralis muscle itself. I used electrocautery and blunt dissection to carefully lift up the pectoralis fascia from the muscle fibers from medial to lateral. Care was taken so as to not enter the plane of the muscle fibers itself. We proceeded to continued to separate the entire breast tissue along this well-defined plane of dissection between the pectoralis muscle and the fascia of the way laterally until we are able to expose the lateral edge of the pectoralis muscle. I the rest of the fascia from the pectoralis muscle. I completed transection of the breast tissue laterally. I marked the medial margin of the breast and this was sent for pathology We then proceeded to do the sentinel node biopsy. I incised the clavipectoral fascia to enter the axillary fat pad. I then proceeded to use the probe to periodically identify the sentinel nodes. We carefully dissected each sentinel node as well as an additional axillary node using Metzenbaum scissors. The pedicle was clamped with a right angle clamp and we excised each sentinel node in this fashion using Metzenbaum scissors. The pedicle was tied with a Polysorb 3-0 [place] node #1 had a count of 76 [place] node #2 had a count of 333 [place] node #3. Had a count of 1803 [place] node # 4 had a count of 106 An additional axillary lymph node was also submitted. We then irrigated the axilla. We made sure that there was good hemostasis by cauterizing any oozing area Once hemostasis was confirmed, we then proceeded to irrigate the pectoralis as well. We ensured hemostasis. Once hemostasis was confirmed, I proceeded to position a HAILEE 10 drain along the inferior flap going medially and this was brought out through a small stab incision in the lateral edge of the inferior flap. This HAILEE drain was secured to the skin with a nylon 3-0 anchoring stitch. We then reapposed the subdermal layer with multiple Polysorb 3-0 simple interrupted sutures. Skin closure was achieved with Polysorb 4-0 subcuticular running stitch Thick dressings were applied. The procedure was completed The patient tolerated procedure well. There were no immediate complications. Initial final counts of sponges and instruments were correct. Estimated blood loss was about 75 cc The patient is extubated without difficulty and transferred to the recovery room with stable vital signs. Breast [place] Node Biopsy Substrate(s) used for sentinel node biopsy in the non-neoadjuvant setting: N/A Substrate(s) used for sentinel node biopsy in the neoadjuvant setting: Dye and Radiotracer All colored nodes or non-colored nodes present at the end of a dye filled lymphatic channel were removed, if dye was used as the substrate for localization: Yes All significantly radioactive nodes were removed, if radionuclide was used as the substrate for localization: Yes All palpably suspicious nodes were removed, if present: Yes If clips were placed in pathology-involved nodes, those nodes were identified and removed: N/A Procedure performed with curative intent?: Yes General Surg. - Synoptic Notes Breast [place] Node Biopsy Substrate(s) used for sentinel node biopsy in the non-neoadjuvant setting: N/A Substrate(s) used for sentinel node biopsy in the neoadjuvant setting: Dye and Radiotracer All colored nodes or non-colored nodes present at the end of a dye filled lymphatic channel were removed, if dye was used as the substrate for localization: Yes All significantly radioactive nodes were removed, if radionuclide was used as the substrate for localization: Yes All palpably suspicious nodes were removed, if present: Yes If clips were placed in pathology-involved nodes, those nodes were identified and removed: N/A Procedure performed with curative intent?: Yes
--- NOTE | 2025-03-23 16:06 | PM.EVENT ---
Event Note Date of Service: 03/23/25 Event Note: Seen postop Status post mastectomy and sentinel biopsy for invasive ductal cancer Appears comfortable Stable vital signs HAILEE drain dark old blood about 20 cc Pain management updated Time Spent With Patient Time: Total time managing care of this patient today ____ minutes.
[2025-03-23] MEDS: 0.9 % Sodium Chloride Flush 3 ML SYRINGE IVFLUSH (16:25)
[2025-03-24] MEDS: Lactated Ringers 1,000 ML 100 ML IVCONT (00:19)
[2025-03-24 03:15] VITALS: BP 100/59; PULSE 69; RESP 18; TEMP 36.7; O2SAT 98
[2025-03-24 06:00] LABS: Hematocrit 29.0 % (37.0-47.0); Hemoglobin 9.6 g/dl (12.0-16.0); Mean Corpuscular HGB Conc 33.1 g/dl (31.0-35.0); Mean Corpuscular Hemoglobin 27.0 pg (27.0-33.0); Mean Corpuscular Volume 81.5 fL (80.0-98.0); NRBC Abs Auto 0.000 X10*3/uL (0.0-0.012); NRBC Pct Auto 0.0 /100WBC (0.0-0.2); Platelet Count 300 X10*3/uL (160-400); Red Blood Count 3.56 X10*6/uL (4.20-5.50); White Blood Count 10.7 X10*3/uL (4.8-10.8)
[2025-03-24 06:14] LABS: Anion Gap 13 (12-20); Blood Urea Nitrogen 7 mg/dL (9-16); Calcium 8.7 mg/dL (8.4-10.2); Carbon Dioxide 25 mmol/L (22-29); Chloride 106 mmol/L (96-108); Creatinine Clr Calc Pharmacy 135.8; Estimated Glomerular Filt Rate > 60; Potassium 4.1 mmol/L (3.3-5.1); Sodium 140 mmol/L (135-145)
--- NOTE | 2025-03-24 07:01 | P.PNGS_ITS ---
Subjective Subjective Date of Service: 03/24/25 <Wallace Young - Last Filed: 03/24/25 07:29> 03/24/25 <Olaf Dickson PA-C - Last Filed: 03/24/25 08:03> 03/24/25 <Fish Cash MD - Last Filed: 03/24/25 08:13> 03/24/25 <Kristofer Sage MD - Last Filed: 03/24/25 10:07> Interval history: 30YOF POD1 SP left sided simple mastectomy with sentinel LN biopsy Per RN no significant overnight events and she is doing quite well Drain was emptied twice overnight, once with 15cc of fluid and a second time with 7cc of fluid Patient is currently refusing opioid pain medicaiton due to the side effect of tachycardia and palpitaitons, pain currently controlled on tylenol and motrin combination She attributes most of her pain to the drainage site, and states it is mostly positional when she moves Denies CP, denies trouble breathing, denies abdominal pain, denies NVD today She states she did vomit once last night She is up and ambulating to the bathroom with assistance, and is urinating and passing bowel movements without difficulty She is tolerating PO intake without difficulty She presents fully alert and oriented in no acute distress <Wallace Yonug - Last Filed: 03/24/25 07:29> Physical Exam 2 Vital Signs: Vital Signs: Last Vital Signs Temp 98.0 F 03/24/25 03:15 Pulse 69 03/24/25 03:15 Resp 18 03/24/25 03:15 BP 100/59 L 03/24/25 03:15 Pulse Ox 98 03/24/25 03:15 O2 Del Method Room Air 03/24/25 03:15 O2 Flow Rate 6 03/23/25 13:55 BMI result Body Mass Index 30.0 <Wallace Young - Last Filed: 03/24/25 07:29> Const: General: cooperative, comfortable, no acute distress, alert and awake <Wallace Young - Last Filed: 03/24/25 07:29> Chest: Other: Dressings in place. Dressings are dry and intact with no erythema, discharge, or warmth. Drain contains a small amount of blood and retains a good vacuum seal. <Wallace Young - Last Filed: 03/24/25 07:29> Other: Dressings in place. Dressings are dry and intact with no erythema, discharge, or warmth. Drain contains a small amount of blood and retains a good vacuum seal. HAILEE output serosanguineous, low volume. <Olaf Dickson PA-C - Last Filed: 03/24/25 08:03> Resp: Effort & Inspection: normal respiratory effort <Wallace Young - Last Filed: 03/24/25 07:29> Auscultation: clear to auscultation bilaterally <Wallace Young - Last Filed: 03/24/25 07:29> Cardio: Rate: regular rate <Wallace Young - Last Filed: 03/24/25 07:29> Rhythm: regular rhythm <Wallace Young - Last Filed: 03/24/25 07:29> Heart sounds: S1 normal heart sound present and S2 normal heart sound present <Wallace Young - Last Filed: 03/24/25 07:29> Objective Data Active Medications Calcium Carbonate (Calcium Carbonate 750 Mg Tab.Chew) 750 mg PO Q4H PRN PRN Reason: Heartburn Lactated Ringer's (Lr) 1,000 mls @ 100 mls/hr IVCONT .Q10H [facility] Last Admin: 03/24/25 00:19 Dose: 100 mls/hr Documented By: JAYCEE Acetaminophen (Ofirmev) 1,000 mg in 100 mls @ 400 mls/hr IV Q6H [facility] Last Infusion: 03/24/25 06:21 Dose: Infused Documented By: JAYCEE Ibuprofen (Ibuprofen 600 Mg Tablet) 600 mg PO Q6H PRN PRN Reason: Pain, Moderate(Pain Scale 4-6) Last Admin: 03/23/25 20:26 Dose: 600 mg Documented By: JAYCEE Melatonin (Melatonin 3 Mg Tablet) 6 mg PO BEDTIME PRN PRN Reason: Insomnia Morphine Sulfate (Morphine Sulfate 4 Mg/Ml Cartridge) 3 mg IVPUSH Q3H PRN; Protocol PRN Reason: Pain, Severe (Pain Scale 7-10) Oxycodone HCl (Oxycodone Hcl Immed Release 5 Mg Tablet) 5 mg PO Q4H PRN PRN Reason: Pain, Moderate(Pain Scale 4-6) Sodium Chloride (0.9 % Sodium Chloride Flush 3 Ml Syringe) 3 ml IVFLUSH QSHIFT [facility] Last Admin: 03/23/25 21:38 Dose: Not Given Documented By: JAYCEE Non-Admin Reason: IV Running <Wallace Young - Last Filed: 03/24/25 07:29> Labs CBC & Chem 7: 03/24/25 05:28 03/24/25 05:28 <Wallace Rocklivan - Last Filed: 03/24/25 07:29> Labs: Laboratory Results - last 24 hr 03/23/25 03/23/25 03/24/25 07:13 Unknown 05:28 MCV 81.5 MCH 27.0 MCHC 33.1 RDW 13.6 Plt Count 300 MPV 9.3 L Absolute Nucleated RBC 0.000 Nucleated RBC % (auto) 0.0 Anion Gap 13 Estim Creat Clear Calc 135.8 Estimated GFR > 60 Random Glucose 86 Calcium 8.7 Urine Test NEGATIVE Blood Type A Positive Antibody Screen NEGATIVE <Wallace Rocklivan - Last Filed: 03/24/25 07:29> Procedures Date of Service Date of Service: 03/24/25 <Wallace Rocklivan - Last Filed: 03/24/25 07:29> 03/24/25 <Olaf Dickson PA-C - Last Filed: 03/24/25 08:03> 03/24/25 <Fish Cash MD - Last Filed: 03/24/25 08:13> 03/24/25 <Kristofer Sage MD - Last Filed: 03/24/25 10:07> Progress Note: A&P Assessment and plan (1) Status post mastectomy: Status: Acute <Wallace Rocklivan - Last Filed: 03/24/25 07:29> Assessment and Plan: She says she had a good night Good pain control No events overnight Dressings dry HAILEE drain with scanty dark blood We will re-evaluate later on today Continue current care Seen and examined independently <Fish Cash MD - Last Filed: 03/24/25 08:13> Assessment and Plan: 30YOF POD1 left mastectomy with sentinel LN biopsy HP as above She is doing quite well today Continue to control pain with tylenol and motrin combination Continue PO intake as tolerated Continue to ambulate as tolerated Encourage use of spirometry ten times per hour Continue to monitor drain for fluid output <Wallace Young - Last Filed: 03/24/25 07:29> 30YOF POD1 left mastectomy with sentinel LN biopsy HP as above She is doing quite well today Continue to control pain with tylenol and motrin combination Continue PO intake as tolerated Continue to ambulate as tolerated Encourage use of spirometry ten times per hour Continue to monitor drain for fluid output 30-year-old female POD 1 left simple mastectomy with sentinel node biopsy. Overall doing well. Pain well controlled. Tolerating diet. Had an episode of nausea and vomiting overnight, feels improved now. Pressure is on the soft side we will continue with some IV fluids for now. Continue with diet as tolerated. On exam, patient appropriately tender on the left breast. HAILEE in place, 62 cc since placement, output serosanguineous. Seems low I tried to milk any clots from the tubing and was able to express some small clots, drain appears patent at this point. We will continue to monitor output. One point drop in H&H this morning, appropriate and stable. possible DC this afternoon. <Olaf Dickson PA-C - Last Filed: 03/24/25 08:03> Time Spent With Patient Time: Total time managing care of this patient today ____ minutes. <Wallace Young - Last Filed: 03/24/25 07:29> Quality Stroke Does the patient have a stroke diagnosis?: No <Olaf Dickson PA-C - Last Filed: 03/24/25 08:03> VTE Prior VTE?: No <Olaf Dickson PA-C - Last Filed: 03/24/25 08:03> VTE Risk Level:: Medical - low <Wallace Young - Last Filed: 03/24/25 07:29> VTE Device Contraindication: N/A - Device Ordered <Wallace Young - Last Filed: 03/24/25 07:29> VTE Drug Contraindication: Treatment Not Indicated <Wallace Young - Last Filed: 03/24/25 07:29>
[2025-03-24 07:08] VITALS: BP 94/60; PULSE 65; RESP 16; TEMP 36.4; O2SAT 94
--- NOTE | 2025-03-24 09:08 | HO.POSTANES ---
Post Anesthesia Evaluation Post Anesthesia Evaluation Date of Service: 03/24/25 Vital Signs: Vital Signs Temp Pulse Resp BP Pulse Ox O2 Del Method 03/24/25 07:08 97.5 F 65 16 94/60 94 Room Air 03/24/25 03:15 98.0 F 69 18 100/59 L 98 Room Air 03/23/25 23:25 97.9 F 78 18 96/54 L 96 Room Air Anesthesia: Nerve Block and General Mental Status: Awake Pain Control: Satisfactory Nausea/Vomiting: None Hydration: Adequate Anesthesia-Related Issues: No Anes. Related Issues
--- NOTE | 2025-03-24 14:20 | MHC.CM.PN ---
Addendum entered by Bonnie Iniguez 03/24/25 15:28: IMM 03/24/25 Patient is discharged today. She has requested dc today. She has been surgically cleared to discharge. HAILEE drain management has been taught by RN. Pts significant other has arrived to provide transportation home. Original Note: IMM 03/24/25 S/P L Mastectomy 03/23/25 She lives with her significant other. She states that she is independent with all functional mobility, no AD. HCP is on file PCP Jennifer Nash She will dc with HAILEE. [facility] referred at patients request. DP Home with [facility]. S.O. will provide transportation home.
--- NOTE | 2025-03-24 14:21 | P.EN_ITS ---
Event Note Date of Service: 03/24/25 Event Note: Patient reassessed this afternoon. She feels well, pain is well controlled with tylenol and motrin. She is tolerating solid diet. She has been OOB and ambulating without difficulty. Left mastectomy incision clean appearing, upper and lower flaps viable, small amount of fullness of lateral aspect. HAILEE drain sanguineous, low. New dressing applied. She feels ready for discharge to home today. Stable for dc with [facility] for drain care. F/u in office in 1-2 week s. Time Spent With Patient Time: Total time managing care of this patient today ____ minutes.
--- NOTE | 2025-03-24 14:23 | PM.DS ---
DS: Providers Provider Date of Service: 03/24/25 Date of admission: 03/23/25 08:32 Date of discharge: 03/24/25 Primary care physician: Jennifer Nash Attending physician on admission: Fish Cash Attending physician on discharge: Fish Cash DS: Diagnosis Discharge Diagnosis (1) Status post mastectomy: Status: Acute DS: Summary Hospital Course Hospital Course: HPI AT ADMISSION: The patient is a 30 year female with a large invasive ductal carcinoma who had undergone neoadjuvant chemotherapy. She presents today for left total mastectomy with left axillary sentinel node biopsy. HOSPITAL COURSE: On 03/23/25, left total mastectomy, with left axillary sentinel node biopsy was performed by Dr. Cash without immediate complication. The patient tolerated the procedure well. She was admitted following the procedure for observation. She had an uncomplicated recovery course. On POD #1, she felt well and her pain was well controlled with tylenol and motrin. She was tolerating solid diet. She was OOB and ambulating without difficulty. She was hemodynamically stable. Her mastectomy incision was clean appearing and upper and lower flaps were viable with a small amount of fullness of lateral aspect. HAILEE drain sanguineous, low. She was reassessed later in the day and felt ready for discharge. She was discharged to home on 03/24/25 with [facility] for drain care. She is to follow up in the office in 1-2 weeks. She refused narcotics for analgesia. Status at Discharge Functional status at discharge: independent ambulation Overall status at discharge: patient is progressing back to baseline Time Attestation Discharge Coordination Time (in mins): 25 Quality: Safe Use of Opioids Does Pt have an Active Cancer Diagnosis on the Problem List?: Yes Opioid Measure Date for [facility] Report: 02/22/25 Opioid Measure Time for CMS Report: 14:32 Quality: Stroke Does the patient have a stroke diagnosis?: No Physical Exam Vital Signs: Vital Signs: Last Vital Signs Temp 97.5 F 03/24/25 07:08 Pulse 65 03/24/25 07:08 Resp 16 03/24/25 07:08 BP 94/60 03/24/25 07:08 Pulse Ox 94 03/24/25 07:08 O2 Del Method Room Air 03/24/25 07:08 O2 Flow Rate 6 03/23/25 13:55 BMI result Body Mass Index 30.0 Const: General: comfortable, no acute distress and alert Orientation/consciousness: patient oriented x3 Chest: Other: left mastectomy incision clean appearing; upper and lower flaps viable with a small amount of fullness of lateral aspect. HAILEE drain sanguineous, low output Resp: Effort & Inspection: normal respiratory effort, able to speak in complete sentences and not tachypneic Skin: General skin exam: no rashes or lesions noted Neuro: General: patient oriented x3 and moves all extremities DS: Data Data Completed and Pending Pending studies at discharge: Pending at discharge 03/23/25 12:47 Surgical [PTH] Routine Labs on day of discharge: Laboratory Results - last 24 hr 03/24/25 05:28 WBC 10.7 RBC 3.56 L Hgb 9.6 L Hct 29.0 L MCV 81.5 MCH 27.0 MCHC 33.1 RDW 13.6 Plt Count 300 MPV 9.3 L Absolute Nucleated RBC 0.000 Nucleated RBC % (auto) 0.0 Sodium 140 Potassium 4.1 Chloride 106 Carbon Dioxide 25 Anion Gap 13 BUN 7 L Creatinine 0.55 Estim Creat Clear Calc 135.8 Estimated GFR > 60 Random Glucose 86 Calcium 8.7 Discharge Plan Discharge Anticipated Discharge Date/Time: 03/24/25 14:18 Patient Disposition: Home Health Service Discharge Diagnosis: s/p left simple mastectomy Referrals: Fish Cash MD [Physician, General Surgery] - 2 Weeks Jennifer Nash [Primary Care Provider, Internal Medicine] - 1 Week Discharge Medications: New docusate sodium [Colace] 100 mg capsule 100 mg PO BID PRN (Reason: constipation) Qty: 20 0RF ibuprofen 600 mg tablet 600 mg PO Q6H PRN (Reason: pain) Qty: 30 1RF acetaminophen 500 mg capsule 1,000 mg PO Q6H PRN (Reason: pain) Qty: 30 1RF Continued (DME) Wedge pillow See Rx Instructions .Route .MEDSUPPLY Qty: 1 0RF Rx Instructions: Use as needed post op mastectomy for sleeping comfort. ascorbic acid (vitamin C) [Vitamin C] 500 mg Tablet,Chewable 500 mg PO BID Qty: 60 4RF lidocaine 3 % Cream 1 appl TOPICAL BID Qty: 45 3RF ondansetron 8 mg Tablet,Disintegrating 8 mg PO Q8H Qty: 60 3RF dexamethasone 4 mg Tablet 4 mg PO BID Qty: 60 3RF Rx Instructions: Take 4 mg p.o. b.i.d. days 2 and 3 of chemo, Q 2 weekly sumatriptan succinate [Imitrex] 25 mg Tablet See Rx Instructions .ROUTE .COMPLEX Qty: 10 0RF Rx Instructions: take 1 tab at onset of headache; if no relief may repeat 1 tab after at least 2 hrs; max = 4 tabs/24 hr ferrous sulfate 325 mg (65 mg iron) Tablet 325 mg PO BID Qty: 60 4RF (DME) Prosthesis, breast Kit Qty: 1 0RF Rx Instructions: As Directed (DME) bra, mastectomy Crystals Qty: 6 0RF Rx Instructions: As Directed hydroxyzine HCl 25 mg tablet 25 mg PO Q8H PRN (Reason: anxiety) Qty: 14 0RF Discharge Orders: Discharge Order (Routine); Ordered 03/24/25 Ordered By: Keyonna Melvin Diet: Advance to usual diet Activity on Discharge: No heavy lifting Stand Alone Forms: Patient Portal Discharge page Print Language: Pashto Activity Restrictions/Additional Instructions: If your incision site is sore, you may apply ice to the area for short periods of time (no more than 20 minutes at a time, followed by 20 minutes off). You were prescribed oxycodone to assist with pain management as needed. You can additionally use OTC ibuprofen or acetaminophen as needed for pain. No heavy lifting >20 pounds No strenuous activity. Do not use creams, lotion, ointment on the incision sites Ok to shower 03/25/25 You will follow up with Dr. Cash in the office in 1-2 week, you can call the office to schedule the appointment Please reach out to the office or be seen at the emergency department if you develop: -Fever >101.5 -Increasing pain or swelling of the area -Increased bleeding from the incision site or the incision begins to separate -If you are concerned for incision site infection such as redness, warmth, discharge. Some yellow/pink tinged discharge is normal -You develop nausea or vomiting Drain Management Instructions: -The drain will stay in place when discharged, it will be removed in the office when appropriate. Do not remove this on your own. -Empty your drain twice a day. Record the amount each time and bring those records to future appointments. -To do this, first remove the blue cap to remove from suction. -evaluate how much fluid is in the bulb by using the marked levels on the bulb. -monitor the appearance of the fluid. dark blood or clear yellow/pink tinged fluid is appropriate. if there is bright red blood, pus or cloudy fluid please reach out. - record the amount of fluid in the bulb each time you empty using the marked numbers on the bulb - Drain the contents into the toilet. -Once the bulb is empty, squeeze the bulb and screw the blue cap to resume suction. If you are unable to achieve suction (the bulb immediately inflates) please reach out to the office -If there is no drain output, but you begin to have fullness, swelling, worsening pain of the breast, the drain may be blocked - If the drain is blocked, you may try to expel some fluid by milking the tube. First anchor the tube on the end closest to the skin with your fingers. use your other hand to pinch and slide down the tube towards the drain. If this does not work, please reach out to the office Care Plan Goals: return to baseline Health Concerns: pain invasive ductal carcinoma, s/p left mastectomy Plan of Treatment: pain control drain management follow up in office Assessment: patient doing well
[2025-03-24 15:38] VITALS: BP 120/74; PULSE 85; RESP 14; TEMP 36.1; O2SAT 99
--- NOTE | 2025-03-24 16:18 | P.F2F_ITS ---
Service Date Service Date: 03/24/25 Encounter Date of encounter: 03/24/25 Reasons for Services Signs and symptoms assessed: pain, mastectomy incision, HAILEE drain output Reason for long term: wound care and postoperative assessment and/or care Homebound: Leaving the home is medically contraindicated at this time without the asist of a device and/or another person due th the listed conditions above and below. Reason homebound: weakness related to hospital stay and unable to drive Homebound supporting statement: Ms. Veliz is s/p left simple mastectomy and left axillary lymph node biopsy. She will need VNA services for HAILEE drain care. Certification: Based on the above findings, I certify that this patient is confined to the home and needs intermittent long term care, physical therapy and/or speech the rapy, or continues to need occupational therapy. The patient is under my care, and I have initiated the establishment of the plan of care. The patient will be followed by a physician who will periodically review the plan of care. Time Spent With Patient Time: Total time managing care of this patient today ____ minutes.
== END 2025-03-24 16:11 | disposition home health service (06) | DRG 581 ==
LOC: HO.SSSA 12:00 → HO.S3 15:08
PROVIDERS: Nurse Practitioner; Admitting Provider Surgery; PCP Nurse Practitioner; Visit Provider Surgery
PROC: 07B60ZX Excision of Left Axillary Lymphatic, Open Approach, Diagnostic (ICD-10-PCS; CPT 19303; principal; 2025-03-23 10:30)
PROC: 07B60ZX Excision of Left Axillary Lymphatic, Open Approach, Diagnostic (ICD-10-PCS; CPT 19303; 2025-03-23 10:30)
DX: C50.912 Malignant neoplasm of unspecified site of left female breast (principal); G89.18 Other acute postprocedural pain; Z79.899 Other long term (current) drug therapy
CPT/HCPCS: 19303; 38525; 36415; 78195; 80048; 81025; 85027; 86850; 86900; 86901; 88307; 88341; 88342; A9520; J0131; J0665; J0690; J1100; J2250; J2405; J2704; J2795; J3010; J7120; Q9968

== ENCOUNTER → 2025-03-23 08:32 | Outpatient (BNV) | payer OTHER, SELFPAY | PROVIDERS: Admitting Provider Surgery; PCP Nurse Practitioner; Visit Provider Surgery | DX: Z90.10 Acquired absence of unspecified breast and nipple (principal) | CPT/HCPCS: 99024; 99499; G0180 ==

== ENCOUNTER 2025-03-25 09:51 | Outpatient (AMB) | payer OTHER, SELFPAY ==
--- NOTE | 2025-03-25 09:58 | A.OFFVIS_ITS ---
Vital Signs 03/25/25 10:06 Weight 159 lb BP 115/64 Blood Pressure Location Rt brachial Position Sitting Pulse 89 Intake Visit Reasons: S/P LT breast mastectomy w/SN bx Intake Note: Patient here as urgent visit s/p total mastectomy, left breast, with sentinel node biopsy~ 03-23-2025. Patient c/o: severe pain along incision. Alternating tylenol and Motrin helps. VNA due to come in tomorrow. Path report pending. Marketing Content Coordinator Required: No Accompanied by: spouse Anderson Allergies black pepper Allergy (Verified 03/25/25 10:06) Angioedema HPI HPI S/P LT breast mastectomy w/SN bx: Details: She underwent mastectomy with left breast with sentinel biopsy last 03/23/2025. She was discharged from the hospital yesterday with drains in place She called the on-call surgeon last night to state that he thinks that the HAILEE drain was clogged so she was told to come see me in the office today She does have pain which seemed to be appropriate to her postop course. She denies any other complaints. [facility] Medical History Invasive ductal carcinoma of breast Left breast cancer with T3 tumor, >5 cm in greatest dimension Left breast mass Surgical History History of tubal ligation H/O section Family History Other Cancer Social History Household Members: Children Housing: House Are you a primary care director to a significant other at home: No Do you presently have visiting nurse or other home services: No Alcohol intake: never Patient Tobacco Use Status: Never used Tobacco Advance Directives Date on File: 08/12/24 service: No Current occupational status: other Gender identity: Female Female Reproductive History Menstrual Age of Menarche: 10 Review of Systems Const Denies chills and Denies fever(s) Card Denies dyspnea and Denies dyspnea on exertion Resp Denies dyspnea and Denies dyspnea on exertion Physical Exam Vital Signs: Last Vital Signs Pulse 89 03/25/25 10:06 BP 115/64 03/25/25 10:06 Const General: comfortable and no acute distress Chest Other: Mastectomy site healing, no signs of flap necrosis, no seroma or hematoma, HAILEE drain with 10 serosanguineous output, not clogged, no signs of cellulitis Assessment & Plan Assessment & Plan (1) Invasive ductal carcinoma of breast: Code(s): C50.919 - Malignant neoplasm of unspecified site of unspecified female breast Category: Medical Plan: Status post mastectomy and sentinel biopsy. I checked the HAILEE drain and this is not clogged currently. There is note of some serosanguineous output. There was no signs of any hematoma or any flap necrosis. There was no signs of any seroma I changed her dressings. I will see her again next week to hopefully removed the HAILEE drain. She understands needs to write down the output totals every day She is comfortable with the plan above and seems to understand this. Her was with her during the visit. Coding Level of Care Code Global (44030) Diagnoses Invasive ductal carcinoma of breast C50.919
[2025-03-25 10:06] VITALS: BP 115/64; PULSE 89
--- OUTSIDE RECORDS SUMMARY | 2025-03-25 11:40 | XMS_ITS | Encounter Summary ---
Author Organization [employer] Address [address] [facility] [address] [place] [address] Care Team Providers Care Groundskeeping Maintenance Name Role Phone Jennifer Nash NP Primary Care Provider [phone] Encounter Details Date Type Department Care Team ([facility] st Contact Info) Description 08/30/2023 Orders Only [facility] [address] [place] [address] Jennifer Nash NP [address] [place] [address] Anemia, unspecified type (Primary Dx); Hypoglycemia Social [...] documented as of this encounter Care Teams Groundskeeping Maintenance Relationship Specialty Start Date End Date Jennifer Nash NP [address] [place] [address] PCP - General Family Medicine 06/25/23 documented as of this encounter
--- OUTSIDE RECORDS SUMMARY | 2025-03-25 11:40 | XMS_ITS | Encounter Summary ---
Author Organization [employer] Address [address] [facility] [address] [place] [address] Care Team Providers Care Road Crew Member Name Role Phone Jennifer Nash NP Primary Care Provider [phone] Reason for Visit * Reason Onset Date Comments Results 08/29/2023 Encounter Details Date Type Department Care Team ([facility] st Contact Info) Description 08/29/[address] [facility] [address] [place] [address] Jennifer Nash NP [address] [place] [address] Results Social History Tobacco Use Types Packs/Day [...] Blood Work Date when done: 08/26/23 Facility: [facility] Labs TC from pt requesting call back regarding Results. Type of results: Blood Work Date when done: 08/24/23 Facility: [facility] documented in this encounter Plan of Treatment Not on file documented as of this encounter Visit Diagnoses Not on filedocumented in this encounter Additional Health Concerns Assessment Noted Time PHQ-9 Depression Total Score: 3 01/24/20 23 11:03 AM EDT documented as of this encounter Care Teams Road Crew Member Relationship Specialty Start Date End Date Jennifer Nash NP [address] [place] [address] PCP - General Family Medicine 06/25/23 documented as of this encounter
--- OUTSIDE RECORDS SUMMARY | 2025-03-25 11:40 | XMS_ITS | Encounter Summary ---
Author Organization [facility] Address [address] [place] [address] Phone Care Team Providers Care Adjusto Writer Operator Name Role Phone Yelitza Flowers MD Primary Care Provider [phone] Encounter Details Date Type Department Care Team (Late st Contact Info) Description 02/28/2017 Conversion Encounter [facility] [place] [address] [place] [address] Social History Tobacco Use Types Packs/Day Years [...] on filedocumented in this encounter Care Teams Adjusto Writer Operator Relationship Specialty Start Date End Date Yelitza Flowers MD [address] [place] [address] PCP - General 02/22/17 10/14/22 documented as of this encounter
--- OUTSIDE RECORDS SUMMARY | 2025-03-25 11:40 | XMS_ITS | Encounter Summary ---
Author Organization [facility] Address [address] [place] [address] Phone Care Team Providers Care Board Handler Name Role Phone Yelitza Flowers MD Primary Care Provider [phone] Encounter Details Date Type Department Care Team (Late st Contact Info) Description 05/05/2013 Documentation [facility] [place] Family Medicine [address] [place] [address] Family Medicine, Physician [address] [place], [place] [id number] Social History Tobacco Use Types Packs/Day Years [...] on filedocumented in this encounter Care Teams Board Handler Relationship Specialty Start Date End Date Yelitza Flowers MD [address] [place] [address] PCP - General 02/22/17 10/14/22 documented as of this encounter
--- OUTSIDE RECORDS SUMMARY | 2025-03-25 11:40 | XMS_ITS | Clinical Summary ---
Author Organization [facility] Address [address] [place] [address] Phone Care Team Providers Care Crabber Name Role Phone Unavailable Primary Care Provider [...] 73 01/04/2016 12:00 AM EDT Temperature 37 C (98.6 F) 09/09/2014 12:00 AM EST Respiratory Rate - [...] 08/06/1996, Additional history exists Influenza Vaccines (#1) 2025 05/05/20 14, 03/31/2013, 06/15/2009, Additional history exists COVID-19 Vaccine ( season) 2025 Hepatitis B Vaccines Completed 1995, 1995, 1995 [...] complete this topic Procedures * Due to [place] state law, this organization might not be sharing sensitive test results. Procedure Name Priority Date/Time Associated Diagnosis Comments CHLAMYDIA AND GONORRHEA, AMPLIFIED Routine 01/05/2016 1:37 PM EDT from Last 3 Months or Most Recently Relevant to Health Maintenance Results * Due to [place] state law, this organization might not be [...] VALUE: NOT DETECTED) NOTE: This test uses dielectric testing machine operator-mediated amplification method to detect rRNA from C.Trachomatis [...] without risk of sexual abuse. Consult the [facility] if needed. Contact phone number . Therapeutic failure or success cannot be determined with the Aptima Combo2 assay since nucleic acid may persist following appropriate antimicrobial therapy. The Centers for Disease Control and Prevention (CDC) recommends confirmatory retesting using culture or a different nucleic acid amplification test when positive results occur, if indicated. Testing performed or reported by [facility], a Service of [facility], [address] [place] [address] [place] [id number] Tim Bearden MD, PhD, Clerk Television Production 01/05/2016 1:37 PM EDT Narrative [facility] - 01/05/2016 1:37 PM EDT URINE CHLAMYDIA GC AMP PROBE us Yelitza Flowers MD LAB MICROBIOLOGY - GENERAL ORDER FISH Final Result [facility] [address] [place] [address], from Last 3 Months or Most Recently Relevant to Health Maintenance
--- OUTSIDE RECORDS SUMMARY | 2025-03-25 11:40 | XMS_ITS | Clinical Summary ---
Author Organization [facility] Address [address] [place] [address] Care Team Providers Care Steam Frame Operator Name Role Phone Unavailable Primary Care [...] Health Maintenance Due Date Last Done Comments Cervical Cancer Screening: Pap Smear 06/21/2024 06/21/2021 Depression Screening 07/15/2024 COVID-19 Vaccine ( season) 2025 08/16/2021, 07/19/2021 Influenza Vaccine (#1) 2025 8, 03/31/2013, 06/15/2009, [...] RESULTING AGENCY - 07/05/2021 4:41 PM EST [id number] THINPREP PAP, IMAGED: NEGATIVE FOR SQUAMOUS INTRAEPITHELIAL [...]
--- OUTSIDE RECORDS SUMMARY | 2025-03-25 11:40 | XMS_ITS | Encounter Summary ---
Author Organization [facility] Address [address] [place] [address] Phone Care Team Providers Care Filenet Architect Name Role Phone Yelitza Flowers MD Primary Care Provider [phone] Encounter Details Date Type Department Care Team (Late st Contact Info) Description 07/03/2013 Documentation [facility] [place] [address] [place] [address] Family Medicine, Physician [address] [place], [place] [id number] Social History Tobacco Use Types Packs/Day Years [...] on filedocumented in this encounter Care Teams Filenet Architect Relationship Specialty Start Date End Date Yelitza Flowers MD [address] [place] [address] PCP - General 02/22/17 10/14/22 documented as of this encounter
--- OUTSIDE RECORDS SUMMARY | 2025-03-25 11:40 | XMS_ITS | Clinical Summary ---
Author Organization [employer] Address [address] [place] [address] [address] [place] [address] Care Team Providers Care Heavy Mobile Equipment Operator Name Role Phone BebetogilbertJennifer NP Primary Care Provider [phone] Allergies No known active allergies Medications * [...] 4 Active Blood Glucose Monitoring Suppl (FreeStyle [place] Lite) w/Device kitIndications: Hypoglycemia Use to test [...] Once per day. 30 tablet 1 5 Active propranolol (Inderal) 10 MG tabletIndicatio ns:Situational mixed anxiety and depressive disorder,Panic attacks Take 1 tablet (10 mg) by mouth 3 times daily. 90 tablet 1 5 Active Active Problems Problem Noted Date Diagnosed Date Panic attacks 12/15/2024 ECHO (generalized anxiety disorder) 10/09/2024 Assessment & Plan (10/09/2024 12:11 PM [...] advised -will call or send message in [employer] with results -follow-up 3 months via televisit [...] hematuria 08/20/2022 10/09/2024 Ectopic 08/01/2020 10/09/2024 Encounters Date Type Department Care Team Description 03/23/2025 Orders Only GENERIC EXTERNAL DATA DEPARTMENT Provider, Generic External Data 03/17/2025 Travel 03/16/2025 Telephone [facility] MEDICINE [address] [place] [address] [phone] Jennifer Nash NP Durable Medical Equipment 01/06/2025 Orders Only [facility] External Provider, [facility] from Last 3 Months Immunizations Immunization Administration Dates Next Due DTP [...] MMRV 02/12/2014 Meningococcal MCV4P ACYW-135 05/28/2006 Novel [id number], all formulations 06/15/2009 Tdap 10/06/2021, 8,05/28/2006,05/28 Social [...] 89 10/09/2024 10:08 AM EDT Temperature 36.1 C (97 F) 10/09/2024 10:08 AM EDT Respiratory Rate 20 [...] Last Done Comments Alcohol/Substance Use Screening 2007 Family Planning (PISQ) 2010 Pneumococcal Vaccine: Pediatrics (0 to 5 Years) and At-Risk Patients (6 to 49) Years (1 of 2 - PCV) 2014 COVID-19 Vaccine ( season) 2025 08/16/2021, 07/19/2021 Influenza Vaccine (#1) 2025 , 04/01/2018, 05/05/2014, Additional history exists Depression Monitoring 04/11/2025 10/09/2024, 025 Mammogram 05/04/2025 02/01/2025, 12/14, 09/01/2024, Additional history exists Diagnostic Breast Imaging 08/04/20252024, 01/06/2025, 09/01/2024, Additional history exists SDOH Screening 10/09/2025 10/09/2024 Tobacco Screening 10/09/2025 10/09/2024 Disability Screening 03/17/2026 03/17/2025 Cervical Cancer Screening 03/21/2026 HPV/Cotest 03/21/2026 Pap Smear 03/21/2026 03/21/2023, 03/09/2020 DTaP/Tdap/Td Vaccines [...] Procedure Name Priority Date/Time Associated Diagnosis Comments NM SENTINEL NODE W IMAGING Routine 03/23/2025 9:05 AM EDT TYPE AND SCREEN Routine 03/23/2025 7:13 AM EDT HCG, QL, URINE Routine 03/23/2025 12:00 AM EDT BI MR BREAST W AND WO CONTRAST BILATERAL Routine 02/01/2025 10:30 AM EDT BI US BREAST LIMITED LEFT Routine 01/06/2025 2:20 PM EDT HEPATITIS C AB W/REFL TO HCV RNA, QN, PCR Routine 08/23/2023 12:46 PM EST Routine screening for STI (sexually transmitted infection) HIV 1/2 ANTIGEN/ANTIBODY, FOURTH GENERATION W/RFL Routine 08/23/2023 12:46 PM EST Routine screening for STI (sexually transmitted infection) PAP SMEAR Routine 03/21/2023 10:00 AM EDT from Last 3 Months or Most Recently Relevant to Health Maintenance Results * NM SENTINEL NODE W IMAGING (03/23/2025 9:05 AM EDT) Anatomical Region Laterality Modality Nuclear Medicine 03/23/2025 9:05 AM EDT Narrative 03/23/2025 11:30 AM EDT [place] [address] Nuclear Medicine Report Signed Patient: Regina Veliz I MR#: [id number] 059 : 1995 Acct:[id number] Age/Sex: 30 / F ADM Date: 03/23/25 Loc: [facility] Attending Dr: Fish Cash MD Ordering Physician: Fish Cash MD Date of Service: 03/23/25 Procedure(s): NM sentinel node w imaging Accession Number(s): [id number] cc: Jennifer Nash; Fish Cash MD Reason for Exam: C50.919 - Malignant neoplasm of unspecified site of unspecified female b... Examination: Nuclear medicine sentinel node with imaging. CLINICAL INDICATION: Left breast cancer. TECHNIQUE: Following explaining sentinel node procedure, benefits and risk, a written consent was obtained by surgeon Dr. Cash. 1% lidocaine was applied around the left breast half and hour prior to exam. The area was then cleaned in aseptic manner. 0.5 mCi of 99m technetium lymphoseek divided was divided equally and subdermally injected in 4 quadrants. Images were obtained approximately 30 minutes later. Patient tolerated procedure extremely well. FINDINGS: There is isotope activity seen along the left breast areola in 4 quadrants with a solitary activity in the left anterior breast. No activity seen extending to internal mammary nodes. NM/NM sentinel node w imaging IMPRESSION: Solitary sentinel left anterior axilla on left breast lymphoscintigraphy. Electronically signed by: Mayito Bradford MD 03/23/2025 11:27 AM EDT RP Dictated By: Mayito Bradford MD Signed By: <Electronically signed by Mayito Bradford MD in OV> 03/23/25 1127 DD/ 0905 TD/TT: 03/23/25 1015 Medical Transcription [place]: [facility] [place] Note Donotuseinterpreter, Image - 03/23/2025 [place] [address] Nuclear Medicine Report Signed Patient: Regina Veliz IMR#: [id number] 059 : 1995Acct:[id number] Age/Sex: 30 FADM Date: 03/23/25 Loc: .[facility] Attending Dr: Fish Cash MD Ordering Physician: Fish Cash MD Date of Service: 03/23/25 Procedure(s): NM sentinel node w imaging Accession Number(s): [id number] cc: Jennifer Nash; Fish Cash MD Reason for Exam: C50.919 - Malignant neoplasm of unspecified site ofunspecified female b... Examination: Nuclear medicine sentinel node with imaging. CLINICAL INDICATION: Left breast cancer. TECHNIQUE: Following explaining sentinel node procedure, benefits and risk, a written consent was obtained by surgeon Dr. Cash. 1% lidocaine was applied around the left breast half and hour prior to exam. The area was then cleaned in aseptic manner. 0.5 mCi of 99m technetium lymphoseek divided was divided equally and subdermally injected in 4 quadrants. Images were obtained approximately 30 minutes later. Patient tolerated procedure extremely well. FINDINGS: There is isotope activity seen along the left breast areola in 4 quadrants with a solitary activity in the left anterior breast. No activity seen extending to internal mammary nodes. NM/NM sentinel node w imaging IMPRESSION: Solitary sentinel left anterior axilla on left breast lymphoscintigraphy. Electronically signed by: Mayito Bradford MD 03/23/2025 11:27 AM EDT Dictated By: Mayito Bradford MD Signed By: <Electronically signed by Mayito Bradford MD in OV> 03/23/25 1127 DD/ 0905 TD/TT: 03/23/25 1015 Medical Transcription Radiology: [facility] External Provider IMG NM PROCEDURES Edited Result - Final * Type and screen (03/23/2025 7:13 AM EDT) Blood Type AP [facility] Antibody Screen NEGATIVE [facility] 03/23/2025 7:13 AM EDT 03/23/2025 7:30 AM EDT Generic External Data Provider LAB BLOOD BANK TE ST ORDERABLES Final Result Performing Organization Address [facility] Co de Phone Number [facility] [address] [place] [phone] * HCG, Qualitative, Urine (03/23/2025 12:00 AM EDT) Urine NEGATIVE NEGATIVE [facility] Comment:This test was develo ped to detect early . Falsenegative results may occur after the 5th - 7th week ofpregnancy when using this test method. If clinicallyindicated, consider a serum hCG. 03/23/2025 03/23/2025 Generic External Data Provider LAB URINE ORDERAB LES Final Result Performing Organization Address [facility] Co de Phone Number [facility] [address] [place] [phone] * BI MR Breast w and w/o Contrast Bilateral (02/01/2025 10:30 AM EDT) Anatomical Region Laterality Modality Breast Bilateral Magnetic Resonan ce 02/01/2025 10:3 0 AM EDT Narrative 02/02/2025 4:55 PM EDT [address] [address] Magnetic Resonance Report Signed Patient: Regina Veliz I MR#: [id number] 059 : 1995 Acct:[id number] Age/Sex: 30 / F ADM Date: 02/01/25 Loc: HO.MRI Attending Dr: Quique Moses MD Ordering Physician: Quique Moses MD Date of Service: 02/01/25 Procedure(s): MR breast BI wo/w con Accession Number(s): [id number] cc: Jennifer Nash; Quique Moses MD EXAMINATION: MR BREAST WITHOUT AND WITH CONTRAST, BILATERAL CLINICAL INFORMATION: Biopsy-proven left breast invasive ductal carcinoma on neoadjuvant chemotherapy follow-up evaluation. COMPARISON: Comparison is made with relevant prior imaging. TECHNIQUE: MR imaging of the breast was performed using T1, T2 and fat saturated techniques. Dynamic multiphase imaging was also performed after the administration of intravenous gadolinium contrast agent. Computer generated 3D reconstruction and enhancement kinetic analysis was ulitized by the radiologist in the interpretation of this examination. FINDINGS: Breast composition: Heterogeneous fibroglandular breast tissue Background parenchymal enhancement: Moderate LEFT BREAST: There is a subtle area of linear nonmass enhancement in the medial central inner left breast series 1039 images 59-60 6/120. This area measures approximately 43 mm anterior to posterior by 6 mm transverse by 5 mm superior to inferior and is significantly smaller and less avidly enhancing from prior MRI August 26, 2024. No other suspicious enhancing masses or areas of non mass enhancement. No axillary or internal mammary adenopathy. RIGHT BREAST: No suspicious enhancing masses or areas of non mass enhancement. No axillary or internal mammary adenopathy. Limited views of the chest and abdomen are unremarkable. MR/MR breast BI wo/w con IMPRESSION: Right: Negative. Left: Biopsy-proven left breast malignancy with decrease in size compared with prior MRI August 26, 2024. Recommend follow-up with oncology and breast surgery for excision and further management of known biopsy-proven left breast invasive ductal carcinoma. ASSESSMENT: LEFT BREAST: BI-RADS 6 known biopsy-proven malignancy. Recommend follow-up with oncology and breast surgery for excision and further management of known biopsy-proven left breast invasive ductal carcinoma. RIGHT BREAST: BI-RADS 1-Negative RECOMMENDATIONS: Follow-up with oncology and breast surgical team for excision and further management of known left breast invasive ductal carcinoma. Electronically signed by: Priscilla Chacon DO 02/02/2025 04:52 PM EDT RP Dictated By: Priscilla Chacon DO Signed By: <Electronically signed by Priscilla Chacon DO in OV> 02/02/25 1652 DD/ 1030 TD/TT: 02/01/25 1105 Medical Transcription Radiology: Procedure Note Donotuseinterpreter, Image - 02/02/[address] [address] Magnetic Resonance Report Signed Patient: Regina Veliz IMR#: [id number] 059 : 1995Acct:[id number] Age/Sex: 30 / FADM Date: 02/01/25 Loc: .MRI Attending Dr: Quique Moses MD Ordering Physician: Quique Moses MD Date of Service: 02/01/25 Procedure(s): MR breast BI wo/w con Accession Number(s): [id number] cc: Jennifer Nash; Quique Moses MD EXAMINATION: MR BREAST WITHOUT AND WITH CONTRAST, BILATERAL CLINICAL INFORMATION: Biopsy-proven left breast invasive ductal carcinoma on neoadjuvant chemotherapy follow-up evaluation. COMPARISON: Comparison is made with relevant prior imaging. TECHNIQUE: MR imaging of the breast was performed using T1, T2 and fat saturated techniques. Dynamic multiphase imaging was also performed after the administration of intravenous gadolinium contrast agent. Computer generated 3D reconstruction and enhancement kinetic analysis was ulitized by the radiologist in the interpretation of this examination. FINDINGS: Breast composition: Heterogeneous fibroglandular breast tissue Background parenchymal enhancement: Moderate LEFT BREAST: There is a subtle area of linear nonmass enhancement in the medial central inner left breast series 1039 images 59-60 6/120. This area measures approximately 43 mm anterior to posterior by 6 mm transverse by 5 mm superior to inferior and is significantly smaller and less avidly enhancing from prior MRI August 26, 2024. No other suspicious enhancing masses or areas of non mass enhancement. No axillary or internal mammary adenopathy. RIGHT BREAST: No suspicious enhancing masses or areas of non mass enhancement. No axillary or internal mammary adenopathy. Limited views of the chest and abdomen are unremarkable. MR/MR breast BI wo/w con IMPRESSION: Right: Negative. Left: Biopsy-proven left breast malignancy with decrease in size compared with prior MRI August 26, 2024. Recommend follow-up with oncology and breast surgery for excision and further management of known biopsy-proven left breast invasive ductal carcinoma. ASSESSMENT: LEFT BREAST: BI-RADS 6 known biopsy-proven malignancy. Recommend follow-up with oncology and breast surgery for excision and further management of known biopsy-proven left breast invasive ductal carcinoma. RIGHT BREAST: BI-RADS 1-Negative RECOMMENDATIONS: Follow-up with oncology and breast surgical team for excision and further management of known left breast invasive ductal carcinoma. Electronically signed by: Priscilla Chacon DO 02/02/2025 04:52 PM EDT Dictated By: Priscilla Chacon DO Signed By: <Electronically signed by Priscilla Chacon DO in OV> 02/02/25 1652 DD/ 1030 TD/TT: 02/01/25 1105 Medical Transcription Radiology: [facility] External Provider IMG MRI PROCEDURES Final Result * BI US Breast Limited Left (01/06/2025 2:20 PM EDT) Anatomical Region Laterality Modality Breast Left Ultrasound 01/06/2025 2:20 PM EDT Narrative 01/06/2025 3:08 PM EDT [facility] [address] 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 Patient has left breast pain across the central breast and had a treatment today.. COMPARISON: Comparison is made with relevant prior imaging. TECHNIQUE: Ultrasound of the breast is performed with real-time milton scale imaging and color Doppler. FINDINGS: Targeted color Doppler ultrasound scanning in the left breast from 7-10 o'clock in 2-5 o'clock demonstrates normal follicular breast tissue. The marker clip is seen in the left breast at 10:00 8 cm from the nipple with no surrounding mass only normal fibroglandular breast tissue. Results are discussed with the patient at time of visit. US/US breast LT limited mamm only IMPRESSION: No sonographic abnormal finding to account for the patient's left breast pain. Recommend clinical evaluation and follow-up. 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 No adjacent surrounding mass is seen. ASSESSMENT: BI-RADS 6: Known Biopsy-Proven Malignancy RECOMMENDATION: Recommend follow-up for known left breast cancer with oncology and breast surgery. Electronically signed by: Priscilla Chacon DO 01/06/2025 03:05 PM EDT Dictated By: Priscilla Chacon DO Signed By: <Electronically signed by Priscilla Chacon DO in OV> 01/06/25 1505 DD/ 1420 TD/TT: 01/06/25 1440 Medical Transcription Radiology: Procedure Note Donotuseinterpreter, Image - [facility] [address] 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 Patient has left breast pain across the central breast and had a treatment today.. COMPARISON: Comparison is made with relevant prior imaging. TECHNIQUE: Ultrasound of the breast is performed with real-time milton scale imaging and color Doppler. FINDINGS: Targeted color Doppler ultrasound scanning in the left breast from 7-10 o'clock in 2-5 o'clock demonstrates normal follicular breast tissue. The marker clip is seen in the left breast at 10:00 8 cm from the nipple with no surrounding mass only normal fibroglandular breast tissue. Results are discussed with the patient at time of visit. US/US breast LT limited mamm only IMPRESSION: No sonographic abnormal finding to account for the patient's left breast pain. Recommend clinical evaluation and follow-up. 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 No adjacent surrounding mass is seen. ASSESSMENT: BI-RADS 6: Known Biopsy-Proven Malignancy RECOMMENDATION: Recommend follow-up for known left breast cancer with oncology and breast surgery. Electronically signed by: Priscilla Chacon DO 01/06/2025 03:05 PM EDT Dictated By: Priscilla Chacon DO Signed By: <Electronically signed by Priscilla Chaocn DO in OV> 01/06/25 1505 DD/ 1420 TD/TT: 01/06/25 1440 Medical Transcription Radiology: [facility] External Provider IMG US PROCEDURES Final Result * Hepatitis C Antibody with Reflex to HCV, RNA, Quantitative, Real-Time PCR (08/23/2023 12:46 PM EST) Hepatitis C Antibody Nonreactive Nonreactive [facility] Comment:Antibodies to HCV no t detected; does not exclude early acuteHCV infection. Blood Venous blood specimen / Unknown 08/23/2023 12:46 PM EST 08/23/2023 1:14 PM EST [facility] LAB BLOOD ORDERABLES Final Resu lt Performing Organization Address City/[facility]/ZIP Co de Phone Number [facility] [address] [place] [phone] [phone] * HIV-1/2 Antigen and Antibodies, Fourth Generation, with Reflexes (08/23/2023 12:46 PM EST) [facility] HIV AB/AG Nonreactive Nonreactive [facility] Comment:HIV-1 p24 Ag and/or HIV-1/HIV-2 Ab not detected.A test result that is nonreactive does not exclude thepossibility of exposure to or infection with HIV-1 and/orHIV-2. Nonreactive results in this assay for individualswith prior exposure to HIV-1 and/or HIV-2 may be due toantigen and antibody levels that are below the limit ofdetection of this assay.The [employer] HIV Ag/Ab Combo assay result andsupplemental assay results should be interpreted inconjunction with the patient's clinical presentation,history and other laboratory results. If the results areinconsistent with clinical evidence, additional testing issuggested to confirm the result. Blood Venous blood specimen / Unknown 08/23/2023 12:46 PM EST 08/23/2023 1:14 PM EST [facility] BLOOD ORDERABLES Final Resu lt Performing Organization Address City/[facility]/ZIP Co de Phone Number [facility] [address] [place] [phone] * Pap Smear (03/21/2023 10:00 AM EDT) 03/21/2023 10:0 0 AM EDT 03/22/2023 11:15 AM EDT Narrative [facility] - 04/07/2023 5:21 PM EDT ----- ------- Name: Regina Veliz I Age/Sex: 28/F : 1995 Unit#: [id number] Attend Dr: KIM PICKENS [facility] Re03/21/23 Status: DEP [facility] ----- ------- SPEC : [id number] RECD: 03/22/23-1115 STATUS: FREDRICK SILVA NUM: [id number] FLAQUITO: 03/21/23-[address]: KIM PICKENS [facility] ENTERED: 03/22/23-1156 SP TYPE: Pap Smr HAYLEE DR: ORDERED: Pap Smear Interpretation Satisfactory for evaluation. Negative for intraepithelial lesion or malignancy. Clinical Information LMP: Unknown date Previous PAP test: WN Material Received ThinPrep-Vaginal/Cervical ----- ------- Signed (signature on file) Mary Trevizo 04/07/23 7244 ----- ------- END OF REPORT Kim Pickens [facility] CYTOLOGY ORDERABLES F inal Result [facility] [address] [place] [address] [phone] from Last 3 Months or Most Recently Relevant to Health Maintenance Insurance [facility] < [address] [place] [id number] Care Teams Heavy Mobile Equipment Operator Relationship Specialty Start Date End Date Jennifer Nash NP [address] [place] [address] PCP - General Family Medicine 06/25/23
--- OUTSIDE RECORDS SUMMARY | 2025-03-25 11:40 | XMS_ITS | Encounter Summary ---
Author Organization [employer] Address [address] [facility] 7[address] [place] [address] Care Team Providers Care Game Agent Name Role Phone Jennifer Nash ALFREDO Primary Care Provider [phone] Encounter Details Date Type Department Care Team ([facility] Contact Info) Description 03/23/2025 Orders Only GENERIC EXTERNAL DATA [...] QL, URINE Routine 03/23/2025 12:00 AM EDT documented in this encounter Results * NM SENTINEL NODE W IMAGING (03/23/2025 9:05 AM EDT) Anatomical Region Laterality Modality Nuclear Medicine 03/23/2025 9:05 AM EDT Narrative 03/23/2025 11:30 AM EDT [place] [address] Nuclear Medicine Report Signed Patient: Regina Veliz I MR#: [id number] [id number] : 1995 Acct:[id number] Age/Sex: 30 / F ADM Date: 03/23/25 Loc: HO.SSS Attending Dr: Fish Cash MD Ordering Physician: Fish Cash MD Date of Service: 03/23/25 Procedure(s): NM sentinel node w imaging Accession Number(s): [id number] cc: Jennifer Nash; Fish Cash MD Reason [...] Bradford MD in OV> 03/23/25 1127 DD/ 4 TD/TT: 03/23/25 1015 Bar Useful Or Busser: [facility] Procedure Note Donotuseinterpreter, Image - 03/23/[address] [address] Nuclear Medicine Report Signed Patient: Regina Veliz IMR#: [id number] : 1995Acct:[id number] Age/Sex: 30 / FADM Date: 03/23/25 Loc: [facility] Attending Dr: Fish Cash MD Ordering Physician: Fish Cash MD Date of Service: 03/23/25 Procedure(s): NM sentinel node w imaging Accession Number(s): [id number] cc: Jennifer Nash; Fish Cash MD Reason [...] 03/23/25 1127 DD/ 0905 TD/TT: 03/23/25 1015 Bar Useful Or Busser: VIKTORIA [facility] External Provider IMG NM PROCEDURES Edited Result - Final * Type and screen (03/23/2025 7:13 AM EDT) Blood Type AP [facility] Antibody Screen NEGATIVE [facility] 03/23/2025 7:13 AM EDT 03/23/2025 7:30 AM EDT Generic External Data Provider LAB BLOOD BANK TE ST ORDERABLES Final Result Performing Organization Address [facility] Co de Phone Number [facility] [address] [place] [phone] * HCG, Qualitative, Urine (03/23/2025 12:00 AM EDT) Urine NEGATIVE NEGATIVE [facility] Comment:This test was develo ped to detect early . Falsenegative results may occur after the 5th - 7th week ofpregnancy when using this test method. If clinicallyindicated, consider a serum hCG. 03/23/2025 03/23/2025 Generic External Data Provider LAB URINE ORDERAB LES Final Result Performing Organization Address City/[facility]/ZIP Co de Phone Number [facility] [address] [place] [phone] documented in this encounter Visit Diagnoses Not on filedocumented in this encounter Additional Health Concerns Assessment Noted Time PHQ-9 Depression Total Score: 21 10/09/ 025 10:17 AM EDT documented as of this encounter Care Teams Game Agent Relationship Specialty Start Date End Date Jennifer Nash NP [address] [place] [address] PCP - General Family Medicine 06/25/23 documented as of this encounter
== END 2025-03-25 10:25 | disposition home or self-care (01) ==
LOC: HO.HGS 09:51
PROVIDERS: PCP Nurse Practitioner; Visit Provider Surgery
DX: C50.919 Malignant neoplasm of unspecified site of unspecified female breast (principal)
CPT/HCPCS: 99024

== ENCOUNTER → 2025-03-25 09:51 | Outpatient (BNVA) | payer OTHER, SELFPAY | PROVIDERS: PCP Nurse Practitioner; Visit Provider Surgery | DX: C50.912 Malignant neoplasm of unspecified site of left female breast (principal); Z90.12 Acquired absence of left breast and nipple | CPT/HCPCS: 99212 ==

== ENCOUNTER 2025-04-01 09:13 | Outpatient (AMB) | payer OTHER, SELFPAY ==
--- NOTE | 2025-04-01 09:16 | MHC.OFFVIS ---
Vital Signs 04/01/25 09:20 Weight 159 lb BP 118/72 Blood Pressure Location Rt brachial Position Sitting Pulse 88 Intake Visit Reasons: S/P LT breast mastectomy w/SN bx Intake Note: Patient here s/p left breast mastectomy w/SN bx. Patient c/o: states HAILEE drain becoming bothersome. Taking Ibuprofen as needed. MERRY: 03-25-2025 Health Plan Specialist Required: No Accompanied by: spouse Anderson Allergies black pepper Allergy (Verified 04/01/25 09:20) Angioedema HPI HPI S/P LT breast mastectomy w/SN bx: Details: She underwent mastectomy with sentinel node biopsy after neoadjuvant chemotherapy of the left breast for invasive ductal cancer last 03/23/2025. She is doing well overall. She says that there is very minimal output from her HAILEE drain. She describes appropriate pain She denies any fever or chills. [facility] Medical History Invasive ductal carcinoma of breast Left breast cancer with T3 tumor, >5 cm in greatest dimension Left breast mass Surgical History History of tubal ligation H/O section Family History Other Cancer Social History Household Members: Children Housing: House Are you a primary healthcare associate to a significant other at home: No Do you presently have visiting nurse or other home services: No Alcohol intake: never Patient Tobacco Use Status: Never used Tobacco Advance Directives Date on File: 08/12/24 service: No Current occupational status: other Gender identity: Female Female Reproductive History Menstrual Age of Menarche: 10 Review of Systems Const Denies chills and Denies fever(s) Card Denies chest pain and Denies dyspnea Resp Denies dyspnea Physical Exam Vital Signs: Last Vital Signs Pulse 88 04/01/25 09:20 BP 118/72 04/01/25 09:20 Const General: comfortable and no acute distress Chest Other: Mastectomy site on the left is well healed, flaps viable without any flap necrosis, HAILEE drain with very scanty output; no seroma Assessment & Plan Assessment & Plan (1) Invasive ductal carcinoma of breast: Code(s): C50.919 - Malignant neoplasm of unspecified site of unspecified female breast Category: Medical Plan: Status post mastectomy and sentinel node biopsy. Her final path report shows invasive ductal carcinoma with DCIS,ypT1N1(micromet). Her incision is well healed. I removed her HAILEE drain I will see her again in the office in about 2 weeks for another wound check I we will arrange for her to be seen by Dr. Moses for a follow-up. She may benefit from adjuvant chemotherapy. Coding Level of Care Code Global (11692) Diagnoses Invasive ductal carcinoma of breast C50.919
[2025-04-01 09:20] VITALS: BP 118/72; PULSE 88
--- OUTSIDE RECORDS SUMMARY | 2025-04-01 10:42 | XMS_ITS | Clinical Summary ---
Author Organization [employer] Address [address] [place] [address] 7t [place] [address] Care Team Providers Care Bath Design Sales Consultant Name Role Phone Bebetogilbert Jennifer FUENTES Primary Care Provider [phone] Allergies No known active allergies Medications * [...] 4 Active Blood Glucose Monitoring Suppl (FreeStyle [place] Lite) w/Device kitIndications: Hypoglycemia Use to test [...] advised -will call or send message in Netlog with results -follow-up 3 months via televisit [...] Generic External Data 03/17/2025 Travel 03/16/2025 Telephone [facility] [address] [place] [address] [phone] Jennifer Nash NP Durable Medical Equipment 01/06/2025 Orders Only [facility] External Provider, [facility] from Last 3 Months Immunizations Immunization Administration [...] MMRV 02/12/2014 Meningococcal MCV4P ACYW-135 05/28/2006 Novel Ffgbaxmwh-T9Z4-66, all formulations 06/15/2009 Tdap 10/06/2021, 8,05/28/2006,05/28 Social [...] AM EDT Narrative 03/23/2025 11:30 AM EDT [place] [address] Nuclear Medicine Report Signed Patient: Regina Veliz I MR#: [id number] [id number] : 1995 Acct:[id number] Age/Sex: 30 / F ADM Date: 03/23/25 Loc: [facility] Attending Dr: Fish Cash MD Ordering Physician: Fish Cash MD Date of Service: 03/23/25 Procedure(s): NM sentinel node w imaging Accession Number(s): [id number] cc: Jennifer Nash; Fish Cash MD Reason [...] 03/23/25 1127 DD/ 0905 TD/TT: 03/23/25 1015 Donor Recruitment Manager: [facility] Procedure Note Donotuseinterpreter, Image - 03/23/2025 [place] [address] Nuclear Medicine Report Signed Patient: Regina Veliz IMR#: [id number] [id number] : 1995Acct:[id number] Age/Sex: 30 FADM Date: 03/23/25 Loc: .[facility] Attending Dr: Fish Cash MD Ordering Physician: Fish Cash MD Date of Service: 03/23/25 Procedure(s): NM sentinel node w imaging Accession Number(s): [id number] cc: Jennifer Nash; Fish Cash MD Reason [...] 03/23/25 1127 DD/ 0905 TD/TT: 03/23/25 1015 Donor Recruitment Manager: VIKTORIA [facility] External Provider IMG NM PROCEDURES Edited Result - Final * Type and screen (03/23/2025 7:13 AM EDT) Blood Type AP [facility] Antibody Screen NEGATIVE [facility] 03/23/2025 7:13 AM EDT 03/23/2025 7:30 AM EDT Generic External Data Provider LAB BLOOD BANK TE ST ORDERABLES Final Result Performing Organization Address [facility] Co de Phone Number [facility] [address] [place] [phone] * HCG, Qualitative, Urine (03/23/2025 12:00 AM EDT) Urine NEGATIVE NEGATIVE [facility] Comment:This test was develo ped to detect early . Falsenegative results may occur after the 5th - 7th week ofpregnancy when using this test method. If clinicallyindicated, consider a serum hCG. 03/23/2025 03/23/2025 Generic External Data Provider LAB URINE ORDERAB LES Final Result Performing Organization Address [facility] Co de Phone Number [facility] [address] [place] [phone] * BI MR Breast w and w/o Contrast Bilateral (02/01/2025 10:30 AM EDT) Anatomical Region Laterality Modality Breast Bilateral Magnetic Resonan ce 02/01/2025 10:3 0 AM EDT Narrative 02/02/2025 4:55 PM EDT [address] [address] Magnetic Resonance Report Signed Patient: Regina Veliz I MR#: [id number] 059 : 1995 Acct:[id number] Age/Sex: 30 / F ADM Date: 02/01/25 Loc: HO.MRI Attending Dr: Quique Moses MD Ordering Physician: Quique Moses MD Date of Service: 02/01/25 Procedure(s): MR breast BI wo/w con Accession Number(s): [id number] cc: Jennifer Nash; Quique Moses MD EXAMINATION: [...] 02/02/25 1652 DD/ 1030 TD/TT: 02/01/25 1105 Donor Recruitment Manager: Procedure Note Donotuseinterpreter, Image - 02/02/[address] [address] Magnetic Resonance Report Signed Patient: Regina Veliz IMR#: [id number] : 1995Acct:[id number] Age/Sex: 30 / FADM Date: 02/01/25 Loc: .MRI Attending Dr: Quique Moses MD Ordering Physician: Quique Moses MD Date of Service: 02/01/25 Procedure(s): MR breast BI wo/w con Accession Number(s): [id number] cc: Jennifer Nash; Quique Moses MD EXAMINATION: [...] 02/02/25 1652 DD/ 1030 TD/TT: 02/01/25 1105 Donor Recruitment Manager: [facility] External Provider IMG MRI PROCEDURES Final Result * BI US Breast Limited Left (01/06/2025 2:20 PM EDT) Anatomical Region Laterality Modality Breast Left Ultrasound 01/06/2025 2:20 PM EDT Narrative 01/06/2025 3:08 PM EDT [facility] [address] [place], [place] [address] Ultrasound Report Signed Patient: Regina Veliz I MR#: [id number] 059 : 1995 Acct:[id number] Age/Sex: 29 / F ADM Date: 01/06/25 Loc: HO.MAMMO Attending Dr: Quique Moses MD Ordering Physician: Kayley Caldwell NP Date of Service: 01/06/25 Procedure(s): US breast LT limited mamm only Accession Number(s): [id number] cc: Jennifer Nash; Quique Moses MD; Kayley [...] 01/06/25 1505 DD/ 1420 TD/TT: 01/06/25 1440 Donor Recruitment Manager: Procedure Note Donotuseinterpreter, Image - 01/06/2025 [facility] [address] [place] [address] Ultrasound Report Signed Patient: Regina Veliz [facility]#: [id number] 059 : 1995Acct:[id number] Age/Sex: 29 / FADM Date: 01/06/25 Loc: HO.MAMMO Attending Dr: Quique Moses MD Ordering Physician: Kayley Caldwell NP Date of Service: 01/06/25 Procedure(s): US breast LT limited mamm only Accession Number(s): [id number] cc: Jennifer Nash; Quique Moses MD; Kayley [...] 01/06/25 1505 DD/ 1420 TD/TT: 01/06/25 1440 Donor Recruitment Manager: [facility] External Provider IMG US PROCEDURES Final Result * Hepatitis C Antibody with Reflex to HCV, RNA, Quantitative, Real-Time PCR (08/23/2023 12:46 PM EST) Hepatitis C Antibody Nonreactive Nonreactive [facility] Comment:Antibodies to HCV no t detected; does not exclude early acuteHCV infection. Blood Venous blood specimen / Unknown 08/23/2023 12:46 PM EST 08/23/2023 1:14 PM EST [facility] LAB BLOOD ORDERABLES Final Resu lt Performing Organization Address City/[facility]/ZIP Co de Phone Number [facility] [address] [place] [phone] [phone] * HIV-1/2 Antigen and Antibodies, Fourth Generation, with Reflexes (08/23/2023 12:46 PM EST) [facility] HIV AB/AG Nonreactive Nonreactive [facility] Comment:HIV-1 p24 Ag and/or HIV-1/HIV-2 Ab not detected.A test result that is nonreactive does not exclude thepossibility of exposure to or infection with HIV-1 and/orHIV-2. Nonreactive results in this assay for individualswith prior exposure to HIV-1 and/or HIV-2 may be due toantigen and antibody levels that are below the limit ofdetection of this assay.[employer] HIV Ag/Ab Combo assay result andsupplemental assay results should be interpreted inconjunction with the patient's clinical presentation,history and other laboratory results. If the results areinconsistent with clinical evidence, additional testing issuggested to confirm the result. Blood Venous blood specimen / Unknown 08/23/2023 12:46 PM EST 08/23/2023 1:14 PM EST [facility] LAB BLOOD ORDERABLES Final Resu lt Performing Organization Address City/[facility]/ZIP Co de Phone Number [facility] [address] [place] [phone] [phone] * Pap Smear (03/21/2023 10:00 AM EDT) 03/21/2023 10:0 0 AM EDT 03/22/2023 11:15 AM EDT Narrative [facility] - 04/07/2023 5:21 PM EDT ----- ------- Name: Regina Veliz I Age/Sex: 28/F : 1995 Unit#: [id number] Attend Dr: KIM PICKENS [facility] Re03/21/23 Status: DEP [facility]: ----- ------- SPEC : [id number] RECD: 03/22/23-1115 STATUS: FREDRICK SILVA NUM: [id number] FLAQUITO: 03/21/23-[address]: KIM PICKENS [facility] ENTERED: 03/22/23-1156 SP TYPE: Pap Smr HAYLEE DR: ORDERED: Pap Smear Interpretation Satisfactory for evaluation. Negative for intraepithelial lesion or malignancy. Clinical Information LMP: Unknown date Previous PAP test: WN Material Received ThinPrep-Vaginal/Cervical ----- ------- Signed (signature on file) Mary Trevizo 04/07/23 5433 ----- ------- END OF REPORT Kim Pickens [facility] LAB CYTOLOGY ORDERABLES F inal Result [facility] [address] [place] [address] [phone] from Last 3 Months or Most Recently Relevant to Health Maintenance Insurance [facility] < [address] [place] [id number] Care Teams Bath Design Sales Consultant Relationship Specialty Start Date End Date Jennifer Nash NP [address] [place] [address] PCP - General Family Medicine 06/25/23
--- OUTSIDE RECORDS SUMMARY | 2025-04-01 10:42 | XMS_ITS | Encounter Summary ---
Author Organization [facility] Address [address] [place] [address] Phone Care Team Providers Care Human Resources Manager Manufacturing Name Role Phone Yelitza Flowers MD Primary Care Provider [phone] Encounter Details Date Type Department Care Team (Late st Contact Info) Description 02/28/2017 Conversion Encounter [facility] [address] [place] [address] Social History Tobacco Use Types Packs/Day Years [...] on filedocumented in this encounter Care Teams Human Resources Manager Manufacturing Relationship Specialty Start Date End Date Yelitza Flowers MD [address] [place] [address] PCP - General 02/22/17 10/14/22 documented as of this encounter
--- OUTSIDE RECORDS SUMMARY | 2025-04-01 10:42 | XMS_ITS | Clinical Summary ---
Author Organization [facility] Address [address] [place] [phone] Phone Care Team Providers Care Grade Checker Name Role Phone Unavailable Primary Care Provider [...] complete this topic Procedures * Due to [place] state law, this organization might not be sharing sensitive test results. Procedure Name Priority Date/Time Associated Diagnosis Comments CHLAMYDIA AND GONORRHEA, AMPLIFIED Routine 01/05/2016 1:37 PM EDT from Last 3 Months or Most Recently Relevant to Health Maintenance Results * Due to [place] state law, this organization might not be sharing sensitive test results. * Chlamydia and Gonorrhoea, Amplified (01/05/2016 1:37 PM EDT) URINE CHLAMYDIA AMP PROBE NEGATIVE [facility] Comment: No Chlamydia Trachomatis RNA detected in this patient's sample (REFERENCE RANGE/NORMAL VALUE: NOT DETECTED) URINE GC AMP PROBE NEGATIVE [facility] Comment: No Neisseria Gonorrhoeae RNA detected in this patient's sample (REFERENCE RANGE/NORMAL VALUE: NOT DETECTED) NOTE: This test uses research/program director-mediated amplification method to detect rRNA from C.Trachomatis [...] risk of sexual abuse. Consult the [facility] if needed. Contact phone number . Therapeutic failure or success cannot be determined with the Aptima Combo2 assay since nucleic acid may persist following appropriate antimicrobial therapy. The Centers for Disease Control and Prevention (CDC) recommends confirmatory retesting using culture or a different nucleic acid amplification test when positive results occur, if indicated. Testing performed or reported by [facility], a Service of [facility], [address] [place] [address] [place] [id number] Tim Bearden MD, PhD, Spa Technician 01/05/2016 1:37 PM EDT Narrative [facility] - 01/05/2016 1:37 PM EDT URINE CHLAMYDIA GC AMP PROBE us Yelitza Flowers MD LAB MICROBIOLOGY - GENERAL ORDER FISH Final Result [facility] [address] [place] [address], from Last 3 Months or Most Recently Relevant to Health Maintenance
--- OUTSIDE RECORDS SUMMARY | 2025-04-01 10:42 | XMS_ITS | Encounter Summary ---
Author Organization [facility] Address [address] [place] [address] Phone Care Team Providers Care Refrigeration Engineering Teacher Name Role Phone Yelitza Flowers MD Primary Care Provider [phone] Encounter Details Date Type Department Care Team (Late st Contact Info) Description 07/03/2013 Documentation [facility] [address] [place] [address] Family Medicine, Physician [address] [place], [place] [phone] Social History Tobacco Use Types Packs/Day Years [...] on filedocumented in this encounter Care Teams Refrigeration Engineering Teacher Relationship Specialty Start Date End Date Yelitza Flowers MD [address] [place] [address] PCP - General 02/22/17 10/14/22 documented as of this encounter
--- OUTSIDE RECORDS SUMMARY | 2025-04-01 10:42 | XMS_ITS | Encounter Summary ---
Author Organization [facility] Address [address] [place] [address] Phone Care Team Providers Care Cellular Biologist Name Role Phone Yelitza Flowers MD Primary Care Provider [phone] Encounter Details Date Type Department Care Team (Late st Contact Info) Description 05/05/2013 Documentation [facility] Family Medicine [address] [place] [address] Family Medicine, Physician [address] [place], [place] [phone] Social History Tobacco Use Types Packs/Day Years [...] on filedocumented in this encounter Care Teams Cellular Biologist Relationship Specialty Start Date End Date Yelitza Flowers MD [address] [place] [address] PCP - General 02/22/17 10/14/22 documented as of this encounter
--- OUTSIDE RECORDS SUMMARY | 2025-04-01 10:42 | XMS_ITS | Clinical Summary ---
Author Organization [facility] Address [address] [place] [address] Care Team Providers Care Electrical Tryout Person Name Role Phone Unavailable Primary Care Provider [...] 03/04/2028 03/04/2018, 05/28/2006, 01/25/2000, Additional history exists RSV Immunization Adult Patients (1 - 1-dose 75+ series) 2070 Hepatitis B Vaccines Completed 1995, 1995, 1995 [...] RESULTING AGENCY - 07/05/2021 4:41 PM EST [id number] THINPREP PAP, IMAGED: NEGATIVE FOR SQUAMOUS INTRAEPITHELIAL [...] ASCUS. , Z12.4, PAP HX NEG. Nyasia Chichi DO LAB CYTOLOGY ORDERABLES Final Result HISTORICAL TESTING LAB RESULTING AGENCY from Last 3 Months or Most Recently Relevant to Health Maintenance
--- OUTSIDE RECORDS SUMMARY | 2025-04-01 10:42 | XMS_ITS | Encounter Summary ---
Author Organization [employer] Address [address] [facility] [address] [place] [address] Care Team Providers Care Bakery Sales Clerk Name Role Phone Jennifer Nash NP Primary Care Provider [phone] Encounter Details Date Type Department Care Team ([facility] st Contact Info) Description 08/30/2023 Orders Only [facility] [address] [place] [address] Jennifer Nash NP [address] [place] [address] Anemia, unspecified type (Primary Dx); Hypoglycemia Social [...] documented as of this encounter Care Teams Bakery Sales Clerk Relationship Specialty Start Date End Date Jennifer Nash NP [address] [place] [phone] PCP - General Family Medicine 06/25/23 documented as of this encounter
--- OUTSIDE RECORDS SUMMARY | 2025-04-01 10:42 | XMS_ITS | Encounter Summary ---
Author Organization [employer] Address [address] [facility] [address] [place] [address] Care Team Providers Care Asphalt Plant Laborer Name Role Phone Jennifer Nash NP Primary Care Provider [phone] Reason for Visit * Reason Onset Date Comments Results 08/29/2023 Encounter Details Date Type Department Care Team ([facility] st Contact Info) Description 08/29/[address] [facility]IC[facility] [address] [place] [address] Jennifer Nash NP [address] [place] [address] Results Social History Tobacco Use Types Packs/Day [...] Blood Work Date when done: 08/26/23 Facility: [facility] Labs TC from pt requesting call back regarding Results. Type of results: Blood Work Date when done: 08/24/23 Facility: [facility] documented in this encounter Plan of Treatment Not on file documented as of this encounter Visit Diagnoses Not on filedocumented in this encounter Additional Health Concerns Assessment Noted Time PHQ-9 Depression Total Score: 3 01/24/20 23 11:03 AM EDT documented as of this encounter Care Teams Asphalt Plant Laborer Relationship Specialty Start Date End Date Jennifer Nash NP [address] [place] [address] PCP - General Family Medicine 06/25/23 documented as of this encounter
== END 2025-04-01 10:00 | disposition home or self-care (01) ==
LOC: HO.HGS 09:14
PROVIDERS: PCP Nurse Practitioner; Visit Provider Surgery
DX: C50.919 Malignant neoplasm of unspecified site of unspecified female breast (principal)
CPT/HCPCS: 99024

== ENCOUNTER → 2025-04-01 09:13 | Outpatient (BNVA) | payer OTHER, SELFPAY | PROVIDERS: PCP Nurse Practitioner; Visit Provider Surgery | DX: D05.12 Intraductal carcinoma in situ of left breast (principal); Z90.12 Acquired absence of left breast and nipple | CPT/HCPCS: 99212 ==

== ENCOUNTER 2025-04-21 13:21 | Outpatient (AMB) | payer OTHER, SELFPAY ==
--- NOTE | 2025-04-21 13:30 | A.OFFVIS_ITS ---
Vital Signs 04/21/25 13:36 Height 5 ft 1 in Weight 158 lb BMI 29.9 Intake Visit Reasons: 2 week S/P LT breast mastectomy w/SN bx Intake Note: This patient presents for two week follow-up assessment status post total mastectomy left breast with sentinel node biopsy. Pt c/o; no redness or hot to the sensation. Security Systems Integrator Required: No Accompanied by: Self / Same As Patient Allergies black pepper Allergy (Verified 04/21/25 13:36) Angioedema HPI HPI 2 week S/P LT breast mastectomy w/SN bx: Details: She had undergone mastectomy and sentinel biopsy on the left last 03/23/2025. Her final path report shows invasive ductal carcinoma with DCIS,ypT1N1(micromet) She continues to do well. She denies any significant problems with the her mastectomy site. She says that this is feeling much better already. [facility] Medical History Invasive ductal carcinoma of breast Left breast cancer with T3 tumor, >5 cm in greatest dimension Left breast mass Surgical History History of total mastectomy of left breast History of tubal ligation H/O section Family History Other Cancer Social History Household Members: Children Housing: House Are you a primary care director rn to a significant other at home: No Do you presently have visiting nurse or other home services: No Alcohol intake: never Patient Tobacco Use Status: Never used Tobacco Advance Directives Date on File: 08/12/24 service: No Current occupational status: other Gender identity: Female Female Reproductive History Menstrual Age of Menarche: 10 Review of Systems Const Denies chills and Denies fever(s) Physical Exam Const General: comfortable and no acute distress Chest Other: Mastectomy site continues to heal, no evidence of cellulitis no hematoma Assessment & Plan Assessment & Plan (1) Left breast cancer with T3 tumor, >5 cm in greatest dimension: Code(s): C50.912 - Malignant neoplasm of unspecified site of left female breast Category: Medical Plan: Status post mastectomy and sentinel node biopsy. The mastectomy site continues to heal. There was no evidence of infection. She had a follow up with Dr. Moses and she will be started on LNRH analog for ovarian ablation. She will also be on tamoxifen. She is being referred to Rad Onc as well for opinion with regards to axillary radiation in view of her positive lymph node I will see her again in the office in about 2 months. Coding Level of Care Code Global (36358) Diagnoses Left breast cancer with T3 tumor, >5 cm in greatest dimension C50.912
[2025-04-21 13:36] VITALS: BMI 29.9
== END 2025-04-21 13:41 | disposition home or self-care (01) ==
LOC: HO.HGS 13:22
PROVIDERS: PCP Nurse Practitioner; Visit Provider Surgery
DX: C50.912 Malignant neoplasm of unspecified site of left female breast (principal)
CPT/HCPCS: 99024

== ENCOUNTER → 2025-04-21 13:21 | Outpatient (BNVA) | payer OTHER, SELFPAY | PROVIDERS: PCP Nurse Practitioner; Visit Provider Surgery | DX: Z98.890 Other specified postprocedural states (principal); C50.912 Malignant neoplasm of unspecified site of left female breast; Z90.12 Acquired absence of left breast and nipple | CPT/HCPCS: 99212 ==

== ENCOUNTER 2025-06-23 09:23 | Outpatient (AMB) | payer OTHER, SELFPAY ==
--- NOTE | 2025-06-23 09:25 | A.OFFVIS_ITS ---
Vital Signs 06/23/25 09:32 Height 5 ft 1 in Weight 157 lb 4 oz BMI 29.7 BP 120/60 Blood Pressure Location Rt brachial Position Sitting Pulse 82 Intake Visit Reasons: 2 mo S/P LT breast mastectomy w/SN bx Intake Note: Patient presents for 2 month follow-up status post left breast mastectomy. Pt c/o; reports no complaints, she completed treatment 06/18/2025. Clinical Radiologist Required: No Accompanied by: Self / Same As Patient Allergies black pepper Allergy (Verified 06/23/25 09:35) Angioedema HPI HPI 2 mo S/P LT breast mastectomy w/SN bx: Details: She had undergone mastectomy and sentinel biopsy on the left last 03/23/2025. Her final path report shows invasive ductal carcinoma with DCIS,ypT1N1(micromet) She continues to do well. She denies any significant problems with the her mastectomy site. She has finished adjuvant radiation to the left axilla last week. She is on hormonal treatment with Dr. Moses. She denies any complaints currently. [facility] Medical History History of left breast cancer Invasive ductal carcinoma of breast Left breast cancer with T3 tumor, >5 cm in greatest dimension Left breast mass Surgical History History of total mastectomy of left breast History of tubal ligation H/O section Family History Other Cancer Social History Household Members: Children Housing: House Are you a primary family day care worker to a significant other at home: No Do you presently have visiting nurse or other home services: No Alcohol intake: never Patient Tobacco Use Status: Never used Tobacco Advance Directives Date on File: 08/12/24 service: No Current occupational status: other Gender identity: Female Female Reproductive History Menstrual Age of Menarche: 10 Review of Systems Const Denies chills and Denies fever(s) Card Denies chest pain, Denies dyspnea and Denies dyspnea on exertion Resp Denies cough, Denies dyspnea and Denies dyspnea on exertion GI Denies hematochezia and Denies change in bowel habits Denies hematuria Musc Denies back pain and Denies limited range of motion Neuro Denies focal weakness and Denies convulsions Psych Denies depression and Denies mood swings Physical Exam Vital Signs: Last Vital Signs Pulse 82 06/23/25 09:32 BP 120/60 06/23/25 09:32 BMI result Body Mass Index 29.7 Chest Other: Mastectomy site well healed, some radiation changes of the skin on the left axilla, no palpable mass No palpable mass on the right breast Assessment & Plan Assessment & Plan (1) History of left breast cancer: Code(s): Z85.3 - Personal history of malignant neoplasm of breast Category: Medical Plan: I am going to order for a mammogram for her right breast as she is due in anuary 2025. She has completed her adjuvant radiation to the left axilla. Mastectomy site is well healed without any palpable mass. She was a reminded to continue to see Dr. Moses. She is currently on letrozole. I will see her again in the office in about 6 months. Orders: Orders MM tomosynthesis diagnostic RT Today Z85.3 - Personal history of malignant neoplasm of breast Coding Level of Care Code Est Pt Level 3 (21230) Diagnoses History of left breast cancer Z85.3
[2025-06-23 09:32] VITALS: BP 120/60; PULSE 82; BMI 29.7
== END 2025-06-23 09:45 | disposition home or self-care (01) ==
LOC: HO.HGS 09:23
PROVIDERS: PCP Nurse Practitioner; Visit Provider Surgery
DX: Z85.3 Personal history of malignant neoplasm of breast (principal)
CPT/HCPCS: 99213

== ENCOUNTER → 2025-06-23 09:23 | Outpatient (BNVA) | payer OTHER, SELFPAY | PROVIDERS: PCP Nurse Practitioner; Visit Provider Surgery | DX: Z08 Encounter for follow-up examination after completed treatment for malignant neoplasm (principal); Z85.3 Personal history of malignant neoplasm of breast; Z90.12 Acquired absence of left breast and nipple | CPT/HCPCS: 99212 ==